=== PATIENT | male | born 1950 | race Caucasian/White ===

== ENCOUNTER 2024-08-23 02:28 | Inpatient (IN) | payer MEDICARE, OTHER, SELFPAY ==
[2024-08-22 22:53] VITALS: BMI 41.7
--- NOTE | 2024-08-22 22:55 | ED.GENMED ---
History of Present Illness
General
Chief Complaint: Change in Mental Status
Source: patient and ambulance crew
Exam Limitations: none
Time Seen by Provider: 08/22/24 22:54
History of Present Illness
History of Present Illness:
See MDM
Past History
Past History
ED Past Medical History: CAD, CHF, CVA, HTN, Hypercholesterolemia, NIDDM, Hypothyroidism and Other (BPH, urinary retention, gout, headaches, morbid obesity)
ED Past Surgical History: Cardiac (Coronary stents) and Other (Eye surgery)
Social History
Tobacco: Non-smoker
Alcohol: None
Drug: None
Personal: Other
Living: detention
Employment: Retired
Family History
Family History: Unable to obtain
Phy Exam
Physical Exam
Physical Exam:
See MDM
Course
Orders/Labs/Results
Orders:
Orders
08/22/24 22:51
Electrocardiogram (*1) Urgent
Reason for Study: Bradycardia / Tachycardia
Cardiac Monitoring- Treatment ONCE
08/22/24 22:52
EKG- Treatment ONCE
08/22/24 23:03
CMP [Comprehensive Metabolic Panel] Urgent
Complete Blood Count/With Diff Urgent
08/23/24 00:00
CT Head W/o Iv Contrast Urgent
Reason For Exam: change in mental status
08/23/24 00:25
Type+Screen Urgent
PT/INR [Prothrombin Time] Urgent
PTT Urgent
Pantoprazole 80 mg/100 ml Nss [Protonix] 80 mg in 100 ml IV NOW
Pantoprazole [Protonix IV] 80 mg IV NOW STA
08/23/24 00:26
IV Insert/Care/Rem.- Treatment PRN
08/23/24 00:31
0.9% Sodium Chloride 1000 ml [Nss] 1,000 ml IV BOLUS
Abnormal Lab Results
08/22/24
23:03
RBC 2.63 L 10^6/uL
(4.70-6.10)
Hgb 8.2 L g/dL
(13.0-18.0)
Hct 25.9 L %
(39.0-52.0)
MCV 98.5 H fL
(80.0-94.0)
MCH 31.2 H pg
(27.0-31.0)
MCHC 31.7 L g/dL
(33.0-37.0)
RDW 16.0 H %
(11.5-14.5)
Absolute Lymphs (auto) 1.1 L 10^3/uL
(1.2-3.4)
Immature Gran % 0.7 H %
(0-0.5)
Lymphocytes % 17.3 L %
(20.5-51.1)
Potassium 5.5 H mmol/L
(3.5-5.1)
Carbon Dioxide 18 L mmol/L
(22-30)
BUN 116 H* mg/dl
(9-20)
Creatinine 2.0 H mg/dL
(0.7-1.3)
AST 135 H U/L
(17-59)
ALT 186 H U/L
(0-50)
Alkaline Phosphatase 143 H U/L
(38-126)
Total Protein 5.5 L g/dl
(6.3-8.2)
Albumin 3.2 L g/dl
(3.5-5.0)
08/22/24 23:03
08/22/24 23:03
Vital Signs
Initial and Last Documented VS:
Initial Vital Signs
Pulse Resp Pulse Ox
60 15 97
08/22/24 22:53 08/22/24 22:53 08/22/24 22:53
Last Documented Vital Signs
Temp Pulse Resp BP Pulse Ox
92.0 F L 60 15 100/74 97
08/22/24 23:15 08/22/24 22:53 08/22/24 22:53 08/22/24 23:00 08/22/24 22:53
MDM/Problems Addressed
Differential Diagnosis Includes:
HPI and MDM Narrative:
73-year-old male presenting by EMS for evaluation of altered mental status. Per EMS, [facility] noted that he was confused around 2 PM. They eventually called 911. They had mentioned that the patient continues to repeat himself. On arrival,
patient answering all questions appropriately. He intermittently says random words and repeats himself. However, when asked a question, he is redirectable and stops repeating himself and answer the question appropriately. EMS stated that patient
was found to be bradycardic and they gave a dose of atropine. Patient denies palpitations, shortness of breath or chest pain. He denies headaches. Patient has an indwelling Villarreal
Physical exam
General: Sitting in bed comfortably
HEENT: protecting airway. Dry mucous membranes
Neck: supple
CV: No evidence of cyanosis. Bradycardic
Resp: No accessory muscle use
Abd: Non-distended
Extremities: No deformities
Neuro: alert. No focal deficits. Answering questions appropriately. Intermittently says random words and repeats himself
Psych: Normal affect
Skin: Intact
Problems Addressed including Acute and Chronic Conditions affecting care:
1. Altered mental status
Acuity: acute
Prognosis: stable
Details: Patient has a bizarre exam. He intermittently repeats himself but is directable and answers questions appropriately. There is no focal neurodeficits. Will obtain CT head and basic blood work and EKG
2. Upper GI bleed
Acuity: acute
Prognosis: unstable
Details: Patient started on PPI bolus and drip.
3. Hypothermia
Acuity: acute
Prognosis: unstable
Details: Patient placed on Bonita hugger
Updates
12:26 AM patient found to be hypothermic. Patient found to have black stool that is Hemoccult positive. He is anemic but not far from baseline. Patient started on PPI bolus and drip
Differential Diagnosis (but not limited to): CVA, hyponatremia, bradycardia
Testing considered: Urinalysis but patient has chronic indwelling Villarrael and is likely colonized
Drug therapy (if applicable): OTC meds, please see d/c instruction regarding Rx drugs
Amount and/or Complexity of Data Reviewed
Clinical info obtained from: Patient
External data reviewed: N/A
Labs I independently reviewed (but not limited to): Anemia, elevated BUN, elevated creatinine
Radiology: The CT scan was personally and independently reviewed. In addition, official CT report reviewed.
Pulse Ox: not hypoxic
EKG independently reviewed: Junctional rhythm, normal axis, no STEMI, low voltage
Bd Special Education Teacher: Bradycardic
Critical Care: The high probability of a clinically significant, sudden or life threatening deterioration of the gastrointestinal system(s) required my full and direct attention, intervention and personal management. The aggregate critical care time
was 35 minutes. This time is in addition to time spent performing reported procedures but includes the following:
[x] Data Review and interpretation
[x] Patient assessment and monitoring of vital signs
[x] Documentation
[x] Medication orders and management
Risk of Complication:
Social Determinants of health: Good social support
Discussed with other providers: Hospitalist
Escalation of Care includes Admit/Obs: Given the hypothermia with confusion and concern for upper GI bleeding, will admit
Occasional wrong word or 'sound a like' substitutions may have occurred due to the inherent limitations of voice recognition software. Read the chart carefully and recognize, using context, where substitutions have occurred.
*Critical Care Note
Total Time (30-74mins, 75-104mins- exclusive of procedures): 35 min
ED Attending Note
-
Portions of this chart may have been created with voice recognition software.� Occasional wrong word or��sound alike� substitutions may have occurred due to the inherent limitations of voice recognition software.
Discharge Plan
Departure
Patient Disposition: Admit
Date of Disposition: 08/23/24
Time of Disposition: 00:36
Admit to: IMU
Presentation/result/management discussed w/ accepting MD/DO: Hospitalist
Discharge Problem:
UGIB (upper gastrointestinal bleed), Hypothermia, Acute dehydration
Prescriptions:
No Action
atorvastatin 40 MG tablet
60 mg PO QPM
metformin 500 MG tablet
500 mg PO BID
levothyroxine 175 MCG tablet
175 mcg PO DAILY
acetaminophen 325 MG tablet
650 mg PO Q6HPRN PRN (Reason: fever)
sennosides-docusate sodium 1 TABLET tablet
1 tab PO Q12
dextrose [Glucose Gel] 15 GM gel
15 gm PO PRN PRN (Reason: hypoglycemia)
miconazole nitrate [Miconazorb AF] 1 APPLIC powder
1 applic topical BID
Patient Comments:
Apply to ABD, FOLDS/Groin
aspirin 81 MG tablet,delayed release (DR/EC)
81 mg PO DAILY
acetaminophen 650 MG tablet extended release
650 mg PO BID
Patient Comments:
Do not exceed 1300 mg in 24 hours
magnesium hydroxide [Milk of Magnesia] 400 MG/5 ML suspension
30 ml PO DAILY PRN (Reason: if no bm on 3rd day)
tamsulosin [Flomax] 0.4 MG capsule
0.4 mg PO QPM
amlodipine 10 MG tablet
5 mg PO DAILY
bisacodyl 10 MG suppository
10 mg IN DAILYPRN PRN (Reason: if no bm aftr mom)
Enema 135 ML enema
118 ml RC DAILYPRN PRN (Reason: if no bm aftr dulcolax)
bumetanide 1 MG tablet
1 mg PO BID
allopurinol 300 MG tablet
300 mg PO DAILY
lisinopril 2.5 MG tablet
2.5 mg PO DAILY
finasteride 5 MG tablet
5 mg PO DAILY
metoprolol tartrate 25 MG tablet
25 mg PO BID
Glucagon (HCl) Emergency Kit 1 MG recon soln
1 mg IJ PRN PRN (Reason: hypoglycemia)
levofloxacin 500 mg tablet
500 mg PO DAILY 7 Days Qty: 7 0RF
lidocaine HCl 2 % Jelly
1 applic TOPICAL MONTHLY PRN (Reason: 15ml urethral anesthesia)
ferrous sulfate 325 mg (65 mg iron) Tablet
325 mg PO DAILY
calcium carbonate [Tums] 200 mg calcium (500 mg) Tablet,Chewable
400 mg PO Q8HPRN PRN (Reason: gerd)
docusate sodium [Colace] 100 mg Capsule
100 mg PO BID
potassium chloride 20 mEq Tablet Extended Release
20 meq PO DAILY
magnesium oxide 400 mg magnesium Tablet
400 mg PO DAILY
cephalexin 500 mg capsule
500 mg PO BID 7 Days Qty: 14 0RF
mupirocin 2 % ointment
1 applic topical TID Qty: 15 2RF
Rx Instructions:
Retract skin around penis,cleanse with 1/2 strength peroxide and water 3 times daily. Dry well, apply mupirocin ointment.
Referrals:
Mathew Tejeda, DO [Family Provider] -
Interventions
Interventions:
*Risk Screen - Suicide Last Done: 08/22/24 22:53
*General Assessment Last Done: 08/22/24 22:53
*Neglect/Abuse Screening Last Done: 08/22/24 22:53
ED- Fall Risk Assessment Last Done: 08/22/24 23:40
*ED COVID-19 Vaccine History Last Done: 08/22/24 22:53
ED- Pulmonary Assessment Last Done: 08/22/24 23:40
ED- Neurological Assessment Last Done: 08/22/24 23:40
ED- Cardiac Assessment Last Done: 08/22/24 23:40
Discharge Date and Time
Print Language: [place]
[2024-08-22 23:00] VITALS: BP 100/74
[2024-08-22 23:13] LABS: % Basophils 0.5 % (0-2); % Eosinophils 2.3 % (0-6); % Immature Granulocytes 0.7 % (0-0.5); % Lymphocytes 17.3 % (20.5-51.1); % Monocytes 4.9 % (1.7-9.3); % Neutrophils 74.3 % (42.2-75.2); Absolute Eosinophils 0.1 10^3/uL (0-0.7); Absolute Lymphocytes 1.1 10^3/uL (1.2-3.4); Absolute Monocytes 0.3 10^3/uL (0.1-0.6); Absolute Neutrophils 4.5 10^3/uL (1.4-6.5); Hematocrit 25.9 % (39.0-52.0); Hemoglobin 8.2 g/dL (13.0-18.0); Mean Corp Hgb Conc. 31.7 g/dL (33.0-37.0); Mean Corpuscular Hgb 31.2 pg (27.0-31.0); Mean Corpuscular Volume 98.5 fL (80.0-94.0); Nucleated Red Blood Cells % 0 % (-); Red Blood Cell Count 2.63 10^6/uL (4.70-6.10); White Blood Cell Count 6.1 10^3/uL (4.8-10.8)
[2024-08-22 23:55] LABS: ALT (SGPT) 186 U/L (0-50); AST (SGOT) 135 U/L (17-59); Albumin 3.2 g/dl (3.5-5.0); Alkaline Phosphatase 143 U/L (38-126); Blood Urea Nitrogen 116 mg/dl (9-20); Calcium 8.7 mg/dl (8.4-10.2); Carbon Dioxide 18 mmol/L (22-30); Chloride 106 mmol/L (98-107); Estimated Creatinine Clearance 36 ml/min; Glucose 97 mg/dl (70-99); Potassium 5.5 mmol/L (3.5-5.1); Sodium 135 mmol/L (135-145); Total Bilirubin 0.2 mg/dl (0.2-1.3); Total Protein 5.5 g/dl (6.3-8.2); eGFR 34.38
[2024-08-23] VITALS (28 sets, daily range): BP systolic 90–148; BP diastolic 39–137; PULSE 2–66; BMI 40.3
--- NOTE | 2024-08-23 00:15 | EDRN ---
Rolled patient to get rectal temp was 92.0F and noticed dark stool, did do a Hemoccult and it was positive, informed Dr. travis of temp and stool findings, patient then transported to CT and back in room and placed on bear hugger.
[2024-08-23] MEDS: NSS 1000 IV (00:40)
[2024-08-23] MEDS: PROTONIX IV 80 MG IV (00:41)
[2024-08-23] MEDS: PROTONIX 100 IV ×3 (00:41→20:50)
[2024-08-23 00:43] LABS: Mean Platelet Volume 12.3 fL (7.4-10.4)
[2024-08-23 00:44] LABS: Anisocytosis 1+; Normal RBC Morphology No
[2024-08-23 00:47] LABS: Platelet Count 88 10^3/uL (130-400)
[2024-08-23 00:48] LABS: Burr Cells Occasional; Ovalocytes 1+; Target Cells 1+; Tear Drop Red Blood Cells Occasional
[2024-08-23 00:50] LABS: Acanthocytes 1+; Basophilic Stippling Occasional
[2024-08-23 00:55] LABS: INR 1.42; PT 17.6 Sec (11.4-14.6)
--- NOTE | 2024-08-23 01:27 | HPS.HSE ---
Family Physician
-
Family Physician: Mathew Tejeda, DO
Chief Complaint
-
Acute mental status change
History of Present Illness
This is a 73-year-old who has extensive past medical history including chronic urinary retention status post indwelling urinary catheter, hypothyroidism, sleep apnea, CAD, CVA, [id number] diabetes, unspecified heart failure and known
bradycardia who presents to the emergency department with episode of confusion.
According to the records the patient had urinary catheter exchange 3 days ago without any incident. He was otherwise in usual state of health up until today at around 2 PM when he started having a difference in behavior. He started saying random
words. He started saying he jumbled words. He did not have any dysarthria or aphasia however. He answers questions appropriately and follows appropriate commands. Then suddenly red and randomly sees this was. No other neurological deficits were
identified at the time. He was therefore sent to the emergency department for evaluation. According to the patient whose history is not very reliable he reports ongoing diarrhea, denied black stools, denied any nausea vomiting, denied fevers or
chills. He denies having any headache. He reports some neck pain but no neck stiffness. He has no known sick contacts. He endorsed chronic indwelling catheter which is consistent with history. He denies any cough, shortness of breath or dyspnea
on exertion. He does report a history of GI bleed in the remote past and is on omeprazole.
In the ED the patient was found to have melanotic stools. Rectal examination showed dark stools that was flagrantly heme positive
He had unstable vital signs in the ED, his temp was 92, blood pressure was 90/50 with a pulse of 50. Oxygen saturation was 100% on room air. ECG showed sinus bradycardia rate of 53 which is similar to prior. No ischemic changes. Hemoglobin was
8.2, platelet counts are down to 88. White count was normal at 6.1. His electrolytes BUN/creatinine is notable for a BUN of 116 and a creatinine of 2.0, baseline creatinine was 1.5 last year. Potassium was 5.5.
Head CT shows no acute changes.
Medical History
Past Medical History
Past Medical History: Reports CAD, CVA and NIDDM
Additional Past Medical History:
Urinary retention status post indwelling urinary catheter
CKD
Iron deficiency anemia
obstructive sleep apnea
Past Surgical History: Reports Other
Social History
Alcohol: None
Drug: None
Living: [facility]
Family History
Family History: Not pertinent
Allergies / Home Medications
Allergies reflects when Allergies were last updated in [employer].
Home Medications with original date entered in [employer]
Allergy/Medication List:
Allergies
Allergy/AdvReac Type Severity Reaction Status Date / Time
No Known Allergies Allergy Verified 08/22/24 23:00
Home Medications
acetaminophen 325 mg tablet 650 mg PO Q6HPRN PRN fever 08/23/20
acetaminophen 650 mg tablet,extended release 650 mg PO BID mild Pain 08/23/20
allopurinol 300 mg tablet 100 mg PO DAILY Gout 08/23/20
amlodipine 10 mg tablet 5 mg PO DAILY Blood pressure 08/23/20
aspirin 81 mg tablet,delayed release 81 mg PO DAILY Blood clot prevention/tx 08/23/20
atorvastatin 40 mg tablet 60 mg PO QPM High cholesterol 08/23/20
bisacodyl 10 mg rectal suppository 10 mg MN DAILYPRN PRN if no bm aftr mom 08/23/20
bumetanide 1 mg tablet 1 mg PO BID Fluid retention/Swelling 08/23/20
dextrose 40 % oral gel (Glucose Gel) 15 gm PO PRN PRN hypoglycemia 08/23/20
finasteride 5 mg tablet 5 mg PO DAILY Urinary issue 08/23/20
glucagon HCl 1 mg solution for injection (Glucagon (HCl) Emergency Kit) 1 mg IJ PRN PRN hypoglycemia 08/23/20
levothyroxine 175 mcg tablet 175 mcg PO DAILY Thyroid 08/23/20
lisinopril 2.5 mg tablet 2.5 mg PO DAILY Blood pressure 08/23/20
magnesium hydroxide 400 mg/5 mL oral suspension (Milk of Magnesia) 30 ml PO DAILY PRN if no bm on 3rd day 08/23/20
miconazole nitrate 2 % topical powder (Miconazorb AF) 1 applic topical BID folds/groin 08/23/20
sennosides 8.6 mg-docusate sodium 50 mg tablet 1 tab PO Q12 08/23/20
sodium phosphates 19 gram-7 gram/118 mL enema (Enema) 118 ml RC DAILYPRN PRN if no bm aftr dulcolax 08/23/20
tamsulosin 0.4 mg capsule (Flomax) 0.4 mg PO QPM Urinary issue 08/23/20
calcium carbonate (Tums) 400 mg PO Q8HPRN PRN gerd 07/04/22
docusate sodium 100 mg capsule (Colace) 100 mg PO BID 07/04/22
ferrous sulfate 325 mg (65 mg iron) tablet 325 mg PO DAILY 07/04/22
lidocaine HCl 2 % mucosal jelly 1 applic topical MONTHLY PRN 15ml urethral anesthesia 07/04/22
magnesium oxide 400 mg PO DAILY 07/04/22
potassium chloride 20 mEq tablet,extended release 20 meq PO DAILY 07/04/22
mupirocin 2 % topical ointment 1 applic topical TID #15 grams 06/15/23
apixaban 2.5 mg tablet (Eliquis) 2.5 mg PO BID 08/23/24
omeprazole 20 mg tablet,delayed release 20 mg PO DAILY 08/23/24
oxybutynin chloride 2.5 mg tablet 2.5 mg PO DAILY 08/23/24
Review of Systems
-
History Source: Patient and [facility]
Constitutional: Reports No Symptoms
EENT: Reports No Symptoms
Respiratory: Reports No Symptoms
Cardiac: Reports No Symptoms
Abdomen/GI: Reports Diarrhea
: Reports No Symptoms
Musculoskeletal: Reports No Symptoms
Skin: Reports No Symptoms
Neurological: Reports No Symptoms
Endocrine: Reports No Symptoms
Hematologic/Lymphatic: Reports No Symptoms
Psych: Reports No Symptoms
Physical Exam
Vital Signs
Vital Signs
Temp Pulse Resp BP Pulse Ox
92.0 F L 43 14 97/68 96
08/22/24 23:15 08/23/24 01:15 08/23/24 01:15 08/23/24 01:00 08/23/24 01:15
Physical Exam
General: No Apparent Distress and Morbidly Obese
HEENT: NormoCephalic, Anicteric, Moist mucous membranes, Atraumatic, PERRLA, No Ptosis and Neck Nontender
Respiratory: Clear
Cardiac: S1/S2, Bradycardia and Murmur
Breast: Deferred by me
GI: Soft, Non Tender, Non Distended and Normal Bowel Sounds
Rectal: Black and Hem Positive
Genito-urinary: Villarreal
Musculoskeletal: No Clubbing, No Cyanosis, Edema, Left Lower Extremity (trace ) and Edema, Right Lower Extremity (trace)
Skin: Dry
Neuro: AO x 3
Hematologic/Lymphatic: No Lymphadenopathy
Psych: Calm
Laboratory Results
-
08/22/24 23:03
08/22/24 23:03
Laboratory Results
PT 17.6 Sec (11.4-14.6) H 08/23/24 00:25
INR 1.42 08/23/24 00:25
APTT 48.0 Sec (23.4-35.0) H 08/23/24 00:25
Total Bilirubin 0.2 mg/dl (0.2-1.3) 08/22/24 23:03
AST 135 U/L (17-59) H 08/22/24 23:03
ALT 186 U/L (0-50) H 08/22/24 23:03
Alkaline Phosphatase 143 U/L (38-126) H 08/22/24 23:03
Data Reviewed
-
Medical Tests (Nuc Med, Echo, EKG etc): Image Personally Visualized and interpreted
Lab Data: Labs Reviewed by me
Old Records: Reviewed
Impression/Plan
-
IMPRESSION:
73-year-old male with past medical history of CAD, mbl-xushatu-eezzkdhsk diabetes, hypothyroidism, bradycardia, CKD and chronic urinary retention with indwelling Villarreal catheter presents to the emergency department with episode of mental status
change typified by normal alertness and orientation as well as answering questions appropriately but having intermittent episodes of speaking random was fluently, possible confabulation vs delusions. No known/prior episodes. Normal neurological
exam otherwise. Stable head CT. Refused chest xray. Was hypothermic to 92 and found to have melanotic stool in the ED. Hemoglobin is not far from baseline. However his BUN is markedly elevated at 116 with a creatinine of 2.0 with a baseline of
1.5. He has a low platelet count of 88 which is new compared to prior. White count is normal. Blood pressure is maintaining a MAP greater than 65 at this time.
PLAN:
1. GI bleed - Patient reports prior hx of GI bleed and on PPI. Melena, +heme and marked elevation of BUN to 116. On eliquis 2.5 bid for dvt ppx, has plt count of 88.
- admit to imu
- type and screen
- npo for now except sips and meds
- ppi iv bid
- h/h q 8
- transfuse for Hgb < 7
- holding asa, eliquis (on for dvt ppx)
- holding amlodipine and lisinopril
- GI consultated and notified
2. Hypothermia - Unexplained hypothermia, may be related to active hemorrhage versus secondary process. History of indwelling catheter with ESBL cultures in the past. Hypothyroidism
- blood cultures
- u/a pending, urine culture sent
- checking tsh and cortisol
- refused xray,
- check covid, procal in am
- give zosyn for now based on prior urine cultures and some transaminitis
- warming measures
- consider ID consult in am
3. Altered mental status - Oriented x 3, appropriate, no confusion. Intact neurological exam. Says random words, repititive and appears to have some delusions. No meningeal signs. Don't think encephalitis. Possible CVA,
- telemetry
- check ammonia level in addition to above
- no thinners due to concern for gi bleed
- keep MAP > 65
- neurology consultation
4. Transaminitis - normal bili, mild elevation in as/alt. Previously normal
- check ruq u/s
- trend lft for now
- zosyn as above
5. DM II
- not currently on treatment per records, accuchecks q6 for now
6. Bradycardia - appers to have sinus with 1s deg avb similar to a year ago.
- telemetry
- labs as above
- warming measures
- given duration unlikely due to new lyme infection
DVT PPX - SCD
Code Status - full
--- NOTE | 2024-08-23 01:45 | EDRN ---
Xray tried to do portable, patient refused this, admitting hospitalist aware, orders in for admission.
[2024-08-23 02:32] LABS: Urine Albumin Trace (Neg - Trace); Urine Bilirubin Negative (Negative); Urine Glucose Negative (Negative); Urine Ketone Negative (Negative); Urine Leukocyte 2+ (Negative); Urine Nitrite Negative (Negative); Urine Occult Blood 3+ (Negative); Urine Urobilinogen Negative (Neg - 1+)
[2024-08-23 02:34] LABS: Urine Character Cloudy (Clear); Urine Color Yellow
[2024-08-23 02:40] LABS: COVID-19 Antigen Negative (Negative)
[2024-08-23 03:08] LABS: Cortisol, Random 21.1 ug/dl; TSH Reflex To Free T4 6.51 uIU/ml (0.47-4.68)
[2024-08-23 03:09] LABS: Urine Mucus Many; Urine Squamous Cell >30 /LPF (Few)
[2024-08-23 03:10] LABS: Urine Bacteria Many (Negative); Urine White Cell >100 /HPF (0-5)
[2024-08-23 03:38] LABS: Free T4 1.68 ng/dl (0.78-2.19)
[2024-08-23] MEDS: ZOSYN 50 IV ×4 (04:31→23:15)
[2024-08-23] MEDS: SYNTHROID PO ×2 (04:32→06:03)
[2024-08-23] MEDS: LR 1000 IV ×2 (04:32→16:41)
[2024-08-23 04:52] LABS: Hematocrit 24.8 % (39.0-52.0); Hemoglobin 7.9 g/dL (13.0-18.0); Mean Corp Hgb Conc. 31.9 g/dL (33.0-37.0); Mean Corpuscular Hgb 30.5 pg (27.0-31.0); Mean Corpuscular Volume 95.8 fL (80.0-94.0); Mean Platelet Volume 12.6 fL (7.4-10.4); Platelet Count 101 10^3/uL (130-400); Red Blood Cell Count 2.59 10^6/uL (4.70-6.10); Red Cell Dist. Width 15.8 % (11.5-14.5); White Blood Cell Count 6.8 10^3/uL (4.8-10.8)
[2024-08-23 04:53] LABS: INR 1.38; PT 17.3 Sec (11.4-14.6)
--- NOTE | 2024-08-23 05:00 | PTCARENOTE ---
pt is aaox3, but forgetful and off. HR =40's. he has chronic Villarreal. cool weak pedal pulses. pt is from [facility] and is bedbound at baseline. pt temp=96.5. pt on warming blanket. pt refused portable cxr.
[2024-08-23 05:02] LABS: Lactic Acid 0.9 mmol/L (0.7-2.0)
[2024-08-23 05:02] LABS: Ammonia 11 umol/L (9-30)
[2024-08-23 05:06] LABS: Blood Urea Nitrogen 110 mg/dl (9-20); Calcium 8.6 mg/dl (8.4-10.2); Carbon Dioxide 19 mmol/L (22-30); Chloride 108 mmol/L (98-107); Estimated Creatinine Clearance 34 ml/min; Glucose 80 mg/dl (70-99); HDL Cholesterol 44 mg/dl; LDL Cholesterol, Calculated 37 mg/dl; Potassium 5.8 mmol/L (3.5-5.1); Sodium 140 mmol/L (135-145); Total Cholesterol 97 mg/dl (50-199); Triglyceride 83 mg/dl (10-149); Very Low Density Lipoprotein 16 mg/dl (0-30); eGFR 32.42
[2024-08-23 07:34] LABS: Glucose - Point of Care 76 mg/dl (70-99)
[2024-08-23] MEDS: PROSCAR 5 MG PO (08:36)
[2024-08-23] MEDS: DITROPAN 2.5 MG PO (08:37)
--- NOTE | 2024-08-23 09:28 | W.PN.HOSP.TC ---
Today's Communication/Plan
-
check ABG
trend LFts and H&H
cancel neuro consult
consider pulm or renal consult
Assessment / Plan
Assessment / Plan
pt is a 73 year old male
Altered mental status -Says random words, repetitive and appears to have some delusions. No meningeal signs. Don't think encephalitis--suspect due to infection, azotemia (elevated BUN)--ammonia WNL--head CT neg--hold on neuro consult for now, need
to correct all underlying metabolic abnormalities prior to consult neuro
anemia of chronic disease with possible acute blood loss anemia from GI bleeding - Patient reports prior hx of GI bleed and on PPI--was found to be heme positive in ED--nursing reports no bleeding here-- On eliquis 2.5 bid for dvt ppx--hold for
now--trend H&H, transfuse if HGB < 7--hold ASA with low platelet count--await GI input
Hypothermia with metabolic acidosis-- could be due to infection (has chronic craig)--cortisol checked and WNL, TSH mildly elevated at 6.5--await cultures--urine not clean catch with > 30 sq cells (although it is documented that craig changed 3 days
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
LEE/metabolic acidosis-- both BUN and creat increased, bicarb decreased--check ABG
Transaminitis - normal bili, mild elevation in as/alt. Previously normal--suspect due to infection--await abdominal US--trend--cont zosyn
type 2 DM--not currently on treatment per records, accuchecks q6 for now
Bradycardia - appers to have sinus with 1st deg AVB similar to a year ago--consider cards eval
DVT PPX - SCD
Code Status - full
Anticipated Discharge: > 48 hours
Subjective/Interval History
-
Date of Service: August 23, 2024
pt still confused--slow to respond, cannot carry conversation
Objective Data
-
Labs:
Laboratory Results
08/22/24 08/23/24 08/23/24
23:03 00:25 04:23
WBC 6.1 6.8
Hgb 8.2 L 7.9 L
Hct 25.9 L 24.8 L
Plt Count 88 L 101 L
PT 17.6 H 17.3 H
INR 1.42 1.38
APTT 48.0 H
Sodium 135 140
Potassium 5.5 H 5.8 H
Chloride 106 108 H
Carbon Dioxide 18 L 19 L
BUN 116 H* 110 H*
Creatinine 2.0 H 2.1 H
Glucose 97 80
Calcium 8.7 8.6
Total Bilirubin 0.2
AST 135 H
ALT 186 H
Alkaline Phosphatase 143 H
08/23/24
14:00
WBC
Hgb Pending
Hct Pending
Plt Count
PT
INR
APTT
Sodium
Potassium
Chloride
Carbon Dioxide
BUN
Creatinine
Glucose
Calcium
Total Bilirubin
AST
ALT
Alkaline Phosphatase
Vital Signs:
max temp for 24 hours
08/23/24
07:00
Temp 98.5 F
Vital Signs
Temp Pulse Resp BP Pulse Ox
98.5 F 45 18 103/55 97
08/23/24 08:39 08/23/24 08:30 08/23/24 08:30 08/23/24 08:00 08/23/24 08:30
I&O
08/22/24 08/23/24 08/24/24
06:59 06:59 06:59
Output Total 400 / 400
Balance -400 / -400
Review of Systems
-
Unable to obtain full review of systems at this time due to: Acuity (still confused)
Physical Exam
-
General: Well Developed, Well Nourished, No Apparent Distress and Morbidly Obese
HEENT: Normocephalic and Atraumatic; Negative Oxygen
Respiratory: Clear to Auscultation; Negative Wheezes or Rhonchi
Cardiac: Regular Rhythm, S1/S2 and Murmur
GI: Soft, Nontender, Nondistended and Normal Bowel Sounds
Musculoskeletal: No Clubbing, No Cyanosis and No Edema
Neuro: Awake and Other (confused)
Psych: Other (confused)
[2024-08-23 10:28] LABS: B.E. -5.5 mmol/L; O2 Saturation % 98.4 % (94-98); PCO2 38 mmHg (35-48); PO2 96 mmHg (83-108); pH 7.33 (7.35-7.45)
--- NOTE | 2024-08-23 10:36 | CON.GI ---
Consultation
-
Date/Time Consultation Requested: 08/23/2024 345
Date/Time Consultation Performed: 08/23/2024 930
Requesting Provider: Dr Fernandez
Performing Provider: Dr Joseph
Reason for Consultation: melena
Medical History
Chief Complaint / HPI
Chief Complaint: confusion
History of Present Illness:
Hermilo is a 73yo M rehab bedbound resident with h/o EMANUEL, CVA and DM who presents for confusion. GI consulted when he was found to have dark stools. He denies h/o GIB in past but per H&P there was a remote history. He denies nsaid use but is on
eliquis last dose 08/22 AM. He generally has some constipation and wears depends. He denies odynophagia, dysphagia, nausea/vomiting, abd pain. He does report poor appetite and 90lb wt loss in the past year. He does have chronic craig catheter.
Denies CP or SOB. He is not aware if he's ever had EGD/colon in the past
Past Medical History
Past Medical History: NIDDM and Other (CAD, CVA, CKD, ROLA, EMANUEL, urinary retention craig depending)
Past Surgical History: Other (L finger surgery)
Social History
Tobacco: Former Smoker
Alcohol: None
Drug: None
Living: Half-Way ([facility] for past 5yrs)
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
Family History
Family History: Other (Denies any GI cancer history)
Allergies / Home Medications
Allergy/AdvReac Type Severity Reaction Status Date / Time
No Known Allergies Allergy Verified 08/22/24 23:00
�Medication �Instructions �Recorded
acetaminophen 325 mg tablet 650 mg PO Q6HPRN PRN fever 08/23/20
acetaminophen 650 mg 650 mg PO BID mild Pain 08/23/20
tablet,extended release
allopurinol 300 mg tablet 100 mg PO DAILY Gout 08/23/20
amlodipine 10 mg tablet 5 mg PO DAILY Blood pressure 08/23/20
aspirin 81 mg tablet,delayed 81 mg PO DAILY Blood clot 08/23/20
release prevention/tx
atorvastatin 40 mg tablet 60 mg PO QPM High cholesterol 08/23/20
bisacodyl 10 mg rectal suppository 10 mg ID DAILYPRN PRN if no bm 08/23/20
aftr mom
bumetanide 1 mg tablet 1 mg PO BID Fluid 08/23/20
retention/Swelling
dextrose 40 % oral gel (Glucose 15 gm PO PRN PRN hypoglycemia 08/23/20
Gel)
finasteride 5 mg tablet 5 mg PO DAILY Urinary issue 08/23/20
glucagon HCl 1 mg solution for 1 mg IJ PRN PRN hypoglycemia 08/23/20
injection (Glucagon (HCl)
Emergency Kit)
levothyroxine 175 mcg tablet 175 mcg PO DAILY Thyroid 08/23/20
lisinopril 2.5 mg tablet 2.5 mg PO DAILY Blood pressure 08/23/20
magnesium hydroxide 400 mg/5 mL 30 ml PO DAILY PRN if no bm on 3rd 08/23/20
oral suspension (Milk of Magnesia) day
miconazole nitrate 2 % topical 1 applic topical BID folds/groin 08/23/20
powder (Miconazorb AF)
sennosides 8.6 mg-docusate sodium 1 tab PO Q12 08/23/20
50 mg tablet
sodium phosphates 19 gram-7 118 ml RC DAILYPRN PRN if no bm 08/23/20
gram/118 mL enema (Enema) aftr dulcolax
tamsulosin 0.4 mg capsule (Flomax) 0.4 mg PO QPM Urinary issue 08/23/20
calcium carbonate (Tums) 400 mg PO Q8HPRN PRN gerd 07/04/22
docusate sodium 100 mg capsule 100 mg PO BID 07/04/22
(Colace)
ferrous sulfate 325 mg (65 mg 325 mg PO DAILY 07/04/22
iron) tablet
lidocaine HCl 2 % mucosal jelly 1 applic topical MONTHLY PRN 15ml 07/04/22
urethral anesthesia
magnesium oxide 400 mg PO DAILY 07/04/22
potassium chloride 20 mEq 20 meq PO DAILY 07/04/22
tablet,extended release
mupirocin 2 % topical ointment 1 applic topical TID #15 grams 06/15/23
apixaban 2.5 mg tablet (Eliquis) 2.5 mg PO BID 08/23/24
omeprazole 20 mg tablet,delayed 20 mg PO DAILY 08/23/24
release
oxybutynin chloride 2.5 mg tablet 2.5 mg PO DAILY 08/23/24
Review of Systems
-
All other systems: A 12 pt ROS was Negative except as stated above in HPI
Vital Signs
Temp Pulse Resp BP Pulse Ox
98.5 F 46 11 112/47 97
08/23/24 08:39 08/23/24 09:41 08/23/24 09:41 08/23/24 09:41 08/23/24 09:41
Physical Exam
Exam
GEN: No acute distress, conversant, pleasant
HEENT: anicteric, extraocular movements intact, clear oropharynx without exudates
GI: soft, extremely obese and mildly-distended, not tender to palpation, normal active bowel sounds, no hepatosplenomegaly
EXT: warm, well perfused, 2+ edema bilaterally
NEURO: AAOx3, non-focal bedbound
Results
WBC 6.8 10^3/uL (4.8-10.8) 08/23/24 04:23
Hgb 7.9 g/dL (13.0-18.0) L 08/23/24 04:23
Hct 24.8 % (39.0-52.0) L 08/23/24 04:23
MCV 95.8 fL (80.0-94.0) H 08/23/24 04:23
Plt Count 101 10^3/uL (130-400) L 08/23/24 04:23
Absolute Neuts (auto) 4.5 10^3/uL (1.4-6.5) 08/22/24 23:03
PT 17.3 Sec (11.4-14.6) H 08/23/24 04:23
INR 1.38 08/23/24 04:23
APTT 48.0 Sec (23.4-35.0) H 08/23/24 00:25
Sodium 140 mmol/L (135-145) 08/23/24 04:23
Potassium 5.8 mmol/L (3.5-5.1) H 08/23/24 04:23
Chloride 108 mmol/L (98-107) H 08/23/24 04:23
Carbon Dioxide 19 mmol/L (22-30) L 08/23/24 04:23
BUN 110 mg/dl (9-20) H* 08/23/24 04:23
Creatinine 2.1 mg/dL (0.7-1.3) H 08/23/24 04:23
Calcium 8.6 mg/dl (8.4-10.2) 08/23/24 04:23
Total Bilirubin 0.2 mg/dl (0.2-1.3) 08/22/24 23:03
AST 135 U/L (17-59) H 08/22/24 23:03
ALT 186 U/L (0-50) H 08/22/24 23:03
Alkaline Phosphatase 143 U/L (38-126) H 08/22/24 23:03
Diagnostic Image Results:
Abd US: 1. Cholelithiasis without sonographic evidence for acute cholecystitis.
2. Small right pleural effusion.
Prior GI Procedures:
EGD/Colonoscopy: none prior to his knowledge
Assessment / Plan
-
Hermilo is a 73yo M bedbound at [facility] with h/o chronic craig, EMANUEL, CAD and CVA who presents for confusion. GI consulted for melena and h/o iron def anemia. He is on eliquis with last dose 08/22 AM
Impression
- Melena with iron def anemia
ddx includes PUD, ectasia, polyp/occult malignancy
- Confusion
- + UA
- Chronic craig with urinary retention
- CKD
- EMANUEL
- CAD
- CVA
Recommendations
- C/w protonix gtt
- Serial H/H
- Large bore IV
- C/w abx and await UC results
- Add on iron panel
- Anticipate EGD after eliquis washout anticipate Saturday 08/25 given CKD
- Will follow with you
Data Reviewed
-
Ultrasound: Report Reviewed by me
-
-
Thank you for consultation and allowing me to participate in the patient's care. Please call the styrene dehydration reactor operator GI physician during the after hours with any questions or concerns.
[2024-08-23 11:28] LABS: Hematocrit 23.7 % (39.0-52.0); Hemoglobin 7.7 g/dL (13.0-18.0)
[2024-08-23 11:55] LABS: Glucose - Point of Care 72 mg/dl (70-99)
--- NOTE | 2024-08-23 11:58 | PTOTSP ---
Speech therapy
Presentation: Patient is from [facility] so patient has a southern accent at baseline which makes it slightly difficult to differentiate a southern accent vs dyarthria. However, patient's speech appeared to be intelligible with intermittent
moments of difficulty, slow in formulation, intermittent perseverations, and word-finding (possible expressive aphasia) difficulty. Patient was able to hold a conversation but his speech impairments did appear to be difficult for patient to
communicate his thoughts freely during conversation. Patient was fully oriented but did appear to be confused.
TUBE SKIVER performed oral care on patient and he presented with a coating on his dentition prior to assessment. Patient appeared to tolerate oral care without suctioning and was able to hold, swish, and expell the thin liquid after oral care was completed.
Patient's dentition improved and was WNL.
Swallowing Function: Patient was observed with several small, single straw sips of thin liquids (clear) in which patient appeared to tolerated as he did not exhibit any overt clinical s/sx of aspiration or difficulty with manipulation. No additional
boluses were trialed due to patient's diet order and current GI workup. Patient denied any dysphagia complaints.
Per RN, patient tolerated medications whole with thin liquids.
Recommendations:
1) continuation of clear liquid diet (advance as tolerated per GI and clinical presentation)
2) aspiration precautions
3) medications as tolerated
4) consideration of further speech and language assessment
Plan: TUBE SKIVER will continue to follow; pending hospitalization.
[2024-08-23 12:19] LABS: Iron 89 ug/dl (49-181)
[2024-08-23 12:31] LABS: Folate 3.6 ng/ml (2.76-20); Vitamin B12 > 1000 pg/ml (239-931)
[2024-08-23 12:32] LABS: Percent Saturation 39 % (20-50); Total Iron Binding Capacity 226 ug/dl (261-462)
--- NOTE | 2024-08-23 12:53 | PTOTSP ---
Received order for PT and reviewed chart and old record. Pt is from [facility] wherer he has been nonambulatory for years. Pt has no acute PT needs/goals. Nursing staff could use Tiffany lift for safer transfers. PT will sign off.
--- NOTE | 2024-08-23 14:37 | PTCARENOTE ---
I spoke with patient's POALeón over the phone. León was updated per RN ability. León would like a daily update and wanted to be called. I advised the staff will do their best but he can also call us for an update and phone number was
given for nurses station. made aware.
--- NOTE | 2024-08-23 15:15 | CHAP ---
Mr. Mills was welcoming - he was confused, but has good will in his heart. 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 Dany HOLLOWAY, called during the visit and spoke with Hermilo's RN. Hermilo welcomed prayer. Emotional and spiritual support
provided, along with assurance of our on-going availability.
--- NOTE | 2024-08-23 15:16 | CM ---
Patient seen at bedside. Patient is LTC at [facility]. CM will call to leave message about prior level of functioning. CM will continue to follow for discharge planning needs.
Plan; return to [facility].
[2024-08-23] MEDS: FLOMAX 0.4 MG PO (16:42)
[2024-08-23 16:52] LABS: Glucose - Point of Care 113 mg/dl (70-99)
[2024-08-23 18:04] LABS: Hematocrit 24.2 % (39.0-52.0); Hemoglobin 7.8 g/dL (13.0-18.0)
[2024-08-23] MEDS: DESENEX/MITRAZOL/ZEASORB 1 APPLIC TOPICAL (23:14)
[2024-08-24] VITALS (12 sets, daily range): BP systolic 96–122; BP diastolic 39–71; PULSE 2–71; BMI 40.3
[2024-08-24 00:07] LABS: Glucose - Point of Care 80 mg/dl (70-99)
[2024-08-24 02:28] LABS: Hematocrit 25.4 % (39.0-52.0); Hemoglobin 8.1 g/dL (13.0-18.0)
--- NOTE | 2024-08-24 02:39 | PTCARENOTE ---
Addendum entered by Nedra Morrison RN 08/24/24 03:29:
Pt removed BiPAP. Currently 95% on room air.
Original Note:
Received report from mane ALVA. Pt AAOx3, confused at times. Pt appears anxious, explained everything I was doing to ease him. Pt NS with BBB first degree and prolonged QT on tele. Pt wearing BiPAP HS, and is tolerating. IV abx cont. IV protonix
gtt and IV fluids. Sacral foam changed and dressing is clean dry and intact. Partial cloth bath. Pt brushed teeth with assistance. MASD noted to left underarms, Desenex ordered and applied. Pt educated on how to use call evangelista and is receptive. Pt
appears to be resting comfortably in bed, and being turned and repositioned Q2 hours. Call evangelista is within reach.
[2024-08-24] MEDS: ZOSYN 50 IV ×4 (04:15→23:16)
[2024-08-24] MEDS: SYNTHROID 175 MCG PO (06:04)
[2024-08-24 06:49] LABS: Hematocrit 24.9 % (39.0-52.0); Hemoglobin 8.3 g/dL (13.0-18.0); Mean Corp Hgb Conc. 33.3 g/dL (33.0-37.0); Mean Corpuscular Hgb 31.6 pg (27.0-31.0); Mean Corpuscular Volume 94.7 fL (80.0-94.0); Mean Platelet Volume 12.9 fL (7.4-10.4); Platelet Count 112 10^3/uL (130-400); Red Blood Cell Count 2.63 10^6/uL (4.70-6.10); Red Cell Dist. Width 15.4 % (11.5-14.5); White Blood Cell Count 6.5 10^3/uL (4.8-10.8)
[2024-08-24] MEDS: LR 1000 IV ×2 (06:51→19:50)
[2024-08-24] MEDS: PROTONIX 100 IV ×2 (06:53→16:29)
[2024-08-24 07:14] LABS: ALT (SGPT) 129 U/L (0-50); AST (SGOT) 66 U/L (17-59); Alkaline Phosphatase 127 U/L (38-126); Blood Urea Nitrogen 98 mg/dl (9-20); Calcium 8.7 mg/dl (8.4-10.2); Carbon Dioxide 21 mmol/L (22-30); Chloride 110 mmol/L (98-107); Estimated Creatinine Clearance 34 ml/min; Glucose 73 mg/dl (70-99); Potassium 5.3 mmol/L (3.5-5.1); Sodium 142 mmol/L (135-145); Total Bilirubin 0.4 mg/dl (0.2-1.3); Total Protein 5.5 g/dl (6.3-8.2); eGFR 32.42
--- NOTE | 2024-08-24 09:26 | W.PN.HOSP.TC ---
Today's Communication/Plan
-
Continue current management
To consider nephro consult if labs do not improve
Assessment / Plan
Assessment / Plan
73-year-old who has extensive past medical history including chronic urinary retention status post indwelling urinary catheter, hypothyroidism, sleep apnea, CAD, CVA, [id number] diabetes, unspecified heart failure and known bradycardia
who presents to the emergency department with episode of confusion.
#Altered mental status -Says random words, repetitive and appears to have some delusions. No meningeal signs.
-Don't think encephalitis;suspect due to infection, azotemia (elevated BUN)
-ammonia WNL
-head CT neg
-hold on neuro consult for now, need to correct all underlying metabolic abnormalities prior to consult neuro
-continue current antibiotic; urine culture positive for Pseudomonas
#Anemia of chronic disease with possible acute blood loss anemia from GI bleeding
-Patient with prior hx of GI bleed and on PPI
-was found to be heme positive in ED
-nursing reports no bleeding here
-On eliquis 2.5 bid for dvt ppx--hold for now
-trend H&H, transfuse if HGB < 7
-hold ASA with low platelet count
-Appreciate GI input;Anticipate EGD after eliquis washout anticipate Saturday 08/25 given CKD
#Hypothermia with metabolic acidosis
-could be due to infection (has chronic craig)
-cortisol checked and WNL, TSH mildly elevated at 6.5
-BC: NGTD
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
-Urine culture positive for Pseudomonas aeruginosa-cont zosyn
-covid neg, did not check flu
-procalcitonin negative
#LEE/metabolic acidosis
-both BUN and creat increased, bicarb decreased
-Monitor for 24 hours; consider nephro consult
#Transaminitis
- normal bili, mild elevation in as/alt. : improved since 08/22
- US: Cholelithiasis without sonographic evidence for acute cholecystitis.
#Type 2 DM--not currently on treatment per records, accuchecks q6 for now
#Bradycardia
-appers to have sinus with 1st deg AVB similar to a year ago
-consider cards eval
# neck pain
- order prn tylenol
DVT PPX - SCD
Code Status - full
Anticipated Discharge: 24 - 48 hours
Subjective/Interval History
-
Date of Service: August 24, 2024
Interval events: No new complaints
Objective Data
-
Labs:
Laboratory Results
08/24/24 08/24/24
02:20 06:18
WBC 6.5
Hgb 8.1 L 8.3 L
Hct 25.4 L 24.9 L
Plt Count 112 L
Sodium 142
Potassium 5.3 H
Chloride 110 H
Carbon Dioxide 21 L
BUN 98 H
Creatinine 2.1 H
Glucose 73
Calcium 8.7
Total Bilirubin 0.4
AST 66 H
ALT 129 H
Alkaline Phosphatase 127 H
Vital Signs:
Vital Signs
Temp Pulse Resp BP Pulse Ox
96.3 F L 73 17 98/57 96
08/24/24 07:10 08/24/24 07:00 08/24/24 07:00 08/24/24 06:00 08/24/24 07:00
I&O
08/23/24 08/24/24 08/25/24
06:59 06:59 06:59
Intake Total 2285 / 2285
Output Total 400 / 400 2075 / 2075 200 / 200
Balance -400 / -400 210 / 210 -200 / -200
Review of Systems
-
Unable to obtain full review of systems at this time due to: Other (Altered mental status; denies any pain or discomfort)
Physical Exam
-
General: Well Developed, Well Nourished, No Apparent Distress and Morbidly Obese
HEENT: Normocephalic and Atraumatic; Negative Oxygen
Respiratory: Clear to Auscultation; Negative Wheezes or Rhonchi
Cardiac: Regular Rhythm and S1/S2
GI: Soft, Nontender, Nondistended and Normal Bowel Sounds
Musculoskeletal: No Clubbing, No Cyanosis and No Edema
Neuro: Awake and Other (confused)
Psych: Other (confused)
Data Reviewed
-
Labs: Labs Reviewed by me, Discussed with Physician and Discussed with Patient
[2024-08-24 09:30] LABS: Glucose - Point of Care 73 mg/dl (70-99)
[2024-08-24] MEDS: DITROPAN 2.5 MG PO (10:32)
[2024-08-24] MEDS: PROSCAR 5 MG PO (10:32)
[2024-08-24] MEDS: DESENEX/MITRAZOL/ZEASORB 1 APPLIC TOPICAL ×2 (10:33→21:30)
[2024-08-24 11:17] LABS: Glycohemoglobin (HgbA1c) 5.6 % (4.0-5.6)
[2024-08-24 13:42] LABS: Glucose - Point of Care 65 mg/dl (70-99)
[2024-08-24 15:03] LABS: Glucose - Point of Care 107 mg/dl (70-99)
--- NOTE | 2024-08-24 15:40 | PTCARENOTE ---
Pt hypoglycemic with result of 65 at 1325. Juice given per protocol. Sugar not rechecked until 1452 with result of 107.
--- NOTE | 2024-08-24 15:44 | PTCARENOTE ---
Pt presents as assessed. Aox3, yet confused. NSR on tele monitor. Satting mid to high 90's on RA. Villarreal draining yellow urine. IVF and Prontonix infusing as ordered. Bed alarm in place for safety. Able to make needs known, call evangelista within reach.
--- NOTE | 2024-08-24 15:56 | W.PN.GI.CBS2 ---
Today's Communication / Plan
-
NPO at [place] for EGD tomorrow
Protonix change to 40mg IV BID
Assessment / Plan
-
Hermilo is a 73yo M bedbound at [facility] with h/o chronic craig, EMANUEL, CAD and CVA who presents for confusion. GI consulted for melena and h/o iron def anemia. He is on eliquis with last dose 08/22 AM. No prior EGD/colon
Impression
- Melena with h/o iron def anemia
ddx includes PUD, ectasia, polyp/occult malignancy
- Confusion
- + UA
- Chronic craig with urinary retention
- CKD
- EMANUEL
- CAD
- CVA
Recommendations
- C/w protonix change to 40mg IV BID
- Serial H/H
- Large bore IV
- C/w abx and await UC results
- Anticipate EGD after eliquis washout anticipate Saturday 08/25 given CKD
- Will follow with you
Subjective
Subjective
Date of Service: August 24, 2024
No significant stool output today. Yesterday documented as brown green. Denies abd pain
Objective
Data Reviewed
Laboratory Data:
Laboratory Results
08/24/24 06:18
08/24/24 06:18
Laboratory Results
PT 17.3 Sec (11.4-14.6) H 08/23/24 04:23
INR 1.38 08/23/24 04:23
APTT 48.0 Sec (23.4-35.0) H 08/23/24 00:25
Magnesium 3.0 mg/dl (1.6-2.3) H 08/24/24 06:18
Total Bilirubin 0.4 mg/dl (0.2-1.3) 08/24/24 06:18
AST 66 U/L (17-59) H 08/24/24 06:18
ALT 129 U/L (0-50) H 08/24/24 06:18
Alkaline Phosphatase 127 U/L (38-126) H 08/24/24 06:18
Vital Signs and I&O:
Vital Signs
Temp Pulse Resp BP Pulse Ox
97.4 F 77 17 102/39 95
08/24/24 11:15 08/24/24 14:00 08/24/24 14:00 08/24/24 14:00 08/24/24 12:00
I&O
08/23/24 08/24/24 08/25/24
06:59 06:59 06:59
Intake Total 2285 / 2285
Output Total 400 / 400 2075 / 2075 200 / 200
Balance -400 / -400 210 / 210 -200 / -200
Physical Exam
Physical Exam
GEN: No acute distress, conversant but confused
HEENT: anicteric, extraocular movements intact, clear oropharynx without exudates
GI: soft, non-distended, not tender to palpation, normal active bowel sounds, no hepatosplenomegaly
EXT: warm, well perfused, 2+ edema bilaterally
NEURO: AAOx2, non-focal
[2024-08-24 16:43] LABS: Glucose - Point of Care 83 mg/dl (70-99)
--- NOTE | 2024-08-24 16:53 | CM ---
Patient from [facility]. Plan EGD tomorrow. Room air. Clear liquids/IVF. Receiving IV Abx. PT & OT notes; Therapy not warranted. ST for dysphagia therapy. Per nurse assessment; confused.
Spoke with Tara Adms [facility]; she confirms that the patient is bedbound at baseline using a pratibha lift for OOB. He can make his needs known. He was not receiving PT/OT. The for nurse report to the first floor [phone], fax
[phone].
Plan return to [facility] when medically ready.
[2024-08-24] MEDS: FLOMAX 0.4 MG PO (18:39)
[2024-08-24 22:03] LABS: Glucose - Point of Care 75 mg/dl (70-99)
[2024-08-25] VITALS (24 sets, daily range): BP systolic 78–147; BP diastolic 47–89; PULSE 2–71
--- NOTE | 2024-08-25 00:38 | PTCARENOTE ---
Patient AAOx3, confused at times, confused conversations. Pt NS with BBB first degree and prolonged QT on tele. Pt wearing BiPAP HS, and is tolerating currently. IV abx, and IV protonix cont. IV fluids running. Pt had a large BM. Full bed bath and
oral care. Skin assessed, left groin and left underarm has MASD, desenex applied. Tolerating QT hour turns. Pt is sleeping currently, call evangelista is within reach.
[2024-08-25] MEDS: PROTONIX 100 IV ×2 (03:32→13:12)
[2024-08-25] MEDS: ZOSYN 50 IV ×4 (03:32→21:10)
[2024-08-25] MEDS: SYNTHROID 175 MCG PO (05:40)
[2024-08-25 05:58] LABS: % Basophils 0.5 % (0-2); % Eosinophils 3.8 % (0-6); % Immature Granulocytes 0.5 % (0-0.5); % Lymphocytes 19.9 % (20.5-51.1); % Monocytes 7.7 % (1.7-9.3); % Neutrophils 67.6 % (42.2-75.2); Absolute Eosinophils 0.2 10^3/uL (0-0.7); Absolute Lymphocytes 1.2 10^3/uL (1.2-3.4); Absolute Monocytes 0.5 10^3/uL (0.1-0.6); Absolute Neutrophils 4.1 10^3/uL (1.4-6.5); Hematocrit 25.2 % (39.0-52.0); Hemoglobin 8.1 g/dL (13.0-18.0); Mean Corp Hgb Conc. 32.1 g/dL (33.0-37.0); Mean Corpuscular Hgb 30.8 pg (27.0-31.0); Mean Corpuscular Volume 95.8 fL (80.0-94.0); Mean Platelet Volume 12.2 fL (7.4-10.4); Nucleated Red Blood Cells % 0 % (-); Platelet Count 105 10^3/uL (130-400); Red Blood Cell Count 2.63 10^6/uL (4.70-6.10); Red Cell Dist. Width 15.9 % (11.5-14.5); White Blood Cell Count 6.1 10^3/uL (4.8-10.8)
[2024-08-25 06:19] LABS: ALT (SGPT) 100 U/L (0-50); AST (SGOT) 45 U/L (17-59); Albumin 2.9 g/dl (3.5-5.0); Alkaline Phosphatase 111 U/L (38-126); Blood Urea Nitrogen 87 mg/dl (9-20); Calcium 8.8 mg/dl (8.4-10.2); Carbon Dioxide 17 mmol/L (22-30); Chloride 112 mmol/L (98-107); Estimated Creatinine Clearance 40 ml/min; Glucose 72 mg/dl (70-99); Magnesium 2.9 mg/dl (1.6-2.3); Sodium 143 mmol/L (135-145); Total Bilirubin 0.4 mg/dl (0.2-1.3); Total Protein 5.5 g/dl (6.3-8.2); eGFR 39.01
[2024-08-25] MEDS: PROSCAR 5 MG PO (08:41)
[2024-08-25] MEDS: DITROPAN 2.5 MG PO (08:41)
[2024-08-25] MEDS: DESENEX/MITRAZOL/ZEASORB 1 APPLIC TOPICAL ×2 (08:43→19:38)
[2024-08-25] MEDS: LR 1000 IV (08:43)
[2024-08-25] MEDS: DEXTROSE 50% SYRINGE 12.5 GRAMS IV (08:55)
[2024-08-25 09:05] LABS: Glucose - Point of Care 40 mg/dl (70-99)
[2024-08-25 09:19] LABS: B.E. -9.5 mmol/L; O2 Saturation % 92.9 % (94-98); PCO2 46 mmHg (35-48); PO2 64 mmHg (83-108)
[2024-08-25] MEDS: D5/0.9% SODIUM CHLORIDE 1000 IV ×2 (09:28→13:12)
--- NOTE | 2024-08-25 09:29 | RR ---
A Rapid Response was called on this patient, please see Rapid Response form.
Pt Aox3, yet confused conversation. VSS. This RN left pt's room and shortly after was alerted to desat monitor alarm by another RN. Sat reading in the 50's. Entered pt room to find him limp with agonal breathing and jeter in color. RR called. Sat
reaching as low as 23% good pleth. Placed on NRB and then bagged, RT at bedside and placed on bipap. Accucheck obtained with result of 40-half amp D50 administered per protocol. Dr. Boston passing by and assisted RR team. Advised to recheck sugar
before 15 minute robert with result of 144. Dr. Son and Resident Physicians at bedside- orders placed by provider. Hypothermic on axillary temp, placed on portillo hugger. Labs sent, remains on bipap at this time. VSS.
[2024-08-25 09:41] LABS: PT 16.5 Sec (11.4-14.6)
[2024-08-25 09:42] LABS: APTT 37.3 Sec (23.4-35.0)
[2024-08-25] MEDS: SODIUM BICARBONATE 50 MEQ IV (09:43)
[2024-08-25 09:47] LABS: ALT (SGPT) 84 U/L (0-50); AST (SGOT) 40 U/L (17-59); Albumin 2.8 g/dl (3.5-5.0); Alkaline Phosphatase 108 U/L (38-126); Blood Urea Nitrogen 80 mg/dl (9-20); Calcium 8.4 mg/dl (8.4-10.2); Carbon Dioxide 17 mmol/L (22-30); Chloride 112 mmol/L (98-107); Estimated Creatinine Clearance 40 ml/min; Glucose 121 mg/dl (70-99); Potassium 4.7 mmol/L (3.5-5.1); Sodium 143 mmol/L (135-145); Total Bilirubin 0.3 mg/dl (0.2-1.3); Total Protein 5.2 g/dl (6.3-8.2); eGFR 39.01
[2024-08-25 09:49] LABS: Lactic Acid 4.4 mmol/L (0.7-2.0)
[2024-08-25 09:52] LABS: % Basophils 0.2 % (0-2); % Eosinophils 4.5 % (0-6); % Immature Granulocytes 1.1 % (0-0.5); % Lymphocytes 24.4 % (20.5-51.1); % Monocytes 6.6 % (1.7-9.3); % Neutrophils 63.2 % (42.2-75.2); Absolute Eosinophils 0.2 10^3/uL (0-0.7); Absolute Immature Granulocytes 0.1 10^3/uL (0-0.05); Absolute Lymphocytes 1.1 10^3/uL (1.2-3.4); Absolute Monocytes 0.3 10^3/uL (0.1-0.6); Hematocrit 21.2 % (39.0-52.0); Hemoglobin 6.6 g/dL (13.0-18.0); Mean Corp Hgb Conc. 31.1 g/dL (33.0-37.0); Mean Corpuscular Hgb 31.6 pg (27.0-31.0); Mean Corpuscular Volume 101.4 fL (80.0-94.0); Nucleated Red Blood Cells % 0 % (-); Red Blood Cell Count 2.09 10^6/uL (4.70-6.10); White Blood Cell Count 4.7 10^3/uL (4.8-10.8)
[2024-08-25 09:57] LABS: Troponin I 0.022 ng/ml
[2024-08-25 10:18] LABS: Mean Platelet Volume 11.5 fL (7.4-10.4); Platelet Count 77 10^3/uL (130-400)
--- NOTE | 2024-08-25 10:32 | W.PN.GI.CBS2 ---
Today's Communication / Plan
-
Hold on EGD today given rapid response
Transfuse PRBC
Cont protonix gtt
Cont abx
If stable tomorrow, can do EGD then
Assessment / Plan
-
Hermilo is a 73yo M bedbound at [facility] with h/o chronic craig, EMANUEL, CAD and CVA who presents for confusion. GI consulted for melena and h/o iron def anemia. He is on eliquis with last dose 08/22 AM. No prior EGD/colon
Impression
- Melena with h/o iron def anemia
ddx includes PUD, ectasia, polyp/occult malignancy
- Rapid response 08/25, desat, acidotic, lactic acidosis
- Confusion
- + UA
- Chronic craig with urinary retention
- CKD
- EMANUEL
- CAD
- CVA
Subjective
Subjective
Date of Service: August 25, 2024
Pt had rapid response this am with agonal breathing and desaturation. Placed on biPAP, labs show drop hgb 8.1 to 6.6, passed black stool overnight.
Objective
Data Reviewed
Laboratory Data:
Laboratory Results
08/25/24 09:20
08/25/24 09:20
Laboratory Results
PT 16.5 Sec (11.4-14.6) H 08/25/24 09:20
INR 1.30 08/25/24 09:20
APTT 37.3 Sec (23.4-35.0) H 08/25/24 09:20
Magnesium 2.9 mg/dl (1.6-2.3) H 08/25/24 05:41
Total Bilirubin 0.3 mg/dl (0.2-1.3) 08/25/24 09:20
AST 40 U/L (17-59) 08/25/24 09:20
ALT 84 U/L (0-50) H 08/25/24 09:20
Alkaline Phosphatase 108 U/L (38-126) 08/25/24 09:20
Vital Signs and I&O:
Vital Signs
Temp Pulse Resp BP Pulse Ox
96.1 F L 97 18 147/79 98
08/25/24 10:00 08/25/24 09:00 08/25/24 09:00 08/25/24 08:55 08/25/24 09:00
I&O
08/24/24 08/25/24 08/26/24
06:59 06:59 06:59
Intake Total 2285 / 2285 1025 / 1025
Output Total 2075 / 5 1425 / 1425
Balance 210 / 210 -400 / -400
Physical Exam
Physical Exam
GI: Soft, Non Distended and Non Tender
--- NOTE | 2024-08-25 10:53 | PTCARENOTE ---
VS remain stable. Request sent to lab for first unit PRBC. Pt awake and alert and attempting to talk over bipap. Updated on plan of care.
[2024-08-25 11:00] LABS: Glucose - Point of Care 104 mg/dl (70-99)
--- NOTE | 2024-08-25 11:29 | PTCARENOTE ---
Pt now hypotensive with SBP in the 80's. TT to Dr. Martinez and Dr. Son. Awaiting further orders.
[2024-08-25 11:46] LABS: B.E. -5.2 mmol/L; HCO3 19.9 mmol/L (21-28); O2 Saturation % 99.3 % (94-98); PCO2 36 mmHg (35-48); PO2 177 mmHg (83-108); pH 7.35 (7.35-7.45)
--- NOTE | 2024-08-25 12:05 | PTCARENOTE ---
Pt's BP stable at this time, MDs aware.
[2024-08-25 12:26] LABS: Glucose - Point of Care 91 mg/dl (70-99)
--- NOTE | 2024-08-25 13:20 | W.PN.HOSP.TC ---
Addendum entered and electronically signed by Kris Martinez MD, Resident 08/25/24 18:06:
Patient had the acute Hypoxic episode and a rapid response was called.
Addendum entered and electronically signed by Yenifer Son MD 08/25/24 14:15:
I saw and evaluated the patient independently. I reviewed the resident�s note and agree with findings and plan as documented by Dr. Martinez.
GENERAL: chronically ill appearing male in no apparent distress
HEENT: NC/AT on BiPAP
HEART: regular rate and rhythm, +S1, +S2
LUNGS : clear to auscultation bilaterally
ABDOM: soft, nontender, nondistended, + bowel sounds
EXT: no cyanosis, clubbing-- 2+ LE edema bilaterally
NEUROLOGIC: grunting
: craig cath (chronic)
Had rapid response today for hypoxemia and unresponsiveness--ABG, labs, EKG and blood sugar all taken--results show pt to be septic and acidotic (pH 7.20, pCO2 46, pO2 64) given 1 amp of bicarbonate, lactic acid 4.4 but appears NOT to be respiratory
in nature--cont BiPAP, repeat ABG with improvement--started D5 as blood sugar was 40 as well, hypothermic--pt is DNR/DNI and can stay in IMU--NSS bolus ordered and pressors ordered for drop in BP--Dr. Martinez spoke with pt POA and consented for blood
Altered mental status-- suspect TME from sepsis today 08/25/24--also some component of azotemia with elevated BUN was contributing over the weekend--urine culture positive for E. coli and pseudomonas aeruginosa--initial head CT neg--cont zosyn
Metabolic acidosis with lactic acidosis--found at rapid response--Received 50MEQ sodium bicarb--Trend lactic acid every 4h
Anemia of chronic disease with acute blood loss anemia from GI bleeding--nursing reports had tarry stool overnight--HGB 6.6 this AM--consented for blood as noted above--transfusing 2 units pRBCs--Eliquis still on hold--trend H&H, transfuse if HGB <
7--hold ASA with low platelet count--Appreciate GI input-- Anticipate EGD tomorrow if stable, canceled today due to rapid
Hypothermia with metabolic acidosis due to E. coli and pseudomonas aeruginosa sepsis from CAUTI---could be due to infection (has chronic craig)--cortisol checked and WNL, TSH mildly elevated at 6.5--urine not clean catch with > 30 sq cells (although
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
LEE/metabolic acidosis---both BUN and creat improved--Monitor for 24 hours; consider nephro consult
Transaminitis- normal bili, mild elevation in as/alt--improved since 08/22- US: Cholelithiasis without sonographic evidence for acute cholecystitis.
Type 2 DM--not currently on treatment per records, accuchecks q6 for now
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
neck pain- order prn tylenol
DVT PPX - SCD
Code Status - full
Total Critical Care Time 60 minutes. I was immediately available to the patient and staff. I personally examined, reviewed labs, diagnostic images/reports, interpretations, treatment plans, discussed patient care with other providers and family
or caregivers (if patient is unable to make decisions), entered orders as appropriate and documented the medical record.
Original Note:
Today's Communication/Plan
-
Continue current management, continue abx, pRBC 2 bag
egd tomorrow
Assessment / Plan
Assessment / Plan
73-year-old who has extensive past medical history including chronic urinary retention status post indwelling urinary catheter, hypothyroidism, sleep apnea, CAD, CVA, keg-ubfwhcu-kyvgmfqql diabetes, unspecified heart failure and known bradycardia
who presents to the emergency department with episode of confusion.
#Altered mental status -Says random words, repetitive and appears to have some delusions. No meningeal signs.
-Don't think encephalitis;suspect due to infection, azotemia (elevated BUN)
-ammonia WNL
-head CT neg
-hold on neuro consult for now, need to correct all underlying metabolic abnormalities prior to consult neuro
-continue current antibiotic IV Zosyn; urine culture positive for Pseudomonas
RAPIDDuring morning rounds today, rapid response was called on Mr. Mills as his oxygen saturation dropped to 50% and he was nonresponsive. He required BiPAP to maintain steady breathing. Stat EKG and ABG was drawn which showed pH of 7.2 and
HCO3 of 18, lactic acid was 4.4 his blood sugar was found to be 40, his hemoglobin was 6.6. Dextrose 12.5 g given. Sodium bicarb 50 mEq stat given. D5 with NS started. After few minutes patient was arousable. I called his POA León and
consented for blood transfusion. 2 bag of PRBC ordered. He was also found to be hypothermic: Warm blankets ordered. After an hour of rapid patient's nurse informed that his systolic blood pressure was in 80s. Given his sepsis scenario NSS bolus
and pressors ordered however before any intervention his blood pressure improved to 120/79. Order for NSS bolus canceled
# Metabolic acidosis with lactic acidosis
-Received 50MEQ sodium bicarb
-Trend lactic acid every 4h
#Anemia of chronic disease with possible acute blood loss anemia from GI bleeding
-Patient with prior hx of GI bleed and on PPI
-was found to be heme positive in ED
-nursing reports no bleeding here
-On eliquis 2.5 bid for dvt ppx--hold for now
-trend H&H, transfuse if HGB < 7
-hold ASA with low platelet count
-2 bag PRBCs today
-Appreciate GI input;Anticipate EGD tomorrow if stable
#Hypothermia with metabolic acidosis
-could be due to infection (has chronic craig)
-cortisol checked and WNL, TSH mildly elevated at 6.5
-BC: NGTD
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
-Urine culture positive for Pseudomonas aeruginosa-cont zosyn
-covid neg, did not check flu
-procalcitonin negative
-warm blankets with goal of 98 F
#LEE/metabolic acidosis
-both BUN and creat improved
-Monitor for 24 hours; consider nephro consult
#Transaminitis
- normal bili, mild elevation in as/alt. : improved since 08/22
- US: Cholelithiasis without sonographic evidence for acute cholecystitis.
#Type 2 DM--not currently on treatment per records, accuchecks q6 for now
#Bradycardia
-appers to have sinus with 1st deg AVB similar to a year ago
-consider cards eval
# neck pain
- order prn tylenol
DVT PPX - SCD
Code Status - full
Anticipated Discharge: > 48 hours
Subjective/Interval History
-
Date of Service: August 25, 2024
No new complaints in the morning
Objective Data
-
Labs:
Laboratory Results
08/25/24 08/25/24 08/25/24
05:41 09:12 09:20
WBC 6.1 4.7 L
Hgb 8.1 L 6.6 L*
Hct 25.2 L 21.2 L
Plt Count 105 L 77 L D
PT 16.5 H
INR 1.30
APTT 37.3 H
HCO3 18.0 L
Sodium 143 143
Potassium 5.0 4.7
Chloride 112 H 112 H
Carbon Dioxide 17 L 17 L
BUN 87 H 80 H
Creatinine 1.8 H 1.8 H
Glucose 72 121 H
Calcium 8.8 8.4
Total Bilirubin 0.4 0.3
AST 45 40
ALT 100 H 84 H
Alkaline Phosphatase 111 108
08/25/24
11:21
WBC
Hgb
Hct
Plt Count
PT
INR
APTT
HCO3 19.9 L
Sodium
Potassium
Chloride
Carbon Dioxide
BUN
Creatinine
Glucose
Calcium
Total Bilirubin
AST
ALT
Alkaline Phosphatase
Vital Signs:
Vital Signs
Temp Pulse Resp BP Pulse Ox
9.2 F L 64 12 89/59 98
08/25/24 13:00 08/25/24 11:19 08/25/24 11:19 08/25/24 11:19 08/25/24 09:00
I&O
08/24/24 08/25/24 08/26/24
06:59 06:59 06:59
Intake Total 2285 / 2285 1025 / 1025 0 / 0
Output Total 2075 / 2075 1425 / 1425
Balance 210 / 210 -400 / -400 0 / 0
Review of Systems
-
Unable to obtain full review of systems at this time due to: Other (Altered mental status; denies any pain or discomfort)
Physical Exam
-
General: Well Developed, Well Nourished, No Apparent Distress and Morbidly Obese
HEENT: Normocephalic and Atraumatic; Negative Oxygen
Respiratory: Clear to Auscultation; Negative Wheezes or Rhonchi
Cardiac: Regular Rhythm and S1/S2
GI: Soft, Nontender, Nondistended and Normal Bowel Sounds
Musculoskeletal: No Clubbing, No Cyanosis and No Edema
Neuro: Awake and Other (confused)
Psych: Other (confused)
Data Reviewed
-
Labs: Labs Reviewed by me, Discussed with Physician and Discussed with Patient
[2024-08-25 13:37] LABS: Lactic Acid 0.7 mmol/L (0.7-2.0)
--- NOTE | 2024-08-25 14:12 | VATNOTE ---
08/25 Provider ordered a PICC- however given patient has no medical need for one, a right 4fr sl midline was placed under sterile technique. TCL 16cm ECL0cm UAC 39cm, to be redressed tomorrow. primary RN stated site was bleeding- quick clot and
pressure dressing placed at 1310 today.
--- NOTE | 2024-08-25 14:57 | PN.CDI ---
CDI
- -
CDI:
Physician Documentation Request
Admit Date: 08/23/24 02:28
Dear Doctor Adelaida/Juan,
Please review the following and provide your response in the progress notes.
Clinical Indicators:
Pt admitted with GI bleed/ ABLA/ CAUTI
Documented per Rapid response note 08/25, ' ...desat monitor alarm by another RN. Sat reading in the 50's. Entered pt room to find him limp with agonal breathing and jeter in color. RR called. Sat reaching as low as 23% good pleth. Placed on NRB and
then bagged, RT at bedside and placed on bipap. .....'
Progress note 08/25, ' BiPAP...Had rapid response today for hypoxemia and unresponsiveness....(pH 7.20, pCO2 46, pO2 64)...cont BiPAP....'
Please clarify which of the following accurately represents the patient's respiratory status:
Acute Hypoxic Respiratory failure
Hypoxia- only
Other ( please specify)
Additional information for Respiratory Failure:
Recognized criteria for Respiratory Failure (Source: [employer] [facility] Jul 2013)
ABGs: (1 or more) Symptoms Please indicate type if known
1. p)2 <60 or RA SPO2 <91% on RA 1. Tachypnea, SOB, dyspnea Hypoxic
2. pCO2 50 and pH <7.35 2. Use of accessory muscles Hypercapnic
3. pO2 decrease of pCO2 increase by 3. Pallor or cyanosis Hypoxic and Hypercapnic
10 mmHg from baseline if known 4. Anxiety or restlessness Unable to determine
5. Unable to speak in full sentences
Supplemental O2 of > 40% (5LPM) Intubation is not required
Use of terms such as suspected, likely, concern for, or probable (associated with a specific diagnosis that is being evaluated, monitored, or treated as if it exists) are acceptable and can be coded in the inpatient setting, when documented at the
time of discharge.
Thank you,
Reta Reese RN
CDI Specialist
[place] [facility]
Please use your independent medical judgment in providing your response.
--- NOTE | 2024-08-25 17:14 | PTCARENOTE ---
Pt receiving 2nd unit of PRBCs. Remains on warming blanket at this time.
[2024-08-25 17:43] LABS: Glucose - Point of Care 75 mg/dl (70-99)
[2024-08-25] MEDS: FLOMAX PO (17:44)
[2024-08-25] MEDS: NSS (PRESERVATIVE FREE) 10 ML IV (20:49)
[2024-08-25] MEDS: PROTONIX IV 40 MG IV (20:49)
[2024-08-25 21:53] LABS: Glucose - Point of Care 85 mg/dl (70-99)
--- NOTE | 2024-08-25 22:00 | PTCARENOTE ---
Addendum entered by Sophia Diaz RN 08/25/24 22:32:
AMIE Traore updated.
Original Note:
Blood completed. No issues. Denies any pain. Placed on Bipap per RT. Blood sugar 85. SB/SR w/ PVCs on tele. Bonita johnson remains in place. BP 103/57 (73). IVF & IV Abx continue. Call evangelista within reach.
[2024-08-26] VITALS (13 sets, daily range): BP systolic 107–145; BP diastolic 59–103; PULSE 2–54; BMI 40.3
[2024-08-26] MEDS: ZOSYN 50 IV ×4 (04:32→21:39)
--- NOTE | 2024-08-26 04:51 | DOWNTIME ---
There was a [email or web address] Client Civil Rights Investigator Downtime on 08/26/2024 from 0100 to 08/26/2024 at 0350. Downtime documentation of patient's care, including medication administrations, has been reconciled in the electronic record per guidelines. Refer to the
patient's paper chart under the miscellaneous tab to see printed paper medication records and downtime forms.
--- NOTE | 2024-08-26 05:00 | PTCARENOTE ---
Bonita randgger able to be removed overnight; temp normalized. BG WNL; 0300 BG 82. Tele showing NSR. Tolerated Bipap, Sp02 WNL. placed on 2L this morning when awake. Repositioned throughout the night, heels floated. No BM. Villarreal draining clear yellow
urine. IVf continue. Call evangelista and tray table within reach.
[2024-08-26 05:41] LABS: Blood Urea Nitrogen 77 mg/dl (9-20); Calcium 8.8 mg/dl (8.4-10.2); Carbon Dioxide 19 mmol/L (22-30); Chloride 115 mmol/L (98-107); Estimated Creatinine Clearance 38 ml/min; Glucose 87 mg/dl (70-99); Potassium 4.7 mmol/L (3.5-5.1); Sodium 147 mmol/L (135-145); eGFR 36.56
[2024-08-26 05:44] LABS: Hematocrit 30.4 % (39.0-52.0); Hemoglobin 9.9 g/dL (13.0-18.0); Mean Corp Hgb Conc. 32.6 g/dL (33.0-37.0); Mean Corpuscular Hgb 30.5 pg (27.0-31.0); Mean Corpuscular Volume 93.5 fL (80.0-94.0); Mean Platelet Volume 11.3 fL (7.4-10.4); Platelet Count 118 10^3/uL (130-400); Red Blood Cell Count 3.25 10^6/uL (4.70-6.10); Red Cell Dist. Width 16.2 % (11.5-14.5); White Blood Cell Count 6.6 10^3/uL (4.8-10.8)
[2024-08-26] MEDS: SYNTHROID 175 MCG PO (06:04)
[2024-08-26 07:38] LABS: Glucose - Point of Care 82 mg/dl (70-99)
--- NOTE | 2024-08-26 07:38 | W.PN.HOSP.TC ---
Addendum entered and electronically signed by Kyle Cardoza DO 08/27/24 10:11:
CDI: Sepsis secondary to UTI with E. coli and Pseudomonas. Present on arrival. Now stable on antibiotics
Original Note:
Today's Communication/Plan
-
egd today
cont abx
Assessment / Plan
Assessment / Plan
73-year-old who has extensive past medical history including chronic urinary retention status post indwelling urinary catheter, hypothyroidism, sleep apnea, CAD, CVA, dap-ppbxkii-zemugarei diabetes, unspecified heart failure and known bradycardia
who presents to the emergency department with episode of confusion.
#Altered mental status -Says random words, repetitive and appears to have some delusions. No meningeal signs.
-Don't think encephalitis;suspect due to infection, azotemia (elevated BUN)
-ammonia WNL
-head CT neg
-hold on neuro consult for now, need to correct all underlying metabolic abnormalities prior to consult neuro
-continue current antibiotic IV Zosyn; urine culture positive for Pseudomonas & e.coli
-Patient had the acute Hypoxic episode and a rapid response was called on 08/25/24 0900
# Metabolic acidosis with lactic acidosis
-Received 50MEQ sodium bicarb
-resolved
#Anemia of chronic disease with possible acute blood loss anemia from GI bleeding
-Patient with prior hx of GI bleed and on PPI
-was found to be heme positive in ED
-nursing reports no bleeding here
-On eliquis 2.5 bid for dvt ppx--hold for now
-transfuse if HGB < 7
-hold ASA with low platelet count
-2 bag PRBCs 08/25/24 after rapid called in and hb was 6.6: current hb 9.9
-Appreciate GI input;Anticipate EGD today
#Hypothermia with metabolic acidosis
-could be due to infection (has chronic craig)
-cortisol checked and WNL, TSH mildly elevated at 6.5
-BC: NGTD
-urine not clean catch with > 30 sq cells (although it is documented that craig changed 3 days [employer])
-Urine culture positive for Pseudomonas aeruginosa-cont zosyn
-covid neg, did not check flu
-procalcitonin negative
-warm blankets with goal of 98 F
#LEE/metabolic acidosis
-both BUN and creat improved
-Monitor for 24 hours; consider nephro consult
#Transaminitis
- normal bili, mild elevation in as/alt. : improved since 08/22
- US: Cholelithiasis without sonographic evidence for acute cholecystitis.
#Type 2 DM--not currently on treatment per records, accuchecks q6 for now
#Bradycardia
-appers to have sinus with 1st deg AVB similar to a year ago
-consider cards eval
# neck pain
- resolved
DVT PPX - SCD
Code Status - full
Anticipated Discharge: > 48 hours
Subjective/Interval History
-
Date of Service: August 26, 2024
Interval events: No new complaints
Objective Data
-
Labs:
Laboratory Results
08/26/24
04:45
WBC 6.6
Hgb 9.9 L D
Hct 30.4 L
Plt Count 118 L D
Sodium 147 H
Potassium 4.7
Chloride 115 H
Carbon Dioxide 19 L
BUN 77 H
Creatinine 1.9 H
Glucose 87
Calcium 8.8
Vital Signs:
Vital Signs
Temp Pulse Resp BP Pulse Ox
98.6 F 59 10 138/65 96
08/26/24 07:35 08/26/24 06:00 08/26/24 06:00 08/26/24 06:00 08/26/24 06:06
I&O
1108/26/24 08/27/24
06:59 06:59 06:59
Intake Total 1025 / 1025 1200 / 1200
Output Total 1425 / 1425 1150 / 1150
Balance -400 / -400 50 / 50
Review of Systems
-
Unable to obtain full review of systems at this time due to: Other
History Source: Patient
All other systems: Reviewed and negative
Physical Exam
-
General: Well Developed, Well Nourished, No Apparent Distress and Morbidly Obese
HEENT: Normocephalic and Atraumatic; Negative Oxygen
Respiratory: Clear to Auscultation; Negative Wheezes or Rhonchi
Cardiac: Regular Rhythm and S1/S2
GI: Soft, Nontender, Nondistended and Normal Bowel Sounds
Musculoskeletal: No Clubbing, No Cyanosis and No Edema
Neuro: Awake and Alert
Psych: Calm
Data Reviewed
-
Labs: Labs Reviewed by me, Discussed with Physician and Discussed with Patient
[2024-08-26 08:02] LABS: Glucose - Point of Care 84 mg/dl (70-99)
[2024-08-26] MEDS: DESENEX/MITRAZOL/ZEASORB 1 APPLIC TOPICAL ×2 (09:24→20:09)
[2024-08-26] MEDS: DITROPAN 2.5 MG PO (09:25)
[2024-08-26] MEDS: PROSCAR 5 MG PO (09:26)
[2024-08-26] MEDS: NSS (PRESERVATIVE FREE) 10 ML IV ×2 (09:26→20:15)
[2024-08-26] MEDS: PROTONIX IV 40 MG IV ×2 (09:27→20:15)
--- NOTE | 2024-08-26 10:24 | W.PN.GI.CBS2 ---
Today's Communication / Plan
-
Rec'd 2 units PRBC and Hgb increased from 6.6 to 9.9. Perhaps 6.6 was spurious result
Cont rx for sepsis
Will plan EGD when medically stable for sedation, but GI bleed does not appear active at this time
Cont protonix, BID is ok.
Assessment / Plan
-
Hermilo is a 73yo M bedbound at [facility] with h/o chronic craig, EMANUEL, CAD and CVA who presents for confusion. GI consulted for melena and h/o iron def anemia. He is on eliquis with last dose 08/22 AM. No prior EGD/colon
Had rapid response 08/25.
Impression
- Melena with h/o iron def anemia
ddx includes PUD, ectasia, polyp/occult malignancy
- Rapid response 08/25, desat, acidotic, lactic acidosis
- Confusion
- + UA
- Chronic craig with urinary retention
- CKD
- EMANUEL
- CAD
- CVA
Subjective
Subjective
Date of Service: August 26, 2024
Looks better today, on O2 NC. Denies abd pain. Ate breakfast. Had black BM yesterday, none overnight
Objective
Data Reviewed
Laboratory Data:
Laboratory Results
08/26/24 04:45
08/26/24 04:45
Laboratory Results
PT 16.5 Sec (11.4-14.6) H 08/25/24 09:20
INR 1.30 08/25/24 09:20
APTT 37.3 Sec (23.4-35.0) H 08/25/24 09:20
Magnesium 2.9 mg/dl (1.6-2.3) H 08/25/24 05:41
Total Bilirubin 0.3 mg/dl (0.2-1.3) 08/25/24 09:20
AST 40 U/L (17-59) 08/25/24 09:20
ALT 84 U/L (0-50) H 08/25/24 09:20
Alkaline Phosphatase 108 U/L (38-126) 08/25/24 09:20
Vital Signs and I&O:
Vital Signs
Temp Pulse Resp BP Pulse Ox
98.6 F 59 10 138/65 96
08/26/24 07:35 08/26/24 06:00 08/26/24 06:00 08/26/24 06:00 08/26/24 06:06
I&O
08/25/24 08/26/24 08/27/24
06:59 06:59 06:59
Intake Total 1025 / 1025 1200 / 1200
Output Total 1425 / 1425 1150 / 1150
Balance -400 / -400 50 / 50
Physical Exam
Physical Exam
GI: Soft, Non Distended and Non Tender
--- NOTE | 2024-08-26 12:15 | CM ---
Addendum entered by Gely Bobo RN 08/26/24 12:33:
Message from Resident Kris Martinez; too soon to know if patient will need BiPAP at d/c.
Plan continue to follow respiratory needs for discharge- notify SNF if BiPAP will be needed.
Original Note:
Patient from [facility] who is s/p transfusions. O2 2L/BiPAP. Clear liquids. Receiving IV Zosyn. PT & OT notes; Therapy not warranted.
[facility]: The ph for nurse report to the first floor [phone], fax [phone].
CM needs to call [facility] prior to patient returning.
Plan return to [facility] when medically ready.
[2024-08-26 12:51] LABS: Glucose - Point of Care 98 mg/dl (70-99)
--- NOTE | 2024-08-26 13:11 | CON.ID ---
Consultation
-
Date/Time Consultation Requested: 08/26/24 12:51
Date/Time Consultation Performed: 08/26/24 13:12
Requesting Provider: Dr Martinez
Performing Provider: Dr Thmoas
Reason for Consultation: sepsis due to urinary tract infection, pseudomonas
Chief Complaint / Past History
Chief Complaint
AMS
History of Present Illness
Mr Mills is a 73 year old male with history of chronic urinary retention with chronic craig, CAD, CHF, DM2, class III obesity who presented here 08/23 for word finding difficulties several days after craig exchange; he was able to respond yes/no
appropriately and follow commands. He was referred to the ER. Denied: cough, shortness of breath, dyspnea, diarrhea, denied black stools, nausea, vomiting, fevers, chills, and headache. Reported some neck pain but no neck stiffness. He has no
known sick contacts
In the ER he was initially persistently hypothermic to 96, bp overall stable did not require pressors, wbc initially 6.1, hgb 8.2, plt 88no left shift, eos were present, cr 2.0 from baseline of 1.5 earlier this year, na 135, lactic acid peaked at
4.4 and now normalized, t bili 0.2, ast 135, alt 186, alk phos 143, ua <100 wbc/hpf and >30 squamous cells, covid ag neg, limited abd US for elevated LFTs; no acute cholecystitis, right kidney without hydronephrosis, no comment on left kidney, Ct
head w/o contrast: no acute abnormality, urine culture 100K Pseudomonas and 30K E coli, pseudomonas sensitive to zosyn, intermediate to cipro, patient currently on zosyn, qtc 450, found to have black stools and planned for EGD when stable, ID is
consulted for assistance with management.
Past History
Additional Past Medical History:
chronic urinary retention status post indwelling urinary catheter, hypothyroidism, sleep apnea, CAD, CVA, jca-sftquou-ohirgzdxr diabetes, unspecified heart failure and known bradycardia, CAD, CVA and NIDDM
Past Surgical History: Other
Allergy History:
No Known Allergies Allergy (Verified 08/22/24 23:00)
Medications Reviewed: Yes
Social History
Tobacco: Non-Smoker
Alcohol: None
Living: [facility]
Family History
Family History: Not Pertinent
Review of Systems
Review of Systems
unable to obtain - patient remains mildly confused
Vital Signs
Temp Pulse Resp BP Pulse Ox
98.0 F 59 10 138/65 96
08/26/24 11:22 08/26/24 06:00 08/26/24 06:00 08/26/24 06:00 08/26/24 06:06
Physical Exam
Physical Exam
Constitutional: No Acute Distress, Chronically Ill and Obese
Cardiovascular: Regular Rate and S1/S2; Negative Murmur or Rub
Pulmonary: Clear and Symmetric; Negative Wheezes, Rales or Rhonchi
Gastrointestinal: Soft, Non Tender, Non Distended and Normal Bowel Sounds
Skin: Warm and Dry; Negative Rash or Jaundice
Lab / Diagnostic Study Results
08/26/24 04:45
08/26/24 04:45
Abs Immat Gran (auto) 0.1 10^3/uL (0-0.05) H 08/25/24 09:20
Absolute Neuts (auto) 3.0 10^3/uL (1.4-6.5) 08/25/24 09:20
Absolute Lymphs (auto) 1.1 10^3/uL (1.2-3.4) L 08/25/24 09:20
Absolute Monos (auto) 0.3 10^3/uL (0.1-0.6) 08/25/24 09:20
Absolute Basos (auto) 0.0 10^3/uL (0-0.2) 08/25/24 09:20
Immature Gran % 1.1 % (0-0.5) H 08/25/24 09:20
Neutrophils % 63.2 % (42.2-75.2) 08/25/24 09:20
Lymphocytes % 24.4 % (20.5-51.1) 08/25/24 09:20
Monocytes % 6.6 % (1.7-9.3) 08/25/24 09:20
Eosinophils % 4.5 % (0-6) 08/25/24 09:20
Basophils % 0.2 % (0-2) 08/25/24 09:20
PT 16.5 Sec (11.4-14.6) H 08/25/24 09:20
INR 1.30 08/25/24 09:20
Lactic Acid Cancelled 08/25/24 21:15
Procalcitonin 0.10 ng/ml (0.0-0.25) 08/23/24 04:23
Ur Squamous Epith Cells >30 /LPF (Few) 08/23/24 02:01
Microbiology Results
Micro:
08/23/24 02:01 Urine Culture - Final
Urine Escherichia coli
Pseudomonas aeruginosa
08/23/24 02:01 Blood Culture - Preliminary
Blood/Venous No Growth in 72 hours- Final report to follow
08/23/24 04:23 MRSA Screen - Final
Nose No Methicillin Resistant Staphylococcus aureus isolated.
Urine Culture Final 08/26/24-08
CC: Greater than 100,000 CFU/ML Escherichia coli
CC: 30,000 CFU/ML Pseudomonas aeruginosa
Organism 1 Escherichia coli
Organism 2 Pseudomonas aeruginosa
E.COLI P.AERU
M.I.C. RX M.I.C. RX
--------- --- --------- ---
Amoxicillin/Potas. Clavulanate <=8/4 S
Ampicillin >16 R
Ampicillin/Sulbactam 16/8 I
Aztreonam <=4 S <=4 S
Cefazolin <=2 S
Cefepime <=2 S
Ceftazidime 4 S
Ertapenem <=0.5 S
Ciprofloxacin <=0.25 S 1 I
Gentamicin >8 R
Meropenem <=1 S <=1 S
Nitrofurantoin-Urine Only <=32 S
Piperacillin/Tazobactam <=8 S <=8 S
Tetracycline >8 R
Tobramycin 8 I <=2 S
Trimethoprim/Sulfamethoxazole > R
Assessment / Plan
Complicated UTI due to Pseudomonas
LEE on CKD
Class III obesity
- craig removed nad replaced 08/23 wtih 400 ccs initial output
- urine culture 100K Pseudomonas, also 30K E coli
- single blood culture was sent which is not sensitive enough to rule out bacteremia, however not a significant concern in most gram negative infections - no need to send further sets at this time
- limited abd US showed only the right kidney, given persistent LEE I have ordered second renal US to confirm no obstruction on the L side
- QTc acceptable
- lab will check pseudomonas sensitivities for levofloxacin, alternatively I can arrange for outpatient iV antibiotics if that is intermediate or resistant as well
- will follow
Care Review
Plan reviewed with: Physician (Dr Martinez- potential quinolone use)
--- NOTE | 2024-08-26 13:23 | PTOTSP ---
ST Follow-Up
Pt currently presents with fairly functional oral, pharyngeal, and esophageal parameters for continuation of clear liquid diet. Pt should continue with general aspiration and reflux precautions.
Recommendations:
- Continue with clear liquid diet, per GI.
- Aspiration and reflux precautions: Reposition pt and HOB fully upright during PO intake and for 60 minutes after PO intake; slow intake; small bites/sips.
- AUTOCAD DESIGNER to f/u re: diet tolerance, to assess pt's appropriateness for diet upgrades once cleared for diet advancement by GI, and to determine if pt would benefit from an instrumental swallow study.
[2024-08-26 16:18] LABS: Hemoglobin 9.5 g/dL (13.0-18.0)
--- NOTE | 2024-08-26 17:00 | PN.CDI ---
CDI
- -
CDI:
Physician Documentation Request
Admit Date: 08/23/24 02:28
Dear Doctor Sony/Resident,
Please review the following and provide your response in the progress notes.
Clinical Indicators:
Documentation in the record on __08/26____ includes the diagnosis of sepsis. The following clinical information was noted in the record
Progress note 08/26, ' Acute metabolic encephalopathy likely secondary to sepsis and possible component of azotemia. 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 Remains on IV Zosyn with urine culture showing E. coli and Pseudomonas. '
Hypothermia documented on admission. I do not see tachycardia/Elevated WBCs or Tachypnea documented
�Sepsis
-Systemic manifestations of infection, with 2 or more SIRS criteria which include:
-Fever > 100.4��F or hypothermia < 96.8��F
-Leukocytosis WBC > 12,000 or leukopenia, WBC < 4,000, or > 10% bands
-Tachycardia- > 90 beats/minute
-Tachypnea- RR > 20 breaths/minute or PaCO2 < 32mmHg
Source: Merck Manual 2013
Based on the above information and the recognized standard SIRS criteria, please clarify if sepsis is still an accurate diagnosis, and reflective of the patient�s condition, to ensure quality of the medical record.
Please clarify in the Progress Notes:
�Sepsis is/was present and is a clinical diagnosis based on (please include this additional support in the medical record)
�After study sepsis has been ruled out
�Other ( please specify)
Use of terms such as suspected, likely, concern for, or probable (associated with a specific diagnosis that is being evaluated, monitored, or treated as if it exists) are acceptable and can be coded in the inpatient setting, when documented at the
time of discharge.
Thank you,
Reta Reese RN
CDI Specialist
[place] [facility]
Please use your independent medical judgment in providing your response.
[2024-08-26] MEDS: FLOMAX 0.4 MG PO (17:15)
[2024-08-26 18:19] LABS: Glucose - Point of Care 101 mg/dl (70-99)
[2024-08-26] MEDS: D5/0.9% SODIUM CHLORIDE IV (20:08)
[2024-08-26] MEDS: D5/0.9% SODIUM CHLORIDE 1000 IV (20:08)
[2024-08-26 21:43] LABS: Glucose - Point of Care 171 mg/dl (70-99)
--- NOTE | 2024-08-26 23:00 | PTCARENOTE ---
Received pt from day shift. Pt aaox3, but forgetful at times. Pt sinus bassam on monitor. 98% on bipap. Pt on portillo hugger for goal temp of 98 F (see worklist). craig draining yellow urine. Hygiene completed. Pt resting in bed with call evangelista in reach.
[2024-08-27] VITALS (18 sets, daily range): BP systolic 84–141; BP diastolic 51–66; PULSE 2–56; BMI 42.4
[2024-08-27] MEDS: ZOSYN 50 IV ×4 (03:12→21:29)
[2024-08-27 03:31] LABS: % Basophils 0.8 % (0-2); % Eosinophils 5.6 % (0-6); % Immature Granulocytes 0.2 % (0-0.5); % Lymphocytes 21.3 % (20.5-51.1); % Monocytes 11.8 % (1.7-9.3); % Neutrophils 60.3 % (42.2-75.2); Absolute Basophils 0.1 10^3/uL (0-0.2); Absolute Eosinophils 0.3 10^3/uL (0-0.7); Absolute Lymphocytes 1.3 10^3/uL (1.2-3.4); Absolute Monocytes 0.7 10^3/uL (0.1-0.6); Absolute Neutrophils 3.7 10^3/uL (1.4-6.5); Hematocrit 29.2 % (39.0-52.0); Hemoglobin 9.3 g/dL (13.0-18.0); Mean Corp Hgb Conc. 31.8 g/dL (33.0-37.0); Mean Corpuscular Hgb 30.8 pg (27.0-31.0); Mean Corpuscular Volume 96.7 fL (80.0-94.0); Nucleated Red Blood Cells % 0 % (-); Platelet Count 108 10^3/uL (130-400); Red Blood Cell Count 3.02 10^6/uL (4.70-6.10); Red Cell Dist. Width 16.9 % (11.5-14.5); White Blood Cell Count 6.1 10^3/uL (4.8-10.8)
[2024-08-27 04:07] LABS: Blood Urea Nitrogen 68 mg/dl (9-20); Calcium 8.6 mg/dl (8.4-10.2); Carbon Dioxide 20 mmol/L (22-30); Chloride 114 mmol/L (98-107); Estimated Creatinine Clearance 38 ml/min; Glucose 101 mg/dl (70-99); Potassium 4.4 mmol/L (3.5-5.1); Sodium 144 mmol/L (135-145); eGFR 36.56
--- NOTE | 2024-08-27 07:24 | W.PN.HOSP.TC ---
Today's Communication/Plan
-
continue abx
egd today if stable
Assessment / Plan
Assessment / Plan
73-year-old who has extensive past medical history including chronic urinary retention status post indwelling urinary catheter, hypothyroidism, sleep apnea, CAD, CVA, wlk-oioukqs-tyjktiewg diabetes, unspecified heart failure and known bradycardia
who presents to the emergency department with episode of confusion.
#Altered mental status -Says random words, repetitive and appears to have some delusions. No meningeal signs.
-Don't think encephalitis;suspect due to infection, azotemia (elevated BUN); Patient did have hypothermia temp <96 and periodic increase in RR to 20 and sepsis on admission but resolved.
-ammonia WNL
-head CT neg
-hold on neuro consult for now, need to correct all underlying metabolic abnormalities prior to consult neuro
-continue current antibiotic IV Zosyn; urine culture positive for Pseudomonas & e.coli; ID on board; checking for pseudomonas sensitivities for levofloxacin
-Patient had the acute Hypoxic episode and a rapid response was called on 08/25/24 0900
# Metabolic acidosis with lactic acidosis
-Received 50MEQ sodium bicarb
-resolved
#Anemia of chronic disease with possible acute blood loss anemia from GI bleeding
-Patient with prior hx of GI bleed and on PPI
-was found to be heme positive in ED
-nursing reports no bleeding here
-On eliquis 2.5 bid for dvt ppx--hold for now
-transfuse if HGB < 7
-hold ASA with low platelet count
-2 bag PRBCs 08/25/24 after rapid called in and hb was 6.6: current hb 9.9
-Appreciate GI input;Anticipate EGD today
#Hypothermia with metabolic acidosis
-could be due to infection (has chronic craig)
-cortisol checked and WNL, TSH mildly elevated at 6.5
-BC: NGTD
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
-Urine culture positive for Pseudomonas aeruginosa-cont zosyn
-covid neg, did not check flu
-procalcitonin negative
-warm blankets with goal of 98 F
#LEE/metabolic acidosis
-both BUN and creat improved
-Monitor for 24 hours; consider nephro consult
US 08/26: Left kidney is not identified with certainty, with a large amount of bowel gas in the region. Bowel gas could obscure the left kidney, though given the prominent size of the right kidney, there may be congenital absence of the left kidney
with compensatory right renal enlargement. Right renal cortical atrophy and medical renal disease. No shadowing calculus or hydronephrosis.
- continue d5w for now
#Transaminitis
- normal bili, mild elevation in as/alt. : improved since 08/22
- US: Cholelithiasis without sonographic evidence for acute cholecystitis.
#Type 2 DM--not currently on treatment per records, accuchecks q6 for now
- cont d5w; will also help with hypernatremia
#Bradycardia
-appers to have sinus with 1st deg AVB similar to a year ago
-consider cards eval
# neck pain
- resolved
DVT PPX - SCD
Code Status - full
Anticipated Discharge: > 48 hours
Subjective/Interval History
-
Date of Service: August 27, 2024
interval events: no new complaints
Objective Data
-
Labs:
Laboratory Results
08/27/24
03:17
WBC 6.1
Hgb 9.3 L
Hct 29.2 L
Plt Count 108 L
Sodium 144
Potassium 4.4
Chloride 114 H
Carbon Dioxide 20 L
BUN 68 H
Creatinine 1.9 H
Glucose 101 H
Calcium 8.6
Vital Signs:
Vital Signs
Temp Pulse Resp BP Pulse Ox
98.2 F 47 13 109/52 95
08/27/24 04:46 08/27/24 06:00 08/27/24 06:00 08/27/24 06:00 08/27/24 06:01
I&O
08/26/24 08/27/24 08/28/24
06:59 06:59 06:59
Intake Total 1200 / 1200 1160 / 1160
Output Total 1150 / 1150 1250 / 1250
Balance 50 / 50 -90 / -90
Review of Systems
-
Unable to obtain full review of systems at this time due to: Other
History Source: Patient
All other systems: Reviewed and negative
Physical Exam
-
General: Well Developed, Well Nourished, No Apparent Distress and Morbidly Obese
HEENT: Normocephalic and Atraumatic; Negative Oxygen
Respiratory: Clear to Auscultation; Negative Wheezes or Rhonchi
Cardiac: Regular Rhythm and S1/S2
GI: Soft, Nontender, Nondistended and Normal Bowel Sounds
Musculoskeletal: No Clubbing, No Cyanosis and No Edema
Neuro: Awake and Alert
Psych: Calm
Data Reviewed
-
Labs: Labs Reviewed by me, Discussed with Physician and Discussed with Patient
[2024-08-27] MEDS: SYNTHROID 175 MCG PO (08:20)
[2024-08-27] MEDS: DESENEX/MITRAZOL/ZEASORB 1 APPLIC TOPICAL ×2 (08:21→21:29)
[2024-08-27] MEDS: DITROPAN 2.5 MG PO (08:22)
[2024-08-27] MEDS: PROSCAR 5 MG PO (08:22)
[2024-08-27 08:23] LABS: Glucose - Point of Care 96 mg/dl (70-99)
[2024-08-27] MEDS: PROTONIX IV 40 MG IV ×2 (08:24→21:29)
[2024-08-27] MEDS: NSS (PRESERVATIVE FREE) 10 ML IV ×2 (08:24→21:28)
--- NOTE | 2024-08-27 10:00 | PTCARENOTE ---
Assumed care of patient this morning. Patient pleasant, alert and oriented slightly forgetful. Tolerating clear liquid diet. Bear huggar placed on patient to keep rectal temperature 98.0. Patient temp was 97.6. SB on monitor with first degree AV
block, heart rates 40-60. Patient using call evagnelista appropriately.
[2024-08-27] MEDS: FLUSH (NSS) 1 FLUSH IV ×2 (10:14→15:55)
--- NOTE | 2024-08-27 11:19 | W.PN.ID1 ---
Date of Service
Date of Service: August 27, 2024
Today's Communication
- lab will check pseudomonas sensitivities for levofloxacin, alternatively I can arrange for outpatient iV antibiotics if that is intermediate or resistant as well
- c/w zosyn day 5 of effective rx
Assessment / Plan
Complicated UTI due to Pseudomonas
LEE on CKD
Class III obesity
- craig removed nad replaced 08/23 wtih 400 ccs initial output
- urine culture 100K Pseudomonas, also 30K E coli
- single blood culture was sent which is not sensitive enough to rule out bacteremia, however not a significant concern in most gram negative infections - no need to send further sets at this time
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
- QTc acceptable
- lab will check pseudomonas sensitivities for levofloxacin, alternatively I can arrange for outpatient iV antibiotics if that is intermediate or resistant as well
- c/w zosyn day 5 of effective rx
- will follow
Chief Complaint
-: UTI
Subjective / Review of Systems
afebrile
bp stable
in good spirits - has a hiral disposition and tells me a bit about growing up in [place]
'I feel like im 25% better'
Vital Signs / Physical Exam
Vital Signs
Vital Signs
Temp Pulse Resp BP Pulse Ox
97.8 F 47 13 109/52 95
08/27/24 07:49 08/27/24 06:00 08/27/24 06:00 08/27/24 06:00 08/27/24 06:01
Physical Exam
Constitutional: No Acute Distress
Cardiovascular: Regular Rate and S1/S2; Negative Murmur or Rub
Pulmonary: Clear and Symmetric; Negative Wheezes or Rales
Gastrointestinal: Soft, Non Tender, Non Distended and Normal Bowel Sounds
Genito-Urinary: Negative Suprapubic Tenderness
Skin: Warm and Dry; Negative Rash or Jaundice
Objective Data
Lab Data
Lab Results
08/27/24 03:17
08/27/24 03:17
PT 16.5 Sec (11.4-14.6) H 08/25/24 09:20
INR 1.30 08/25/24 09:20
APTT 37.3 Sec (23.4-35.0) H 08/25/24 09:20
Estimated Creat Clear 38 ml/min 08/27/24 03:17
Lactic Acid Cancelled 08/25/24 21:15
Total Bilirubin 0.3 mg/dl (0.2-1.3) 08/25/24 09:20
AST 40 U/L (17-59) 08/25/24 09:20
ALT 84 U/L (0-50) H 08/25/24 09:20
Alkaline Phosphatase 108 U/L (38-126) 08/25/24 09:20
Most recent labs reviewed.
Micro Results:
08/23/24 02:01 Urine Culture - Final
Urine Escherichia coli
Pseudomonas aeruginosa
08/23/24 02:01 Blood Culture - Preliminary
Blood/Venous No Growth in 4 days- Final report to follow
08/23/24 04:23 MRSA Screen - Final
Nose No Methicillin Resistant Staphylococcus aureus isolated.
[2024-08-27 12:39] LABS: Glucose - Point of Care 125 mg/dl (70-99)
--- NOTE | 2024-08-27 14:43 | W.PN.GI.CBS2 ---
Today's Communication / Plan
-
ok advance diet per gi pov, monitor hb, monitor for overt bleeding
Assessment / Plan
-
Mr. Mills is a 73yo M bedbound at [facility] with h/o chronic craig, EMANUEL, CAD and CVA who presents for confusion. GI consulted for melena and h/o iron def anemia. He is on eliquis with last dose 08/22 AM. No prior EGD/colon.
Had rapid response 08/25 due to hypoxemia and unresponsiveness thought due to sepsis 2/2 UTI.
Recommendations:
- No plan for EGD at this time with recent sepsis and no overt bleeding and stable Hb - OK GI POV to advance to low residue diet
- Recommend to continue ASA and hold Eliquis
- Will likely need eventual EGD prior to discharge since Hb 6.6 on 08/25 and given 2UPRBC not urgently at this time
- Continue protonix 40 BID
I sent msg to hospitalist and resident with my recommendations
Subjective
Subjective
Date of Service: August 27, 2024
No BM since 08/24 - last recorded as brown/black
Hypothermic getting warming blanket
Objective
Data Reviewed
Laboratory Data:
Laboratory Results
08/27/24 03:17
08/27/24 03:17
Laboratory Results
PT 16.5 Sec (11.4-14.6) H 08/25/24 09:20
INR 1.30 08/25/24 09:20
APTT 37.3 Sec (23.4-35.0) H 08/25/24 09:20
Magnesium 2.9 mg/dl (1.6-2.3) H 08/25/24 05:41
Total Bilirubin 0.3 mg/dl (0.2-1.3) 08/25/24 09:20
AST 40 U/L (17-59) 08/25/24 09:20
ALT 84 U/L (0-50) H 08/25/24 09:20
Alkaline Phosphatase 108 U/L (38-126) 08/25/24 09:20
Vital Signs and I&O:
Vital Signs
Temp Pulse Resp BP Pulse Ox
98.3 F 62 16 141/66 96
08/27/24 11:35 08/27/24 12:00 08/27/24 12:00 08/27/24 12:00 08/27/24 12:00
I&O
08/26/24 08/27/24 08/28/24
06:59 06:59 06:59
Intake Total 1200 / 1200 1160 / 1160 925 / 925
Output Total 1150 / 1150 1250 / 1250
Balance 50 / 50 -90 / -90 925 / 925
Physical Exam
Physical Exam
HEENT: Anicteric
Cardiology: Normal Sinus Rhythm
Pulmonary: Clear
GI: Non Distended and Non Tender
[2024-08-27] MEDS: ASPIR LOW (ENTERIC COATED) 81 MG PO (15:54)
[2024-08-27] MEDS: D5/0.9% SODIUM CHLORIDE 1000 IV (15:55)
[2024-08-27] MEDS: FLOMAX 0.4 MG PO (17:12)
[2024-08-27] MEDS: NOVOLOG FLEXPEN-LOW RESISTANCE SC (17:15)
[2024-08-27 17:17] LABS: Glucose - Point of Care 131 mg/dl (70-99)
--- NOTE | 2024-08-27 18:00 | PTCARENOTE ---
Patient INC of 3 large dark green/black liquid stools.
[2024-08-27 21:36] LABS: Glucose - Point of Care 97 mg/dl (70-99)
[2024-08-28] VITALS (13 sets, daily range): BP systolic 82–141; BP diastolic 50–95; PULSE 2; BMI 43.6
[2024-08-28] MEDS: D5/0.9% SODIUM CHLORIDE 1000 IV (03:24)
[2024-08-28] MEDS: ZOSYN 50 IV ×4 (04:00→21:21)
--- NOTE | 2024-08-28 04:10 | PTCARENOTE ---
Pt received from previous shift in bed. AAOx3, forgetful to detail, bizarre conversations at times. Telemetry = junctional. Full physical assessment documented (refer to MAR). Bilateral heel foams replaced. Sacral foam intact. R midline
w/D5NSS infusing w/o complication. Turned and positioned for comfort. Call evangelista w/in reach.
[2024-08-28] MEDS: SYNTHROID 175 MCG PO (06:08)
[2024-08-28 07:24] LABS: % Basophils 0.6 % (0-2); % Immature Granulocytes 0.4 % (0-0.5); % Lymphocytes 24.1 % (20.5-51.1); % Monocytes 10.1 % (1.7-9.3); % Neutrophils 58.8 % (42.2-75.2); Absolute Eosinophils 0.4 10^3/uL (0-0.7); Absolute Lymphocytes 1.7 10^3/uL (1.2-3.4); Absolute Monocytes 0.7 10^3/uL (0.1-0.6); Absolute Neutrophils 4.2 10^3/uL (1.4-6.5); Hematocrit 30.2 % (39.0-52.0); Hemoglobin 9.6 g/dL (13.0-18.0); Mean Corp Hgb Conc. 31.8 g/dL (33.0-37.0); Mean Corpuscular Hgb 31.1 pg (27.0-31.0); Mean Corpuscular Volume 97.7 fL (80.0-94.0); Mean Platelet Volume 10.6 fL (7.4-10.4); Nucleated Red Blood Cells % 0 % (-); Platelet Count 98 10^3/uL (130-400); Red Blood Cell Count 3.09 10^6/uL (4.70-6.10); Red Cell Dist. Width 16.5 % (11.5-14.5); White Blood Cell Count 7.2 10^3/uL (4.8-10.8)
[2024-08-28 07:27] LABS: ALT (SGPT) 64 U/L (0-50); AST (SGOT) 35 U/L (17-59); Albumin 2.7 g/dl (3.5-5.0); Alkaline Phosphatase 80 U/L (38-126); Blood Urea Nitrogen 60 mg/dl (9-20); Calcium 8.5 mg/dl (8.4-10.2); Carbon Dioxide 18 mmol/L (22-30); Chloride 115 mmol/L (98-107); Estimated Creatinine Clearance 39 ml/min; Glucose 96 mg/dl (70-99); Potassium 3.7 mmol/L (3.5-5.1); Sodium 143 mmol/L (135-145); Total Bilirubin 0.5 mg/dl (0.2-1.3); Total Protein 5.1 g/dl (6.3-8.2); eGFR 36.56
--- NOTE | 2024-08-28 07:41 | W.PN.HOSP.TC ---
Today's Communication/Plan
-
transfer to tele. continue current mgmt.
Assessment / Plan
Assessment / Plan
73-year-old who has extensive past medical history including chronic urinary retention status post indwelling urinary catheter, hypothyroidism, sleep apnea, CAD, CVA, hgh-eyiunce-nninvhfuo diabetes, unspecified heart failure and known bradycardia
who presents to the emergency department with episode of confusion.
#Altered mental status -Says random words, repetitive and appears to have some delusions. No meningeal signs.
-significant improvement AOx3
-Don't think encephalitis;suspect due to infection, azotemia (elevated BUN); Patient did have hypothermia temp <96 and periodic increase in RR to 20 and sepsis on admission but resolved.
-ammonia WNL
-head CT neg
-continue current antibiotic IV Zosyn day 6; urine culture positive for Pseudomonas & e.coli; ID on board; recs to continue IV while in house and stop on d/c
-Patient had the acute Hypoxic episode and a rapid response was called on 08/25/24 0900
- speech eval: diet increased to clear liquids today
# Metabolic acidosis with lactic acidosis
-Received 50MEQ sodium bicarb
-resolved
#Anemia of chronic disease with possible acute blood loss anemia from GI bleeding
-Patient with prior hx of GI bleed and on PPI
-was found to be heme positive in ED
-nursing reports no bleeding here
-On eliquis 2.5 bid for dvt ppx--hold for now
-transfuse if HGB < 7
-ASA resumed per GI recs
-2 bag PRBCs 08/25/24 after rapid called in and hb was 6.6: current hb 9.9
-Appreciate GI input;EGD before d/c probably saturday
#Hypothermia with metabolic acidosis
-could be due to infection (has chronic craig)
-cortisol checked and WNL, TSH mildly elevated at 6.5
-BC: NGTD
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
-Urine culture positive for Pseudomonas aeruginosa-cont zosyn
-covid neg, did not check flu
-procalcitonin negative
-warm blankets with goal of 97.5 F
#LEE/metabolic acidosis
-both BUN and creat improved
-Monitor for 24 hours; consider nephro consult
US 08/26: Left kidney is not identified with certainty, with a large amount of bowel gas in the region. Bowel gas could obscure the left kidney, though given the prominent size of the right kidney, there may be congenital absence of the left kidney
with compensatory right renal enlargement. Right renal cortical atrophy and medical renal disease. No shadowing calculus or hydronephrosis.
- continue d5w for now; clear liquids: advance diet as tolerated
#Transaminitis
- normal bili, mild elevation in as/alt. : improved since 08/22
- US: Cholelithiasis without sonographic evidence for acute cholecystitis.
#Type 2 DM--not currently on treatment per records, accuchecks q6 for now
- cont d5w; will also help with hypernatremia
#Bradycardia
-appers to have sinus with 1st deg AVB similar to a year ago
-consider cards eval
# neck pain
- resolved
DVT PPX - SCD
Code Status - full
Anticipated Discharge: > 48 hours
Subjective/Interval History
-
Date of Service: August 28, 2024
no new complaints
Objective Data
-
Labs:
Laboratory Results
08/28/24
06:06
WBC 7.2
Hgb 9.6 L
Hct 30.2 L
Plt Count 98 L
Sodium 143
Potassium 3.7
Chloride 115 H
Carbon Dioxide 18 L
BUN 60 H
Creatinine 1.9 H
Glucose 96
Calcium 8.5
Total Bilirubin 0.5
AST 35
ALT 64 H
Alkaline Phosphatase 80
Vital Signs:
Vital Signs
Temp Pulse Resp BP Pulse Ox
98.0 F 65 16 127/65 98
08/28/24 03:22 08/28/24 06:07 08/28/24 06:07 08/28/24 06:07 08/28/24 06:22
I&O
08/27/24 08/28/24 08/29/24
06:59 06:59 06:59
Intake Total 1160 / 1160 2955 / 2955
Output Total 1250 / 1250 800 / 800
Balance -90 / -90 2154 / 215
Review of Systems
-
Unable to obtain full review of systems at this time due to: Other
History Source: Patient
All other systems: Reviewed and negative
Physical Exam
-
General: Well Developed, Well Nourished, No Apparent Distress and Morbidly Obese
HEENT: Normocephalic and Atraumatic; Negative Oxygen
Respiratory: Clear to Auscultation; Negative Wheezes or Rhonchi
Cardiac: Regular Rhythm and S1/S2
GI: Soft, Nontender, Nondistended and Normal Bowel Sounds
Musculoskeletal: No Clubbing, No Cyanosis and No Edema
Neuro: Awake and Alert
Psych: Calm
Data Reviewed
-
Labs: Labs Reviewed by me, Discussed with Physician and Discussed with Patient
[2024-08-28 08:24] LABS: Glucose - Point of Care 98 mg/dl (70-99)
[2024-08-28] MEDS: NOVOLOG FLEXPEN-LOW RESISTANCE SC ×3 (08:27→17:06)
[2024-08-28] MEDS: PROTONIX IV 40 MG IV ×2 (08:28→20:14)
[2024-08-28] MEDS: ASPIR LOW (ENTERIC COATED) 81 MG PO (08:29)
[2024-08-28] MEDS: NSS (PRESERVATIVE FREE) 10 ML IV ×2 (08:29→20:14)
[2024-08-28] MEDS: PROSCAR 5 MG PO (08:29)
[2024-08-28] MEDS: DITROPAN 2.5 MG PO (08:29)
[2024-08-28] MEDS: DESENEX/MITRAZOL/ZEASORB 1 APPLIC TOPICAL ×2 (08:29→20:15)
--- NOTE | 2024-08-28 10:05 | PTOTSP ---
Speech Language Pathology
Pt seen for dysphagia tx. Currently on clear liquids, but ok to advance per discussion with GI. WBC 7.2. Tolerating clear liquids per RN. Seen with regular solids, thin liquids, and puree. Pt took very small bites, which he said is typical.
Adequate mastication, bolus formation, and A-P transit noted with no oral residue. No overt signs of aspiration.
Recommend:
(1) Upgrade to regular solids/thin liquids
(2) General aspiration precautions
(3) Meds as tolerated
(4) CORPORATE GENERAL MANAGER to continue to follow, likely briefly
--- NOTE | 2024-08-28 10:15 | W.PN.GI.CBS2 ---
Today's Communication / Plan
-
monitor hb, advance diet, egd likely saturday pending clinical status
Assessment / Plan
-
Mr. Mills is a 73yo M bedbound at [facility] with h/o chronic craig, EMANUEL, CAD and CVA who presents for confusion. GI consulted for melena and h/o iron def anemia. He is on eliquis with last dose 08/22 AM. No prior EGD/colon.
Had rapid response 08/25 due to hypoxemia and unresponsiveness thought due to sepsis 2/2 UTI.
Recommendations:
- No plan for EGD at this time with recent sepsis and no overt bleeding and stable Hb - OK GI POV to advance to low residue diet speech to evaluate him
- Recommend to continue ASA and hold Eliquis
- Will likely need eventual EGD prior to discharge since Hb 6.6 on 08/25 and given 2UPRBC not urgently at this time suspect Friday 08/31 pending clinical status d/w pt procedure he is agreeable
- Continue protonix 40 BID
Subjective
Subjective
Date of Service: August 28, 2024
Brown stool
Stable Hb
Objective
Data Reviewed
Laboratory Data:
Laboratory Results
08/28/24 06:06
08/28/24 06:06
Laboratory Results
PT 16.5 Sec (11.4-14.6) H 08/25/24 09:20
INR 1.30 08/25/24 09:20
APTT 37.3 Sec (23.4-35.0) H 08/25/24 09:20
Magnesium 2.9 mg/dl (1.6-2.3) H 08/25/24 05:41
Total Bilirubin 0.5 mg/dl (0.2-1.3) 08/28/24 06:06
AST 35 U/L (17-59) 08/28/24 06:06
ALT 64 U/L (0-50) H 08/28/24 06:06
Alkaline Phosphatase 80 U/L (38-126) 08/28/24 06:06
Vital Signs and I&O:
Vital Signs
Temp Pulse Resp BP Pulse Ox
97.5 F 65 16 127/65 98
08/28/24 07:44 08/28/24 06:07 08/28/24 06:07 08/28/24 06:07 08/28/24 06:22
I&O
08/27/24 08/28/24 08/29/24
06:59 06:59 06:59
Intake Total 1160 / 1160 2955 / 2955
Output Total 1250 / 1250 800 / 800
Balance -90 / -90 2155 / 2155
Physical Exam
Physical Exam
HEENT: Anicteric
Cardiology: Normal Sinus Rhythm
Pulmonary: Clear
GI: Non Distended and Non Tender
--- NOTE | 2024-08-28 10:40 | W.PN.ID1 ---
Date of Service
Date of Service: August 28, 2024
Today's Communication
- c/w zosyn day 6 - continue while in house (currently planned at least through saturday) can stop on discharge, will have completed an adequate course
Assessment / Plan
UTI due to Pseudomonas
LEE on CKD
Class III obesity
- craig removed nad replaced 08/23 wtih 400 ccs initial output
- urine culture 100K Pseudomonas, also 30K E coli
- single blood culture was sent which is not sensitive enough to rule out bacteremia, however not a significant concern in most gram negative infections - no need to send further sets at this time
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
- QTc acceptable
- c/w zosyn day 6 - continue while in house (currently planned at least through saturday) can stop on discharge, will have completed an adequate course
Chief Complaint
-: UTI
Subjective / Review of Systems
afebrile
bp stable
having liquid dark stool for egd saturday
Vital Signs / Physical Exam
Vital Signs
Vital Signs
Temp Pulse Resp BP Pulse Ox
97.5 F 65 16 127/65 98
08/28/24 07:44 08/28/24 06:07 08/28/24 06:07 08/28/24 06:07 08/28/24 06:22
Physical Exam
Constitutional: No Acute Distress and Chronically Ill
Cardiovascular: Regular Rate and S1/S2; Negative Murmur or Rub
Pulmonary: Clear and Symmetric; Negative Wheezes or Rales
Gastrointestinal: Soft, Non Tender, Non Distended and Normal Bowel Sounds
Genito-Urinary: Negative Suprapubic Tenderness
Skin: Warm and Dry; Negative Rash or Jaundice
Objective Data
Lab Data
Lab Results
08/28/24 06:06
08/28/24 06:06
PT 16.5 Sec (11.4-14.6) H 08/25/24 09:20
INR 1.30 08/25/24 09:20
APTT 37.3 Sec (23.4-35.0) H 08/25/24 09:20
Estimated Creat Clear 39 ml/min 08/28/24 06:06
Lactic Acid Cancelled 08/25/24 21:15
Total Bilirubin 0.5 mg/dl (0.2-1.3) 08/28/24 06:06
AST 35 U/L (17-59) 08/28/24 06:06
ALT 64 U/L (0-50) H 08/28/24 06:06
Alkaline Phosphatase 80 U/L (38-126) 08/28/24 06:06
Most recent labs reviewed.
Micro Results:
08/23/24 02:01 Blood Culture - Final
Blood/Venous No Growth - Final Report
08/23/24 02:01 Urine Culture - Final
Urine Escherichia coli
Pseudomonas aeruginosa
08/23/24 04:23 MRSA Screen - Final
Nose No Methicillin Resistant Staphylococcus aureus isolated.
[2024-08-28 12:53] LABS: Glucose - Point of Care 108 mg/dl (70-99)
--- NOTE | 2024-08-28 15:45 | PTCARENOTE ---
Patient transfer admitted in to room 430. AAOx3. Able to make needs know. Patient oriented to unit and call evangelista system. Patient reports he will ring for assistance.
--- NOTE | 2024-08-28 16:19 | PTCARENOTE ---
Assumed care of patient at beginning of this shift from previous RN. Patient Ox3 but forgetful. Per GI this morning, patient was able to increase to full liquid diet yesterday. This nurse reviewed with resident earlier today; diet changed to full
liquid. Speech therapist up to evaluate patient and stated she spoke with GI who ok'd patient to have solids; she stated to this nurse that patient did well with solids. She stated she sent tiger text to resident.
Patient downgraded to telemetry. Report given to Anisha and patient transferred to room 430 with belongings. RT took patient's bipap.
[2024-08-28 16:51] LABS: Glucose - Point of Care 125 mg/dl (70-99)
--- NOTE | 2024-08-28 17:03 | CM ---
Patient from [facility] with Hx CVA. Per nursing; A/O.
--- NOTE | 2024-08-28 17:06 | CM ---
Patient from [facility] with Hx CVA. BiPAP HS. Receiving IV Abx. Per nursing; forgetful. PT & OT notes; Therapy not warranted. Patient transferred from IMU to .
[facility]: The ph for nurse report to the first floor [phone], fax [phone].
CM needs to call Maira, [facility] prior to patient returning.
Plan continue to follow respiratory needs for discharge- notify SNF if BiPAP will be needed.
Plan return to [facility] when medically ready.
[2024-08-28] MEDS: FLOMAX 0.4 MG PO (17:28)
[2024-08-28 21:20] LABS: Glucose - Point of Care 136 mg/dl (70-99)
[2024-08-29] VITALS (8 sets, daily range): BP systolic 92–119; BP diastolic 52–67; PULSE 2; BMI 43.9
--- NOTE | 2024-08-29 00:04 | PTCARENOTE ---
Patient`s heart dropped to 33 while sleeping. Patient assessed and stated that he 'felt ok'. Vital signs obtained; blood pressure was 103/62, HR 43, temperature 97.4 degrees F, 97% oxygen. Heart rate in 40`s now. hospital cleaning specialist nurse practitioner made
aware. Patient on BiPap for sleep apnea. No new orders. Patient remains on telemetry.
--- NOTE | 2024-08-29 02:03 | PTCARENOTE ---
BiPap removed for remainder of night per patient request.
[2024-08-29] MEDS: ZOSYN 50 IV ×4 (03:32→21:16)
[2024-08-29] MEDS: SYNTHROID 175 MCG PO (05:56)
[2024-08-29 08:48] LABS: % Basophils 0.6 % (0-2); % Eosinophils 5.6 % (0-6); % Immature Granulocytes 0.5 % (0-0.5); % Lymphocytes 19.8 % (20.5-51.1); % Monocytes 7.9 % (1.7-9.3); % Neutrophils 65.6 % (42.2-75.2); Absolute Eosinophils 0.4 10^3/uL (0-0.7); Absolute Lymphocytes 1.3 10^3/uL (1.2-3.4); Absolute Monocytes 0.5 10^3/uL (0.1-0.6); Absolute Neutrophils 4.3 10^3/uL (1.4-6.5); Hematocrit 30.4 % (39.0-52.0); Hemoglobin 9.6 g/dL (13.0-18.0); Mean Corp Hgb Conc. 31.6 g/dL (33.0-37.0); Mean Corpuscular Hgb 30.3 pg (27.0-31.0); Mean Corpuscular Volume 95.9 fL (80.0-94.0); Mean Platelet Volume 11.8 fL (7.4-10.4); Nucleated Red Blood Cells % 0 % (-); Platelet Count 88 10^3/uL (130-400); Red Blood Cell Count 3.17 10^6/uL (4.70-6.10); Red Cell Dist. Width 16.1 % (11.5-14.5); White Blood Cell Count 6.6 10^3/uL (4.8-10.8)
--- NOTE | 2024-08-29 09:02 | W.PN.GI.CBS2 ---
Today's Communication / Plan
-
egd saturday, adv diet to regular, recommend dvt prophylaxis per primary team
Assessment / Plan
-
Mr. Mills is a 73yo M bedbound at [facility] with h/o chronic craig, EMANUEL, CAD, DM and CVA who presented with altered mental status. GI consulted for melena and h/o iron def anemia. He is on eliquis with last dose 08/22 AM (per H+P he is on for
DVT prophylaxis). No prior EGD/colon.
Had rapid response 08/25 due to hypoxemia and unresponsiveness thought due to sepsis /2 UTI and ongoing hypothermia 08/27.
Improving from sepsis standpoint.
Recommendations:
- No plan for EGD at this time with recent sepsis and no overt bleeding and stable Hb - OK GI POV to advance to regular diet which I advanced him today reviewed speech note he is cleared
- Recommend to continue ASA and hold Eliquis
- Will likely need eventual EGD prior to discharge since Hb 6.6 on 08/25 and given 2UPRBC and will need to resume Eliquis not urgently at this time suspect Friday 08/31 pending clinical status d/w pt procedure he is agreeable
- Continue protonix 40 IV BID
- OK for pt to be on DVT prophylaxis defer to primary team since no further bleeding
- mild ALT elevation, trending down
Subjective
Subjective
Date of Service: August 29, 2024
no black stool, hb stable, no fevers/.hypothermia
Objective
Data Reviewed
Laboratory Data:
Laboratory Results
08/29/24 08:25
Laboratory Results
PT 16.5 Sec (11.4-14.6) H 08/25/24 09:20
INR 1.30 08/25/24 09:20
APTT 37.3 Sec (23.4-35.0) H 08/25/24 09:20
Magnesium 2.9 mg/dl (1.6-2.3) H 08/25/24 05:41
Total Bilirubin 0.5 mg/dl (0.2-1.3) 08/28/24 06:06
AST 35 U/L (17-59) 08/28/24 06:06
ALT 64 U/L (0-50) H 08/28/24 06:06
Alkaline Phosphatase 80 U/L (38-126) 08/28/24 06:06
Vital Signs and I&O:
Vital Signs
Temp Pulse Resp BP Pulse Ox
97.7 F 51 18 109/67 98
08/29/24 07:00 08/29/24 07:00 08/29/24 07:00 08/29/24 07:00 08/29/24 07:00
I&O
08/28/24 08/29/24 08/30/24
06:59 06:59 06:59
Intake Total 2955 / 2955 50 / 50
Output Total 800 / 800 400 / 400
Balance 2155 / 2155 -350 / -350
Physical Exam
Physical Exam
HEENT: Anicteric
Cardiology: Normal Sinus Rhythm
Pulmonary: Clear
GI: Non Distended and Non Tender
[2024-08-29] MEDS: NOVOLOG FLEXPEN-LOW RESISTANCE SC ×3 (09:16→16:32)
[2024-08-29 09:17] LABS: Glucose - Point of Care 81 mg/dl (70-99)
[2024-08-29] MEDS: DITROPAN 2.5 MG PO (09:17)
[2024-08-29] MEDS: PROSCAR 5 MG PO (09:17)
[2024-08-29] MEDS: NSS (PRESERVATIVE FREE) 10 ML IV ×2 (09:18→21:15)
[2024-08-29] MEDS: ASPIR LOW (ENTERIC COATED) 81 MG PO (09:18)
[2024-08-29] MEDS: PROTONIX IV 40 MG IV ×2 (09:18→21:16)
[2024-08-29 09:19] LABS: ALT (SGPT) 66 U/L (0-50); AST (SGOT) 46 U/L (17-59); Albumin 2.5 g/dl (3.5-5.0); Alkaline Phosphatase 88 U/L (38-126); Blood Urea Nitrogen 51 mg/dl (9-20); Calcium 8.4 mg/dl (8.4-10.2); Carbon Dioxide 18 mmol/L (22-30); Chloride 113 mmol/L (98-107); Estimated Creatinine Clearance 40 ml/min; Glucose 74 mg/dl (70-99); Sodium 142 mmol/L (135-145); Total Bilirubin 0.4 mg/dl (0.2-1.3); Total Protein 4.9 g/dl (6.3-8.2); eGFR 36.56
--- NOTE | 2024-08-29 10:16 | W.PN.HOSP.TC ---
Addendum entered and electronically signed by Kyle Cardoza DO 08/29/24 17:48:
Thrombocytopenia: POA, stable but volatile in range of 75-125, likely reactive to probable GIB, trend CBC
Original Note:
Today's Communication/Plan
-
Trend CBC
Continue PPI
Continue with aspirin, hold Eliquis
Continue Zosyn
Assessment / Plan
Assessment / Plan
#Severe sepsis secondary to UTI
#CAUTI - POA
-Presented with positive SIRS criteria, encephalopathy, urinary source of infection
-Was started on IV Zosyn empirically at the time, urine culture positive for Pseudomonas and E. coli
-Discrepancies between the sensitivities for both bacteria present; both found to be resistant to levofloxacin as well
-Infectious disease was consulted, recommending to continue IV Zosyn through discharge, near 10 days of antibiotics
-No recent fevers, leukocytosis is resolved
-Continue IV Zosyn and trend CBC and Temp
-Holding Bumex and lisinopril, may not require this at DC
#Acute on Chronic Anemia
#Presumed UGIB
#Anemia of chronic disease
-On arrival had hemoglobin of 6.6, received 2 units of PRBC at the time; ASA and Eliquis held
-Hemoglobin responded appropriately and has since been stable in the range of 9�10
-GI following, planning for endoscopy on Friday 08/31; remains on CLD for now
-Currently on IV PPI twice daily; aspirin resumed; Eliquis still held
-Continue to trend CBC
-NPO Saturday night
#CKD stage III
-Concerns for initial LEE versus CKD, baseline creatinine was unclear
-Also had significantly elevated BUN which was presumed secondary to UGIB
-Creatinine has been stable near 1.9 which is most likely his baseline
-Likely associated with anemia; no acidemia or bone mineral disease noted
#Type 2 DM
-Per home medications, does not seem to be on antihyperglycemic regimen
-Did have some issues with hypoglycemia earlier while n.p.o. though has improved with diet
-Remains on ISS with Accu-Cheks, BG goal 100-200, avoid hypoglycemia
#Hypothyroidism
-Unclear etiology, appears stable on levothyroxine 175 mcg daily
#CAD s/p PCI
-Home medications include aspirin and high intensity statin; not on beta-sudha with history of bradycardia
-No signs or symptoms of ACS throughout this hospital stay
#Chronic Villarreal catheter
#H/O CVA
-Unclear etiology of stroke; no history of AF/AFL, possibly cerebrovascular
-Home medications include aspirin and statin; urinary regimen with oxybutynin and tamsulosin
#EMANUEL on CPAP
-Remains on nightly CPAP with previous settings
#Chronic anticoagulation
-Per his facility, he is on Eliquis 2.5 mg twice daily for DVT prophylaxis
-No known history of DVT/PE, AF/AFL
-Plan to resume Eliquis after endoscopy
-May need risk/benefits discussion on if Eliquis is needed
#Transaminitis
-Resolved
#Acute metabolic encephalopathy
-Secondary to above issues
-Resolved
#Metabolic acidosis with lactic acidosis
-resolved
#Hypothermia
-Likely in the context of sepsis, blood loss
-Resolved
DVT PPhx: SCD
Diet: CLD for now
Code Status: DNR
Anticipated Discharge: > 48 hours
Subjective/Interval History
-
Date of Service: August 29, 2024
Seen and examined at the bedside. No acute events reported overnight. AFVSS this morning.
Hemoglobin continues to be stable, Eliquis remains held. Spoke with facility yesterday. States the Eliquis is for DVT prophylaxis only
Denies any acute complaints today, states he feels generally well
Objective Data
-
Labs:
Laboratory Results
08/29/24
08:25
WBC 6.6
Hgb 9.6 L
Hct 30.4 L
Plt Count 88 L
Sodium 142
Potassium 4.0
Chloride 113 H
Carbon Dioxide 18 L
BUN 51 H
Creatinine 1.9 H
Glucose 74
Calcium 8.4
Total Bilirubin 0.4
AST 46
ALT 66 H
Alkaline Phosphatase 88
Vital Signs:
Vital Signs
Temp Pulse Resp BP Pulse Ox
97.7 F 51 18 109/67 98
08/29/24 07:00 08/29/24 07:00 08/29/24 07:00 08/29/24 07:00 08/29/24 07:00
I&O
08/28/24 08/29/24 08/30/24
06:59 06:59 06:59
Intake Total 2955 / 2955 50 / 50
Output Total 800 / 800 400 / 400
Balance 2155 / 2155 -350 / -350
Review of Systems
-
History Source: Patient
All other systems: Reviewed and negative
Physical Exam
-
General: No Apparent Distress, Comfortable and Morbidly Obese
HEENT: Normocephalic, Atraumatic and Moist Mucous Membranes; Negative Good Dentition
Respiratory: Clear to Auscultation and Non Labored Respirations
Cardiac: Regular Rhythm and S1/S2; Negative Murmur, Rub or Gallop
GI: Soft, Nontender, Nondistended and Normal Bowel Sounds
Musculoskeletal: No Clubbing, No Cyanosis and No Edema
Skin: Warm and Dry; Negative Rash
Neuro: AO x 3 and Nonfocal/Grossly Intact
Psych: Calm
Data Reviewed
-
Labs: Labs Reviewed by me and Discussed with Patient
[2024-08-29 12:31] LABS: Glucose - Point of Care 130 mg/dl (70-99)
[2024-08-29] MEDS: DESENEX/MITRAZOL/ZEASORB 1 APPLIC TOPICAL ×2 (13:45→21:18)
[2024-08-29 16:28] LABS: Glucose - Point of Care 149 mg/dl (70-99)
[2024-08-29] MEDS: FLOMAX 0.4 MG PO (17:02)
[2024-08-29 20:37] LABS: Glucose - Point of Care 177 mg/dl (70-99)
[2024-08-29] MEDS: HEPARIN 5000 UNITS SC (23:34)
[2024-08-30] VITALS (8 sets, daily range): BP systolic 102–133; BP diastolic 53–77; PULSE 2; BMI 45.4
[2024-08-30] MEDS: ZOSYN 50 IV ×4 (04:12→21:11)
[2024-08-30] MEDS: SYNTHROID 175 MCG PO (06:39)
[2024-08-30 07:43] LABS: Glucose - Point of Care 120 mg/dl (70-99)
[2024-08-30] MEDS: NOVOLOG FLEXPEN-LOW RESISTANCE SC ×2 (07:48→16:39)
[2024-08-30] MEDS: ASPIR LOW (ENTERIC COATED) 81 MG PO (08:29)
[2024-08-30] MEDS: DITROPAN 2.5 MG PO (08:29)
[2024-08-30] MEDS: PROSCAR 5 MG PO (08:30)
[2024-08-30] MEDS: HEPARIN 5000 UNITS SC ×2 (08:30→17:31)
[2024-08-30] MEDS: NSS (PRESERVATIVE FREE) 10 ML IV ×2 (08:31→21:09)
[2024-08-30] MEDS: PROTONIX IV 40 MG IV ×2 (08:31→21:09)
[2024-08-30 08:37] LABS: Blood Urea Nitrogen 48 mg/dl (9-20); Calcium 8.2 mg/dl (8.4-10.2); Carbon Dioxide 21 mmol/L (22-30); Chloride 113 mmol/L (98-107); Estimated Creatinine Clearance 40 ml/min; Glucose 102 mg/dl (70-99); Sodium 145 mmol/L (135-145); eGFR 36.56
[2024-08-30 09:20] LABS: TSH 0.98 uIU/ml (0.47-4.68)
[2024-08-30 09:22] LABS: % Basophils 0.6 % (0-2); % Eosinophils 5.5 % (0-6); % Immature Granulocytes 0.4 % (0-0.5); % Lymphocytes 16.4 % (20.5-51.1); % Monocytes 6.7 % (1.7-9.3); % Neutrophils 70.4 % (42.2-75.2); Absolute Basophils 0.1 10^3/uL (0-0.2); Absolute Eosinophils 0.4 10^3/uL (0-0.7); Absolute Lymphocytes 1.3 10^3/uL (1.2-3.4); Absolute Monocytes 0.5 10^3/uL (0.1-0.6); Absolute Neutrophils 5.7 10^3/uL (1.4-6.5); Hematocrit 30.7 % (39.0-52.0); Mean Corp Hgb Conc. 32.6 g/dL (33.0-37.0); Mean Corpuscular Hgb 30.8 pg (27.0-31.0); Mean Corpuscular Volume 94.5 fL (80.0-94.0); Mean Platelet Volume 11.8 fL (7.4-10.4); Nucleated Red Blood Cells % 0 % (-); Platelet Count 99 10^3/uL (130-400); Red Blood Cell Count 3.25 10^6/uL (4.70-6.10); Red Cell Dist. Width 15.9 % (11.5-14.5)
[2024-08-30 11:34] LABS: Glucose - Point of Care 330 mg/dl (70-99)
[2024-08-30] MEDS: DESENEX/MITRAZOL/ZEASORB 1 APPLIC TOPICAL ×2 (11:43→21:19)
--- NOTE | 2024-08-30 11:48 | W.PN.HOSP.TC ---
Addendum entered and electronically signed by Kyle Cardoza DO 08/30/24 17:46:
Correction to below. Patient does not have QTc prolongation. Information for another patient was texted to me under this patient's name. Will hold off on cardiology consult for now. Continue to monitor on telemetry, could consider having
cardiology assessment prior to discharge (likely Saturday).
Addendum entered and electronically signed by Kyle Cardoza DO 08/30/24 17:30:
#Bradycardia
-Intermittently bradycardic throughout hospital stay, as low as 40/min though usually high 40s-50s when present
-Has not had any symptoms here, has remained hemodynamically stable as well
-EKG has showed first-degree AVB at times, no signs of dropped beats
-Will ask cardiology to evaluate prior to discharge
#QTc prolongation
-Notified by nursing that telemetry mentioned prolonged appearing QTc
-EKG showing sinus rhythm with QTc 532 ms
-Not on QTc prolonging agents, Zofran was ordered but does not seem he received any per MAR
-Cardiology consult as above
Original Note:
Today's Communication/Plan
-
N.p.o. after midnight for endoscopy tomorrow
Hold Eliquis, continue with aspirin
Continue IV Zosyn through 08/31
Assessment / Plan
Assessment / Plan
#Severe sepsis secondary to UTI
#CAUTI - POA
-Presented with positive SIRS criteria, encephalopathy, urinary source of infection
-Was started on IV Zosyn empirically at the time, urine culture positive for Pseudomonas and E. coli
-Discrepancies between the sensitivities for both bacteria present; both found to be resistant to levofloxacin as well
-Infectious disease was consulted, recommending to continue IV Zosyn through discharge, to complete 7 days
-Continue IV Zosyn through 08/31 and trend CBC and Temp
-Holding Bumex and lisinopril, may not require this at DC
#Acute on Chronic Anemia
#Presumed UGIB
#Anemia of chronic disease
-On arrival had hemoglobin of 6.6, received 2 units of PRBC at the time; ASA and Eliquis held
-Hemoglobin responded appropriately and has since been stable in the range of 9�10
-GI following, planning for endoscopy on Friday 08/31; remains on CLD for now
-Currently on IV PPI twice daily; aspirin resumed; Eliquis still held
-Continue to trend CBC
-NPO tonight for endoscopy
#CKD stage III
-Concerns for initial LEE versus CKD, baseline creatinine was unclear
-Also had significantly elevated BUN which was presumed secondary to UGIB
-Creatinine has been stable near 1.9 which is most likely his baseline
-Likely associated with anemia; no acidemia or bone mineral disease noted
#Type 2 DM
-Per home medications, does not seem to be on antihyperglycemic regimen
-Did have some issues with hypoglycemia earlier while n.p.o. though has improved with diet
-Remains on ISS with Accu-Cheks, BG goal 100-200, avoid hypoglycemia
#Hypothyroidism
-Unclear etiology, appears stable on levothyroxine 175 mcg daily
#CAD s/p PCI
-Home medications include aspirin and high intensity statin; not on beta-sudha with history of bradycardia
-No signs or symptoms of ACS throughout this hospital stay
#Chronic Villarreal catheter
#H/O CVA
-Unclear etiology of stroke; no history of AF/AFL, possibly cerebrovascular
-Home medications include aspirin and statin; urinary regimen with oxybutynin and tamsulosin
#EMANUEL on CPAP
-Remains on nightly CPAP with previous settings
#Chronic anticoagulation
-Per his facility, he is on Eliquis 2.5 mg twice daily for DVT prophylaxis
-No known history of DVT/PE, AF/AFL
-Plan to resume Eliquis after endoscopy
-May need risk/benefits discussion on if Eliquis is needed
#Moderate aortic stenosis
-Consistent murmur on exam, last echo in 2022
-Should have TTE with cardiology for follow-up after discharge
#Transaminitis
-Resolved
#Acute metabolic encephalopathy
-Secondary to above issues
-Resolved
#Metabolic acidosis with lactic acidosis
-resolved
#Hypothermia
-Likely in the context of sepsis, blood loss
-Resolved
DVT PPhx: SCD
Diet: CLD for now
Code Status: DNR
Anticipated Discharge: 24 - 48 hours
Subjective/Interval History
-
Date of Service: August 30, 2024
Seen and examined at the bedside. No acute events reported overnight. AFVSS this morning.
Hemoglobin up to 10.0. Says he had a good night sleep and feels well today.
Denies any acute complaints including chest pain, dyspnea, fevers or chills, bleeding or bruising, paresthesias or weakness, GI or urinary
Objective Data
-
Labs:
Laboratory Results
08/30/24 08/30/24
08:05 08:57
WBC 8.0
Hgb 10.0 L
Hct 30.7 L
Plt Count 99 L
Sodium 145
Potassium 4.0
Chloride 113 H
Carbon Dioxide 21 L
BUN 48 H
Creatinine 1.9 H
Glucose 102 H
Calcium 8.2 L
Vital Signs:
Vital Signs
Temp Pulse Resp BP Pulse Ox
98.2 F 68 18 115/61 98
08/30/24 03:30 08/30/24 03:30 08/30/24 03:30 08/30/24 03:30 08/30/24 03:30
I&O
08/29/24 08/30/24 08/31/24
06:59 06:59 06:59
Intake Total 50 / 50 200 / 200
Output Total 400 / 400 1200 / 1200
Balance -350 / -350 -1000 / -1000
Review of Systems
-
History Source: Patient
All other systems: Reviewed and negative
Physical Exam
-
General: Well Developed, No Apparent Distress, Comfortable and Morbidly Obese
HEENT: Normocephalic, Atraumatic, Moist Mucous Membranes and Anicteric; Negative Good Dentition
Respiratory: Clear to Auscultation and Non Labored Respirations; Negative Accessory Resp Muscle Use
Cardiac: Regular Rhythm, S1/S2 and Murmur (Crescendo decrescendo, TERELL); Negative Rub or Gallop
GI: Soft, Nontender, Nondistended and Normal Bowel Sounds
Musculoskeletal: No Clubbing, No Cyanosis and No Edema
Skin: Warm, Dry and Normal Turgor; Negative Rash
Neuro: AO x 3 and Nonfocal/Grossly Intact
Psych: Calm
Data Reviewed
-
Labs: Labs Reviewed by me, Discussed with Nurse and Discussed with Patient
[2024-08-30 11:55] LABS: Glucose - Point of Care 151 mg/dl (70-99)
[2024-08-30] MEDS: NOVOLOG FLEXPEN-LOW RESISTANCE 1 UNITS SC (13:31)
[2024-08-30 16:08] LABS: Glucose - Point of Care 96 mg/dl (70-99)
--- NOTE | 2024-08-30 17:08 | W.PN.GI.CBS2 ---
Today's Communication / Plan
-
EGD tmwr
Assessment / Plan
-
Mr. Mills is a 73yo M bedbound at [facility] with h/o chronic craig, EMANUEL, CAD, DM and CVA who presented with altered mental status. GI consulted for melena and h/o iron def anemia. He is on eliquis with last dose 08/22 AM (per H+P he is on for
DVT prophylaxis). No prior EGD/colon.
Had rapid response 08/25 due to hypoxemia and unresponsiveness thought due to sepsis 2/2 UTI and ongoing hypothermia 08/27.
Improving from sepsis standpoint.
Recommendations:
- Plan EGD tmwr r/a/b reviewed with pt (risks inc not limited to bleeding, infection, perforation)
- Recommend to continue ASA and hold Eliquis
- Will likely need eventual EGD prior to discharge since Hb 6.6 on 08/25 and given 2UPRBC and will need to resume Eliquis not urgently at this time suspect Friday 08/31 pending clinical status d/w pt procedure he is agreeable
- Continue protonix 40 IV BID
- OK for pt to be on DVT prophylaxis defer to primary team since no further bleeding
- mild ALT elevation, trending down
Of note, last cscope many years ago (not in [place]) pt does not recall if EGD neg pt states would want cscope may be difficult to prep with mobility issues
Subjective
Subjective
Date of Service: August 30, 2024
No events
Objective
Data Reviewed
Laboratory Data:
Laboratory Results
08/30/24 08:57
08/30/24 08:05
Laboratory Results
PT 16.5 Sec (11.4-14.6) H 08/25/24 09:20
INR 1.30 08/25/24 09:20
APTT 37.3 Sec (23.4-35.0) H 08/25/24 09:20
Magnesium 2.9 mg/dl (1.6-2.3) H 08/25/24 05:41
Total Bilirubin 0.4 mg/dl (0.2-1.3) 08/29/24 08:25
AST 46 U/L (17-59) 08/29/24 08:25
ALT 66 U/L (0-50) H 08/29/24 08:25
Alkaline Phosphatase 88 U/L (38-126) 08/29/24 08:25
Vital Signs and I&O:
Vital Signs
Temp Pulse Resp BP Pulse Ox
98.2 F 84 18 133/77 94
08/30/24 15:54 08/30/24 15:54 08/30/24 15:54 08/30/24 15:54 08/30/24 15:54
I&O
08/29/24 08/30/24 08/31/24
06:59 06:59 06:59
Intake Total 50 / 50 200 / 200
Output Total 400 / 400 1200 / 1200
Balance -350 / -350 -1000 / -1000
Physical Exam
Physical Exam
HEENT: Anicteric
Cardiology: Normal Sinus Rhythm
Pulmonary: Clear
GI: Non Distended and Non Tender
[2024-08-30] MEDS: FLOMAX 0.4 MG PO (17:31)
[2024-08-30 18:03] LABS: Magnesium 2.3 mg/dl (1.6-2.3)
[2024-08-30 21:47] LABS: Glucose - Point of Care 184 mg/dl (70-99)
[2024-08-31] VITALS (11 sets, daily range): BP systolic 17–148; BP diastolic 48–76; PULSE 2; BMI 45.1
[2024-08-31] MEDS: HEPARIN 5000 UNITS SC ×3 (00:08→15:48)
[2024-08-31] MEDS: ZOSYN 50 IV ×4 (03:33→22:29)
[2024-08-31] MEDS: SYNTHROID 175 MCG PO (05:30)
[2024-08-31 05:53] LABS: Glucose - Point of Care 120 mg/dl (70-99)
[2024-08-31] MEDS: NOVOLOG FLEXPEN-LOW RESISTANCE SC ×3 (08:48→17:41)
[2024-08-31 08:57] LABS: Glucose - Point of Care 144 mg/dl (70-99)
[2024-08-31] MEDS: DESENEX/MITRAZOL/ZEASORB 1 APPLIC TOPICAL ×2 (08:58→20:50)
[2024-08-31] MEDS: NSS (PRESERVATIVE FREE) 10 ML IV ×2 (08:59→20:49)
[2024-08-31] MEDS: PROTONIX IV 40 MG IV ×2 (09:00→20:49)
[2024-08-31] MEDS: ASPIR LOW (ENTERIC COATED) 81 MG PO (09:00)
[2024-08-31] MEDS: PROSCAR 5 MG PO (09:01)
[2024-08-31] MEDS: DITROPAN 2.5 MG PO (09:01)
--- NOTE | 2024-08-31 10:27 | CM ---
infection control manager reviewed patient's chart and patient was admitted from [facility] [place], outpatient case manager spoke with Tara in admissions at [facility] and confirmed that patient has a Bipap at skilled nursing. Plan is for patient to return to
[facility] when stable.
[facility]
Report [phone]
.
[2024-08-31 10:29] LABS: Glucose - Point of Care 112 mg/dl (70-99)
--- NOTE | 2024-08-31 10:30 | W.PN.ID1 ---
Date of Service
Date of Service: August 31, 2024
Today's Communication
continue zosyn while inpatient
Assessment / Plan
UTI due to Pseudomonas
LEE on CKD
Class III obesity
- urine culture 100K Pseudomonas, also 30K E coli
- QTc acceptable
- c/w zosyn day 9 - continue while in house for a maximum of 14 days, can stop on discharge, will have completed an adequate course
Chief Complaint
-: UTI
Subjective / Review of Systems
afebrile
bp stable
for egd today
Vital Signs / Physical Exam
Vital Signs
Vital Signs
Temp Pulse Resp BP Pulse Ox
99.2 F 64 21 130/62 98
08/31/24 07:00 08/31/24 07:00 08/31/24 07:00 08/31/24 07:00 08/31/24 07:00
Physical Exam
Constitutional: No Acute Distress and Comfortable
Cardiovascular: Regular Rate
Gastrointestinal: Non Distended
Neurological: Awake
Psychological: Calm
Objective Data
Lab Data
Lab Results
08/30/24 08:57
08/30/24 08:05
PT 16.5 Sec (11.4-14.6) H 08/25/24 09:20
INR 1.30 08/25/24 09:20
APTT 37.3 Sec (23.4-35.0) H 08/25/24 09:20
Estimated Creat Clear 40 ml/min 08/30/24 08:05
Lactic Acid Cancelled 08/25/24 21:15
Total Bilirubin 0.4 mg/dl (0.2-1.3) 08/29/24 08:25
AST 46 U/L (17-59) 08/29/24 08:25
ALT 66 U/L (0-50) H 08/29/24 08:25
Alkaline Phosphatase 88 U/L (38-126) 08/29/24 08:25
Most recent labs reviewed.
Micro Results:
08/23/24 02:01 Blood Culture - Final
Blood/Venous No Growth - Final Report
08/23/24 02:01 Urine Culture - Final
Urine Escherichia coli
Pseudomonas aeruginosa
08/23/24 04:23 MRSA Screen - Final
Nose No Methicillin Resistant Staphylococcus aureus isolated.
--- NOTE | 2024-08-31 15:32 | W.PN.HOSP.TC ---
Addendum entered and electronically signed by Stacy Arvizu MD 08/31/24 17:24:
I saw and evaluated the patient. I reviewed the resident�s note and agree with findings and plan as documented in the resident�s note except for changes in my documentation
73-year-old with mental status change and hypothermia. He was found to have melanotic stools in the ED
Echo 01/10/2023-normal LV thickness. Normal LV size. EF 55%. Moderate hypokinesis of distal inferior, distal anteroseptal and apical wall. Normal RV size and function. Moderate .
Awake alert
Cardiovascular system S1-S2 appreciated
Chest decreased breath sounds at bases
Abdomen soft and nontender
Bilateral pedal edema
# TME/mental status change-resolved. Head CT without any acute changes
# Hypothermia-secondary to sepsis
# Sepsis secondary to UTI
CAUTI POA
Had rapid response 08/25 due to hypoxemia and unresponsiveness thought due to sepsis 2/2 UTI and ongoing hypothermia 08/27.
Continue IV Zosyn
Renal ultrasound-left kidney not identified. Bowels gas obscuring it or congenital absence of left kidney with compensatory right renal and enlargement right renal cortical atrophy with medical renal disease
# Melena with GI bleed prior history of GI bleed on PPI
Hold Eliquis
Continue PPI IV twice daily
GI consulted
EGD attempted 08-31-24-food in the stomach therefore reattempt 09/01/2024
# Acute blood loss anemia-status post 2 units of PRBCs
Hemoglobin 6.6 on admission
History of chronic anemia
# Transaminitis-trending down
# Thrombocytopenia-likely secondary to infection
# Metabolic acidosis/lactic acidosis-resolved
# Diabetes-not on medicines as outpatient. Accu-Cheks and sliding scale coverage
# Bradycardia
# CKD stage III
# History of coronary artery disease
# Hyperlipidemia-was on atorvastatin 60 mg as outpatient. Continue
# Hypothyroidism-continue Synthroid 175 mcg daily
# Prostate disease-continue finasteride, Flomax. Also has a chronic Villarreal catheter. Outpatient urology evaluation
# Gout-continue allopurinol
# Hypertension-was on amlodipine as outpatient. Hold lisinopril
# History of CVA-on aspirin and statin
# Moderate aortic stenosis
# Cholelithiasis
# Sleep apnea on CPAP
# Morbid obesity with a BMI of 45
#Chronic anticoagulation
Per his facility, he is on Eliquis 2.5 mg twice daily for DVT prophylaxis
No known history of DVT/PE, AF/AFL
Plan to resume Eliquis after endoscopy
# Hypoalbuminemia
# DVT prophylaxis-subcutaneous heparin
# DNR
Discussed with nursing at bedside
Part of this note was created using voice recognition system. Occasional wrong word or��sound alike� substitutions may have inadvertently occurred due to the inherent limitations of voice recognition software. If noted kindly bring it to my
attention for correction.
Original Note:
Today's Communication/Plan
-
Clear liquid diet today
N.p.o. after midnight
Repeat EGD tomorrow
Continue IV Zosyn
Assessment / Plan
Assessment / Plan
73-year-old who has extensive past medical history including chronic urinary retention status post indwelling urinary catheter, hypothyroidism, sleep apnea, CAD, CVA, ziw-rfpzbld-vbgeojexq diabetes, unspecified heart failure and known bradycardia
who presents to the emergency department with episode of confusion
#Severe sepsis secondary to UTI
#CAUTI - POA
-Presented with positive SIRS criteria, encephalopathy, urinary source of infection
-Was started on IV Zosyn empirically at the time, urine culture positive for Pseudomonas and E. coli
-Discrepancies between the sensitivities for both bacteria present; both found to be resistant to levofloxacin as well
-Infectious disease was consulted, recommending to continue IV Zosyn through discharge, max of 14 days
-Continue IV Zosyn through 08/31 and trend CBC and Temp
-Holding Bumex and lisinopril, may not require this at DC
#Acute on Chronic Anemia
#Presumed UGIB
#Anemia of chronic disease
-on 08/25 hemoglobin of 6.6, received 2 units of PRBC at the time; ASA and Eliquis held
-Hemoglobin responded appropriately and has since been stable in the range of 9�10
-Currently on IV PPI twice daily; aspirin resumed; Eliquis still held
-Continue to trend CBC
-EGD: Impression: - LA Grade C esophagitis with no bleeding.
- A large amount of food (residue) in the stomach.
- No specimens collected.
Recommendation:Will plan clear liquid diet today, repeat EGD
tomorrow
#CKD stage III
-Concerns for initial LEE versus CKD, baseline creatinine was unclear
-Also had significantly elevated BUN which was presumed secondary to UGIB
-Creatinine has been stable near 1.9 which is most likely his baseline
-Likely associated with anemia; no acidemia or bone mineral disease noted
#Type 2 DM
-Per home medications, does not seem to be on antihyperglycemic regimen
-Did have some issues with hypoglycemia earlier while n.p.o. though has improved with diet
-Remains on ISS with Accu-Cheks, BG goal 100-200, avoid hypoglycemia
#Hypothyroidism
-Unclear etiology, appears stable on levothyroxine 175 mcg daily
#CAD s/p PCI
-Home medications include aspirin and high intensity statin; not on beta-sudha with history of bradycardia
-No signs or symptoms of ACS throughout this hospital stay
#Chronic Villarreal catheter
#H/O CVA
-Unclear etiology of stroke; no history of AF/AFL, possibly cerebrovascular
-Home medications include aspirin and statin; urinary regimen with oxybutynin and tamsulosin
#EMANUEL on CPAP
-Remains on nightly CPAP with previous settings
#Chronic anticoagulation
-Per his facility, he is on Eliquis 2.5 mg twice daily for DVT prophylaxis
-No known history of DVT/PE, AF/AFL
-Plan to resume Eliquis after endoscopy
-May need risk/benefits discussion on if Eliquis is needed
#Moderate aortic stenosis
-Consistent murmur on exam, last echo in 2022
-Should have TTE with cardiology for follow-up after discharge
#Transaminitis
-Resolved
#Acute metabolic encephalopathy
-Secondary to above issues
-Resolved
#Metabolic acidosis with lactic acidosis
-resolved
#Hypothermia
-Likely in the context of sepsis, blood loss
-Resolved
DVT PPhx: SCD
Diet: CLD for now
Code Status: DNR
Anticipated Discharge: 24 - 48 hours
Subjective/Interval History
-
Date of Service: August 31, 2024
Seen and examined at the bedside. No acute events reported overnight. AFVSS this morning
Objective Data
-
Vital Signs:
Vital Signs
Temp Pulse Resp BP Pulse Ox
99.2 F 69 17 127/65 95
08/31/24 12:17 08/31/24 12:32 08/31/24 12:32 08/31/24 12:32 08/31/24 12:32
I&O
08/30/24 08/31/24 09/01/24
06:59 06:59 06:59
Intake Total 200 / 200 1920 / 1920
Output Total 1200 / 1200 900 / 900
Balance -1000 / -1000 1020 / 1020
Review of Systems
-
History Source: Patient
All other systems: Reviewed and negative
Physical Exam
-
General: Well Developed, No Apparent Distress, Comfortable and Morbidly Obese
HEENT: Normocephalic, Atraumatic, Moist Mucous Membranes and Anicteric; Negative Good Dentition
Respiratory: Clear to Auscultation and Non Labored Respirations; Negative Accessory Resp Muscle Use
Cardiac: Regular Rhythm, S1/S2 and Murmur (Crescendo decrescendo, TERELL); Negative Rub or Gallop
GI: Soft, Nontender, Nondistended and Normal Bowel Sounds
Musculoskeletal: No Clubbing, No Cyanosis and No Edema
Skin: Warm, Dry and Normal Turgor; Negative Rash
Neuro: AO x 3 and Nonfocal/Grossly Intact
Psych: Calm
Data Reviewed
-
Labs: Labs Reviewed by me
[2024-08-31] MEDS: FLOMAX 0.4 MG PO (16:20)
[2024-08-31] MEDS: LIPITOR 60 MG PO (16:20)
[2024-08-31 17:39] LABS: Glucose - Point of Care 97 mg/dl (70-99)
[2024-08-31] MEDS: LASIX 40 MG IV (17:40)
[2024-08-31 21:33] LABS: Glucose - Point of Care 119 mg/dl (70-99)
[2024-09-01] VITALS (12 sets, daily range): BP systolic 14–139; BP diastolic 49–97; PULSE 2; BMI 44.3
[2024-09-01] MEDS: HEPARIN 5000 UNITS SC ×3 (00:40→15:32)
[2024-09-01] MEDS: ZOSYN 50 IV ×4 (04:24→22:00)
[2024-09-01 05:18] LABS: Hematocrit 28.4 % (39.0-52.0); Hemoglobin 8.8 g/dL (13.0-18.0); Mean Corpuscular Hgb 30.7 pg (27.0-31.0); Mean Platelet Volume 11.7 fL (7.4-10.4); Platelet Count 107 10^3/uL (130-400); Red Blood Cell Count 2.87 10^6/uL (4.70-6.10); Red Cell Dist. Width 16.1 % (11.5-14.5)
[2024-09-01 05:41] LABS: Blood Urea Nitrogen 45 mg/dl (9-20); Calcium 7.9 mg/dl (8.4-10.2); Carbon Dioxide 19 mmol/L (22-30); Chloride 115 mmol/L (98-107); Estimated Creatinine Clearance 38 ml/min; Glucose 83 mg/dl (70-99); Magnesium 2.3 mg/dl (1.6-2.3); Potassium 3.9 mmol/L (3.5-5.1); Sodium 145 mmol/L (135-145); eGFR 34.38
[2024-09-01] MEDS: SYNTHROID 175 MCG PO (06:07)
[2024-09-01 06:13] LABS: Glucose - Point of Care 100 mg/dl (70-99)
--- NOTE | 2024-09-01 09:02 | PN.CDI ---
CDI
- -
CDI:
Physician Documentation Request
Admit Date: 08/23/24 02:28
Dear Doctor Luh/Resident,
Please review the following and provide your response in the progress notes.
Clinical Indicators:
Pt admitted with GI bleed/ ABLA/ CAUTI
Progress note 08/27, ' Suspected UGIB s/p 2 units PRBC....Remains on IV PPI twice daily, Eliquis on hold. ....On eliquis 2.5 bid for dvt ppx--hold for nowtransfuse if HGB < 7hold ASA with low platelet count2 bag PRBCs 08/25/24 after rapid called
in and hb was 6.6: current hb 9.9Appreciate GI input;Anticipate EGD today....'
Progress note 08/31, ' Chronic anticoagulationPer his facility, he is on Eliquis 2.5 mg twice daily for DVT prophylaxisNo known history of DVT/PE, AF/AFLPlan to resume Eliquis after endoscopyMay need risk/benefits discussion on if Eliquis is
needed...'
Please clarify the relationship between these conditions:
Yes, ABLA/GI Bleed ___ is related to/associated with/exacerbated by Eliquis use ___.
No, _ABLA/GI bleed __ is not related to/associated with/exacerbated by Eliquis use ___ but it is due to ___. (Please specify)
Other
Use of terms such as suspected, likely, concern for, or probable (associated with a specific diagnosis that is being evaluated, monitored, or treated as if it exists) are acceptable and can be coded in the inpatient setting, when documented at the
time of discharge.
Thank you,
Reta Reese RN
CDI Specialist
[facility]
Please use your independent medical judgment in providing your response.
--- NOTE | 2024-09-01 09:16 | PN.CDI ---
Addendum entered and electronically signed by Stacy Arvizu MD 09/02/24 08:18:
Documentation is complete at this time.
Original Note:
CDI
- -
CDI:
Physician Documentation Request
Admit Date: 08/23/24 02:28
Dear Doctor Luh/Resident,
Please review the following and provide your response in the progress notes.
Clinical Indicators:
Pt admitted with GI bleed/ ABLA/ CAUTI/Sepsis
Documented per ED, ' CHF...'
Documented per H&P, ' ....unspecified heart failure ....' /Home meds- bumetanide 1 mg tablet 1 mg PO BID Fluid retention/Swelling
ECHO from 01/10/23, ' Left ventricular ejection fraction is 55%...'
Please provide further specificity regarding the most likely type of CHF :
Chronic Diastolic CHF
Chronic Systolic CHF
Other ( please specify)
Use of terms such as suspected, likely, concern for, or probable (associated with a specific diagnosis that is being evaluated, monitored, or treated as if it exists) are acceptable and can be coded in the inpatient setting, when documented at the
time of discharge.
Thank you,
Reta Reese RN
CDI Specialist
[place] [facility]
Please use your independent medical judgment in providing your response.
[2024-09-01] MEDS: DITROPAN 2.5 MG PO (09:25)
[2024-09-01] MEDS: ASPIR LOW (ENTERIC COATED) 81 MG PO (09:25)
[2024-09-01] MEDS: DESENEX/MITRAZOL/ZEASORB 1 APPLIC TOPICAL ×2 (09:26→22:01)
[2024-09-01] MEDS: PROSCAR 5 MG PO (09:27)
[2024-09-01] MEDS: NSS (PRESERVATIVE FREE) 10 ML IV ×2 (09:27→22:00)
[2024-09-01] MEDS: PROTONIX IV 40 MG IV ×2 (09:27→22:00)
[2024-09-01] MEDS: ZYLOPRIM 100 MG PO (09:28)
--- NOTE | 2024-09-01 10:10 | CM ---
Chart reviewed and foster care case manager met with patient this am, plan is for patient to return to [facility] when stable.
[facility]
Report [phone]
.
Plan; Patient to return to [facility] when stable.
[2024-09-01 11:49] LABS: Glucose - Point of Care 78 mg/dl (70-99)
--- NOTE | 2024-09-01 13:58 | W.PN.HOSP.TC ---
Addendum entered and electronically signed by Stacy Arvizu MD 09/02/24 08:19:
Acute blood loss anemia exacerbated by ELiquis
Addendum entered and electronically signed by Stacy Arvizu MD 09/01/24 14:39:
I saw and evaluated the patient. I reviewed the resident�s note and agree with findings and plan as documented in the resident�s note except for changes in my documentation
73-year-old with mental status change and hypothermia. He was found to have melanotic stools in the ED
Echo 01/10/2023-normal LV thickness. Normal LV size. EF 55%. Moderate hypokinesis of distal inferior, distal anteroseptal and apical wall. Normal RV size and function. Moderate .
Awake alert
Cardiovascular system S1-S2 appreciated
Chest decreased breath sounds at bases
Abdomen soft and nontender
Bilateral pedal edema
# TME/mental status change-resolved. Head CT without any acute changes
# Hypothermia-secondary to sepsis
# Sepsis secondary to pseudomonas UTI
CAUTI POA
Had rapid response 08/25 due to hypoxemia and unresponsiveness thought due to sepsis 2/2 UTI and ongoing hypothermia 08/27.
Continue IV Zosyn
Renal ultrasound-left kidney not identified. Bowels gas obscuring it or congenital absence of left kidney with compensatory right renal and enlargement right renal cortical atrophy with medical renal disease
# Melena with GI bleed prior history of GI bleed on PPI
Hold Eliquis till tomorrow
Continue PPI IV twice daily
EGD attempted 08-31-24-food in the stomach
EGD 09/01/2024 with ulcer in stomach
# Acute blood loss anemia-status post 2 units of PRBCs
Hemoglobin 6.6 on admission
History of chronic anemia
# Chronic LE edema - Restart Bumex.
# Transaminitis-trending down
# Thrombocytopenia-likely secondary to infection
# Metabolic acidosis/lactic acidosis-resolved
# Diabetes-not on medicines as outpatient. Accu-Cheks and sliding scale coverage
# Bradycardia
# CKD stage III
# History of coronary artery disease
# Hyperlipidemia-was on atorvastatin 60 mg as outpatient. Continue
# Hypothyroidism-continue Synthroid 175 mcg daily
# Prostate disease-continue finasteride, Flomax. Also has a chronic Ivllarreal catheter. Outpatient urology evaluation
# Gout-continue allopurinol
# Hypertension-was on amlodipine and lisinopril. Hold Both.
# History of CVA-on aspirin and statin
# Moderate aortic stenosis
# Cholelithiasis
# Sleep apnea on BIPAP
# Morbid obesity with a BMI of 45
#Chronic anticoagulation
Per his facility, he is on Eliquis 2.5 mg twice daily for DVT prophylaxis
No known history of DVT/PE, AF/AFL
Plan to resume Eliquis tomorrow per GI
# Hypoalbuminemia
# DVT prophylaxis-subcutaneous heparin
# DNR
Discussed with nursing at bedside
D/W POA León Donis and updated.
Part of this note was created using voice recognition system. Occasional wrong word or��sound alike� substitutions may have inadvertently occurred due to the inherent limitations of voice recognition software. If noted kindly bring it to my
attention for correction.
Original Note:
Today's Communication/Plan
-
repeat EGD today
cont abx
Assessment / Plan
Assessment / Plan
73-year-old who has extensive past medical history including chronic urinary retention status post indwelling urinary catheter, hypothyroidism, sleep apnea, CAD, CVA, [id number]-nxifohril diabetes, unspecified heart failure and known bradycardia
who presents to the emergency department with episode of confusion
#Severe sepsis secondary to UTI
#CAUTI - POA
-Presented with positive SIRS criteria, encephalopathy, urinary source of infection
-Was started on IV Zosyn empirically at the time, urine culture positive for Pseudomonas and E. coli
-Discrepancies between the sensitivities for both bacteria present; both found to be resistant to levofloxacin as well
-Infectious disease was consulted, recommending to continue IV Zosyn through discharge, max of 14 days
-Continue IV Zosyn through 08/31 and trend CBC and Temp
-Holding Bumex and lisinopril, may not require this at DC
#Acute on Chronic Anemia
#Presumed UGIB-likely exacerbated by eliquis
#Anemia of chronic disease
-on 08/25 hemoglobin of 6.6, received 2 units of PRBC at the time; ASA and Eliquis held
-Hemoglobin responded appropriately and has since been stable in the range of 9�10
-Currently on IV PPI twice daily; aspirin resumed; Eliquis still held
-Continue to trend CBC
-EGD: Impression: - LA Grade C esophagitis with no bleeding.
- A large amount of food (residue) in the stomach.
- No specimens collected.
repeat EGD today
#CKD stage III
-Concerns for initial LEE versus CKD, baseline creatinine was unclear
-Also had significantly elevated BUN which was presumed secondary to UGIB
-Creatinine has been stable near 1.9 which is most likely his baseline
-Likely associated with anemia; no acidemia or bone mineral disease noted
#Type 2 DM
-Per home medications, does not seem to be on antihyperglycemic regimen
-Did have some issues with hypoglycemia earlier while n.p.o. though has improved with diet
-Remains on ISS with Accu-Cheks, BG goal 100-200, avoid hypoglycemia
#Hypothyroidism
-Unclear etiology, appears stable on levothyroxine 175 mcg daily
#CAD s/p PCI
-Home medications include aspirin and high intensity statin; not on beta-sudha with history of bradycardia
-No signs or symptoms of ACS throughout this hospital stay
#Chronic Villarreal catheter
#H/O CVA
-Unclear etiology of stroke; no history of AF/AFL, possibly cerebrovascular
-Home medications include aspirin and statin; urinary regimen with oxybutynin and tamsulosin
#EMANUEL on CPAP
-Remains on nightly CPAP with previous settings
#Chronic anticoagulation
-Per his facility, he is on Eliquis 2.5 mg twice daily for DVT prophylaxis
-No known history of DVT/PE, AF/AFL
-Plan to resume Eliquis after endoscopy
-May need risk/benefits discussion on if Eliquis is needed
#Moderate aortic stenosis
-Consistent murmur on exam, last echo in 2022
-Should have TTE with cardiology for follow-up after discharge
#Transaminitis
-Resolved
#Acute metabolic encephalopathy
-Secondary to above issues
-Resolved
#Metabolic acidosis with lactic acidosis
-resolved
#Hypothermia
-Likely in the context of sepsis, blood loss
-Resolved
DVT PPhx: SCD
Diet: CLD for now
Code Status: DNR
Anticipated Discharge: Within 24 hours
Subjective/Interval History
-
Date of Service: September 01, 2024
no new complaints
Objective Data
-
Labs:
Laboratory Results
09/01/24
04:57
WBC 8.0
Hgb 8.8 L
Hct 28.4 L
Plt Count 107 L
Sodium 145
Potassium 3.9
Chloride 115 H
Carbon Dioxide 19 L
BUN 45 H
Creatinine 2.0 H
Glucose 83
Calcium 7.9 L
Vital Signs:
Vital Signs
Temp Pulse Resp BP Pulse Ox
97.0 F 48 20 125/55 99
09/01/24 12:00 09/01/24 12:00 09/01/24 12:00 09/01/24 12:00 09/01/24 12:00
I&O
08/31/24 09/01/24 09/02/24
06:59 06:59 06:59
Intake Total 1920 / 1920 580 / 580
Output Total 900 / 900 1100 / 1100 575 / 575
Balance 1020 / 1020 -1100 / -1100
Review of Systems
-
History Source: Patient
All other systems: Reviewed and negative
Physical Exam
-
General: Well Developed, No Apparent Distress, Comfortable and Morbidly Obese
HEENT: Normocephalic, Atraumatic, Moist Mucous Membranes and Anicteric; Negative Good Dentition
Respiratory: Clear to Auscultation and Non Labored Respirations; Negative Accessory Resp Muscle Use
Cardiac: Regular Rhythm, S1/S2 and Murmur (Crescendo decrescendo, TERELL); Negative Rub or Gallop
GI: Soft, Nontender, Nondistended and Normal Bowel Sounds
Musculoskeletal: No Clubbing, No Cyanosis and No Edema
Skin: Warm, Dry and Normal Turgor; Negative Rash
Neuro: AO x 3 and Nonfocal/Grossly Intact
Psych: Calm
Data Reviewed
-
Labs: Labs Reviewed by me
[2024-09-01 16:33] LABS: Glucose - Point of Care 238 mg/dl (70-99)
--- NOTE | 2024-09-01 17:05 | PTOTSP ---
ST Follow-Up
Pt presents with oral, pharyngeal, and esophageal swallowing parameters that are WFL. No skilled dysphagia services indicated at this time.
Recommendations:
- Continue with regular solids, thin liquids, meds as tolerated.
- Continue with general aspiration and reflux precautions.
- [employer] to sign off. Please reconsult if needed. Thank you.
[2024-09-01] MEDS: NOVOLOG FLEXPEN-LOW RESISTANCE 2 UNITS SC (17:07)
[2024-09-01] MEDS: FLOMAX 0.4 MG PO (17:07)
[2024-09-01] MEDS: LIPITOR 60 MG PO (17:08)
[2024-09-01] MEDS: BUMEX 1 MG PO (22:01)
[2024-09-01] MEDS: COLACE 100 MG PO (22:01)
[2024-09-01 22:51] LABS: Glucose - Point of Care 133 mg/dl (70-99)
[2024-09-02] MEDS: HEPARIN 5000 UNITS SC ×2 (00:30→09:30)
[2024-09-02 02:55] VITALS: BP 126/60
[2024-09-02 03:21] VITALS: PULSE 2
[2024-09-02] MEDS: ZOSYN 50 IV ×2 (04:23→09:20)
[2024-09-02 06:00] VITALS: BMI 44.9
[2024-09-02] MEDS: SYNTHROID 175 MCG PO (06:28)
--- NOTE | 2024-09-02 07:33 | W.PN.HOSP.TC ---
Addendum entered and electronically signed by Stacy Arvizu MD 09/02/24 13:23:
I saw and evaluated the patient. I reviewed the resident�s note and agree with findings and plan as documented in the resident�s note except for changes in my documentation
73-year-old with mental status change and hypothermia. He was found to have melanotic stools in the ED
Echo 01/10/2023-normal LV thickness. Normal LV size. EF 55%. Moderate hypokinesis of distal inferior, distal anteroseptal and apical wall. Normal RV size and function. Moderate .
Awake alert
Cardiovascular system S1-S2 appreciated
Chest decreased breath sounds at bases
Abdomen soft and nontender
Bilateral pedal edema
Chronic foot drop bilateral lower extremity
# TME/mental status change-resolved. Head CT without any acute changes. Patient back to baseline
# Hypothermia-secondary to sepsis
# Sepsis secondary to pseudomonas UTI
CAUTI POA
Had rapid response 08/25 due to hypoxemia and unresponsiveness thought due to sepsis 2/2 UTI and ongoing hypothermia 08/27.
Completed IV Zosyn
Renal ultrasound-left kidney not identified. Bowels gas obscuring it or congenital absence of left kidney with compensatory right renal and enlargement right renal cortical atrophy with medical renal disease
# Melena with GI bleed prior history of GI bleed on PPI
Hold Eliquis till tomorrow
Continue PPI IV twice daily
EGD attempted 08-31-24-food in the stomach
EGD 09/01/2024 with ulcer in esophagus
# Acute blood loss anemia-status post 2 units of PRBCs
Hemoglobin 6.6 on admission
History of chronic anemia
Repeat CBC as outpatient
# Chronic LE edema - Restarted Bumex. Patient states that he has had years of chronic lower extremity edema. We started him on Suleman bandages. senior care can decide if they want to increase the dose of Bumex.
# Transaminitis-trending down
# Thrombocytopenia-likely secondary to infection
# Metabolic acidosis/lactic acidosis-resolved
# Diabetes-not on medicines as outpatient. Accu-Cheks and sliding scale coverage
# Bradycardia
# CKD stage III
# History of coronary artery disease
# Hyperlipidemia-was on atorvastatin 60 mg as outpatient. Continue
# Hypothyroidism-continue Synthroid 175 mcg daily
# Prostate disease-continue finasteride, Flomax. Also has a chronic Villarreal catheter. Outpatient urology evaluation
# Gout-continue allopurinol
# Hypertension-was on amlodipine and lisinopril. Hold Both. Can be restarted if needed as outpatient
# History of CVA-on aspirin and statin
# Moderate aortic stenosis
# Cholelithiasis
# Sleep apnea on BIPAP
# Morbid obesity with a BMI of 45
#Chronic anticoagulation
Per his facility, he is on Eliquis 2.5 mg twice daily for DVT prophylaxis
No known history of DVT/PE, AF/AFL
Plan to resume Eliquis today per GI
# Hypoalbuminemia
# DVT prophylaxis-eliquis
# DNR
Discussed with nursing at bedside
D/W AMIE Donis and updated yesterday, discharge plan discussed as well
Part of this note was created using voice recognition system. Occasional wrong word or��sound alike� substitutions may have inadvertently occurred due to the inherent limitations of voice recognition software. If noted kindly bring it to my
attention for correction.
More than 30 minutes spent in discharge including
Final examination of the patient
Summarizing hospital stay
Instructions for continuing care to all relevant caregivers
Preparation of discharge records, prescriptions, and referral forms
Total time spent (in minutes): 40 minutes
Original Note:
Today's Communication/Plan
-
resume eliquis
d/c back to snf
Assessment / Plan
Assessment / Plan
73-year-old who has extensive past medical history including chronic urinary retention status post indwelling urinary catheter, hypothyroidism, sleep apnea, CAD, CVA, npv-ijywixm-ennbdqjwp diabetes, unspecified heart failure and known bradycardia
who presents to the emergency department with episode of confusion
#Severe sepsis secondary to UTI
#CAUTI - POA
-Presented with positive SIRS criteria, encephalopathy, urinary source of infection
-Was started on IV Zosyn empirically at the time, urine culture positive for Pseudomonas and E. coli
-Discrepancies between the sensitivities for both bacteria present; both found to be resistant to levofloxacin as well
-Infectious disease was consulted, recommending to continue IV Zosyn through discharge, day 11 today
-resume lisionpril at d/c
#Acute on Chronic Anemia
#Presumed UGIB-likely exacerbated by eliquis
#Anemia of chronic disease
-on 08/25 hemoglobin of 6.6, received 2 units of PRBC at the time
-Hemoglobin responded appropriately and has since been stable in the range of 9�10
-Currently on IV PPI twice daily; aspirin resumed
-Continue to trend CBC
-EGD#1: Impression: - LA Grade C esophagitis with no bleeding.
- A large amount of food (residue) in the stomach.
- No specimens collected.
repeat EGD 09/01/24: Eliquis restarted
Impression: - [place]-colored mucosa suspicious for short-segment
Law's esophagus. Biopsied.
- Esophageal ulcer with stigmata of recent bleeding.
Biopsied.
- Normal stomach.
- Normal examined duodenum.
Recommendation: - GE junction ulcer likely source of prior melena,
clean-based now. Continue PPI BID indefinitely given
probable Law's esophagus. Await path results. Will
restart diet. If positive for Law's esophagus
without dysplasia may consider repeat EGD in 2 months
to assess healing. Given clean-based ulcer OK to
restart Eliquis if indicated in tomorrow with close
monitoring
#CKD stage III
-Concerns for initial LEE versus CKD, baseline creatinine was unclear
-Also had significantly elevated BUN which was presumed secondary to UGIB
-Creatinine has been stable near 2.0 which is most likely his new baseline
-Likely associated with anemia; no acidemia or bone mineral disease noted
#Type 2 DM
-Per home medications, does not seem to be on antihyperglycemic regimen
-Did have some issues with hypoglycemia earlier while n.p.o. though has improved with diet
-Remains on ISS with Accu-Cheks, BG goal 100-200, avoid hypoglycemia
#Hypothyroidism
-Unclear etiology, appears stable on levothyroxine 175 mcg daily
#CAD s/p PCI
-Home medications include aspirin and high intensity statin; not on beta-sudha with history of bradycardia
-No signs or symptoms of ACS throughout this hospital stay
#Chronic Villarreal catheter
#H/O CVA
-Unclear etiology of stroke; no history of AF/AFL, possibly cerebrovascular
-Home medications include aspirin and statin; urinary regimen with oxybutynin and tamsulosin
#EMANUEL on CPAP
-Remains on nightly CPAP with previous settings
#Chronic anticoagulation
-Per his facility, he is on Eliquis 2.5 mg twice daily for DVT prophylaxis
-No known history of DVT/PE, AF/AFL
-Plan to resume Eliquis after endoscopy
-May need risk/benefits discussion on if Eliquis is needed
#Moderate aortic stenosis
-Consistent murmur on exam, last echo in 2022
-Should have TTE with cardiology for follow-up after discharge
#Transaminitis
-Resolved
#Acute metabolic encephalopathy
-Secondary to above issues
-Resolved
#Metabolic acidosis with lactic acidosis
-resolved
#Hypothermia
-Likely in the context of sepsis, blood loss
-Resolved
DVT PPhx: SCD
Code Status: DNR
Anticipated Discharge: Within 24 hours
Subjective/Interval History
-
Date of Service: September 02, 2024
no new complains
Objective Data
-
Labs:
Laboratory Results
09/02/24
07:17
WBC Pending
Hgb Pending
Hct Pending
Plt Count Pending
Sodium Pending
Potassium Pending
Chloride Pending
Carbon Dioxide Pending
BUN Pending
Creatinine Pending
Glucose Pending
Calcium Pending
Vital Signs:
Vital Signs
Temp Pulse Resp BP Pulse Ox
98.1 F 64 16 126/60 98
09/02/24 02:55 09/02/24 02:55 09/02/24 02:55 09/02/24 02:55 09/02/24 02:55
I&O
09/01/24 09/02/24 09/03/24
06:59 06:59 06:59
Intake Total 1060 / 1060 340 / 340
Output Total 1100 / 1100 750 / 750 500 / 500
Balance -1100 / -1100 310 / 310 -160 / -160
Review of Systems
-
History Source: Patient
All other systems: Reviewed and negative
Physical Exam
-
General: Well Developed, No Apparent Distress, Comfortable and Morbidly Obese
HEENT: Normocephalic, Atraumatic, Moist Mucous Membranes and Anicteric; Negative Good Dentition
Respiratory: Clear to Auscultation and Non Labored Respirations; Negative Accessory Resp Muscle Use
Cardiac: Regular Rhythm, S1/S2 and Murmur (Crescendo decrescendo, TERELL); Negative Rub or Gallop
GI: Soft, Nontender, Nondistended and Normal Bowel Sounds
Musculoskeletal: No Clubbing, No Cyanosis and No Edema
Skin: Warm, Dry and Normal Turgor; Negative Rash
Neuro: AO x 3 and Nonfocal/Grossly Intact
Psych: Calm
Data Reviewed
-
Labs: Labs Reviewed by me and Discussed with Physician
[2024-09-02 07:38] LABS: Glucose - Point of Care 129 mg/dl (70-99)
[2024-09-02 07:50] LABS: Hematocrit 27.7 % (39.0-52.0); Hemoglobin 8.9 g/dL (13.0-18.0); Mean Corp Hgb Conc. 32.1 g/dL (33.0-37.0); Mean Corpuscular Hgb 30.7 pg (27.0-31.0); Mean Corpuscular Volume 95.5 fL (80.0-94.0); Mean Platelet Volume 11.7 fL (7.4-10.4); Platelet Count 100 10^3/uL (130-400); Red Cell Dist. Width 16.1 % (11.5-14.5); White Blood Cell Count 9.2 10^3/uL (4.8-10.8)
[2024-09-02 08:00] LABS: Blood Urea Nitrogen 44 mg/dl (9-20); Carbon Dioxide 19 mmol/L (22-30); Chloride 114 mmol/L (98-107); Estimated Creatinine Clearance 36 ml/min; Glucose 123 mg/dl (70-99); Potassium 4.1 mmol/L (3.5-5.1); Sodium 143 mmol/L (135-145); eGFR 32.42
[2024-09-02 08:20] VITALS: BP 127/55
--- NOTE | 2024-09-02 08:50 | W.PN.GI.CBS2 ---
Today's Communication / Plan
-
Please see assessment and plan for details.
Assessment / Plan
-
1. Melena: With small clean-based GE junction ulcer, status post biopsy, also with changes suggestive of Law's esophagus, overall doing well, no signs of bleeding, hemoglobin remained stable. Given clean-based ulcer is okay to restart
anticoagulation if indicated with close monitoring. Will continue PPI twice daily. Will plan follow-up in office in 1 month, likely repeat EGD in 2 months to assess healing, and we will follow-up on pathology results.
Will sign off for now, please call back with any further questions.
Subjective
Subjective
Date of Service: September 02, 2024
Patient doing okay, tolerating diet without difficulty, no signs of bleeding.
Objective
Data Reviewed
Laboratory Data:
Laboratory Results
09/02/24 07:17
09/02/24 07:17
Laboratory Results
PT 16.5 Sec (11.4-14.6) H 08/25/24 09:20
INR 1.30 08/25/24 09:20
APTT 37.3 Sec (23.4-35.0) H 08/25/24 09:20
Magnesium 2.3 mg/dl (1.6-2.3) 09/01/24 04:57
Total Bilirubin 0.4 mg/dl (0.2-1.3) 08/29/24 08:25
AST 46 U/L (17-59) 08/29/24 08:25
ALT 66 U/L (0-50) H 08/29/24 08:25
Alkaline Phosphatase 88 U/L (38-126) 08/29/24 08:25
Vital Signs and I&O:
Vital Signs
Temp Pulse Resp BP Pulse Ox
98.1 F 64 16 126/60 98
09/02/24 02:55 09/02/24 02:55 09/02/24 02:55 09/02/24 02:55 09/02/24 02:55
I&O
09/01/24 09/02/24 09/03/24
06:59 06:59 06:59
Intake Total 1060 / 1060 340 / 340
Output Total 1100 / 1100 750 / 750 500 / 500
Balance -1100 / -1100 310 / 310 -160 / -160
Physical Exam
Physical Exam
General: NAD
Abdomen: normal bowel sounds, soft, no tenderness, no masses or bruits, no ascites
[2024-09-02] MEDS: NOVOLOG FLEXPEN-LOW RESISTANCE SC ×2 (09:18→12:20)
[2024-09-02] MEDS: COLACE PO (09:19)
[2024-09-02] MEDS: KCL 20 MEQ PO (09:21)
[2024-09-02] MEDS: ASPIR LOW (ENTERIC COATED) 81 MG PO (09:21)
[2024-09-02] MEDS: BUMEX 1 MG PO (09:21)
[2024-09-02] MEDS: DITROPAN 2.5 MG PO (09:22)
[2024-09-02] MEDS: DESENEX/MITRAZOL/ZEASORB 1 APPLIC TOPICAL (09:23)
[2024-09-02] MEDS: ZYLOPRIM 100 MG PO (09:23)
[2024-09-02] MEDS: PROSCAR 5 MG PO (09:24)
[2024-09-02] MEDS: NSS (PRESERVATIVE FREE) 10 ML IV (09:31)
[2024-09-02] MEDS: PROTONIX IV 40 MG IV (09:31)
[2024-09-02 11:10] VITALS: BP 130/60
[2024-09-02 11:16] LABS: Glucose - Point of Care 131 mg/dl (70-99)
--- NOTE | 2024-09-02 12:08 | W.PN.ID1 ---
Date of Service
Date of Service: September 02, 2024
Today's Communication
- stopped zosyn has completed an adequate course 11 days
stable for dc from ID perspective
Assessment / Plan
UTI due to Pseudomonas
LEE on CKD
Class III obesity
- stopped zosyn has completed an adequate course 11 days
stable for dc from ID perspective
Chief Complaint
-: UTI
Subjective / Review of Systems
afebrile
bp stable
had EGD with ulcer with clean base
Vital Signs / Physical Exam
Vital Signs
Vital Signs
Temp Pulse Resp BP Pulse Ox
98.2 F 60 18 130/60 98
09/02/24 11:10 09/02/24 11:10 09/02/24 11:10 09/02/24 11:10 09/02/24 11:10
Physical Exam
Constitutional: No Acute Distress
Cardiovascular: Regular Rate
Pulmonary: Symmetric and Non Labored
Gastrointestinal: Distended
Neurological: Awake
Objective Data
Lab Data
Lab Results
09/02/24 07:17
09/02/24 07:17
PT 16.5 Sec (11.4-14.6) H 08/25/24 09:20
INR 1.30 08/25/24 09:20
APTT 37.3 Sec (23.4-35.0) H 08/25/24 09:20
Estimated Creat Clear 36 ml/min 09/02/24 07:17
Lactic Acid Cancelled 08/25/24 21:15
Total Bilirubin 0.4 mg/dl (0.2-1.3) 08/29/24 08:25
AST 46 U/L (17-59) 08/29/24 08:25
ALT 66 U/L (0-50) H 08/29/24 08:25
Alkaline Phosphatase 88 U/L (38-126) 08/29/24 08:25
Most recent labs reviewed.
Micro Results:
08/23/24 02:01 Blood Culture - Final
Blood/Venous No Growth - Final Report
08/23/24 02:01 Urine Culture - Final
Urine Escherichia coli
Pseudomonas aeruginosa
08/23/24 04:23 MRSA Screen - Final
Nose No Methicillin Resistant Staphylococcus aureus isolated.
[2024-09-02] MEDS: ELIQUIS 2.5 MG PO (12:20)
--- NOTE | 2024-09-02 12:44 | CM ---
Addendum entered by Jaimie Merritt 09/02/24 13:56:
Call placed to [place] [phone], and admissions at [facility] in [place] and she is aware that patient will return today.
Original Note:
Chart reviewed and physician is stating that patient is cleared for discharge today, plan is for patient to return to [facility].
[facility]
Report [phone]
.
Plan; Patient to return to [facility] today.
--- NOTE | 2024-09-02 13:47 | W.DCSUMMARY ---
Discharge Summary
Discharge Data
Date of Admission: 08/23/24
Date of Discharge: 09/02/24
-
Pending Results: No
Hospital Course
Discharging Physician : Kris Martinez MD ; Stacy Arvizu MD
Disposition : [facility]
Primary care physician : Mathew Tejeda
Principal Discharge diagnosis :
TME/mental status change
Hypothermia-secondary to sepsis
Sepsis secondary to Pseudomonas UTI,
Upper GIB - Esophageal ulcer
Acute blood loss anemia
Chronic Discharge diagnosis :
Chronic LE edema,
Transaminitis
Thrombocytopenia-likely secondary to infection
Lactic acidosis,
Diabetes mellitus
Bradycardia
CKD stage III
Coronary artery disease
Hyperlipidemia
Hypothyroidism
Prostate disease
Gout
Hypertension
History of CVA
Moderate aortic stenosis
Cholelithiasis
Sleep apnea on BiPAP
Morbid obesity
Chronic anticoagulation
Hospital Course : 73-year-old who has extensive past medical history including chronic urinary retention status post indwelling urinary catheter, hypothyroidism, sleep apnea, CAD, CVA, ger-zjeqcry-xhesyatvf diabetes, unspecified heart failure and
known bradycardia who presented to the emergency department with episode of confusion. In the ED the patient was found to have melanotic stools. Rectal examination showed dark stools that was flagrantly heme positive
He had unstable vital signs in the ED, his temp was 92, blood pressure was 90/50 with a pulse of 50. Oxygen saturation was 100% on room air. ECG showed sinus bradycardia rate of 53 which is similar to prior. No ischemic changes. Hemoglobin was
8.2, platelet counts are down to 88. White count was normal at 6.1. His electrolytes BUN/creatinine is notable for a BUN of 116 and a creatinine of 2.0, baseline creatinine was 1.5 last year. Potassium was 5.5. Patient had hypothermia with
metabolic acidosis likely due to the infection (chronic Villarreal). He was started on IV fluids and IV antibiotics. Urine culture later showed Pseudomonas. Initially his Eliquis was held to give 72-hour washout. Follow Eliquis before EGD. GI was on
board during his hospital stay. Original EGD was planned for 08/25 however Mr. Mills had a rapid response in the a.m. for hypoxemia and arrest unresponsiveness, ABG, labs, EKG and blood sugar all taken. Results showed patient to be septic and
acidotic with pH of 7.2, gave 1 amp of bicarb since his lactic acid was 4.4. Started D5 as blood sugar was also low 40s, and hypothermic. Pressors were also ordered and blood consent was obtained after talking to POA since hemoglobin was 6.6. He
was given 2 units PRBCs and anticoagulants were held due to suspicion of GI bleed. IV Zosyn continued during his hospital stay for 11 days per recommendations from infectious disease. With all supportive measures he did recover from septic shock
and eventually had EGD on 08/31 however due to food content in the stomach repeat EGD was performed on 09/01 and per recommendation from the gastroenterology team he was restarted on Eliquis after the procedure and recommended repeat EGD in 2 point
for further evaluation. Given chronic lower extremity edema Suleman wrap recommended and patient verified understanding. Upon discharge restart lisinopril if blood pressure is over 140 mm systolic or more. Norvasc discontinued. Reassess with BMP in
1 week to see if Bumex needs to be increased. Prilosec is BID now
Patient was stable for discharge today, supervisor case loading helped coordinating transport back to [facility].
Important imaging findings : CT Head W/o Iv Contrast:IMPRESSION:
No acute intracranial abnormality noted.
US Abdomen Limited:
Impression:
1. Cholelithiasis without sonographic evidence for acute cholecystitis.
2. Small right pleural effusion.
CR Chest Portable - IMPRESSION:
Limited study with low lung volumes. There are some patchy/ill-defined opacities at the right lung base which were present on the prior study from 2019 and therefore may represent scarring or chronic consolidation.
US Renal Only W/O Bladder:
IMPRESSION:
Left kidney is not identified with certainty, with a large amount of bowel gas in the region. Bowel gas could obscure the left kidney, though given the prominent size of the right kidney, there may be congenital absence of the left kidney with
compensatory right renal enlargement. Right renal cortical atrophy and medical renal disease. No shadowing calculus or hydronephrosis.
Procedure findings : EGD #1
- LA Grade C esophagitis with no bleeding - A large amount of food (residue) in the stomach.
EGD #2; 09/01/24
Impression: - [place]-colored mucosa suspicious for short-segment
Law's esophagus. Biopsied.
- Esophageal ulcer with stigmata of recent bleeding.
Biopsied.
- Normal stomach.
- Normal examined duodenum.
Recommendation: - GE junction ulcer likely source of prior melena,
clean-based now. Continue PPI BID indefinitely given
probable Law's esophagus. Await path results. Will
restart diet. If positive for Law's esophagus
without dysplasia may consider repeat EGD in 2 months
to assess healing. Given clean-based ulcer OK to
restart Eliquis if indicated in tomorrow with close
monitoring.
Discharge Plan
-
Patient Disposition: Halfway/SNF
Discharge Diagnosis/Procedures: TME/mental status change
Hypothermia-secondary to sepsis
Sepsis secondary to Pseudomonas UTI,
Upper GIB - Esophageal ulcer
Acute blood loss anemia
Chronic LE edema,
Transaminitis
Thrombocytopenia-likely secondary to infection
Lactic acidosis,
Diabetes mellitus
Bradycardia
CKD stage III
Coronary artery disease
Hyperlipidemia
Hypothyroidism
Prostate disease
Gout
Hypertension
History of CVA
Moderate aortic stenosis
Cholelithiasis
Sleep apnea on BiPAP
Morbid obesity
Chronic anticoagulation
Condition: Good
Diet: 2 Gram Sodium, Diabetic, Carb Controlled and Restrict fluids to 64 oz
Activity: With assistance and As tolerated
Driving Restrictions: No driving
Bathing Restrictions: None
Blood Work: CBC 4-5 days, CMP 1 week
Other Services: PT and OT
Wound Care: Bilateral lower extremity knee-high Suleman wraps
Specialty Instructions: Weigh Daily- Call MD for wt gain/loss 3 lbs overnight/5 lbs in 1 week
Activity Restrictions/Additional Instructions:
Gastroenterology: Follow-up in office in 1 month, likely repeat EGD in 2 months to assess healing. PAP machine to be continued at night.
Referrals:
Kyle Patel MD [Active] - in three to four weeks
Mathew Tejeda DO [Family Provider] - in less than 1 week
Additional Discharge Medication Instructions: Restart lisinopril if blood pressure is over 140 mm systolic or more. Norvasc discontinued. Reassess with BMP in 1 week to see if Bumex needs to be increased. Prilosec is BID now
Prescriptions:
Continued
atorvastatin 40 MG tablet
60 mg PO QPM
levothyroxine 175 MCG tablet
175 mcg PO DAILY
acetaminophen 325 MG tablet
650 mg PO Q6HPRN PRN (Reason: fever)
sennosides-docusate sodium 1 TABLET tablet
1 tab PO Q12
dextrose [Glucose Gel] 15 GM gel
15 gm PO PRN PRN (Reason: hypoglycemia)
miconazole nitrate [Miconazorb AF] 1 APPLIC powder
1 applic topical BID
Patient Comments:
Apply to ABD, FOLDS/Groin
aspirin 81 MG tablet,delayed release (DR/EC)
81 mg PO DAILY
acetaminophen 650 MG tablet extended release
650 mg PO BID
Patient Comments:
Do not exceed 1300 mg in 24 hours
magnesium hydroxide [Milk of Magnesia] 400 MG/5 ML suspension
30 ml PO DAILY PRN (Reason: if no bm on 3rd day)
tamsulosin [Flomax] 0.4 MG capsule
0.4 mg PO QPM
bisacodyl 10 MG suppository
10 mg NM DAILYPRN PRN (Reason: if no bm aftr mom)
Enema 135 ML enema
118 ml RC DAILYPRN PRN (Reason: if no bm aftr dulcolax)
bumetanide 1 MG tablet
1 mg PO BID
allopurinol 300 MG tablet
100 mg PO DAILY
finasteride 5 MG tablet
5 mg PO DAILY
glucagon HCl [Glucagon (HCl) Emergency Kit] 1 MG recon soln
1 mg IJ PRN PRN (Reason: hypoglycemia)
lidocaine HCl 2 % Jelly
1 applic TOPICAL MONTHLY PRN (Reason: 15ml urethral anesthesia)
ferrous sulfate 325 mg (65 mg iron) Tablet
325 mg PO DAILY
calcium carbonate [Tums] 200 mg calcium (500 mg) Tablet,Chewable
400 mg PO Q8HPRN PRN (Reason: gerd)
docusate sodium [Colace] 100 mg Capsule
100 mg PO BID
potassium chloride 20 mEq Tablet Extended Release
20 meq PO DAILY
mupirocin 2 % ointment
1 applic topical TID Qty: 15 2RF
Rx Instructions:
Retract skin around penis,cleanse with 1/2 strength peroxide and water 3 times daily. Dry well, apply mupirocin ointment.
Eliquis 2.5 mg Tablet
2.5 mg PO BID
oxybutynin chloride 2.5 mg Tablet
2.5 mg PO DAILY
Changed
omeprazole 20 mg Tablet,Delayed Release (Dr/Ec)
20 mg PO BID Qty: 60 0RF
Discontinued
amlodipine 10 MG tablet
5 mg PO DAILY
lisinopril 2.5 MG tablet
2.5 mg PO DAILY
magnesium oxide 400 mg magnesium Tablet
400 mg PO DAILY
Discharge Orders:
Discharge Patient (As Directed); Ordered 09/02/24
Ordered By: Kris Juan
Discharge Date and Time
Print Language: [place] CITIZEN
[2024-09-02 15:00] VITALS: BP 124/60
[2024-09-02 16:08] LABS: Glucose - Point of Care 187 mg/dl (70-99)
[2024-09-02] MEDS: NOVOLOG FLEXPEN-LOW RESISTANCE 1 UNITS SC (17:45)
[2024-09-02] MEDS: FLOMAX 0.4 MG PO (17:46)
[2024-09-02] MEDS: LIPITOR 60 MG PO (17:46)
== END 2024-09-02 19:22 | DRG 380 ==
LOC: 4 WEST ACU 02:28
PROVIDERS: Internal Medicine; Internal Medicine Gastroenterology; Nurse Practitioner Gerontology; Registered Nurse; Specialist; ADMITTING PHYSICIAN Internal Medicine; ATTENDING PHYSICIAN Hospitalist; CONSULT PHYSICIAN Internal Medicine Gastroenterology; EMERGENCY PHYSICIAN Student in an Organized Health Care Education/Training Program; FAMILY PHYSICIAN Internal Medicine; OTHER PHYSICIAN Student in an Organized Health Care Education/Training Program
PROC: 30233N1 Transfusion of Nonautologous Red Blood Cells into Peripheral Vein, Percutaneous Approach (ICD-10-PCS; 2024-08-25)
PROC: 5A09357 Assistance with Respiratory Ventilation, Less than 24 Consecutive Hours, Continuous Positive Airway Pressure (ICD-10-PCS; 2024-08-25)
PROC: 0DJ08ZZ Inspection of Upper Intestinal Tract, Via Natural or Artificial Opening Endoscopic (ICD-10-PCS; 2024-08-31)
PROC: 0DB48ZX Excision of Esophagogastric Junction, Via Natural or Artificial Opening Endoscopic, Diagnostic (ICD-10-PCS; 2024-09-01)
DX: K22.11 Ulcer of esophagus with bleeding (principal); A41.52 Sepsis due to Pseudomonas; R65.20 Severe sepsis without septic shock; G93.41 Metabolic encephalopathy; R09.2 Respiratory arrest; T83.511A Infection and inflammatory reaction due to indwelling urethral catheter, initial encounter; I13.0 Hypertensive heart and chronic kidney disease with heart failure and stage 1 through stage 4 chronic kidney disease, or unspecified chronic kidney disease; N17.9 Acute kidney failure, unspecified; E87.20 Acidosis, unspecified; D62 Acute posthemorrhagic anemia; F05 Delirium due to known physiological condition; Z68.42 Body mass index [BMI] 45.0-49.9, adult; D68.32 Hemorrhagic disorder due to extrinsic circulating anticoagulants; Q60.0 Renal agenesis, unilateral; N39.0 Urinary tract infection, site not specified; E03.9 Hypothyroidism, unspecified; N18.30 Chronic kidney disease, stage 3 unspecified; E11.22 Type 2 diabetes mellitus with diabetic chronic kidney disease; E66.01 Morbid (severe) obesity due to excess calories; E78.00 Pure hypercholesterolemia, unspecified; I50.9 Heart failure, unspecified; I25.10 Atherosclerotic heart disease of native coronary artery without angina pectoris; M10.9 Gout, unspecified; N40.1 Benign prostatic hyperplasia with lower urinary tract symptoms; R33.8 Other retention of urine; D50.9 Iron deficiency anemia, unspecified; E66.813 Obesity, class 3; M54.2 Cervicalgia; G47.33 Obstructive sleep apnea (adult) (pediatric); D69.6 Thrombocytopenia, unspecified; N26.1 Atrophy of kidney (terminal); E86.0 Dehydration; K22.89 Other specified disease of esophagus; R74.01 Elevation of levels of liver transaminase levels; I35.0 Nonrheumatic aortic (valve) stenosis; R68.0 Hypothermia, not associated with low environmental temperature; D63.8 Anemia in other chronic diseases classified elsewhere; K80.20 Calculus of gallbladder without cholecystitis without obstruction; R09.02 Hypoxemia; B96.20 Unspecified Escherichia coli [E. coli] as the cause of diseases classified elsewhere; E11.649 Type 2 diabetes mellitus with hypoglycemia without coma; Y84.6 Urinary catheterization as the cause of abnormal reaction of the patient, or of later complication, without mention of misadventure at the time of the procedure; Y92.9 Unspecified place or not applicable; Y73.2 Prosthetic and other implants, materials and accessory gastroenterology and urology devices associated with adverse incidents; Z66 Do not resuscitate; Z86.73 Personal history of transient ischemic attack (TIA), and cerebral infarction without residual deficits; Z11.52 Encounter for screening for COVID-19; Z95.5 Presence of coronary angioplasty implant and graft; Z79.84 Long term (current) use of oral hypoglycemic drugs; Z79.890 Hormone replacement therapy; Z79.82 Long term (current) use of aspirin; Z74.01 Bed confinement status; Z79.01 Long term (current) use of anticoagulants; Z87.891 Personal history of nicotine dependence
CPT/HCPCS: 88305; 88312; 36600; 70450; 71045; 76705; 76775; 80048; 80053; 80061; 81003; 81015; 82140; 82533; 82607; 82728; 82746; 82805; 82962; 83036; 83540; 83550; 83605; 83735; 84145; 84439; 84443; 84484; 85014; 85018; 85025; 85027; 85610; 85730; 86850; 86900; 86901; 86920; 87040; 87070; 87077; 87086; 87184; 87186; 87811; 92526; 92610; 93005; 94660; 96365; 96366; 99291; P9016

== ENCOUNTER 2025-01-06 03:26 | Inpatient (IN) | payer MEDICARE, SELFPAY ==
[2025-01-05 22:49] VITALS: BP 180/79; BMI 41.3
[2025-01-05 23:00] VITALS: BP 177/69
--- NOTE | 2025-01-05 23:21 | ED.GENMED ---
History of Present Illness
General
Chief Complaint: Heart Rate Problem
Source: patient
Exam Limitations: none
Time Seen by Provider: 01/05/25 23:20
Nursing documentation reviewed up to this point in time: agreed with
History of Present Illness
History of Present Illness:
Spoke with surgery 74-year-old male presents emergency department due to low heart rate. He awoke, had vitals checked and they noted his heart rate was in the mid 30s. He denies any complaints at this time.
Past History
Past History
ED Past Medical History: CAD, CHF, CVA, HTN, Hypercholesterolemia, NIDDM, Hypothyroidism and Other (BPH, urinary retention, gout, headaches, morbid obesity)
ED Past Surgical History: Cardiac (Coronary stents) and Other (Eye surgery)
Social History
Tobacco: Non-smoker
Alcohol: None
Drug: None
Personal: Other
Living: alf
Employment: Retired
Family History
Family History: Unable to obtain
Review of Systems
Review of Systems
Allergies reviewed?: Yes
All Other Systems: Not applicable
Constitutional: Reports no symptoms
EENT: Reports no symptoms
Respiratory: Reports no symptoms
Cardiac: Reports no symptoms
ABD/GI: Reports no symptoms
: Reports no symptoms
Musculoskeletal: Reports no symptoms
Skin: Reports no symptoms
Neurological: Reports no symptoms
Endocrine: Reports no symptoms
Hematologic/Lymphatic: Reports no symptoms
Psychiatric: Reports no symptoms
Phy Exam
Physical Exam
Physical Exam:
Physical Exam
General: no apparent distress, afebrile
Neck: supple. no meningeal signs. normal posterior pharynx
Heart: s1/s2 bradycardia, no murmur. equal radial
pulses.
HEENT: Pupils equal round reactive to light, EOMI
Lungs: no acute respiratory distress. clear bilaterally
Abdomen: normal bowel sounds. not tender. no CVAT
: Villarreal catheter
Neuro: alert and oriented. no focal neurological deficits cranial nerves II through XII intact
Skin: no rash
Psychiatric: well kept. interactive and cooperative
Extremities: no edema. no calf tenderness. negative homans. good distal pulses
Course
Orders/Labs/Results
Orders:
Orders
01/05/25 22:51
EKG [Electrocardiogram (*1)] Urgent
Reason for Study: Bradycardia / Tachycardia
EKG- Treatment ONCE
01/05/25 23:08
Electrocardiogram (*1) Urgent
Reason for Study: Chest Pain
Cardiac Monitoring- Treatment ONCE
EKG- Treatment ONCE
IV Insert/Care/Rem.- Treatment PRN
O2 Therapy [RESP] Urgent
Titrate/Wean O2 to maintain O2 sat greater than (%): 90
Special Instructions: Maintain sats >/=90%
Pulse Ox/spot Check [RESP] Urgent
Quantity: 1
Special Instructions: ON ROOM AIR
01/05/25 23:12
Complete Blood Count/With Diff Urgent
Comprehensive Metabolic Panel Urgent
Troponin I Urgent
Abnormal Lab Results
01/05/25
23:12
RBC 3.26 L 10^6/uL
(4.70-6.10)
Hgb 9.9 L g/dL
(13.0-18.0)
Hct 31.0 L %
(39.0-52.0)
MCV 95.1 H fL
(80.0-94.0)
MCHC 31.9 L g/dL
(33.0-37.0)
RDW 16.1 H %
(11.5-14.5)
MPV 11.7 H fL
(7.4-10.4)
BUN 101 H* mg/dl
(9-20)
Creatinine 1.7 H mg/dL
(0.7-1.3)
Glucose 108 H mg/dl
(70-99)
Albumin 3.4 L g/dl
(3.5-5.0)
01/05/25 23:12
01/05/25 23:12
Vital Signs
Initial and Last Documented VS:
Initial Vital Signs
Temp Pulse Resp BP Pulse Ox
97.4 F 45 18 180/79 99
01/05/25 22:49 01/05/25 22:49 01/05/25 22:49 01/05/25 22:49 01/05/25 22:49
Last Documented Vital Signs
Temp Pulse Resp BP Pulse Ox
97.4 F 42 13 163/75 94
01/05/25 22:49 01/06/25 00:15 01/06/25 00:15 01/06/25 00:00 01/06/25 00:15
MDM/Problems Addressed
Differential Diagnosis Includes:
Junctional rhythm, bradycardia
MDM/Problems Addressed:
74-year-old male with sinus bradycardia. Heart rate in the 30s and 40s. Will admit for further evaluation.
Chronic conditions affecting care: Cardiomyopathy and Kidney disease
Acute Exacerbation and/or Progression of Chronic Illness: Cardiomyopathy
*Pulse Oximetry
Patient hypoxic: no
*EKG
Interpreted by ED Provider?: Yes
EKG Intrepretation Date: 01/05/25
EKG Intrepretation Time: 22:55
Interpretation: abnormal
Comparison EKG: changes noted
Heart Rate: 45
Rate: bradycardiac
Rhythm: sinus
[place]: normal axis
Interval: normal interval
QRS Pattern: normal QRS
Ischemia: no ischemia
*Instructional Design Manager Interpretation
Rate: bradycardiac
Interpretation: abnormal
Heart Rate: 39
Rhythm: sinus
*Critical Care Note
Total Time (30-74mins, 75-104mins- exclusive of procedures): Not Applicable
Patient Management
Social determinants of health affecting care: Living situation and Strong social support
Discussion with other providers: Hospitalist
Escalation/DeEscalation of care consider admission/obs:
Admit indicated
ED Attending Note
-
Portions of this chart may have been created with voice recognition software.� Occasional wrong word or��sound alike� substitutions may have occurred due to the inherent limitations of voice recognition software.
Discharge Plan
Departure
Patient Disposition: Admit
Date of Disposition: 01/06/25
Time of Disposition: 00:42
Admit to: IMU
Presentation/result/management discussed w/ accepting MD/DO: Hospitalist
Patient with high blood pressure during this ER visit?: Yes
Condition: Good
Discharge Problem:
Bradycardia, Chronic kidney disease
Prescriptions:
No Action
atorvastatin 40 MG tablet
60 mg PO QPM
levothyroxine 175 MCG tablet
175 mcg PO DAILY
acetaminophen 325 MG tablet
650 mg PO Q6HPRN MDD 3000mg PRN (Reason: mild pain/temp>100.4)
aspirin 81 MG tablet,delayed release (DR/EC)
81 mg PO DAILY
acetaminophen 650 MG tablet extended release
650 mg PO BID MDD 3000mg
Patient Comments:
Do not exceed 1300 mg in 24 hours
magnesium hydroxide [Milk of Magnesia] 400 MG/5 ML suspension
30 ml PO DAILY PRN (Reason: if no bm in 3 days)
tamsulosin [Flomax] 0.4 MG capsule
0.4 mg PO QPM
bisacodyl 10 MG suppository
10 mg [place] DAILYPRN PRN (Reason: if no bm after mom)
bumetanide 1 MG tablet
1 mg PO BID
finasteride 5 MG tablet
5 mg PO DAILY
lidocaine HCl 2 % Jelly
15 ml intra-urethral MONTHLY PRN (Reason: 15ml urethral anesthesia)
ferrous sulfate 325 mg (65 mg iron) Tablet
325 mg PO DAILY
calcium carbonate [Tums] 200 mg calcium (500 mg) Tablet,Chewable
200 mg PO Q8HPRN PRN (Reason: INDIGESTION)
docusate sodium [Colace] 100 mg Capsule
100 mg PO BID
mupirocin 2 % ointment
1 applic topical TID Qty: 15 2RF
Rx Instructions:
Retract skin around penis,cleanse with 1/2 strength peroxide and water, pat dry
miconazole nitrate 2 % Powder
1 applic TOPICAL BID
Patient Comments:
FOLDS/GROIN
melatonin 3 mg Tablet
3 mg PO HS
allopurinol 100 mg Tablet
100 mg PO DAILY
lisinopril 10 mg Tablet
15 mg PO DAILY
omeprazole 20 mg Capsule,Delayed Release(Dr/Ec)
20 mg PO BID
sennosides-docusate sodium [Senna-S] 8.6-50 mg Tablet
1 tab-cap PO BID
potassium chloride [Klor-Con M20] 20 mEq Tablet,Er Particles/Crystals
20 meq PO DAILY
mupirocin 2 % Ointment
1 applic TOPICAL DAILYPRN PRN (Reason: penis hygiene)
Rx Instructions:
Retract skin around penis,cleanse with 1/2 strength peroxide and water, pat dry
oxybutynin chloride 5 mg Tablet
2.5 mg PO DAILY
magnesium oxide 400 mg magnesium Tablet
400 mg PO BID
sennosides-docusate sodium [Senna-S] 8.6-50 mg Tablet
1 tab-cap PO [id number] PRN (Reason: constipation)
Referrals:
Mathew Tejeda, [Family Provider] -
Interventions
Interventions:
*Risk Screen - Suicide Last Done: 01/05/25 22:49
*General Assessment Last Done: 01/05/25 22:49
*Neglect/Abuse Screening Last Done: 01/05/25 22:49
*ED- Fall Risk Assessment Last Done: 01/05/25 22:49
*ED COVID-19 Vaccine History Last Done: 01/05/25 22:49
ED- Cardiac Assessment Last Done: 01/05/25 22:59
ED- Pulmonary Assessment Last Done: 01/05/25 22:59
Discharge Date and Time
Print Language: TAJIK
[2025-01-05 23:29] LABS: % Basophils 0.6 % (0-2); % Eosinophils 5.2 % (0-6); % Immature Granulocytes 0.3 % (0-0.5); % Lymphocytes 35.5 % (20.5-51.1); % Monocytes 8.5 % (1.7-9.3); % Neutrophils 49.9 % (42.2-75.2); Absolute Eosinophils 0.3 10^3/uL (0-0.7); Absolute Lymphocytes 2.3 10^3/uL (1.2-3.4); Absolute Monocytes 0.6 10^3/uL (0.1-0.6); Absolute Neutrophils 3.2 10^3/uL (1.4-6.5); Hemoglobin 9.9 g/dL (13.0-18.0); Mean Corp Hgb Conc. 31.9 g/dL (33.0-37.0); Mean Corpuscular Hgb 30.4 pg (27.0-31.0); Mean Corpuscular Volume 95.1 fL (80.0-94.0); Mean Platelet Volume 11.7 fL (7.4-10.4); Nucleated Red Blood Cells % 0 % (-); Platelet Count 176 10^3/uL (130-400); Red Blood Cell Count 3.26 10^6/uL (4.70-6.10); Red Cell Dist. Width 16.1 % (11.5-14.5); White Blood Cell Count 6.5 10^3/uL (4.8-10.8)
[2025-01-05 23:47] LABS: Troponin I 0.023 ng/ml
[2025-01-05 23:54] LABS: ALT (SGPT) 26 U/L (0-50); AST (SGOT) 23 U/L (17-59); Albumin 3.4 g/dl (3.5-5.0); Alkaline Phosphatase 85 U/L (38-126); Blood Urea Nitrogen 101 mg/dl (9-20); Calcium 9.2 mg/dl (8.4-10.2); Carbon Dioxide 27 mmol/L (22-30); Chloride 106 mmol/L (98-107); Estimated Creatinine Clearance 41 ml/min; Glucose 108 mg/dl (70-99); Potassium 4.6 mmol/L (3.5-5.1); Sodium 141 mmol/L (135-145); Total Bilirubin 0.4 mg/dl (0.2-1.3); Total Protein 6.4 g/dl (6.3-8.2); eGFR 41.52
[2025-01-06] VITALS (20 sets, daily range): BP systolic 114–176; BP diastolic 59–86; PULSE 2–58; BMI 41.0; BMI 41.3
--- NOTE | 2025-01-06 03:16 | HPS.HSE ---
Family Physician
-
Family Physician: Mathew Tejeda, DO
Chief Complaint
-
Bradycardia
History of Present Illness
Patient is a 74y M with PMH significant for chronic bedbound status, neurogenic bladder, CKD and EMANUEL who presents to ED from local [place] for evaluation of bradycardia. Patient reportedly woke from sleep this evening for routine vitals check. He
was noted to be bradycardic in the 40s and was sent to the ED for evaluation. Patient reports some mild shortness of breath - but otherwise has no complaints. He denies chest pain, palpitations, fevers / chills, cough, GI symptoms, etc.
Medical History
Past Medical History
Past Medical History: Reports Other
Additional Past Medical History:
Urinary retention status post indwelling urinary catheter
CKD III
Iron deficiency anemia
Obstructive sleep apnea
Bradycardia NOS
Hypothyroidism
Hypertension
DM-II
Morbid Obesity
Past Surgical History: Reports Other
Additional Past Surgical History:
Unknown
Social History
Alcohol: None
Drug: None
Living: [facility]
Family History
Family History: Not pertinent
Allergies / Home Medications
Allergies reflects when Allergies were last updated in [facility].
Home Medications with original date entered in [facility]
Allergy/Medication List:
Allergies
Allergy/AdvReac Type Severity Reaction Status Date / Time
No Known Allergies Allergy Verified 08/22/24 23:00
Home Medications
acetaminophen 325 mg tablet 650 mg PO Q6HPRN PRN mild pain/temp>100.4 08/23/20
acetaminophen 650 mg tablet,extended release 650 mg PO BID mild Pain 08/23/20
aspirin 81 mg tablet,delayed release 81 mg PO DAILY Blood clot prevention/tx 08/23/20
atorvastatin 40 mg tablet 60 mg PO QPM High cholesterol 08/23/20
bisacodyl 10 mg rectal suppository 10 mg HI DAILYPRN PRN if no bm after mom 08/23/20
bumetanide 1 mg tablet 1 mg PO BID Fluid retention/Swelling 08/23/20
finasteride 5 mg tablet 5 mg PO DAILY Urinary issue 08/23/20
levothyroxine 175 mcg tablet 175 mcg PO DAILY Thyroid 08/23/20
magnesium hydroxide 400 mg/5 mL oral suspension (Milk of Magnesia) 30 ml PO DAILY PRN if no bm in 3 days 08/23/20
tamsulosin 0.4 mg capsule (Flomax) 0.4 mg PO QPM bph 08/23/20
calcium carbonate (Tums) 200 mg PO Q8HPRN PRN INDIGESTION 07/04/22
docusate sodium 100 mg capsule (Colace) 100 mg PO BID Constipation 07/04/22
ferrous sulfate 325 mg (65 mg iron) tablet 325 mg PO DAILY Supplement 07/04/22
lidocaine HCl 2 % mucosal jelly 15 ml intra-urethral MONTHLY PRN 15ml urethral anesthesia 07/04/22
mupirocin 2 % topical ointment 1 applic topical TID #15 grams 06/15/23
allopurinol 100 mg tablet 100 mg PO DAILY 01/05/25
lisinopril 10 mg tablet 15 mg PO DAILY 01/05/25
magnesium oxide 400 mg PO BID 01/05/25
melatonin 3 mg tablet 3 mg PO HS 01/05/25
miconazole nitrate 2 % topical powder 1 applic topical BID 01/05/25
mupirocin 2 % topical ointment 1 applic topical DAILYPRN PRN penis hygiene 01/05/25
omeprazole 20 mg capsule,delayed release 20 mg PO BID 01/05/25
oxybutynin chloride 5 mg tablet 2.5 mg PO DAILY 01/05/25
potassium chloride 20 mEq tablet,extended release(part/cryst) (Klor-Con M) 20 meq PO DAILY 01/05/25
sennosides 8.6 mg-docusate sodium 50 mg tablet (Senna-S) 1 tab-cap PO BID 01/05/25
sennosides 8.6 mg-docusate sodium 50 mg tablet (Senna-S) 1 tab-cap PO [id number] PRN constipation 01/05/25
Review of Systems
-
History Source: Patient
A 12 point ROS was completed and negative except as noted: Yes
Constitutional: Denies Fever or Chills
Respiratory: Reports Trouble Breathing; Denies Cough
Cardiac: Denies Chest Pain or Palpitations
Abdomen/GI: Denies Abdominal Pain, Nausea, Vomiting or Diarrhea
Musculoskeletal: Reports Edema; Denies Joint Pain
Neurological: Reports Weakness
Psych: Denies Depression or Anxiety
Physical Exam
Vital Signs
Vital Signs
Temp Pulse Resp BP Pulse Ox
97.4 F 42 12 139/59 96
01/05/25 22:49 01/06/25 01:45 01/06/25 01:45 01/06/25 01:00 01/06/25 01:30
Physical Exam
General: Other (74y M in no acute distress. Mild pallor.)
HEENT: Moist mucous membranes and Other (Poor dentition. Thick neck.)
Respiratory: Clear; No Wheezes, Rales or Rhonchi
Cardiac: S1/S2 and Bradycardia; No Murmur
GI: Non Tender, Non Distended, Normal Bowel Sounds and Other (Obese)
Genito-urinary: Other (Chronic Villarreal in place draining yellow urine.)
Musculoskeletal: Other (Weakness b/l LEs. 1-2+ pitting edema.)
Neuro: AO x 3
Laboratory Results
-
01/05/25 23:12
01/05/25 23:12
Laboratory Results
Total Bilirubin 0.4 mg/dl (0.2-1.3) 01/05/25 23:12
AST 23 U/L (17-59) 01/05/25 23:12
ALT 26 U/L (0-50) 04/08/25 23:12
Alkaline Phosphatase 85 U/L (38-126) 01/05/25 23:12
Troponin I 0.023 ng/ml 01/05/25 23:12
Impression/Plan
-
A/P: Patient is a 74y M with PMH significant for neurogenic bladder, morbid obesity, chronic bed-bound status and iron deficiency anemia who presents to ED from [place] for evaluation of bradycardia.
Junctional Bradycardia
- Admit for further evaluation and treatment.
- Not currently on any chronotropic medications.
- Check TFTs.
- Monitor on tele overnight.
- Cardiology evaluation for additional recommendations.
CKD III
Azotemia
Chronic HFpEF
- Renal function appears to be stable - but with increased BUN.
- Heme test stools - though no reported black / bloody stools of late.
- Continue current meds / diuretic regimen for now. Follow labs for changes.
ASCVD
- Stable. No chest pain.
- Continue current CV med regimen includng ASA, statin, etc.
Hypothyroidism
- Continue T4 replacement. Check TFTs.
Morbid Obesity due to excess calories
EMANUEL on BiPAP
- Affects all aspects of care.
- Continue usual HS BiPAP.
Neurogenic Bladder
- Maintain chronic Villarreal.
- Continue antispasmodic regimen.
DM-II
- By history. Not currently on any DM medications.
- Follow glucose - update A1C.
Chronic iron Deficiency Anemia
- Stable. Continue iron supplementation.
- Follow H&H for changes.
DVT Prophylaxis: Lovenox
Code Status: DNR
[2025-01-06 04:30] LABS: TSH Reflex To Free T4 0.77 uIU/ml (0.47-4.68)
[2025-01-06 06:11] LABS: Hematocrit 28.1 % (39.0-52.0); Hemoglobin 9.2 g/dL (13.0-18.0); Mean Corp Hgb Conc. 32.7 g/dL (33.0-37.0); Mean Corpuscular Volume 94.6 fL (80.0-94.0); Mean Platelet Volume 11.8 fL (7.4-10.4); Platelet Count 160 10^3/uL (130-400); Red Blood Cell Count 2.97 10^6/uL (4.70-6.10); Red Cell Dist. Width 16.1 % (11.5-14.5); White Blood Cell Count 6.4 10^3/uL (4.8-10.8)
[2025-01-06 06:30] LABS: Blood Urea Nitrogen 100 mg/dl (9-20); Calcium 8.9 mg/dl (8.4-10.2); Carbon Dioxide 24 mmol/L (22-30); Chloride 109 mmol/L (98-107); Estimated Creatinine Clearance 41 ml/min; Glucose 102 mg/dl (70-99); Magnesium 2.3 mg/dl (1.6-2.3); Potassium 4.5 mmol/L (3.5-5.1); Sodium 143 mmol/L (135-145); eGFR 41.52
[2025-01-06] MEDS: ZYLOPRIM 100 MG PO (08:02)
[2025-01-06] MEDS: SENOKOT-S 1 TABLET PO ×2 (08:02→20:10)
[2025-01-06] MEDS: FEOSOL 325 MG PO (08:02)
[2025-01-06] MEDS: ASPIR LOW (ENTERIC COATED) 81 MG PO (08:02)
[2025-01-06] MEDS: PROSCAR 5 MG PO (08:02)
[2025-01-06] MEDS: BUMEX 1 MG PO ×2 (08:02→20:11)
[2025-01-06] MEDS: COLACE 100 MG PO ×2 (08:03→20:12)
[2025-01-06 08:48] LABS: Glucose - Point of Care 108 mg/dl (70-99)
[2025-01-06] MEDS: NOVOLOG FLEXPEN-LOW RESISTANCE SC ×2 (08:48→17:57)
[2025-01-06] MEDS: PROTONIX 40 MG PO ×2 (08:59→20:10)
[2025-01-06] MEDS: MAG-TAB SR 84 MG PO ×2 (09:00→20:12)
[2025-01-06] MEDS: DITROPAN 2.5 MG PO (09:00)
[2025-01-06] MEDS: SYNTHROID 175 MCG PO (09:00)
[2025-01-06] MEDS: KCL 20 MEQ PO (09:00)
[2025-01-06] MEDS: ZESTRIL 15 MG PO (09:00)
[2025-01-06 09:19] LABS: Glycohemoglobin (HgbA1c) 5.5 % (4.0-5.6)
--- NOTE | 2025-01-06 09:20 | CON.CAR ---
Addendum entered and electronically signed by Ho Tillman MD 01/06/25 11:21:
I saw and examined the patient.
The SQUAD LEADER's note was reviewed and I agree with the note.
Comment: 74 y/o male (cardiology- Dr. Stern) who is a bed bound senior living resident with aortic stenosis, HFpEF, CAD with hx stenting, dyslipidemia, DM, anemia, hypothyroidism, morbid obesity, CKD, chronic Villarreal, COPD, gout, BPH, 1st degree AVB
sent in for asymptomatic bradycardia. He is currently pleasant in bed without complaint He has a rrr normal s1/s2 2/6 crescendo-decrescendo murmur in the rusb, lungs cta, obese abdomen, nonpitting b.l lower extremity edema, telel with narrow
comples, sinus rhythm and bassam with primary av conduction delay. Currently no indication for pacemaker. Given bedbound, emanuel not surprised he had sinus bradycardia with rest and sleep. Would need to prove there would be symptomatic benefit of
pacemaker which there is none. continue to avoid av susie blocking agents. Would treat EMANUEL with CPAP and weigth loss. WIll update his echo given his moderate . Chronic conditions to be continued to be treated with chronic medications.
Original Note:
Consultation
Consultation Request
Date/Time Consultation Requested: 01/06/259
Date/Time Consultation Performed: 01/06/25 0920
Requesting Provider: Dr. Batres
Performing Provider: Maria Teresa COPPOLA for Dr. Tillman
Reason for Consultation: junctional bradycardia
Medical History
-
Chief Complaint: bradycardia
History of Present Illness:
74 y/o male (cardiology- Dr. Stern) who is a senior living resident with aortic stenosis, HFpEF, CAD with hx stenting- details unknown, hypertension, dyslipidemia, DM, anemia, hypothyroidism, obesity, bedbound status, CKD, chronic Villarreal, COPD, gout,
BPH, 1st degree AVB who is here because senior living staff noted his HR was low - he was not having any symptoms. He is admitted for further evaluation. EKG read by computer as junctional, however, to my review this is SB at 45 BPM with
significantly prolonged PETE (440 ms), which is consistent with telemetry. He is currently in 50's-60's while awake. He denies any CP, SOB, dizziness, syncope. Last admit in the fall, there were EKG's with junctional rhythm.
Past Medical History
Past Medical History: CAD, CHF, COPD, HTN, Hypercholesterolemia, Hypothyroidism, Valvular Disease and Other (as above)
Social History
Living: [facility]
Family History
Family History: Reviewed & Not Pertinent
Allergies / Home Medications
Allergy/AdvReac Type Severity Reaction Status Date / Time
No Known Allergies Allergy Verified 08/22/24 23:00
�Medication �Instructions �Recorded �Confirmed �Type
acetaminophen 325 mg tablet 650 mg PO Q6HPRN PRN mild 08/23/20 01/05/25 History
pain/temp>100.4
acetaminophen 650 mg 650 mg PO BID mild Pain 08/23/20 01/05/25 History
tablet,extended release
aspirin 81 mg tablet,delayed 81 mg PO DAILY Blood clot 08/23/20 01/05/25 History
release prevention/tx
atorvastatin 40 mg tablet 60 mg PO QPM High cholesterol 08/23/20 01/05/25 History
bisacodyl 10 mg rectal suppository 10 mg OK DAILYPRN PRN if no bm 08/23/20 01/05/25 History
after mom
bumetanide 1 mg tablet 1 mg PO BID Fluid 08/23/20 01/05/25 History
retention/Swelling
finasteride 5 mg tablet 5 mg PO DAILY Urinary issue 08/23/20 01/05/25 History
levothyroxine 175 mcg tablet 175 mcg PO DAILY Thyroid 08/23/20 01/05/25 History
magnesium hydroxide 400 mg/5 mL 30 ml PO DAILY PRN if no bm in 3 08/23/20 01/05/25 History
oral suspension (Milk of Magnesia) days
tamsulosin 0.4 mg capsule (Flomax) 0.4 mg PO QPM bph 08/23/20 01/05/25 History
calcium carbonate (Tums) 200 mg PO Q8HPRN PRN INDIGESTION 07/04/22 01/05/25 History
docusate sodium 100 mg capsule 100 mg PO BID Constipation 07/04/22 01/05/25 History
(Colace)
ferrous sulfate 325 mg (65 mg 325 mg PO DAILY Supplement 07/04/22 01/05/25 History
iron) tablet
lidocaine HCl 2 % mucosal jelly 15 ml intra-urethral MONTHLY PRN 07/04/22 01/05/25 History
15ml urethral anesthesia
mupirocin 2 % topical ointment 1 applic topical TID #15 grams 06/15/23 01/05/25 Rx
allopurinol 100 mg tablet 100 mg PO DAILY 01/05/25 01/05/25 History
lisinopril 10 mg tablet 15 mg PO DAILY 01/05/25 01/05/25 History
magnesium oxide 400 mg PO BID 01/05/25 01/05/25 History
melatonin 3 mg tablet 3 mg PO HS 01/05/25 01/05/25 History
miconazole nitrate 2 % topical 1 applic topical BID 01/05/25 01/05/25 History
powder
mupirocin 2 % topical ointment 1 applic topical DAILYPRN PRN 01/05/25 01/05/25 History
penis hygiene
omeprazole 20 mg capsule,delayed 20 mg PO BID 01/05/25 01/05/25 History
release
oxybutynin chloride 5 mg tablet 2.5 mg PO DAILY 01/05/25 01/05/25 History
potassium chloride 20 mEq 20 meq PO DAILY 01/05/25 01/05/25 History
tablet,extended
release(part/cryst) (Klor-Con M)
sennosides 8.6 mg-docusate sodium 1 tab-cap PO BID 01/05/25 01/05/25 History
50 mg tablet (Senna-S)
sennosides 8.6 mg-docusate sodium 1 tab-cap PO [id number] PRN 01/05/25 01/05/25 History
50 mg tablet (Senna-S) constipation
Review of Systems
-
History Source: Patient and Other (and chart)
All other systems: Negative unless noted (no symptoms)
Physical Exam
Vital Signs
Temp Pulse Resp BP Pulse Ox
97.6 F 44 15 172/69 100
01/06/25 08:00 01/06/25 08:00 01/06/25 08:00 01/06/25 08:00 01/06/25 08:00
Lab Results
01/06/25 05:54
01/06/25 05:54
Troponin I 0.023 ng/ml 01/05/25 23:12
Physical Exam
General: Well Developed and No Apparent Distress
HEENT: Normocephalic
Respiratory: Clear
Cardiac: Regular Rhythm (bradycardia) and Murmur (II/ systolic)
Musculoskeletal: Edema (+1-2 BLE edema, chronic)
Skin: Warm and Dry
Neuro: Awake, Alert and Oriented
Psych: Calm
Impression / Plan
-
Bradycardia:
-patient with hx first degree AVB, bradycardia, junctional rhythm (EKG's from fall). However, he has no dizziness or syncope or SOB. On telemetry, there is SB-SR with 1st degree AVB. I don't see junctional rhythm here. I don't see advanced heart
block. Follow telemetry and avoid AV susie affecting agents. No indication for pacemaker at this time, to my review.
-TSH WNL
HFpEF, chronic:
-stable, does not appear volume overloaded
-on Bumex
CAD:
-stable without CP
-continue ASA, statin
Moderate :
-monitor over time with echo- update one today
CKD:
-follow labs, per primary
Data Reviewed
-
EKG: Tracing Personally Visualized and interpreted (SB at 45 BPM with significant 1st degree AVB to my review (440 ms) )
Medical Tests (Nuc Med, Echo etc): Report Reviewed by me (Echo 01/10/25: EF is 55%. There is moderate hypokinesis of the distal inferior, distal anteroseptal and apical wall. Moderate aortic stenosis. Peak/mean gradients across the aortic valve are
40/22 mmHg. Using an LVOT diameter of 2.3 cm, the JOAQUIN = 1.09 cm. )
Labs: Labs Reviewed by me
--- NOTE | 2025-01-06 10:34 | PTCARENOTE ---
Pt bradycardic in 40s while sleeping this morning. At this time pt is fully awake and heart rate in 60s. Pt has no complaints.
--- NOTE | 2025-01-06 11:44 | W.PN.UPDATE ---
Update Note
Progress Note Update
Seen and examined independent of pulmonary physician
Currently resting in bed comfortable. Heart rate in mid 60s
Denies chest pain shortness of breath. Denies lightheaded dizziness or palpitations
General: Other (74y M in no acute distress. Mild pallor
HEENT: Moist mucous membranes and Other (Poor dentition. Thick neck.)
Respiratory: Clear; No Wheezes, Rales or Rhonchi
Cardiac: S1/S2 and Bradycardia; + Murmur
GI: Non Tender, Non Distended, Normal Bowel Sounds and Other (Obese)
Genito-urinary: Other (Chronic Villarreal in place draining yellow urine.)
Musculoskeletal: Other (Weakness b/l LEs. 1-2+ pitting edema.)
Neuro: AO x 3
A/P: Patient is a 74y M with PMH significant for neurogenic bladder, morbid obesity, chronic bed-bound status and iron deficiency anemia who presents to ED from [place] for evaluation of bradycardia.
Junctional Bradycardia
Chronic bradycardia l
- Not currently on any chronotropic medications.
- TSH wnl.
- Monitor on tele.
- Cardiology evaluation for additional recommendations-no plan for PPM.
CKD III
Azotemia
Chronic HFpEF
- Renal function appears to be stable - but with increased BUN.
- Heme test stools - though no reported black / bloody stools of late. Hgb higher compared to 09/22
- Continue current meds / diuretic regimen for now. Follow labs for changes.
ASCVD
- Stable. No chest pain.
- Continue current CV med regimen including ASA, statin, etc.
Hypothyroidism
- Continue T4 replacement. TSH wnl
Morbid Obesity due to excess calories
EMANUEL on BiPAP
- Affects all aspects of care.
- Continue usual HS BiPAP.
Neurogenic Bladder
- Maintain chronic Villarreal.
- Continue antispasmodic regimen.
DM-II
- By history. Not currently on any DM medications.
- Follow glucose - update A1C.
Chronic iron Deficiency Anemia
- Stable. Continue iron supplementation.
- Follow H&H for changes.
DVT Prophylaxis: Lovenox
Code Status: DNR
d/w wtih cards
tx to tele
--- NOTE | 2025-01-06 11:59 | CARDSERVLU ---
Echocardiogram with [facility] completed after protocol screening completed. Allergies verified.
Patent IV site: Left arm 20 G PC (in patient) site clear
IV site flushed with 0.9% NaCl pre and post administration.
Diluted bolus method utilized to enhance visualization of ventricular reddy.
Total volume given: _4___ mL
Patient tolerated all procedures well without complications.
[2025-01-06 12:20] LABS: Glucose - Point of Care 180 mg/dl (70-99)
[2025-01-06] MEDS: NOVOLOG FLEXPEN-LOW RESISTANCE 1 UNITS SC (13:08)
--- NOTE | 2025-01-06 16:52 | TRANSFER ---
Pt transferred from ED to 333 on bed. Pt is bedbound at baseline. oriented x3, on room air. No pain. Placed on tele monitor HR in 60's. Pt oriented to room, assessment complete by this RN.
[2025-01-06] MEDS: LIPITOR 20 MG PO (17:24)
[2025-01-06] MEDS: LIPITOR 40 MG PO (17:25)
[2025-01-06] MEDS: FLOMAX 0.4 MG PO (17:25)
[2025-01-06] MEDS: LOVENOX 40 MG SC (17:25)
[2025-01-06 17:51] LABS: Glucose - Point of Care 146 mg/dl (70-99)
[2025-01-06 21:08] LABS: Glucose - Point of Care 191 mg/dl (70-99)
[2025-01-07 03:32] VITALS: BP 113/59
[2025-01-07 03:40] VITALS: PULSE 2
[2025-01-07 06:00] VITALS: BMI 40.3
[2025-01-07] MEDS: SYNTHROID 175 MCG PO (06:00)
[2025-01-07 06:33] LABS: % Basophils 0.9 % (0-2); % Eosinophils 3.8 % (0-6); % Immature Granulocytes 0.3 % (0-0.5); % Lymphocytes 31.1 % (20.5-51.1); % Monocytes 9.6 % (1.7-9.3); % Neutrophils 54.3 % (42.2-75.2); Absolute Basophils 0.1 10^3/uL (0-0.2); Absolute Eosinophils 0.3 10^3/uL (0-0.7); Absolute Lymphocytes 2.1 10^3/uL (1.2-3.4); Absolute Monocytes 0.7 10^3/uL (0.1-0.6); Absolute Neutrophils 3.7 10^3/uL (1.4-6.5); Hematocrit 25.9 % (39.0-52.0); Hemoglobin 8.5 g/dL (13.0-18.0); Mean Corp Hgb Conc. 32.8 g/dL (33.0-37.0); Mean Corpuscular Hgb 30.6 pg (27.0-31.0); Mean Corpuscular Volume 93.2 fL (80.0-94.0); Nucleated Red Blood Cells % 0 % (-); Platelet Count 162 10^3/uL (130-400); Red Blood Cell Count 2.78 10^6/uL (4.70-6.10); Red Cell Dist. Width 15.9 % (11.5-14.5); White Blood Cell Count 6.8 10^3/uL (4.8-10.8)
[2025-01-07 06:44] LABS: Blood Urea Nitrogen 97 mg/dl (9-20); Calcium 8.8 mg/dl (8.4-10.2); Carbon Dioxide 24 mmol/L (22-30); Chloride 109 mmol/L (98-107); Estimated Creatinine Clearance 40 ml/min; Glucose 99 mg/dl (70-99); Potassium 4.3 mmol/L (3.5-5.1); Sodium 142 mmol/L (135-145); eGFR 41.52
[2025-01-07 07:29] LABS: Glucose - Point of Care 162 mg/dl (70-99)
[2025-01-07 07:30] VITALS: BP 102/68
[2025-01-07] MEDS: BUMEX 1 MG PO (08:24)
[2025-01-07] MEDS: PROTONIX 40 MG PO (08:24)
[2025-01-07] MEDS: ASPIR LOW (ENTERIC COATED) 81 MG PO (08:24)
[2025-01-07] MEDS: NOVOLOG FLEXPEN-LOW RESISTANCE 1 UNITS SC ×2 (08:24→11:59)
[2025-01-07] MEDS: PROSCAR 5 MG PO (08:25)
[2025-01-07] MEDS: KCL 20 MEQ PO (08:25)
[2025-01-07] MEDS: DITROPAN 2.5 MG PO (08:25)
[2025-01-07] MEDS: SENOKOT-S 1 TABLET PO (08:25)
[2025-01-07] MEDS: FEOSOL 325 MG PO (08:25)
[2025-01-07] MEDS: MAG-TAB SR 84 MG PO (08:25)
[2025-01-07] MEDS: COLACE 100 MG PO (08:26)
[2025-01-07] MEDS: ZESTRIL 15 MG PO (08:26)
[2025-01-07] MEDS: ZYLOPRIM 100 MG PO (08:27)
[2025-01-07 09:00] LABS: Iron 53 ug/dl (49-181); Magnesium 2.2 mg/dl (1.6-2.3); Phosphorus 3.6 mg/dl (2.5-4.5)
[2025-01-07 09:09] LABS: Percent Saturation 28 % (20-50); Total Iron Binding Capacity 189 ug/dl (261-462)
--- NOTE | 2025-01-07 09:44 | W.PN.CD ---
Today's Communication / Plan
-
No need for PPM
We will sign off please call with questions/concerns.
Impression / Plan
-
Bradycardia:
-patient with hx first degree AVB, bradycardia, junctional rhythm (EKG's from fall). However, he has no dizziness or syncope or SOB. On telemetry, there is SB-SR with 1st degree AVB. I don't see junctional rhythm here. I don't see advanced heart
block. Follow telemetry and avoid AV susie affecting agents. No indication for pacemaker at this time, to my review.
-TSH WNL
HFpEF, chronic:
-stable, does not appear volume overloaded
-on Bumex
CAD:
-stable without CP
-continue ASA, statin
Moderate :
-monitor over time with echo- update one today
CKD:
-follow labs, per primary
Subjective: Feels well no new complaints
Physical Exam
Vital Signs/Labs
Vital Signs
Temp Pulse Resp BP Pulse Ox
97.7 F 60 18 102/68 99
01/07/25 07:30 01/07/25 08:24 01/07/25 07:30 01/07/25 08:26 01/07/25 07:30
01/06/25 01/07/25 01/08/25
06:59 06:59 06:59
Actual Weight 233 lb 3.985 oz 227 lb 11.2 oz
01/07/25 05:29
01/07/25 05:29
Magnesium 2.2 mg/dl (1.6-2.3) 01/07/25 05:29
LAB Results
01/05/25
23:12
Troponin I 0.023
Physical Exam
Constitutional: No acute distress and Comfortable
EENT: Anicteric
Cardiovascular: Rhythm & rate is regular
Respiratory: Respiratory effort normal
GI: Soft
Neuro/Psych: AO x 3
Data Reviewed
-
Date of Service: January 07, 2025
Medical Decision Making: Reviewed Test Results
EKG: Tracing Personally Visualized and interpreted (sr)
Echo: Report Reviewed by me
Labs: Labs Reviewed by me
--- NOTE | 2025-01-07 10:57 | W.PN.HOSP.TC ---
Today's Communication/Plan
-
repeat H/H to assess the trend
if stable plan for dc otherwise monitor Hgb and further workup
anemia panel pending .
Assessment / Plan
Assessment / Plan
General: Other (74y M in no acute distress. Mild pallor
HEENT: Moist mucous membranes and Other (Poor dentition. Thick neck.)
Respiratory: Clear; No Wheezes, Rales or Rhonchi
Cardiac: S1/S2 and Bradycardia; + Murmur
GI: Non Tender, Non Distended, Normal Bowel Sounds and Other (Obese)
Genito-urinary: Other (Chronic Villarreal in place draining yellow urine.)
Musculoskeletal: Other (Weakness b/l LEs. 1-2+ pitting edema.)
Neuro: AO x 3
A/P: Patient is a 74y M with PMH significant for neurogenic bladder, morbid obesity, chronic bed-bound status and iron deficiency anemia who presents to ED from [place] for evaluation of bradycardia.
Chronic bradycardia/1st degree AVB
- Not currently on any chronotropic medications.
- TSH wnl.
- Monitor on tele.
- Cardiology evaluation for additional recommendations-no plan for PPM.
CKD III
Azotemia
Chronic HFpEF
- Renal function appears to be stable - but with increased BUN.
- Continue current meds / diuretic regimen for now. Follow labs for changes.
Chronic anemia
- Hgb at 9.9 to 9.5 to 8.5. Will repeat to monitor the trend
-Heme test stools - though no reported black / bloody stools of late.
-No santiago luminal bleeding noted
- BUN downtrending.
ASCVD
- Stable. No chest pain.
- Continue current CV med regimen including ASA, statin, etc.
Hypothyroidism
- Continue T4 replacement. TSH wnl
Morbid Obesity due to excess calories
EMANUEL on BiPAP
- Affects all aspects of care.
- Continue usual HS BiPAP.
Neurogenic Bladder
- Maintain chronic Villarreal.
- Continue antispasmodic regimen.
DM-II
- By history. Not currently on any DM medications.
- Follow glucose - update A1C.
Chronic iron Deficiency Anemia
- Stable. Continue iron supplementation.
- Follow H&H for changes.
DVT Prophylaxis: Lovenox
Code Status: DNR
Anticipated Discharge: Today
Subjective/Interval History
-
Date of Service: January 07, 2025
tolerating diet
HR stable in 60s
had bm yesterday -no blood noted per pt
Objective Data
-
Labs:
Laboratory Results
01/07/25
05:29
WBC 6.8
Hgb 8.5 L
Hct 25.9 L
Plt Count 162
Sodium 142
Potassium 4.3
Chloride 109 H
Carbon Dioxide 24
BUN 97 H
Creatinine 1.7 H
Glucose 99
Calcium 8.8
Vital Signs:
Vital Signs
Temp Pulse Resp BP Pulse Ox
97.7 F 60 18 102/68 99
01/07/25 07:30 01/07/25 08:24 01/07/25 07:30 01/07/25 08:26 01/07/25 07:30
I&O
01/06/25 01/07/25 01/08/25
06:59 06:59 06:59
Intake Total 530 / 530
Output Total 3075 / 3075
Balance -2545 / -5355
[2025-01-07 11:21] LABS: Hematocrit 27.2 % (39.0-52.0); Hemoglobin 8.8 g/dL (13.0-18.0)
--- NOTE | 2025-01-07 11:26 | W.DCSUMMARY ---
Discharge Summary
Discharge Data
Date of Admission: 01/06/25
Date of Discharge: 01/07/25
-
Pending Results: No
Hospital Course
Patient is a 74y M with PMH significant for neurogenic bladder with chronic Villarreal, morbid obesity, hypothyroidism, chronic iron deficiency anemia, diabetes mellitus chronic bed-bound status and iron deficiency anemia who presents to ED from [place]
for evaluation of bradycardia. Patient with history of chronic bradycardia which is known. Patient was eval by cardiology. Patient heart rate was found to be in 60s. Per cardiology patient is not first-degree AV block. Patient was completely
asymptomatic throughout hospitalization. Per cardiology no plan for pacemaker implantation. Patient hemoglobin was trended and was at baseline. Patient was tolerating diet without any difficulty. Heart rate in 60s and patient without any
lightheaded and dizziness. Patient be discharged back to long-term.
Discharge Plan
-
Patient Disposition: Skilled Nursing/SNF
Discharge Diagnosis/Procedures: Chronic bradycardia
Azotemia
Condition: Fair
Diet: Low Cholesterol
Activity: With assistance and As tolerated
Driving Restrictions: No driving
Blood Work: CBC and bmp in 1 week via primary doctor.
Referrals:
Mathew Tejeda, DO [Family Provider] -
Prescriptions:
Continued
atorvastatin 40 MG tablet
60 mg PO QPM
levothyroxine 175 MCG tablet
175 mcg PO DAILY
acetaminophen 325 MG tablet
650 mg PO Q6HPRN MDD 3000mg PRN (Reason: mild pain/temp>100.4)
aspirin 81 MG tablet,delayed release (DR/EC)
81 mg PO DAILY
acetaminophen 650 MG tablet extended release
650 mg PO BID
Patient Comments:
Do not exceed 1300 mg in 24 hours
magnesium hydroxide [Milk of Magnesia] 400 MG/5 ML suspension
30 ml PO DAILY PRN (Reason: if no bm in 3 days)
tamsulosin [Flomax] 0.4 MG capsule
0.4 mg PO QPM
bisacodyl 10 MG suppository
10 mg [place] DAILYPRN PRN (Reason: if no bm after mom)
bumetanide 1 MG tablet
1 mg PO BID
finasteride 5 MG tablet
5 mg PO DAILY
lidocaine HCl 2 % Jelly
15 ml intra-urethral MONTHLY PRN (Reason: 15ml urethral anesthesia)
ferrous sulfate 325 mg (65 mg iron) Tablet
325 mg PO DAILY
calcium carbonate [Tums] 200 mg calcium (500 mg) Tablet,Chewable
200 mg PO Q8HPRN PRN (Reason: INDIGESTION)
docusate sodium [Colace] 100 mg Capsule
100 mg PO BID
mupirocin 2 % ointment
1 applic topical TID Qty: 15 2RF
Rx Instructions:
Retract skin around penis,cleanse with 1/2 strength peroxide and water, pat dry
miconazole nitrate 2 % Powder
1 applic TOPICAL BID
Patient Comments:
FOLDS/GROIN
melatonin 3 mg Tablet
3 mg PO HS
allopurinol 100 mg Tablet
100 mg PO DAILY
lisinopril 10 mg Tablet
15 mg PO DAILY
omeprazole 20 mg Capsule,Delayed Release(Dr/Ec)
20 mg PO BID
sennosides-docusate sodium [Senna-S] 8.6-50 mg Tablet
1 tab-cap PO BID
potassium chloride [Klor-Con M20] 20 mEq Tablet,Er Particles/Crystals
20 meq PO DAILY
mupirocin 2 % Ointment
1 applic TOPICAL DAILYPRN PRN (Reason: penis hygiene)
Rx Instructions:
Retract skin around penis,cleanse with 1/2 strength peroxide and water, pat dry
oxybutynin chloride 5 mg Tablet
2.5 mg PO DAILY
magnesium oxide 400 mg magnesium Tablet
400 mg PO BID
Discontinued
sennosides-docusate sodium [Senna-S] 8.6-50 mg Tablet
1 tab-cap PO [id number] PRN (Reason: constipation)
Discharge Orders:
Discharge Patient (As Directed); Ordered 01/07/25
Ordered By: Gonzalez Stewart
Discharge Date and Time
Print Language: BELARUSIAN
[2025-01-07 11:29] LABS: Glucose - Point of Care 170 mg/dl (70-99)
--- NOTE | 2025-01-07 11:57 | CM ---
Patient seen bedside.
Patient able to answer questions.
patient LTC at [facility].
Patient is non ambulatory and bedbound, Tiffany lift.
Patient is for d/c today. Maira from [facility] updated.
Ambulance transport forms completed.
Plan: [facility] today 1pm via ambulance transport.
[facility]
Report# [phone] 1st floor
[2025-01-07 12:00] VITALS: BP 121/64
[2025-01-07] MEDS: TYLENOL 650 MG PO (12:38)
[2025-01-07 14:04] LABS: Vitamin B12 462 pg/ml (239-931)
== END 2025-01-07 13:51 | DRG 309 ==
LOC: 3 WEST ACU 03:26
PROVIDERS: ADMITTING PHYSICIAN Hospitalist; ATTENDING PHYSICIAN Hospitalist; CONSULT PHYSICIAN Internal Medicine Cardiovascular Disease; EMERGENCY PHYSICIAN Emergency Medicine; FAMILY PHYSICIAN Internal Medicine
PROC: 5A09357 Assistance with Respiratory Ventilation, Less than 24 Consecutive Hours, Continuous Positive Airway Pressure (ICD-10-PCS; 2025-01-06)
DX: R00.1 Bradycardia, unspecified (principal); I13.0 Hypertensive heart and chronic kidney disease with heart failure and stage 1 through stage 4 chronic kidney disease, or unspecified chronic kidney disease; I50.32 Chronic diastolic (congestive) heart failure; E03.9 Hypothyroidism, unspecified; N18.30 Chronic kidney disease, stage 3 unspecified; E11.22 Type 2 diabetes mellitus with diabetic chronic kidney disease; E66.01 Morbid (severe) obesity due to excess calories; E78.00 Pure hypercholesterolemia, unspecified; I25.10 Atherosclerotic heart disease of native coronary artery without angina pectoris; M10.9 Gout, unspecified; N31.9 Neuromuscular dysfunction of bladder, unspecified; G47.33 Obstructive sleep apnea (adult) (pediatric); D50.9 Iron deficiency anemia, unspecified; J44.9 Chronic obstructive pulmonary disease, unspecified; I35.0 Nonrheumatic aortic (valve) stenosis; N40.1 Benign prostatic hyperplasia with lower urinary tract symptoms; R33.8 Other retention of urine; Z66 Do not resuscitate; Z86.73 Personal history of transient ischemic attack (TIA), and cerebral infarction without residual deficits; Z79.82 Long term (current) use of aspirin; Z79.890 Hormone replacement therapy; Z95.5 Presence of coronary angioplasty implant and graft; Z74.01 Bed confinement status
CPT/HCPCS: 80048; 80053; 82607; 82728; 82746; 82962; 83036; 83540; 83550; 83735; 84100; 84443; 84484; 85014; 85018; 85025; 85027; 87070; 93005; 93306; 94660; Q9950

== ENCOUNTER 2025-01-18 22:13 | Inpatient (IN) | payer MEDICARE, SELFPAY ==
[2025-01-18 17:50] VITALS: BP 138/59
[2025-01-18 18:00] VITALS: BP 145/51
[2025-01-18 18:22] VITALS: BP 145/51
--- NOTE | 2025-01-18 18:29 | ED.GENMED ---
History of Present Illness
General
Chief Complaint: Heart Rate Problem
Source: patient, records, [facility] and previous hospital records
Exam Limitations: none
Time Seen by Provider: 01/18/25 17:45
Nursing documentation reviewed up to this point in time: agreed with
History of Present Illness
History of Present Illness:
74-year-old male from a local care facility presents for an irregular heart rate, elevated BUN, recently admitted with syncope, bradycardia, worked up by hospitalist and cardiology not thought to be candidate for permanent pacemaker is a chronic
Villarreal catheter, chronically on diuretics, my evaluation he appears chronically ill nontoxic not hypoxic not tachypneic cooperative
Past History
Past History
ED Past Medical History: CAD, CHF, CVA, HTN, Hypercholesterolemia, NIDDM, Hypothyroidism and Other (BPH, urinary retention, gout, headaches, morbid obesity)
ED Past Surgical History: Cardiac (Coronary stents) and Other (Eye surgery)
Social History
Tobacco: Non-smoker
Alcohol: None
Drug: None
Personal: Other
Living: [facility]
Employment: Retired
Family History
Family History: Unable to obtain
Phy Exam
Physical Exam
Physical Exam:
Physical Exam
General: Chronically ill male
Neck: Lips are slightly
Heart: Bradycardia
Lungs: no acute respiratory distress. clear bilaterally
Abdomen: Nontender Villarreal draining yellow urine
Neuro: alert and oriented. no focal neurological deficits
Skin: no rash
Psychiatric: well kept. interactive and cooperative
Extremities: no edema
Course
Orders/Labs/Results
Orders:
Orders
01/18/25 17:52
Electrocardiogram (*1) Stat
Reason for Study: Other
Other Reason for Exam: chest pain
Cardiac Monitoring- Treatment ONCE
EKG- Treatment ONCE
CR Chest - 2 Views Urgent
Comment:
Reason For Exam: chf
01/18/25 18:30
Complete Blood Count/With Diff Urgent
Comprehensive Metabolic Panel Urgent
Magnesium Urgent
NT-proBNP Urgent
01/18/25 19:55
0.9% Sodium Chloride 500 ml [Nss] 500 ml IV BOLUS
Abnormal Lab Results
01/18/25
18:30
RBC 3.07 L 10^6/uL
(4.70-6.10)
Hgb 9.2 L g/dL
(13.0-18.0)
Hct 29.4 L %
(39.0-52.0)
MCV 95.8 H fL
(80.0-94.0)
MCHC 31.3 L g/dL
(33.0-37.0)
RDW 16.8 H %
(11.5-14.5)
Plt Count 126 L 10^3/uL
(130-400)
MPV 11.0 H fL
(7.4-10.4)
Chloride 110 H mmol/L
(98-107)
BUN 124 H* mg/dl
(9-20)
Creatinine 2.2 H mg/dL
(0.7-1.3)
Magnesium 2.6 H mg/dl
(1.6-2.3)
Total Protein 5.7 L g/dl
(6.3-8.2)
Albumin 3.1 L g/dl
(3.5-5.0)
01/18/25 18:30
01/18/25 18:30
Vital Signs
Initial and Last Documented VS:
Initial Vital Signs
Temp Pulse Resp BP Pulse Ox
98.5 F 40 16 145/51 100
01/18/25 18:22 01/18/25 18:22 01/18/25 18:22 01/18/25 18:22 04/21/25 18:22
Last Documented Vital Signs
Temp Pulse Resp BP Pulse Ox
98.5 F 40 16 145/51 100
01/18/25 18:22 01/18/25 18:22 01/18/25 18:22 01/18/25 18:22 01/18/25 18:22
MDM/Problems Addressed
Differential Diagnosis Includes:
Overdiuresis arrhythmia bradycardia arrhythmia
MDM/Problems Addressed:
Slow heart rate elevated BUN
Chronic conditions affecting care: HTN and Kidney disease
Acute Exacerbation and/or Progression of Chronic Illness: HTN and Kidney disease
*Radiology
Radiology exam reviewed: preliminary read by ED provider
*Pulse Oximetry
Patient hypoxic: no
*EKG
Interpreted by ED Provider?: Yes
Interpretation: abnormal
Comparison EKG: no changes
Heart Rate: 46
Rate: bradycardiac
Rhythm: sinus
Ischemia: non-specific ST changes
*Print Support Specialist Interpretation
Rate: bradycardiac
Interpretation: abnormal
Heart Rate: 48
Rhythm: sinus
*Critical Care Note
Total Time (30-74mins, 75-104mins- exclusive of procedures): Not Applicable
Data Reviewed
Review of Other/Old Records Reveals: Labs, Progress Notes and Discharge Summary
Source: patient and records
Update Note
Update Note:
Update patient mentating well, is bradycardic prior admission was for similar issues, outpatient labs look like his BUN/creatinine may be up will repeat here, ?overdiuresed will review cardiology notes closer look at his old and current EKGs
Prior labs noted, prior EKGs noted will give some saline hydration, will try to figure out his outpatient diuretic dosing pull back on a little bit,
842 heart rate down into the 30s this point I suspect is prudent to keep him in the hospital
ED Attending Note
-
Portions of this chart may have been created with voice recognition software.� Occasional wrong word or��sound alike� substitutions may have occurred due to the inherent limitations of voice recognition software.
Discharge Plan
Departure
Patient Disposition: Admit
Date of Disposition: 01/18/25
Time of Disposition: 20:44
Admit to: Telemetry
Presentation/result/management discussed w/ accepting MD/DO: Hospitalist
Patient with high blood pressure during this ER visit?: No
Condition: Fair
Discharge Problem:
Bradycardia, LEE (acute kidney injury)
Prescriptions:
No Action
atorvastatin 40 MG tablet
60 mg PO QPM
levothyroxine 175 MCG tablet
175 mcg PO DAILY
acetaminophen 325 MG tablet
650 mg PO Q6HPRN MDD 3000mg PRN (Reason: mild pain/temp>100.4)
aspirin 81 MG tablet,delayed release (DR/EC)
81 mg PO DAILY
acetaminophen 650 MG tablet extended release
650 mg PO BID
magnesium hydroxide [Milk of Magnesia] 400 MG/5 ML suspension
30 ml PO DAILYPRN PRN (Reason: if no bm in 3 days)
tamsulosin [Flomax] 0.4 MG capsule
0.4 mg PO QPM
bisacodyl 10 MG suppository
10 mg [place] DAILYPRN PRN (Reason: if no bm after mom)
bumetanide 1 MG tablet
1 mg PO BID
finasteride 5 MG tablet
5 mg PO DAILY
lidocaine HCl 2 % Jelly
15 ml intra-urethral MONTHLY PRN (Reason: 15ml urethral anesthesia)
ferrous sulfate 325 mg (65 mg iron) Tablet
325 mg PO DAILY
calcium carbonate [Tums] 200 mg calcium (500 mg) Tablet,Chewable
200 mg PO Q8HPRN PRN (Reason: indigestion )
docusate sodium [Colace] 100 mg Capsule
100 mg PO BID
miconazole nitrate 2 % Powder
1 applic TOPICAL BID
melatonin 3 mg Tablet
3 mg PO HS
allopurinol 100 mg Tablet
100 mg PO DAILY
lisinopril 10 mg Tablet
15 mg PO DAILY
omeprazole 20 mg Capsule,Delayed Release(Dr/Ec)
20 mg PO BID
sennosides-docusate sodium [Senna-S] 8.6-50 mg Tablet
1 tab-cap PO BID
potassium chloride [Klor-Con M20] 20 mEq Tablet,Er Particles/Crystals
20 meq PO DAILY
mupirocin 2 % Ointment
1 applic TOPICAL DAILYPRN PRN (Reason: penis hygiene)
Rx Instructions:
Retract skin around penis,cleanse with 1/2 strength peroxide and water, pat dry
oxybutynin chloride 5 mg Tablet
2.5 mg PO DAILY
magnesium oxide 400 mg magnesium Tablet
400 mg PO BID
mupirocin 2 % ointment
1 applic topical TID
Rx Instructions:
Retract skin around penis,cleanse with 1/2 strength peroxide and water, pat dry
Referrals:
Mathew Tejeda, DO [Family Provider] -
Interventions
Interventions:
*Risk Screen - Suicide Last Done: 01/18/25 18:22
*General Assessment Last Done: 01/18/25 18:22
*Neglect/Abuse Screening Last Done: 01/18/25 18:22
*ED- Fall Risk Assessment Last Done: 01/18/25 18:22
ED- Cardiac Assessment Last Done: 01/18/25 18:46
ED- Pulmonary Assessment Last Done: 01/18/25 18:46
Discharge Date and Time
Print Language: EAST TIMOR[place]
[2025-01-18 18:38] LABS: % Basophils 0.8 % (0-2); % Eosinophils 4.9 % (0-6); % Immature Granulocytes 0.3 % (0-0.5); % Lymphocytes 31.5 % (20.5-51.1); % Monocytes 9.1 % (1.7-9.3); % Neutrophils 53.4 % (42.2-75.2); Absolute Basophils 0.1 10^3/uL (0-0.2); Absolute Eosinophils 0.3 10^3/uL (0-0.7); Absolute Monocytes 0.6 10^3/uL (0.1-0.6); Absolute Neutrophils 3.5 10^3/uL (1.4-6.5); Hematocrit 29.4 % (39.0-52.0); Hemoglobin 9.2 g/dL (13.0-18.0); Mean Corp Hgb Conc. 31.3 g/dL (33.0-37.0); Mean Corpuscular Volume 95.8 fL (80.0-94.0); Nucleated Red Blood Cells % 0 % (-); Platelet Count 126 10^3/uL (130-400); Red Blood Cell Count 3.07 10^6/uL (4.70-6.10); Red Cell Dist. Width 16.8 % (11.5-14.5); White Blood Cell Count 6.5 10^3/uL (4.8-10.8)
[2025-01-18 18:57] LABS: ALT (SGPT) 48 U/L (0-50); AST (SGOT) 29 U/L (17-59); Albumin 3.1 g/dl (3.5-5.0); Alkaline Phosphatase 79 U/L (38-126); Calcium 8.9 mg/dl (8.4-10.2); Carbon Dioxide 23 mmol/L (22-30); Chloride 110 mmol/L (98-107); Glucose 92 mg/dl (70-99); Magnesium 2.6 mg/dl (1.6-2.3); Potassium 5.1 mmol/L (3.5-5.1); Sodium 141 mmol/L (135-145); Total Bilirubin 0.4 mg/dl (0.2-1.3); Total Protein 5.7 g/dl (6.3-8.2); eGFR 30.47
[2025-01-18 19:00] LABS: NT-proBNP 3620 pg/ml
[2025-01-18 19:08] LABS: Blood Urea Nitrogen 124 mg/dl (9-20)
[2025-01-18] MEDS: NSS 500 IV (20:12)
--- NOTE | 2025-01-18 20:54 | HPS.HSE ---
Family Physician
-
Family Physician: Mathew Tejeda, DO
Chief Complaint
-
Bradycardia, lightheadedness dizziness, elevated creat
History of Present Illness
74-year-old male recent admission on 01/06/2025- 01/07/2025 secondary to reported bradycardia with lightheadedness and dizziness. The patient was evaluated at that time by cardiology found to have heart rate in the 60s not first-degree AV block during
patient's hospitalization he was asymptomatic with no lightheadedness or dizziness there was no plan for pacemaker implantation per cardiology. Patient states today he had dizziness and lightheadedness with persistent bradycardia heart rate 40-42
bpm. He had outpatient lab work showing an LEE. He was sent over from [facility] where he lives and is bedbound. The patient has past medical history of heart failure preserved EF, CAD, moderate , CKD III, urinary retention status
post indwelling urinary catheter, iron deficiency anemia, obstructive sleep apnea, hypothyroidism, HTN, DM 2�prior, morbid obesity, GERD, hypomagnesemia, insomnia, chronic bedbound status
Medical History
Past Medical History
Past Medical History: Reports Other
Additional Past Medical History:
Urinary retention status post indwelling urinary catheter
CKD III
Iron deficiency anemia
Obstructive sleep apnea
Bradycardia NOS
Hypothyroidism
Hypertension
Moderate�severe aortic stenosis-peak mean gradients 43/27 mmHg
DM-II
Morbid Obesity
GERD
Hypomagnesemia
Insomnia
Past Surgical History: Reports Other
Additional Past Surgical History:
Unknown
Social History
Alcohol: None
Drug: None
Living: Halfway
Family History
Family History: Not pertinent
Allergies / Home Medications
Allergies reflects when Allergies were last updated in [facility].
Home Medications with original date entered in [facility]
Allergy/Medication List:
Allergies
Allergy/AdvReac Type Severity Reaction Status Date / Time
No Known Allergies Allergy Verified 08/22/24 23:00
Home Medications
acetaminophen 325 mg tablet 650 mg PO Q6HPRN PRN mild pain/temp>100.4 08/23/20
acetaminophen 650 mg tablet,extended release 650 mg PO BID mild Pain 08/23/20
aspirin 81 mg tablet,delayed release 81 mg PO DAILY Blood clot prevention/tx 08/23/20
atorvastatin 40 mg tablet 60 mg PO QPM High cholesterol 08/23/20
bisacodyl 10 mg rectal suppository 10 mg KS DAILYPRN PRN if no bm after mom 08/23/20
bumetanide 1 mg tablet 1 mg PO BID Fluid retention/Swelling 08/23/20
finasteride 5 mg tablet 5 mg PO DAILY Urinary issue 08/23/20
levothyroxine 175 mcg tablet 175 mcg PO DAILY Thyroid 08/23/20
magnesium hydroxide 400 mg/5 mL oral suspension (Milk of Magnesia) 30 ml PO DAILYPRN PRN if no bm in 3 days 08/23/20
tamsulosin 0.4 mg capsule (Flomax) 0.4 mg PO QPM BPH 08/23/20
calcium carbonate (Tums) 200 mg PO Q8HPRN PRN indigestion 07/04/22
docusate sodium 100 mg capsule (Colace) 100 mg PO BID Constipation 07/04/22
ferrous sulfate 325 mg (65 mg iron) tablet 325 mg PO DAILY Supplement 07/04/22
lidocaine HCl 2 % mucosal jelly 15 ml intra-urethral MONTHLY PRN 15ml urethral anesthesia 07/04/22
allopurinol 100 mg tablet 100 mg PO DAILY Gout 01/05/25
lisinopril 10 mg tablet 15 mg PO DAILY Blood Pressure 01/05/25
magnesium oxide 400 mg PO BID Supplement 01/05/25
melatonin 3 mg tablet 3 mg PO HS Sleep 01/05/25
miconazole nitrate 2 % topical powder 1 applic topical BID FOLDS/GROIN 01/05/25
mupirocin 2 % topical ointment 1 applic topical DAILYPRN PRN penis hygiene 01/05/25
omeprazole 20 mg capsule,delayed release 20 mg PO BID Gastrointestinal Issue 01/05/25
oxybutynin chloride 5 mg tablet 2.5 mg PO DAILY Urinary Issue 01/05/25
potassium chloride 20 mEq tablet,extended release(part/cryst) (Klor-Con M) 20 meq PO DAILY Electrolyte Repletion 01/05/25
sennosides 8.6 mg-docusate sodium 50 mg tablet (Senna-S) 1 tab-cap PO BID Constipation 01/05/25
mupirocin 2 % topical ointment 1 applic topical TID PENIS 01/18/25
Review of Systems
-
History Source: Patient
A 12 point ROS was completed and negative except as noted: Yes
Constitutional: Denies Fever, Fatigue or Chills
EENT: Reports Other (Dry oral mucosa); Denies Sore Throat or Runny Nose
Respiratory: Denies Cough or Trouble Breathing
Cardiac: Denies Chest Pain, Diaphoresis, Palpitations or Syncope
Abdomen/GI: Denies Abdominal Pain, Nausea, Vomiting, Diarrhea, Constipated, Bloody Stools or Black Stools
: Reports Villarreal (Chronic Villarreal catheter present on admission light yellow in color)
Musculoskeletal: Denies Joint Pain or Edema
Skin: Denies Itching or Rash
Neurological: Reports Dizzy; Denies Headache or Weakness
Endocrine: Reports No Symptoms
Hematologic/Lymphatic: Reports No Symptoms
Psych: Reports Calm
Physical Exam
Vital Signs
Vital Signs
Temp Pulse Resp BP Pulse Ox
98.5 F 41 11 145/51 100
01/18/25 18:22 01/18/25 20:00 01/18/25 20:00 01/18/25 18:22 01/18/25 18:22
Physical Exam
General: Comfortable, Conversant and Obese; No Fever or Chills
HEENT: NormoCephalic, Anicteric, PERRLA, [place] Conjunctivae and No Ptosis
Respiratory: Clear; No Wheezes, Rales or Rhonchi
Cardiac: S1/S2 and Bradycardia (HR 40-42 bpm); No Murmur, Rub, Gallop or Peripheral Edema
Breast: Deferred by me
GI: Soft, Non Tender, Non Distended, Normal Bowel Sounds and No Hepatosplenomegaly
Rectal: Deferred by Provider
Genito-urinary: Deferred by me
Musculoskeletal: No Clubbing, No Cyanosis, No Edema and Other (Patient bedbound)
Skin: Warm and Dry; No Rash or Jaundice
Neuro: AO x 3, Nonfocal/grossly intact, Cranial Nerves Intact, No Sensory Deficits and Other (Patient bedbound); No Slurred Speech, Facial Droop, Tremors or Sedated
Psych: Calm
Laboratory Results
-
01/18/25 18:30
01/18/25 18:30
Laboratory Results
Total Bilirubin 0.4 mg/dl (0.2-1.3) 01/18/25 18:30
AST 29 U/L (17-59) 01/18/25 18:30
ALT 48 U/L (0-50) 01/18/25 18:30
Alkaline Phosphatase 79 U/L (38-126) 01/18/25 18:30
Data Reviewed
-
Lab Data: Labs Reviewed by me
Impression/Plan
-
Impression/plan:
Observation telemetry
#LEE 2/2 hypovolemia on CKD 3B
Creat 2.2 > 1.7 on 01/07/2025
-Hold Bumex 1 mg twice daily, lisinopril 15 mg daily
-Patient given 1 L IV NSS in ER will hold further IV fluids due to history of heart failure
- Follow BMP
# Symptomatic junctional Bradycardia
Current heart rate maintained 40-42 bpm
-History last admission heart rate as low as 40s then stable in 60s
Patient was evaluated by cardiology found stable asymptomatic no plan for pacemaker as heart rate was stable in the 60s
-Consult CBC cardiology
EKG: Junctional bradycardia
2D echo 01/06/2025: EF 55-60%. Apical, apical septal, apical inferior, apical anterior akinesis/dyskinesis. Moderate to severe aortic stenosis peak mean gradients 43/27 mmHg, mild aortic regurg
#Moderate�severe aortic stenosis-peak mean gradients 43/27 mmHg
#Acute on chronic thrombocytopenia unclear etiology-patient reports has had for a long time unsure reason
Plt 126
- Follow CBC
#Chronic HFpEF
I/O, daily weights
-Hold Bumex 1 mg p.o. twice daily due to LEE
#ASCVD
#Hx cardiac stents
- Stable. No chest pain.
- Continue ASA, statin
#Hypothyroidism
- Continue T4 replacement levothyroxine 175 mcg p.o. daily recent TSH normal
#History of iron deficiency anemia
Hgb 9.2, MCV 95.8
#Morbid Obesity due to excess calories
#EMANUEL on BiPAP
- Affects all aspects of care.
- Continue usual HS BiPAP
#Neurogenic Bladder
- Maintain chronic Villarreal.
- Continue oxybutynin 2.5 mg daily, Flomax 0.4 mg every afternoon, finasteride 5 mg daily
#GERD
Continue Tums as needed, omeprazole 20 mg p.o. twice daily
#DM-II
- By history. Not currently on any DM medications.
-A1c 5.5 on 01/06/2025
#Hypomagnesemia
Continue Mag-Ox 400 mg p.o. twice daily
#Insomnia
-Continue melatonin 3 mg at bedtime
DVT Prophylaxis: sq heparin
Code Status: DNR
--- NOTE | 2025-01-18 21:24 | W.PN.UPDATE ---
Update Note
Progress Note Update
This is an addendum to the H&P written by Chelsey Mcconnell on 01/18/2025.� Patient seen and examined independently with PHYSICAL EDUCATION AIDE.
74-year-old male past medical history of bradycardia, first-degree AV block, duration of bradycardia, HFpEF, CAD, moderate aortic stenosis, neurogenic bladder with chronic Villarreal catheter, obesity, obstructive sleep apnea on BIPAP at
night,�hypothyroidism, chronic iron deficiency anemia, type 2 diabetes, chronic bedbound status, CKD3 presenting from facility with low heart rate with dizziness, elevated BUN.
Patient was recently admitted on 01/06 for bradycardia.� He was seen by cardiology and pacemaker was not recommended.
Vital signs showed bradycardia with heart rate 40s.� EKG shows junctional bradycardia,
Labs show creatinine of 2.2 from 1.7 previously cardiac BNP of 3600.� Chest x-ray shows mild CHF.� Anemia stable at 9.2.� Platelets slightly low at 126.
Patient with hypovolemia, mild LEE.� IV fluids given.� Hold further fluids.�Hold lisinopril.� Hold Bumex.� Cardiology recommended against pacemaker last admission but patient with symptomatic bradycardia so consult again.�
[2025-01-18 22:23] VITALS: BP 130/49
[2025-01-18 22:32] VITALS: BMI 40.0
[2025-01-18 23:00] VITALS: BP 141/61
[2025-01-18] MEDS: TYLENOL 650 MG PO (23:11)
[2025-01-18] MEDS: MELATONIN 3 MG PO (23:11)
[2025-01-18] MEDS: BACTROBAN 2% OINTMENT 1 APPLIC TOPICAL (23:17)
[2025-01-19] VITALS (24 sets, daily range): BP systolic 102–143; BP diastolic 40–79; BMI 40.0
[2025-01-19 05:23] LABS: % Basophils 1.1 % (0-2); % Eosinophils 4.8 % (0-6); % Immature Granulocytes 0.5 % (0-0.5); % Lymphocytes 27.4 % (20.5-51.1); % Monocytes 6.7 % (1.7-9.3); % Neutrophils 59.5 % (42.2-75.2); Absolute Basophils 0.1 10^3/uL (0-0.2); Absolute Eosinophils 0.3 10^3/uL (0-0.7); Absolute Lymphocytes 1.6 10^3/uL (1.2-3.4); Absolute Monocytes 0.4 10^3/uL (0.1-0.6); Absolute Neutrophils 3.4 10^3/uL (1.4-6.5); Hemoglobin 8.7 g/dL (13.0-18.0); Mean Corp Hgb Conc. 32.2 g/dL (33.0-37.0); Mean Corpuscular Volume 96.1 fL (80.0-94.0); Nucleated Red Blood Cells % 0 % (-); Platelet Count 121 10^3/uL (130-400); Red Blood Cell Count 2.81 10^6/uL (4.70-6.10); Red Cell Dist. Width 15.9 % (11.5-14.5); White Blood Cell Count 5.7 10^3/uL (4.8-10.8)
[2025-01-19 05:57] LABS: ALT (SGPT) 43 U/L (0-50); AST (SGOT) 25 U/L (17-59); Albumin 2.7 g/dl (3.5-5.0); Alkaline Phosphatase 75 U/L (38-126); Blood Urea Nitrogen 122 mg/dl (9-20); Carbon Dioxide 25 mmol/L (22-30); Chloride 111 mmol/L (98-107); Estimated Creatinine Clearance 32 ml/min; Glucose 84 mg/dl (70-99); Sodium 142 mmol/L (135-145); Total Bilirubin 0.3 mg/dl (0.2-1.3); Total Protein 5.2 g/dl (6.3-8.2); eGFR 32.22
[2025-01-19] MEDS: TYLENOL 650 MG PO ×3 (06:11→23:33)
[2025-01-19] MEDS: SYNTHROID 175 MCG PO (06:11)
--- NOTE | 2025-01-19 07:57 | CON.CAR ---
Addendum entered and electronically signed by Sukhwinder Em MD 01/20/25 07:54:
Patient was seen and evaluated personally. I agree with the note, plan of care and findings as discussed and documented below.
74 years old man with severe bradycardia, conduction disease, long AV block, with presyncope related to his bradycardia is in need for a pacemaker. He has no active infection but is bed bound. The risk of infection is elevated.
We discussed leadless pacemaker vs traditional. he has narrow QRS and would like to promote the intrinsic conduction. Will proceed with traditioanl pacemaker with conduction system pacing.
Original Note:
Consultation
Consultation Request
Date/Time Consultation Requested: 01/18/2025 22:00
Date/Time Consultation Performed: 01/19/2025 07:50
Requesting Provider: ABDON Zhang
Performing Provider: ABDON Presley for Dr. Em
Reason for Consultation: Symptomatic bradycardia
Medical History
-
Chief Complaint: Abnormal outpatient labs
History of Present Illness:
Hermilo Mills is a 74-year-old male (known to Dr. Stern, his primary asp net c developer), who presents from [facility] with aortic stenosis, HFpEF, CAD (prior stenting) hypertension, dyslipidemia, type 2 diabetes mellitus, anemia of chronic disease,
hypothyroidism, obesity, chronic kidney disease, chronic Villarreal, COPD and bradycardia with first-degree AV block who presented with abnormal outpatient labs. Outpatient blood work showed an LEE. He presented with persistent bradycardia with heart
rate in the 40s. He endorses dizziness and lightheadedness. No chest pain.
Past Medical History
Past Medical History: CAD, CHF (HFpEF), HTN, Hypercholesterolemia, Hypothyroidism, NIDDM, Renal Failure (CKD) and Other (Gout, chronic Villarreal)
Social History
Alcohol: None
Drug: None
Personal:
Living: Group Home ([facility])
Employment: Retired ([employer])
Family History
Family History: Reviewed & Not Pertinent
Allergies / Home Medications
Allergy/AdvReac Type Severity Reaction Status Date / Time
No Known Allergies Allergy Verified 08/22/24 23:00
�Medication �Instructions �Recorded �Confirmed �Type
acetaminophen 325 mg tablet 650 mg PO Q6HPRN PRN mild 08/23/20 01/18/25 History
pain/temp>100.4
acetaminophen 650 mg 650 mg PO BID mild Pain 08/23/20 01/18/25 History
tablet,extended release
aspirin 81 mg tablet,delayed 81 mg PO DAILY Blood clot 08/23/20 01/18/25 History
release prevention/tx
atorvastatin 40 mg tablet 60 mg PO QPM High cholesterol 08/23/20 01/18/25 History
bisacodyl 10 mg rectal suppository 10 mg VA DAILYPRN PRN if no bm 08/23/20 01/18/25 History
after mom
bumetanide 1 mg tablet 1 mg PO BID Fluid 08/23/20 01/18/25 History
retention/Swelling
finasteride 5 mg tablet 5 mg PO DAILY Urinary issue 08/23/20 01/18/25 History
levothyroxine 175 mcg tablet 175 mcg PO DAILY Thyroid 08/23/20 01/18/25 History
magnesium hydroxide 400 mg/5 mL 30 ml PO DAILYPRN PRN if no bm in 08/23/20 01/18/25 History
oral suspension (Milk of Magnesia) 3 days
tamsulosin 0.4 mg capsule (Flomax) 0.4 mg PO QPM BPH 08/23/20 01/18/25 History
calcium carbonate (Tums) 200 mg PO Q8HPRN PRN indigestion 07/04/22 01/18/25 History
docusate sodium 100 mg capsule 100 mg PO BID Constipation 07/04/22 01/18/25 History
(Colace)
ferrous sulfate 325 mg (65 mg 325 mg PO DAILY Supplement 07/04/22 01/18/25 History
iron) tablet
lidocaine HCl 2 % mucosal jelly 15 ml intra-urethral MONTHLY PRN 07/04/22 01/18/25 History
15ml urethral anesthesia
allopurinol 100 mg tablet 100 mg PO DAILY Gout 01/05/25 01/18/25 History
lisinopril 10 mg tablet 15 mg PO DAILY Blood Pressure 01/05/25 01/18/25 History
magnesium oxide 400 mg PO BID Supplement 01/05/25 01/18/25 History
melatonin 3 mg tablet 3 mg PO HS Sleep 01/05/25 01/18/25 History
miconazole nitrate 2 % topical 1 applic topical BID FOLDS/GROIN 01/05/25 01/18/25 History
powder
mupirocin 2 % topical ointment 1 applic topical DAILYPRN PRN 01/05/25 01/18/25 History
penis hygiene
omeprazole 20 mg capsule,delayed 20 mg PO BID Gastrointestinal Issue 01/05/25 01/18/25 History
release
oxybutynin chloride 5 mg tablet 2.5 mg PO DAILY Urinary Issue 01/05/25 01/18/25 History
potassium chloride 20 mEq 20 meq PO DAILY Electrolyte 01/05/25 01/18/25 History
tablet,extended Repletion
release(part/cryst) (Klor-Con M)
sennosides 8.6 mg-docusate sodium 1 tab-cap PO BID Constipation 01/05/25 01/18/25 History
50 mg tablet (Senna-S)
mupirocin 2 % topical ointment 1 applic topical TID PENIS 01/18/25 01/18/25 History
Review of Systems
-
History Source: Patient
All other systems: Negative unless noted
Constitutional: Fatigue
EENT: No Symptoms
Cardiac: No Symptoms
Abdomen/GI: No Symptoms
: No Symptoms
Musculoskeletal: No Symptoms
Skin: No Symptoms
Neurological: Dizzy and Weakness
Endocrine: No Symptoms
Hematologic/Lymphatic: No Symptoms
Physical Exam
Vital Signs
Temp Pulse Resp BP Pulse Ox
98.1 F 51 12 129/53 98
01/19/25 00:00 01/19/25 04:00 01/19/25 04:00 01/19/25 04:00 01/19/25 04:00
Lab Results
01/19/25 04:56
01/19/25 04:56
Ocd-T-Wbsedjiksyt Pept 3620 pg/ml 01/18/25 18:30
Physical Exam
General: Well Developed, Well Nourished, No Apparent Distress and Comfortable
HEENT: Normocephalic, Anicteric and Moist Mucous Membranes
Respiratory: Clear and Non Labored Respirations
Cardiac: S1/S2 and Regular Rhythm (bradycardia)
Breast: Deferred by me
GI: Soft, Non Tender, Non Distended and Normal Bowel Sounds
Rectal: Deferred by Provider
Genito-urinary: No Costovertebral Tender
Musculoskeletal: No Clubbing, No Cyanosis and Edema (LE [chronic])
Skin: Warm and Dry
Neuro: Awake and Alert
Hematologic/Lymphatic: No Lymphadenopathy
Psych: Calm
Impression / Plan
-
I/P: 74M with aortic stenosis, HFpEF, CAD (prior stenting) hypertension, dyslipidemia, type 2 diabetes mellitus, anemia of chronic disease, hypothyroidism, obesity, chronic kidney disease, chronic Villarreal, COPD and bradycardia with first-degree AV
block who presented with abnormal outpatient labs.
Outpatient asp net c developer: Dr. Stern
Bradycardia, symptomatic
Junctional bradycardia
Sinus node dysfunction
First degree AV block
- With dizziness and lightheadedness
- Agreeable for PPM
LEE on CKD
- In the setting of dehydration
- Bumex on hold, given 1 L IV fluid in the ER
HFpEF, chronic
- Bumex on hold for hypovolemia
- He reports his lower extremity edema is chronic, weight down from prior hospitalization
CAD, chronic and stable without chest pain, continue aspirin
Aortic stenosis, moderate-severe, this will be monitored over time
Hypertension, stable, lisinopril on hold with LEE
Thrombocytopenia, appears chronic
Anemia, likely of chronic disease, denies abnormal bleeding
Neurogenic bladder with chronic indwelling Villarreal catheter
Bedbound
Obesity, BMI 40, he would benefit from weight loss
SUBJECTIVE:
As above.
DATA:
Transthoracic echocardiogram, 01/06/2025:
CONCLUSIONS
-Left ventricular ejection fraction is 55-60%. Apical, apical septal, apical
inferior, apical anterior akinesis/dyskinesis.
-Normal right ventricular size and function.
-Moderate to severe aortic stenosis; peak/mean gradients 43/27 mmHg, calculated
JOAQUIN 0.8 cm2. Mild aortic regurgitation.
Compared to previous echo on 01/10/2023, slightly progressive aortic stenosis is
noted (previous peak/mean gradients were 40/22 mmHg, calculated JOAQIUN 1.09 cm2).
Data Reviewed
-
EKG: Report Reviewed by me (Sinus bradycardia with prolonged VA interval, rate 42)
Radiology: Report Reviewed by me (CXR: Mild central pulmonary vascular congestion)
Medical Tests (Nuc Med, Echo etc): Report Reviewed by me (Echocardiogram as above)
Labs: Labs Reviewed by me
Old Records: Reviewed
[2025-01-19] MEDS: PROSCAR 5 MG PO (08:14)
[2025-01-19] MEDS: COLACE 100 MG PO ×2 (08:14→21:01)
[2025-01-19] MEDS: HEPARIN 5000 UNITS SC ×2 (08:14→21:01)
[2025-01-19] MEDS: PROTONIX 40 MG PO ×2 (08:14→21:01)
[2025-01-19] MEDS: ZYLOPRIM 100 MG PO (08:14)
[2025-01-19] MEDS: SENOKOT-S 1 TABLET PO ×2 (08:14→21:01)
[2025-01-19] MEDS: FEOSOL 325 MG PO (08:14)
[2025-01-19] MEDS: ASPIR LOW (ENTERIC COATED) 81 MG PO (08:14)
[2025-01-19] MEDS: MAG-TAB SR 84 MG PO ×2 (08:14→21:01)
[2025-01-19] MEDS: DITROPAN 2.5 MG PO (08:14)
[2025-01-19] MEDS: BACTROBAN 2% OINTMENT 1 APPLIC TOPICAL ×2 (08:15→23:32)
[2025-01-19] MEDS: DESENEX/MITRAZOL/ZEASORB 1 APPLIC TOPICAL (08:15)
--- NOTE | 2025-01-19 08:47 | PTOTSP ---
Received order for PT from the ED and reviewed chart including prior record. Pt is LTC resident at [facility] where he is bedbound and staff uses [facility] for transfers. Pt has no rehab needs/goals. Will sign off.
--- NOTE | 2025-01-19 08:47 | PTCARENOTE ---
pt aaox3. states generalized pain. no pain med wanted at this time. craig care done.
[2025-01-19 09:36] LABS: Iron 85 ug/dl (49-181)
[2025-01-19 09:53] LABS: Percent Saturation 44 % (20-50); Total Iron Binding Capacity 193 ug/dl (261-462)
[2025-01-19 10:11] LABS: TSH 1.09 uIU/ml (0.47-4.68)
--- NOTE | 2025-01-19 12:00 | PTCARENOTE ---
pt craig exchanged for new 20fr.
--- NOTE | 2025-01-19 12:59 | W.CON.NEPH ---
Consultation
-
Date/Time Consultation Requested: 01/19/2025 10:00 AM
Date/Time Consultation Performed: 01/20/2020 12:40 PM
Requesting Provider: Dr. Benson
Performing Provider: Dr. Merritt
Reason for Consultation: CKD stage 3b/azotemia
Medical History
-
Chief Complaint: CKD stage IIIb/azotemia
History of Present Illness:
Hermilo Mills is a 74-year-old male (known to Dr. Stern, his primary enamel buffer), who presents from [facility] with aortic stenosis, HFpEF(1 mg bumex BID), CAD (prior stenting) hypertension( on lisinopril), dyslipidemia, type 2 diabetes
mellitus, anemia of chronic disease, hypothyroidism, obesity, chronic kidney disease (with baseline 1.9), chronic Craig, COPD and bradycardia with first-degree AV block who presented with abnormal outpatient labs.. He presented with persistent
bradycardia with heart rate in the 40s. He endorses dizziness and lightheadedness. The patient's creatinine was 2.2 on admission with a BUN of 122 and nephrology was asked to see the patient..
Past Medical History
CAD, CHF (HFpEF), HTN, Hypercholesterolemia, Hypothyroidism, NIDDM, Renal Failure (CKD) (1.9) and Other (Gout, chronic Craig)
Social History
Tobacco: Non-Smoker
Alcohol: None
Personal:
Living: [facility] ([facility])
Family History
No CKD
Family History: Not Pertinent
Allergies / Home Medications
Allergy/AdvReac Type Severity Reaction Status Date / Time
No Known Allergies Allergy Verified 08/22/24 23:00
�Medication �Instructions �Recorded �Confirmed �Type
acetaminophen 325 mg tablet 650 mg PO Q6HPRN PRN mild 08/23/20 01/18/25 History
pain/temp>100.4
acetaminophen 650 mg 650 mg PO BID mild Pain 08/23/20 01/18/25 History
tablet,extended release
aspirin 81 mg tablet,delayed 81 mg PO DAILY Blood clot 08/23/20 01/18/25 History
release prevention/tx
atorvastatin 40 mg tablet 60 mg PO QPM High cholesterol 08/23/20 01/18/25 History
bisacodyl 10 mg rectal suppository 10 mg PA DAILYPRN PRN if no bm 08/23/20 01/18/25 History
after mom
bumetanide 1 mg tablet 1 mg PO BID Fluid 08/23/20 01/18/25 History
retention/Swelling
finasteride 5 mg tablet 5 mg PO DAILY Urinary issue 08/23/20 01/18/25 History
levothyroxine 175 mcg tablet 175 mcg PO DAILY Thyroid 08/23/20 01/18/25 History
magnesium hydroxide 400 mg/5 mL 30 ml PO DAILYPRN PRN if no bm in 08/23/20 01/18/25 History
oral suspension (Milk of Magnesia) 3 days
tamsulosin 0.4 mg capsule (Flomax) 0.4 mg PO QPM BPH 08/23/20 01/18/25 History
calcium carbonate (Tums) 200 mg PO Q8HPRN PRN indigestion 07/04/22 01/18/25 History
docusate sodium 100 mg capsule 100 mg PO BID Constipation 07/04/22 01/18/25 History
(Colace)
ferrous sulfate 325 mg (65 mg 325 mg PO DAILY Supplement 07/04/22 01/18/25 History
iron) tablet
lidocaine HCl 2 % mucosal jelly 15 ml intra-urethral MONTHLY PRN 07/04/22 01/18/25 History
15ml urethral anesthesia
allopurinol 100 mg tablet 100 mg PO DAILY Gout 01/05/25 01/18/25 History
lisinopril 10 mg tablet 15 mg PO DAILY Blood Pressure 01/05/25 01/18/25 History
magnesium oxide 400 mg PO BID Supplement 01/05/25 01/18/25 History
melatonin 3 mg tablet 3 mg PO HS Sleep 01/05/25 01/18/25 History
miconazole nitrate 2 % topical 1 applic topical BID FOLDS/GROIN 01/05/25 01/18/25 History
powder
mupirocin 2 % topical ointment 1 applic topical DAILYPRN PRN 01/05/25 01/18/25 History
penis hygiene
omeprazole 20 mg capsule,delayed 20 mg PO BID Gastrointestinal Issue 01/05/25 01/18/25 History
release
oxybutynin chloride 5 mg tablet 2.5 mg PO DAILY Urinary Issue 01/05/25 01/18/25 History
potassium chloride 20 mEq 20 meq PO DAILY Electrolyte 01/05/25 01/18/25 History
tablet,extended Repletion
release(part/cryst) (Klor-Con M)
sennosides 8.6 mg-docusate sodium 1 tab-cap PO BID Constipation 01/05/25 01/18/25 History
50 mg tablet (Senna-S)
mupirocin 2 % topical ointment 1 applic topical TID penis rash 01/18/25 01/18/25 History
Review of Systems
-
History Source: Patient
All other systems: Negative unless noted
Constitutional: No Symptoms
EENT: No Symptoms
Respiratory: No Symptoms
Cardiac: No Symptoms
Abdomen/GI: No Symptoms
: Other (Chronic Craig with BPH)
Musculoskeletal: Edema and Other (Chronic nonambulatory status)
Neurological: Other (Neuropathy and neurogenic bladder)
Physical Exam
Vital Signs
Vital Signs
Temp Pulse Resp BP Pulse Ox
97.1 F 45 8 139/51 99
01/19/25 08:32 01/19/25 08:00 01/19/25 08:00 01/19/25 08:00 01/19/25 08:00
Lab Results
01/19/25 04:56
01/19/25 04:56
WBC 5.7 10^3/uL (4.8-10.8) 01/19/25 04:56
RBC 2.81 10^6/uL (4.70-6.10) L 01/19/25 04:56
Hgb 8.7 g/dL (13.0-18.0) L 01/19/25 04:56
Hct 27.0 % (39.0-52.0) L 01/19/25 04:56
Plt Count 121 10^3/uL (130-400) L 01/19/25 04:56
Sodium 142 mmol/L (135-145) 04 04:56
Potassium 5.0 mmol/L (3.5-5.1) 04 04:56
Chloride 111 mmol/L (98-107) H 01/19/25 04:56
Carbon Dioxide 25 mmol/L (22-30) 01/19/25 04:56
BUN 122 mg/dl (9-20) H* 01/19/25 04:56
Creatinine 2.1 mg/dL (0.7-1.3) H 01/19/25 04:56
eGFR 32.22 01/19/25 04:56
Glucose 84 mg/dl (70-99) 01/19/25 04:56
Calcium 9.0 mg/dl (8.4-10.2) 01/19/25 04:56
Hkh-J-Wavumhdsdhu Pept 3620 pg/ml 01/18/25 18:30
Albumin 2.7 g/dl (3.5-5.0) L 01/19/25 04:56
Physical Exam
General: AOx3, Nontoxic , NAD, chronically ill-appearing
HEENT: PERRL, EOMI, Anicteric, Conjunctivae Clear, Ear/Nose Intact, Hearing Normal, Oropharynx Clear/Moist, Dentition Intact, Facial Symmetry, Neck Supple, Neck: Trachea Midline, No JVD and No Thyromegaly, no Bruits
Respiratory: Clear to auscultation with decreased breath sounds to bases bilaterally with normal lung exersion
Cardiac: S1/S2 and Regular Rate/Rhythm bassam
Breast: Deferred by me
Abdomen: Soft, Nontender, Nondistended, Normal Bowel Sounds and No Hepatosplenomegaly, obese
Rectal: Deferred by Provider
Genito-urinary: No Costovertebral Tenderness, craig catheter
Extremities: No Clubbing, No Cyanosis and but pre tibial edema
Skin: Chronic venous stasis changes along lower extremity sions
Neuro: Nonfocal/Grossly Intact, CN II-XII (Intact) and Strength (Musculoskeletal exam 5 out of 5 in upper extremities, but 3/5 lower
Hematologic/Lymphatic: No Cervical Lymphadenopathy, No Submandibular Lymphadenopathy and No Supraclavicular Lymphadenopathy
Psych: Mood/afflect pleasant, Insight/judgement good and Appropriate
Vascular: plus 1 pedal and radial pulses
Data Reviewed
-
Radiology: Image Personally Visualized and interpreted (Chest x-ray personally reviewed notable for cardiomegaly and mild interstitial edema)
Ultrasound: Other (Renal ultrasound to be obtained and reviewed)
Labs: Labs Reviewed by me (BMP CBC)
Old Records: Reviewed (Reviewed previous lab work from date 01/07/2025 BUN 97 creatinine 1.7)
Assessment/Plan
-
Impression:
CKD 3b (2.1)
Azotemia BUN 122
Anemia
Bradycardia, symptomatic/Junctional bradycardia (40s)
HFpEF, chronic
CAD
Aortic stenosis, moderate-severe
Hypertension
Thrombocytopenia
Neurogenic bladder with chronic indwelling Craig catheter
Bedbound
Hypothyroidism
Obesity, BMI 40, he would benefit from weight loss
Hypoalbuminemia
Plan:
CKD 3b/ Azotemia:
- Creatinine is not far from baseline which is usually around 1.9
- Patient has been more azotemic since last admission likely due to to the addition of diuretics and/or congestive heart failure
- Wide disparity between creatinine and BUN likely indicate underlying cardiorenal syndrome and or possibly even GI bleed, as well as compromised ECV due to underlying hypoalbuminemia
- Would Hemoccult stool
-Renal ultrasound obtained and to be reviewed
- Patient to go to [facility] for pacemaker placement in setting of symptomatic bradycardia
- Diuretics and AVNI inhibitor currently on hold
- Fractional excretion of sodium has been ordered but will also check urine protein to creatinine ratio (given hypoalbuminemia)
[2025-01-19 13:21] LABS: Urine Albumin 2+ (Neg - Trace); Urine Bilirubin Negative (Negative); Urine Character Slightly Cloudy (Clear); Urine Color Yellow; Urine Glucose Negative (Negative); Urine Ketone Negative (Negative); Urine Leukocyte 3+ (Negative); Urine Nitrite Negative (Negative); Urine Occult Blood 4+ (Negative); Urine Urobilinogen Negative (Neg - 1+)
[2025-01-19 13:27] LABS: Urine Red Blood Cell 40-50 /HPF (0-2); Urine Urothelial Cell 0-2 /LPF (FEW); Urine White Cell 50-60 /HPF (0-5)
[2025-01-19 13:28] LABS: Urine Bacteria Many (Negative)
[2025-01-19 13:49] LABS: Urine Sodium 76 mmol/L (30-90)
[2025-01-19] MEDS: VANCOCIN 530 MG IV (14:23)
--- NOTE | 2025-01-19 14:30 | W.PN.HOSP.TC ---
Today's Communication/Plan
-
Pacer placement.
Workup for LEE and proteinuria
Hold AVNI and Bumex reassessing volume status and hemodynamics.
Update iron stores.
Exchange Villarreal catheter
Assessment / Plan
Assessment / Plan
Impression:
Symptomatic bradycardia
First-degree AV block.
Junctional bradycardia.
Heart failure preserved EF
Moderate to severe aortic stenosis
Acute kidney injury with worsening of azotemia.
CKD stage III.
Other conditions:
Essential hypertension
CAD
Neurogenic bladder with indwelling Villarreal catheter.
Chronic thrombocytopenia
Anemia of chronic disease.
skilled nursing resident with bedbound status
Obesity with BMI of 40
Plan:
Symptomatic bradycardia.
Presents with dizziness and lightheadedness
Heart rate in 40s baseline
ECG junctional bradycardia�first-degree AV block.
TSH within normal limits
Plan is for pacemaker by cardiology
Chronic heart failure preserved EF
Moderate to severe aortic stenosis.
Echocardiogram 01/22 with LVEF 55-60%. Apical, septal, inferior, anterior akinesis/dyskinesis. Moderate to severe aortic stenosis with JOAQUIN 0.8 cm�
No evidence for volume overload or decompensated CHF upon presentation.
Has been on Bumex prior to admission.
Noted with LEE and worsening of azotemia.
Preadmission regimen including bumetanide and lisinopril
CAD
chest pain-free with no evidence of ischemia on ECG.
Continue aspirin and statin.
LEE
CKD stage IIIb with baseline creatinine 1.9
Noted with worsening of azotemia, suspect secondary to diuretics likely contamination with chronic anemia
Renal sonogram with no evidence of obstructive etiology. Consistent with medical renal disease.
Nephrology input appreciated
Noted with hypoalbuminemia. Additional workup for proteinuria with UPCR pending
Urine sodium 76 likely skewed by loop diuretics.
Hold AVNI inhibitor and Bumex.
Follow BMP
Neurogenic bladder with chronic urinary retention
Villarreal catheter remains in place
Exchange Villarreal ordered
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
Anemia of chronic disease.
Hemoglobin 8.7�9.2 close to baseline.
Given significant elevated BUN heme check stools to rule out occult GI bleed.
Update iron stores
Hypothyroidism on replacement with adequate TFT
Anticipated Discharge: 24 - 48 hours
Subjective/Interval History
-
Date of Service: January 19, 2025
Objective Data
-
Labs:
Laboratory Results
01/19/25
04:56
WBC 5.7
Hgb 8.7 L
Hct 27.0 L
Plt Count 121 L
Sodium 142
Potassium 5.0
Chloride 111 H
Carbon Dioxide 25
BUN 122 H*
Creatinine 2.1 H
Glucose 84
Calcium 9.0
Total Bilirubin 0.3
AST 25
ALT 43
Alkaline Phosphatase 75
Vital Signs:
Vital Signs
Temp Pulse Resp BP Pulse Ox
97.1 F 52 15 128/79 98
01/19/25 08:32 01/19/25 13:00 01/19/25 13:00 01/19/25 13:00 01/19/25 10:00
I&O
01/18/25 01/19/25 01/20/25
06:59 06:59 06:59
Intake Total 240 / 240
Output Total 1300 / 1300
Balance -1060 / -1060
Physical Exam
-
General: Well Developed, No Apparent Distress, Comfortable and Morbidly Obese
HEENT: Normocephalic, Atraumatic, Moist Mucous Membranes and Anicteric; Negative Good Dentition
Respiratory: Clear to Auscultation and Non Labored Respirations; Negative Accessory Resp Muscle Use
Cardiac: Regular Rhythm, S1/S2 and Murmur (Crescendo decrescendo, TERELL); Negative Rub or Gallop
GI: Soft, Nontender, Nondistended and Normal Bowel Sounds
Genito-urinary: Villarreal
Musculoskeletal: No Clubbing, No Cyanosis and No Edema
Skin: Warm, Dry and Normal Turgor; Negative Rash
Neuro: AO x 3 and Nonfocal/Grossly Intact
Psych: Calm
--- NOTE | 2025-01-19 15:36 | ITS.CL.PACE ---
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
Pacemaker Implant
Procedure Report:
Conduction system pacing Permanent Pacemaker Placement:
74 yrs old man with severe bradycardia and conduction disease and presyncope with slow heart rate is recommended a dual chamber PPM.
Indications:
Severe bradycardia with sick sinus syndrome and conduction disease and presyncope
Date of the Procedure:
01/19/25
Pre-Operative Diagnosis: sick sinus syndrome
Post-Operative Diagnosis: sick sinus syndrome
Procedure Performed: Conduction system pacing permanent pacemaker
Performing Physician:
Sukhwinder Em MD
Anesthesia:
See anesthesia report.
Detailed Description of the Procedure:
The patient was identified using hospital identification and informed consent obtained for the procedure. The risks were explained to the patient and the family including, but not limited to: Bleeding, infection, arrhythmia, stroke,
vascular/cardiac/lung puncture, surgery, pacemaker dependency/device malfunction. All questions were answered.
A surgical pause was performed in accordance with hospital regulations. Anesthesia service provided sedation as reported separately. Antibiotics administered IV for risk of bacterial colonization. After obtaining informed and written consent, the
patient was brought to the electrophysiology laboratory.
The initial rhythm was sinus bradycardia.
The procedure site was meticulously prepared with surgical scrub and allowed to dry with no pooling. Sterile draping was applied to cover the procedure site. The image intensifier was draped with sterile bag and positioned over the patient.
A surgical pause and time out was performed immediately prior to the procedure with review of her medical history, recent labs, allergies and medications with site of procedure identified and consent noted in the chart. Antibiotics pre operatively
given. All team members concurred.
The left infraclavicular region was prepped and draped in the usual sterile fashion. Local anesthesia was administered subcutaneously using 1% lidocaine / Bupivacaine. The left cephalic vein cutdown was performed but no significant cephalic noted
and axillary vein was accessed using micropuncture apparatus. The vascular sheath was introduced for lead access.
A subcutaneous pocket was created with blunt dissection and use of electrocautery. Hemostasis was excellent.
The guide wire was advanced to the RA and was advanced to the RV. The preformed curved long hemostatic peel away HIS sheath was advanced into the RV cavity. A left bundle pacing wire was advanced into the sheath to the tip with ventricular signals
noted with unipolar manner.
The HIS location was identified under guidance of the fluoroscopy and the pacing wire signals. The sheath with the pacing lead was moved deeper into the RV cavity on the septum at a more inferior and distal to the HIS signals.
Once adequate signals were noted on the electrograms of the pacing lead in the sheath with W pattern signals on the RV septum, the lead was advanced and clockwise turns were done under fluoroscopic guidance.
The distal coil locking system was engaged at the St Nile pacing lead. The septum was engaged and the lead was paced intermittently after every 2-3 turns. The Impedance of the lead was measured that remained stable around 900 Ohm and the lead was
not able to advance into the septum. The pacing signals from the lead showed only RV septal pacing, though narrow but not left bundle pacing. Also the sensing was low amplitude. This was thought to be due to the entanglement effect of the lead to
the septal endocardium. The decision was made to remove the lead and relocate to another locations.
A total of 3 different locations were tested for LBB pacing with either high threshold or poor pacing morphology with failure to advance the pacing lead deep into the septum.
Finally another septal location was identified with adequate signals noted on the pacing leads and good flouroscopic location. There was sheath approximation conformed on AHMET view and the pacing lead was advanced with clockwise turns into the septal
location. The septum was successfully engaged. The lead was paced and septal pacing was noted. The sheath was placed again to the septum and the lead was advanced 2-3 turns with pacing with each advancement. The ventricular capture was monitored
throughout and the captures gradually changed from RV pacing to non-selective pacing to LBB pacing with R wave on V1 morphology. �
The long guiding sheath was cut and removed from the RV without change in lead position, impedance, sensing, or capture. The lead was sutured to the underlying pectoralis fascia with 2-0 Ethibond stitches.
Then the attention was given to atrial lead. Atrial active lead was placed in the RA and into the RAA. There were excellent impedance and thresholds.
The leads were attached to the pulse generator in standard configuration with acceptable sensing and threshold parameters. The pocket was irrigated with antibiotic solution; the pocket was inspected with no active bleeding noted. The device and the
leads were placed in the pocket.
Deep subcutaneous tissues were closed with three layers of 2-0 V loc sutures; and the dermis was reopposed using a running 4-0 VLOC subcuticular suture.
A pressure dressing was applied. Sponge counts / sharp counts were appropriate.
Procedure End:
The procedure was tolerated well. Aquacel bandaged was applied.
Estimated Blood loss:
5 cc
Specimens Removed:
No cultures and no specimens were obtained. No intraoperative pathology was identified.
Urine output:
None
Packs / Drains/ Tubes:
None
Instrument / Sponge Count Correct:
Yes
Complications of the Procedure:
None
Condition of Patient at Time of Transfer:
Hemodynamically stable with no neurological or vascular compromise.
Device information:�
Generator: Francisco/St Nile; Model: [id number]; Serial #[id number]
����������� RA pacing lead: Francisco/St Nile; Model: [id number]; Serial #[id number]
����������� Measured data on the RV lead was sensing of 2.3 mV, impedance of 410 ohms and threshold of <2.0 V at 0.4ms. �
����������� RV LBB pacing lead: Francisco/St Nile; Model: [id number]; Serial #[id number]
����������� Measured data on the RV lead was sensing of 6mV, impedance of 690 ohms and threshold of 1.25 V at 0.4ms�
PROGRAMMING PARAMETERS:�
Leonidas parameter settings were DDDR 60-130 �
����������� Paced AV interval: 400ms
����������� Sensed AV interval: 350 ms.
����������� Rate Adaptive A-V Interval: off
Summary:
Successful implantation of Francisco/St Nile MRI compatible dual chamber conduction system pacing permanent pacemaker.
Results/Recommendations:
-Please follow up CXR�
1. Please provide patient with adequate pain control�
Instructions to be given to patient:�
- Please follow up with [facility] at [address] [place] [address] ([phone]) to get your wound checked in 2 weeks of your discharge. Then follow with
- Do not wet incision site until after it is evaluated at cardiology clinic. No baths or showers until then. Sponge baths / showers are OK but dab dry the dressing after it is wet.�
- Allow 'steri strips' to fall off on their own�
- Do not lift left elbow above shoulder, particularly with sudden jerking movements, for 1 month�
- Do not lift anything weighing more than 5 pounds with the left arm for 1 month�
- If you notice any fevers, shortness of breath, lightheadedness, chest pain, or worsening swelling in the wound site, please contact the arrhythmia clinic, contact your welcome center attendant, or present to the hospital for evaluation.�
Sukhwinder Em MD
Electrophysiology
[2025-01-19] MEDS: BACTROBAN 2% OINTMENT TOPICAL (16:00)
--- NOTE | 2025-01-19 16:16 | PTCARENOTE ---
Rec'd Pt from EP lab, S/P PPM, A,A+Ox3, denies pain. L chest wall pressure dsg D+I. VSS. Pt is AV paced on monitor.
[2025-01-19] MEDS: TYLENOL PO (16:35)
--- NOTE | 2025-01-19 17:19 | PTCARENOTE ---
Pt sent for CXR via stretcher.
[2025-01-19] MEDS: LIPITOR 60 MG PO (18:10)
[2025-01-19] MEDS: FLOMAX 0.4 MG PO (18:10)
--- NOTE | 2025-01-19 18:12 | PTCARENOTE ---
Pt has slightly reddened sacrum, blanchable. Skin prep and Silicone boarder foam dsg placed on sacrum. Bilat heels, skin intact, pink, blanchable, skin prep and heel foams placed on bilat heels.
[2025-01-19 18:23] LABS: Protein/creatinine Ratio 1.1; Urine Protein 27 mg/dl
[2025-01-19] MEDS: ANCEF 5 IV (21:02)
[2025-01-19] MEDS: FLUSH (NSS) 1 FLUSH IV (21:03)
[2025-01-19 23:15] LABS: Hematocrit 28.2 % (39.0-52.0); Mean Corp Hgb Conc. 31.9 g/dL (33.0-37.0); Mean Corpuscular Hgb 30.5 pg (27.0-31.0); Mean Corpuscular Volume 95.6 fL (80.0-94.0); Mean Platelet Volume 11.1 fL (7.4-10.4); Platelet Count 129 10^3/uL (130-400); Red Blood Cell Count 2.95 10^6/uL (4.70-6.10); Red Cell Dist. Width 16.4 % (11.5-14.5); White Blood Cell Count 7.7 10^3/uL (4.8-10.8)
--- NOTE | 2025-01-19 23:17 | W.PN.UPDATE ---
Update Note
Progress Note Update
RN reports temp of 93.1 rectally. Patient reports feeling cold, but no chills or rigors, warm to touch at pacemaker site, otherwise cold in other parts of body, no hematoma, no swelling noted. After warm blankets temp remains 92.9, BP 130/62 HR 60
RR 18 spO2 99%, AV paced on the monitor, EKG, labs, Bonita johnson ordered. EKG results noted, Dr. Ratliff made aware of the situation, Advised labs with blood culture for now, Broad spectrum antibiotics if elevation in WBC. Patient is on antibiotic
currently.
[2025-01-19] MEDS: DESENEX/MITRAZOL/ZEASORB TOPICAL (23:32)
[2025-01-19] MEDS: MELATONIN 3 MG PO (23:33)
[2025-01-20 00:09] LABS: Blood Urea Nitrogen 114 mg/dl (9-20); Calcium 8.9 mg/dl (8.4-10.2); Carbon Dioxide 24 mmol/L (22-30); Chloride 107 mmol/L (98-107); Estimated Creatinine Clearance 34 ml/min; Glucose 185 mg/dl (70-99); Magnesium 2.5 mg/dl (1.6-2.3); Potassium 5.7 mmol/L (3.5-5.1); Sodium 141 mmol/L (135-145); eGFR 34.16
--- NOTE | 2025-01-20 00:48 | PTCARENOTE ---
Assumed care of pt at change of shift. A-V paced on the monitor. HR in the 60s. Left anterior chest pressure dressing intact, left arm remains in sling. Patient educated on activity restrictions. Denies any pain or SOB. Unable to obtain temp orally.
Rectal temp obtained 93.1. Jero Mason BILINGUAL MANAGER made aware.CORSET MAKER instructed RN to apply warm blankets. Rechecked rectal temp w/ a result of 92.9. Paulo BILINGUAL MANAGER made aware and at bedside. Orders obtained for blood work and to apply portillo hugger to patient w/
a goal temp of 97. See worklist for further information. Patient reports 'I usually have a low temperature'. Skin cool to touch and pale. Labs collected. Villarreal maintained. POC ongoing. Call evangelista within reach.
[2025-01-20] MEDS: LOKELMA 5 GRAM PO (01:37)
[2025-01-20] MEDS: ANCEF 5 IV (04:32)
--- NOTE | 2025-01-20 04:45 | PTCARENOTE ---
Goal temperature reached, rectal temp was 97.6. Bonita johnson removed.
[2025-01-20 04:47] LABS: % Basophils 0.1 % (0-2); % Eosinophils 0.1 % (0-6); % Immature Granulocytes 0.5 % (0-0.5); % Lymphocytes 7.3 % (20.5-51.1); % Monocytes 0.7 % (1.7-9.3); % Neutrophils 91.3 % (42.2-75.2); Absolute Lymphocytes 0.5 10^3/uL (1.2-3.4); Absolute Monocytes 0.1 10^3/uL (0.1-0.6); Absolute Neutrophils 6.7 10^3/uL (1.4-6.5); Hematocrit 25.2 % (39.0-52.0); Hemoglobin 8.1 g/dL (13.0-18.0); Mean Corp Hgb Conc. 32.1 g/dL (33.0-37.0); Mean Corpuscular Hgb 30.7 pg (27.0-31.0); Mean Corpuscular Volume 95.5 fL (80.0-94.0); Mean Platelet Volume 11.8 fL (7.4-10.4); Nucleated Red Blood Cells % 0 % (-); Platelet Count 136 10^3/uL (130-400); Red Blood Cell Count 2.64 10^6/uL (4.70-6.10); White Blood Cell Count 7.3 10^3/uL (4.8-10.8)
[2025-01-20 04:48] VITALS: BMI 42.4
[2025-01-20 05:06] VITALS: BP 118/62
[2025-01-20] MEDS: SYNTHROID 175 MCG PO (05:08)
[2025-01-20] MEDS: TYLENOL 650 MG PO ×5 (05:08→23:18)
[2025-01-20 05:19] LABS: ALT (SGPT) 30 U/L (0-50); AST (SGOT) 23 U/L (17-59); Albumin 2.9 g/dl (3.5-5.0); Alkaline Phosphatase 69 U/L (38-126); Blood Urea Nitrogen 118 mg/dl (9-20); Calcium 8.9 mg/dl (8.4-10.2); Carbon Dioxide 24 mmol/L (22-30); Chloride 109 mmol/L (98-107); Estimated Creatinine Clearance 37 ml/min; Glucose 142 mg/dl (70-99); Magnesium 2.6 mg/dl (1.6-2.3); Potassium 5.8 mmol/L (3.5-5.1); Sodium 141 mmol/L (135-145); Total Bilirubin 0.3 mg/dl (0.2-1.3); Total Protein 5.3 g/dl (6.3-8.2); eGFR 36.33
[2025-01-20 06:53] VITALS: BP 112/52
--- NOTE | 2025-01-20 07:54 | W.PN.CD ---
Today's Communication / Plan
-
- infection work up
- PPM interrogation today - VIP mode - normal to have long IL interval to promote intrinsic conduction.
Impression / Plan
-
I/P: 74M with aortic stenosis, HFpEF, CAD (prior stenting) hypertension, dyslipidemia, type 2 diabetes mellitus, anemia of chronic disease, hypothyroidism, obesity, chronic kidney disease, chronic Villarreal, COPD and bradycardia with first-degree AV
block who presented with abnormal outpatient labs.
Outpatient plant maintenance mechanic: Dr. Stern
Bradycardia, symptomatic
-Junctional bradycardia /Sinus node dysfunction /First degree AV block
- With dizziness and lightheadedness
- s/p dual chamber PPM - st Nile. 01/19
LEE on CKD
- In the setting of dehydration and bradycardia
- Bumex on hold, given 1 L IV fluid in the ER
- Recheck Cr with improved heart rate and fluids
- Cr at baseline is 1.7-1.9. Presented at 2.2. today is 1.9
HFpEF, chronic
- Bumex on hold for hypovolemia
- He reports his lower extremity edema is chronic, weight down from prior hospitalization
CAD, chronic and stable without chest pain, continue aspirin
Aortic stenosis, moderate-severe, this will be monitored over time
- ECHO 01/06/25 - LVEF 55% severe aortic stenosis; mean gradients 43/27 mmHg, calculated JOAQUIN 0.8 cm2
Hypertension, stable, lisinopril on hold with LEE
Thrombocytopenia, appears chronic
Anemia, likely of chronic disease, denies abnormal bleeding
Neurogenic bladder with chronic indwelling Villareral catheter
Bedbound
Obesity, BMI 40, he would benefit from weight loss
SUBJECTIVE:
Hypothermic overnight. High risk of infection. Temp is better this AM. Pressure dressing removed. no bleeding and no hematoma at pacemaker site.
DATA:
Transthoracic echocardiogram, 01/06/2025:
CONCLUSIONS
-Left ventricular ejection fraction is 55-60%. Apical, apical septal, apical
inferior, apical anterior akinesis/dyskinesis.
-Normal right ventricular size and function.
-Moderate to severe aortic stenosis; peak/mean gradients 43/27 mmHg, calculated
JOAQUIN 0.8 cm2. Mild aortic regurgitation.
Compared to previous echo on 01/10/2023, slightly progressive aortic stenosis is
noted (previous peak/mean gradients were 40/22 mmHg, calculated JOAQUIN 1.09 cm2).
Physical Exam
Vital Signs/Labs
Vital Signs
Temp Pulse Resp BP Pulse Ox
97.9 F 60 16 112/52 97
01/20/25 06:53 01/20/25 07:00 01/20/25 06:53 01/20/25 06:53 01/20/25 06:53
01/19/25 01/20/25 01/21/25
06:59 06:59 06:59
Actual Weight 102.4 kg 108.5 kg
01/20/25 04:36
01/20/25 04:36
Magnesium 2.6 mg/dl (1.6-2.3) H 01/20/25 04:36
TSH 1.09 uIU/ml (0.47-4.68) 01/19/25 04:56
01/18/25
18:30
Jat-O-Mcdqwwoypid Pept 3620
Physical Exam
Constitutional: No acute distress and Comfortable
EENT: Anicteric and Moist mucous membranes
Cardiovascular: Rhythm & rate is regular, Pedal edema is absent, JVD pressure is normal and Systolic murmur present
Respiratory: Respiratory effort normal and Lungs clear to auscul.
GI: Soft, Distention absent and Normal bowel sounds
Neuro/Psych: Alert, Oriented and AO x 3
Other: Cardiac Device Site
Data Reviewed
-
Date of Service: January 20, 2025
Medical Decision Making: Reviewed Test Results, Test Interpretation and Review of Case with other Provider
EKG: Tracing Personally Visualized and interpreted
Echo: Report Reviewed by me
X-Ray/CT/US/MRI/NUC/PET: Image Personally Visualized and interpreted
Labs: Labs Reviewed by me
Old Records: Reviewed
[2025-01-20] MEDS: ASPIR LOW (ENTERIC COATED) 81 MG PO (08:44)
[2025-01-20] MEDS: DITROPAN 2.5 MG PO (08:44)
[2025-01-20] MEDS: COLACE 100 MG PO ×2 (08:44→20:05)
[2025-01-20] MEDS: PROTONIX 40 MG PO ×2 (08:44→20:05)
[2025-01-20] MEDS: SENOKOT-S 1 TABLET PO ×2 (08:44→20:05)
[2025-01-20] MEDS: MAG-TAB SR 84 MG PO ×2 (08:44→20:05)
[2025-01-20] MEDS: FEOSOL 325 MG PO (08:44)
[2025-01-20] MEDS: HEPARIN 5000 UNITS SC ×2 (08:45→20:05)
[2025-01-20] MEDS: FLUSH (NSS) 2 FLUSH IV ×2 (08:45→14:08)
[2025-01-20] MEDS: PROSCAR 5 MG PO (08:45)
[2025-01-20] MEDS: ZYLOPRIM 100 MG PO (08:45)
[2025-01-20] MEDS: BACTROBAN 2% OINTMENT 1 APPLIC TOPICAL ×3 (08:47→21:58)
[2025-01-20] MEDS: DESENEX/MITRAZOL/ZEASORB 1 APPLIC TOPICAL ×2 (08:49→20:05)
--- NOTE | 2025-01-20 11:15 | PTCARENOTE ---
I called [facility] to see if the patient has received the pneumococcal conjugate vaccine. The nursing supervisor grading stated that his last one was in 2020 and it was the Pneumovax 23. I asked the patient if he was interested in getting the
newer vaccine and he was agreeable to receiving it.
[2025-01-20 11:20] VITALS: BP 110/50
--- NOTE | 2025-01-20 11:43 | CM ---
Reviewed chart. Met with Mr. Mills to review discharge plans. He states prior to admission he resides in [facility]. He states he been there for over five years. He states he is essentially bedbound and they use a pratibha lift for
getting him out of bed. He states he has assistance with ADLs. He states his plan is to return to [facility]. Telephone call to [facility] to confirm bed hokd and ability to accept back when medically stable. Left message.
Sent referral to [facility]. Medical work-up in progress. The discharge plan is to return [facility] when medically stable.
--- NOTE | 2025-01-20 11:45 | PTCARENOTE ---
The patient is aaox3, vital signs are stable. AV/V pacing is noted on the monitor. His left upper chest antibacterial dressing has old scant drainage noted. His chronic Villarreal is draining clear yellow urine with some sediment noted. Villarreal care
provided. He has no complaints.
--- NOTE | 2025-01-20 11:47 | W.PN.NEPH.PH ---
Today's Communication / Plan
-
Lokelma
Assessment/Plan
-
Impression:
CKD 3b (2.1)
Azotemia BUN 122
Anemia
Bradycardia, symptomatic/Junctional bradycardia (40s)
HFpEF, chronic
CAD
Aortic stenosis, moderate-severe
Hypertension
Thrombocytopenia
Neurogenic bladder with chronic indwelling Villarreal catheter
Bedbound
Hypothyroidism
Obesity, BMI 40, he would benefit from weight loss
Hypoalbuminemia
Plan:
CKD 3b/ Azotemia:
- Creatinine is not far from baseline which is usually around 1.9
- Patient has been more azotemic since last admission likely due to to the addition of diuretics and/or congestive heart failure
- Wide disparity between creatinine and BUN likely indicate underlying cardiorenal syndrome and or possibly even GI bleed, as well as compromised ECV due to underlying hypoalbuminemia
-Renal ultrasound obtained and to be reviewed
- Status post pacemaker placement in setting of symptomatic bradycardia
- Diuretics and AVNI inhibitor currently on hold
Potassium remains elevated at 5.8
Low potassium diet
Will give Annkelma
-
-
Date of Service: January 20, 2025
CC / HPI / ROS
-
Chief Complaint:
Bradycardia
History of Present Illness:
Bradycardia presenting with azotemia status post pacemaker
Review of Systems:.
No chest pain or shortness of breath
Labs
-
Labs:
WBC 7.3 10^3/uL (4.8-10.8) 01/20/25 04:36
RBC 2.64 10^6/uL (4.70-6.10) L 01/20/25 04:36
Hgb 8.1 g/dL (13.0-18.0) L 01/20/25 04:36
Hct 25.2 % (39.0-52.0) L 01/20/25 04:36
Plt Count 136 10^3/uL (130-400) 01/20/25 04:36
Sodium 141 mmol/L (135-145) 01/20/25 04:36
Potassium 5.8 mmol/L (3.5-5.1) H 01/20/25 04:36
Chloride 109 mmol/L (98-107) H 01/20/25 04:36
Carbon Dioxide 24 mmol/L (22-30) 01/20/25 04:36
BUN 118 mg/dl (9-20) H* 01/20/25 04:36
Creatinine 1.9 mg/dL (0.7-1.3) H 01/20/25 04:36
eGFR 36.33 01/20/25 04:36
Glucose 142 mg/dl (70-99) H 01/20/25 04:36
Calcium 8.9 mg/dl (8.4-10.2) 01/20/25 04:36
Vrx-E-Lappimyeeqh Pept 3620 pg/ml 01/18/25 18:30
Albumin 2.9 g/dl (3.5-5.0) L 01/20/25 04:36
Physical Exam
-
Vital Signs:
Vital Signs
Temp Pulse Resp BP Pulse Ox
97.5 F 60 16 112/52 97
01/20/25 11:18 01/20/25 07:00 01/20/25 11:18 01/20/25 06:53 01/20/25 11:18
Respiratory:: Bilateral: Coarse
Lung Excursion:: Normal
Abdomen:: Soft
Bowel Sounds:: Normal
Extremity Edema:: +2: Bilateral:
Villarreal Catheter: Yes
--- NOTE | 2025-01-20 13:54 | W.PN.HOSP.TC ---
Today's Communication/Plan
-
Cefepime.
Follow-up blood culture
Monitor for recurrent hypothermia.
Lokelma.
Continue to hold diuretics and AVNI inhibitor.
Follow renal function
Assessment / Plan
Assessment / Plan
Impression:
Symptomatic bradycardia
First-degree AV block.
Junctional bradycardia.
Heart failure preserved EF
Moderate to severe aortic stenosis
Acute kidney injury with worsening of azotemia.
CKD stage III.
Hypothermia on 01/19 - 01/20 with concern for infection
Other conditions:
Essential hypertension
CAD
Neurogenic bladder with indwelling Villarreal catheter.
Chronic thrombocytopenia
Anemia of chronic disease.
shelter resident with bedbound status
Obesity with BMI of 40
Plan:
Symptomatic bradycardia.
Presents with dizziness and lightheadedness
Heart rate in 40s baseline
ECG junctional bradycardia�first-degree AV block.
TSH within normal limits
Status post pacemaker placement on 01/19.
Chronic heart failure preserved EF
Moderate to severe aortic stenosis.
Echocardiogram 01/22 with LVEF 55-60%. Apical, septal, inferior, anterior akinesis/dyskinesis. Moderate to severe aortic stenosis with JOAQUIN 0.8 cm�
No evidence for volume overload or decompensated CHF upon presentation.
Has been on Bumex prior to admission.
Noted with LEE and worsening of azotemia.
Preadmission regimen including bumetanide and lisinopril
CAD
chest pain-free with no evidence of ischemia on ECG.
Continue aspirin and statin.
LEE
CKD stage IIIb with baseline creatinine 1.9
Noted with worsening of azotemia, suspect secondary to diuretics likely contamination with chronic anemia
Renal sonogram with no evidence of obstructive etiology. Consistent with medical renal disease.
Nephrology input appreciated
Noted with hypoalbuminemia. Additional workup for proteinuria with UPCR 1.1
Urine sodium 76 likely skewed by loop diuretics.
Hold AVNI inhibitor and Bumex.
Follow BMP
Neurogenic bladder with chronic urinary retention
Villarreal catheter remains in place
Exchange Villarreal ordered
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
Episode of hypothermia.
Hemodynamically stable.
Nontoxic-appearing.
ID workup with reasonable concern for CAUTI
Villarreal catheter exchange in 01/19 with urine culture from new Villarreal positive for E. coli and Pseudomonas
Initiate cefepime on 01/17
Follow-up blood cultures
Anemia of chronic disease.
Hemoglobin 8.7�9.2 close to baseline.
Given significant elevated BUN heme check stools to rule out occult GI bleed.
Update iron stores
Hypothyroidism on replacement with adequate TFT
Anticipated Discharge: 24 - 48 hours
Subjective/Interval History
-
Date of Service: January 20, 2025
Objective Data
-
Labs:
Laboratory Results
01/20/25
04:36
WBC 7.3
Hgb 8.1 L
Hct 25.2 L
Plt Count 136
Sodium 141
Potassium 5.8 H
Chloride 109 H
Carbon Dioxide 24
BUN 118 H*
Creatinine 1.9 H
Glucose 142 H
Calcium 8.9
Total Bilirubin 0.3
AST 23
ALT 30
Alkaline Phosphatase 69
Vital Signs:
Vital Signs
Temp Pulse Resp BP Pulse Ox
97.5 F 60 16 110/50 97
01/20/25 11:18 01/20/25 11:20 01/20/25 11:18 01/20/25 11:20 01/20/25 11:18
I&O
01/19/25 01/20/25 01/21/25
06:59 06:59 06:59
Intake Total 240 / 240 240 / 240 600 / 600
Output Total 1300 / 1300 950 / 950
Balance -1060 / -1060 -710 / -710 600 / 600
Physical Exam
-
General: Well Developed, No Apparent Distress, Comfortable and Morbidly Obese
HEENT: Normocephalic, Atraumatic, Moist Mucous Membranes and Anicteric; Negative Good Dentition
Respiratory: Clear to Auscultation and Non Labored Respirations; Negative Accessory Resp Muscle Use
Cardiac: Regular Rhythm, S1/S2 and Murmur (Crescendo decrescendo, TERELL); Negative Rub or Gallop
GI: Soft, Nontender, Nondistended and Normal Bowel Sounds
Genito-urinary: Villarreal
Musculoskeletal: No Clubbing, No Cyanosis and No Edema
Skin: Warm, Dry and Normal Turgor; Negative Rash
Neuro: AO x 3 and Nonfocal/Grossly Intact
Psych: Calm
[2025-01-20] MEDS: MAXIPIME 1000 MG IV (14:08)
[2025-01-20] MEDS: STERILE WATER FOR INJECTION 10 ML IV (14:08)
[2025-01-20 15:29] VITALS: BP 120/66
[2025-01-20] MEDS: LIPITOR 60 MG PO (17:00)
[2025-01-20] MEDS: FLOMAX 0.4 MG PO (17:00)
[2025-01-20 20:03] VITALS: BP 107/60
--- NOTE | 2025-01-20 23:11 | PTCARENOTE ---
Pt rec'd at change of shift awake,alert watching TV. No complaints. Left ant chest pacer site with Myrna drsg intact. Limb restrictions post pacer reviewed with pt. 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 call evangelista within reach
[2025-01-20] MEDS: MELATONIN 3 MG PO (23:18)
[2025-01-20 23:19] VITALS: BP 96/59
--- NOTE | 2025-01-21 03:23 | DOWNTIME ---
There was a [employer] Client Feltmaker And Weigher Downtime on 01/21/2025 from 0200 to 01/22/2024 at 0318 . Downtime documentation of patient's care, including medication administrations, has been reconciled in the electronic record per guidelines. Refer to the
patient's paper chart under the miscellaneous tab to see printed paper medication records and downtime forms.
[2025-01-21] MEDS: MAXIPIME 1000 MG IV ×2 (03:45→14:03)
[2025-01-21] MEDS: STERILE WATER FOR INJECTION 10 ML IV ×2 (03:46→14:03)
[2025-01-21 04:06] VITALS: BMI 43.2
[2025-01-21 04:41] LABS: % Basophils 0.3 % (0-2); % Eosinophils 2.9 % (0-6); % Immature Granulocytes 0.3 % (0-0.5); % Lymphocytes 26.9 % (20.5-51.1); % Monocytes 7.8 % (1.7-9.3); % Neutrophils 61.8 % (42.2-75.2); Absolute Eosinophils 0.2 10^3/uL (0-0.7); Absolute Monocytes 0.6 10^3/uL (0.1-0.6); Absolute Neutrophils 4.6 10^3/uL (1.4-6.5); Hematocrit 23.4 % (39.0-52.0); Hemoglobin 7.7 g/dL (13.0-18.0); Mean Corp Hgb Conc. 32.9 g/dL (33.0-37.0); Mean Corpuscular Hgb 30.7 pg (27.0-31.0); Mean Corpuscular Volume 93.2 fL (80.0-94.0); Mean Platelet Volume 12.2 fL (7.4-10.4); Nucleated Red Blood Cells % 0 % (-); Platelet Count 126 10^3/uL (130-400); Red Blood Cell Count 2.51 10^6/uL (4.70-6.10); Red Cell Dist. Width 15.9 % (11.5-14.5); White Blood Cell Count 7.5 10^3/uL (4.8-10.8)
[2025-01-21 05:18] LABS: ALT (SGPT) 13 U/L (0-50); AST (SGOT) 20 U/L (17-59); Albumin 2.8 g/dl (3.5-5.0); Alkaline Phosphatase 71 U/L (38-126); Blood Urea Nitrogen 111 mg/dl (9-20); Calcium 8.6 mg/dl (8.4-10.2); Carbon Dioxide 25 mmol/L (22-30); Chloride 107 mmol/L (98-107); Estimated Creatinine Clearance 35 ml/min; Glucose 108 mg/dl (70-99); Potassium 5.2 mmol/L (3.5-5.1); Sodium 139 mmol/L (135-145); Total Bilirubin 0.4 mg/dl (0.2-1.3); Total Protein 5.2 g/dl (6.3-8.2); eGFR 34.16
[2025-01-21 07:27] VITALS: BP 135/56
[2025-01-21] MEDS: HEPARIN 5000 UNITS SC ×2 (08:28→19:18)
[2025-01-21] MEDS: DITROPAN 2.5 MG PO (08:28)
[2025-01-21] MEDS: COLACE 100 MG PO ×2 (08:29→19:18)
[2025-01-21] MEDS: PROSCAR 5 MG PO (08:29)
[2025-01-21] MEDS: SENOKOT-S 1 TABLET PO ×2 (08:29→19:18)
[2025-01-21] MEDS: FEOSOL 325 MG PO (08:29)
[2025-01-21] MEDS: ZYLOPRIM 100 MG PO (08:29)
[2025-01-21] MEDS: MAG-TAB SR 84 MG PO ×2 (08:29→19:18)
[2025-01-21] MEDS: PROTONIX 40 MG PO ×2 (08:30→19:18)
[2025-01-21] MEDS: ASPIR LOW (ENTERIC COATED) 81 MG PO (08:30)
[2025-01-21] MEDS: DESENEX/MITRAZOL/ZEASORB 1 APPLIC TOPICAL ×2 (08:31→19:44)
[2025-01-21] MEDS: BACTROBAN 2% OINTMENT 1 APPLIC TOPICAL ×3 (08:31→21:22)
[2025-01-21] MEDS: TYLENOL PO ×2 (08:47→13:03)
[2025-01-21] MEDS: TYLENOL 650 MG PO ×2 (09:11→17:55)
[2025-01-21] MEDS: SYNTHROID 175 MCG PO (09:12)
--- NOTE | 2025-01-21 10:16 | W.PN.CD ---
Today's Communication / Plan
-
S/p PPM
Continue to hold Bumex and lisinopril. Nephrology following for LEE/CKD.
Cardiology will sign off at this time. Incision/device check on 01/28 @ 2pm.
Impression / Plan
-
I/P: 74M with aortic stenosis, HFpEF, CAD (prior stenting) hypertension, dyslipidemia, type 2 diabetes mellitus, anemia of chronic disease, hypothyroidism, obesity, chronic kidney disease, chronic Villarreal, COPD and bradycardia with first-degree AV
block who presented with abnormal outpatient labs.
Outpatient media center specialist: Dr. Stern
Symptomatic bradycardia s/p PPM
- Junctional bradycardia /Sinus node dysfunction /First degree AV block with dizziness and lightheadedness
- s/p dual chamber PPM - [facility]. 01/19
- PPM site looks good. He will follow in our device clinic.
LEE on CKD
- In the setting of dehydration and bradycardia
- Lisinopril and Bumex on hold, given 1 L IV fluid in the ER
- Trend creatinine. BUN and creatinine are very discordant.
- Nephrology following
Hypothermia
- Continue antibiotics and infectious workup per primary team
HFpEF, chronic
- Bumex on hold for hypovolemia
- He reports his lower extremity edema is chronic, weight down from prior hospitalization
CAD, chronic and stable without chest pain, continue aspirin
Aortic stenosis, moderate-severe, this will be monitored over time
- ECHO 01/06/25 - LVEF 55% severe aortic stenosis; mean gradients 43/27 mmHg, calculated JOAQUIN 0.8 cm2
Hypertension, stable, lisinopril on hold with LEE
Thrombocytopenia, appears chronic
Anemia, likely of chronic disease, denies abnormal bleeding
Neurogenic bladder with chronic indwelling Villarreal catheter
Bedbound
Obesity, BMI 40, he would benefit from weight loss
SUBJECTIVE:
Feels ok. Some pain at PPM site.
DATA:
Transthoracic echocardiogram, 01/06/2025:
CONCLUSIONS
-Left ventricular ejection fraction is 55-60%. Apical, apical septal, apical
inferior, apical anterior akinesis/dyskinesis.
-Normal right ventricular size and function.
-Moderate to severe aortic stenosis; peak/mean gradients 43/27 mmHg, calculated
JOAQUIN 0.8 cm2. Mild aortic regurgitation.
Compared to previous echo on 01/10/2023, slightly progressive aortic stenosis is
noted (previous peak/mean gradients were 40/22 mmHg, calculated JOAQUIN 1.09 cm2).
Physical Exam
Vital Signs/Labs
Vital Signs
Temp Pulse Resp BP Pulse Ox
97.4 F 68 14 135/56 97
01/21/25 07:28 01/21/25 09:00 01/21/25 07:28 01/21/25 07:27 01/21/25 07:28
01/20/25 01/21/25 01/22/25
06:59 06:59 06:59
Actual Weight 239 lb 3.225 oz 243 lb 13.3 oz
01/21/25 04:07
01/21/25 04:07
Magnesium 2.6 mg/dl (1.6-2.3) H 01/20/25 04:36
TSH 1.09 uIU/ml (0.47-4.68) 01/19/25 04:56
01/18/25
18:30
Lei-V-Nsjltxcnruf Pept 3620
Physical Exam
Constitutional: No acute distress and Comfortable
Cardiovascular: Rhythm & rate is regular, Pedal edema present, S1S2 is normal and Murmur/rub/gallop absent
Respiratory: Respiratory effort normal and Lungs clear to auscul.
Neuro/Psych: AO x 3
Data Reviewed
-
Date of Service: January 21, 2025
Medical Decision Making: Reviewed Test Results, Independent Historian Assessment, Test Interpretation and Review of Case with other Provider
EKG: Tracing Personally Visualized and interpreted
Echo: Report Reviewed by me
X-Ray/CT/US/MRI/NUC/PET: Report Reviewed by me
Labs: Labs Reviewed by me
[2025-01-21 11:27] VITALS: BP 115/52
--- NOTE | 2025-01-21 11:55 | CM ---
Reviewed chart. Met with Mr. Mills to review discharge plans. He states he is feeling a little bit better. His plan is to return to [facility]. Telephone call to [facility] to confirm ability to accept back . [facility] will
accept him back when he is ready. Medical work-up in progress. The discharge plan is to return to [facility] when medically stable.
--- NOTE | 2025-01-21 11:58 | W.PN.NEPH.PH ---
Today's Communication / Plan
-
Lasix 40 mg IV x 1 with increasing weight
Assessment/Plan
-
Impression:
CKD 3b (2.1)
Azotemia BUN 122
Anemia
Bradycardia, symptomatic/Junctional bradycardia (40s)
HFpEF, chronic
CAD
Aortic stenosis, moderate-severe
Hypertension
Thrombocytopenia
Neurogenic bladder with chronic indwelling Villarreal catheter
Bedbound
Hypothyroidism
Obesity, BMI 40, he would benefit from weight loss
Hypoalbuminemia
Plan:
CKD 3b/ Azotemia:
- Creatinine at baseline which is usually around 1.9
- Azotemia improving/ likely due to to the addition of diuretics and/or congestive heart failure
-Renal ultrasound no obstructive pathology personally reviewed
- Status post pacemaker placement in setting of symptomatic bradycardia
- Diuretics and AVNI inhibitor currently on hold
Potassium remains elevated at 5.8>5.2
Low potassium diet
Status post Lokelma
His weights have increased 5 kg since admission
I will give one-time dose of Lasix today
-
-
Date of Service: January 21, 2025
CC / HPI / ROS
-
Chief Complaint:
Bradycardia
History of Present Illness:
Bradycardia presenting with azotemia status post pacemaker
Review of Systems:.
No chest pain or shortness of breath
Weights increasing
Labs
-
Labs:
WBC 7.5 10^3/uL (4.8-10.8) 01/21/25 04:07
RBC 2.51 10^6/uL (4.70-6.10) L 01/21/25 04:07
Hgb 7.7 g/dL (13.0-18.0) L 01/21/25 04:07
Hct 23.4 % (39.0-52.0) L 01/21/25 04:07
Plt Count 126 10^3/uL (130-400) L 01/21/25 04:07
Sodium 139 mmol/L (135-145) 01/21/25 04:07
Potassium 5.2 mmol/L (3.5-5.1) H 01/21/25 04:07
Chloride 107 mmol/L (98-107) 01/21/25 04:07
Carbon Dioxide 25 mmol/L (22-30) 01/21/25 04:07
BUN 111 mg/dl (9-20) H* 01/21/25 04:07
Creatinine 2.0 mg/dL (0.7-1.3) H 01/21/25 04:07
eGFR 34.16 01/21/25 04:07
Glucose 108 mg/dl (70-99) H 01/21/25 04:07
Calcium 8.6 mg/dl (8.4-10.2) 01/21/25 04:07
Kgb-Z-Fprrhjnqpfq Pept 3620 pg/ml 01/18/25 18:30
Albumin 2.8 g/dl (3.5-5.0) L 01/21/25 04:07
Physical Exam
-
Vital Signs:
Vital Signs
Temp Pulse Resp BP Pulse Ox
97.4 F 68 20 135/56 97
01/21/25 11:28 01/21/25 09:00 01/21/25 11:28 01/21/25 07:27 01/21/25 11:28
Respiratory:: Bilateral: Coarse
Lung Excursion:: Normal
Abdomen:: Soft
Bowel Sounds:: Normal
Extremity Edema:: +2: Bilateral:
Villarreal Catheter: Yes
[2025-01-21 13:00] VITALS: BP 128/66
[2025-01-21] MEDS: LASIX 40 MG IV (13:02)
[2025-01-21 15:24] VITALS: BP 129/50
--- NOTE | 2025-01-21 15:41 | W.PN.HOSP.TC ---
Today's Communication/Plan
-
Lasix
Monitor renal function
Continue antibiotics/cefepime covering catheter associated urinary tract infection
Assessment / Plan
Assessment / Plan
Impression:
Symptomatic bradycardia
First-degree AV block.
Junctional bradycardia.
Heart failure preserved EF
Moderate to severe aortic stenosis
Acute kidney injury with worsening of azotemia.
CKD stage III.
Complicated UTI secondary to indwelling Villarreal catheter
Other conditions:
Essential hypertension
CAD
Neurogenic bladder with indwelling Villarreal catheter.
Chronic thrombocytopenia
Anemia of chronic disease.
half-way resident with bedbound status
Obesity with BMI of 40
Plan:
Symptomatic bradycardia.
Presents with dizziness and lightheadedness
Heart rate in 40s baseline
ECG junctional bradycardia�first-degree AV block.
TSH within normal limits
Status post pacemaker placement on 01/19.
Chronic heart failure preserved EF
Moderate to severe aortic stenosis.
Echocardiogram 01/22 with LVEF 55-60%. Apical, septal, inferior, anterior akinesis/dyskinesis. Moderate to severe aortic stenosis with JOAQUIN 0.8 cm�
No evidence for volume overload or decompensated CHF upon presentation.
Has been on Bumex prior to admission.
Noted with LEE and worsening of azotemia.
Preadmission regimen including bumetanide and lisinopril
CAD
chest pain-free with no evidence of ischemia on ECG.
Continue aspirin and statin.
LEE
Hyperkalemia
CKD stage IIIb with baseline creatinine 1.9
Noted with worsening of azotemia, suspect secondary to diuretics likely contamination with chronic anemia
Renal sonogram with no evidence of obstructive etiology. Consistent with medical renal disease.
Nephrology input appreciated
Noted with hypoalbuminemia. Additional workup for proteinuria with UPCR 1.1
Urine sodium 76 likely skewed by loop diuretics.
Hold AVNI inhibitor and Bumex.
Noted with increased weight.
Lasix on 01/21
Follow BMP
Neurogenic bladder with chronic urinary retention
Villarreal catheter remains in place
Exchange Villarreal ordered
On Proscar and Flomax MANAGER STYLE
Complicated UTI secondary to indwelling Villarreal catheter
Episode of hypothermia .
Hemodynamically stable.
Nontoxic-appearing.
ID workup with reasonable concern for CAUTI
Villarreal catheter exchange in 01/19 with urine culture from new Villarreal positive for E. coli and Pseudomonas
Initiate cefepime on 01/17
Blood cultures negative to date
Urine culture with sensitive E. coli and Pseudomonas
Anemia of chronic disease.
Hemoglobin 8.7�9.2 close to baseline.
Given significant elevated BUN heme check stools to rule out occult GI bleed.
Update iron stores
Hypothyroidism on replacement with adequate TFT
Anticipated Discharge: 24 - 48 hours
Subjective/Interval History
-
Date of Service: January 21, 2025
Objective Data
-
Labs:
Laboratory Results
01/21/25
04:07
WBC 7.5
Hgb 7.7 L
Hct 23.4 L
Plt Count 126 L
Sodium 139
Potassium 5.2 H
Chloride 107
Carbon Dioxide 25
BUN 111 H*
Creatinine 2.0 H
Glucose 108 H
Calcium 8.6
Total Bilirubin 0.4
AST 20
ALT 13
Alkaline Phosphatase 71
Vital Signs:
Vital Signs
Temp Pulse Resp BP Pulse Ox
96.3 F L 60 20 128/66 96
01/21/25 15:28 01/21/25 13:02 01/21/25 15:28 01/21/25 13:02 01/21/25 15:28
I&O
04/23/25 04/24/25 04/25/25
06:59 06:59 06:59
Intake Total 240 / 240 1350 / 1350 240 / 240
Output Total 950 / 950 1150 / 1150 500 / 500
Balance -710 / -710 200 / 200 -260 / -260
Physical Exam
-
General: Well Developed, No Apparent Distress, Comfortable and Morbidly Obese
HEENT: Normocephalic, Atraumatic, Moist Mucous Membranes and Anicteric; Negative Good Dentition
Respiratory: Clear to Auscultation and Non Labored Respirations; Negative Accessory Resp Muscle Use
Cardiac: Regular Rhythm, S1/S2 and Murmur (Crescendo decrescendo, TERELL); Negative Rub or Gallop
GI: Soft, Nontender, Nondistended and Normal Bowel Sounds
Genito-urinary: Villarreal
Musculoskeletal: No Clubbing, No Cyanosis and No Edema
Skin: Warm, Dry and Normal Turgor; Negative Rash
Neuro: AO x 3 and Nonfocal/Grossly Intact
Psych: Calm
--- NOTE | 2025-01-21 17:41 | PTCARENOTE ---
Discussed the importance of good hygiene. Villarreal catheter care and antibiotic on penis completed per MD order. Pt uncomfortable during cleansing. Pt verbalized understanding and thankful for the care. Will monitor.
[2025-01-21] MEDS: FLOMAX 0.4 MG PO (17:54)
[2025-01-21] MEDS: LIPITOR 60 MG PO (17:54)
--- NOTE | 2025-01-21 18:14 | TRANSFER ---
Report given to Odilia on 3 W. Pt transferred to 3 W, in bed, off monitor, by graphic coordinator.
[2025-01-21 18:33] VITALS: BP 135/62
--- NOTE | 2025-01-21 18:37 | TRANSFER ---
Pt transferred from IVU to 334. Transferred on bed. Med/surg. VSS, oriented to room. Pt has no complaints, call evangelista within reach.
[2025-01-21] MEDS: MELATONIN 3 MG PO (21:22)
[2025-01-21 23:44] VITALS: BP 119/57
[2025-01-22] MEDS: STERILE WATER FOR INJECTION 10 ML IV (01:00)
[2025-01-22] MEDS: MAXIPIME 1000 MG IV (01:00)
[2025-01-22] MEDS: TYLENOL 650 MG PO ×4 (01:00→17:30)
[2025-01-22 01:21] VITALS: PULSE 2; PULSE 61
[2025-01-22 05:00] VITALS: PULSE 2
[2025-01-22] MEDS: SYNTHROID 175 MCG PO (05:15)
[2025-01-22 07:00] LABS: % Basophils 0.5 % (0-2); % Eosinophils 4.6 % (0-6); % Immature Granulocytes 0.3 % (0-0.5); % Lymphocytes 31.7 % (20.5-51.1); % Monocytes 7.8 % (1.7-9.3); % Neutrophils 55.1 % (42.2-75.2); Absolute Eosinophils 0.3 10^3/uL (0-0.7); Absolute Lymphocytes 1.9 10^3/uL (1.2-3.4); Absolute Monocytes 0.5 10^3/uL (0.1-0.6); Absolute Neutrophils 3.4 10^3/uL (1.4-6.5); Hematocrit 24.1 % (39.0-52.0); Hemoglobin 7.8 g/dL (13.0-18.0); Mean Corp Hgb Conc. 32.4 g/dL (33.0-37.0); Mean Corpuscular Hgb 30.8 pg (27.0-31.0); Mean Corpuscular Volume 95.3 fL (80.0-94.0); Mean Platelet Volume 12.1 fL (7.4-10.4); Nucleated Red Blood Cells % 0 % (-); Platelet Count 107 10^3/uL (130-400); Red Blood Cell Count 2.53 10^6/uL (4.70-6.10); Red Cell Dist. Width 15.9 % (11.5-14.5); White Blood Cell Count 6.1 10^3/uL (4.8-10.8)
[2025-01-22 07:21] LABS: Blood Urea Nitrogen 112 mg/dl (9-20); Calcium 8.9 mg/dl (8.4-10.2); Carbon Dioxide 26 mmol/L (22-30); Chloride 107 mmol/L (98-107); Estimated Creatinine Clearance 37 ml/min; Glucose 88 mg/dl (70-99); Potassium 4.7 mmol/L (3.5-5.1); Sodium 141 mmol/L (135-145); eGFR 36.33
[2025-01-22 07:49] VITALS: BP 117/68
[2025-01-22] MEDS: BACTROBAN 2% OINTMENT 1 APPLIC TOPICAL ×2 (08:00→16:27)
[2025-01-22] MEDS: PROTONIX 40 MG PO (09:49)
[2025-01-22] MEDS: ASPIR LOW (ENTERIC COATED) 81 MG PO (09:49)
[2025-01-22] MEDS: FEOSOL 325 MG PO (09:49)
[2025-01-22] MEDS: DITROPAN 2.5 MG PO (09:49)
[2025-01-22] MEDS: SENOKOT-S 1 TABLET PO (09:50)
[2025-01-22] MEDS: PROSCAR 5 MG PO (09:50)
[2025-01-22] MEDS: ZYLOPRIM 100 MG PO (09:50)
[2025-01-22] MEDS: MAG-TAB SR 84 MG PO (09:50)
[2025-01-22] MEDS: HEPARIN 5000 UNITS SC (09:51)
[2025-01-22] MEDS: COLACE 100 MG PO (09:53)
[2025-01-22] MEDS: DESENEX/MITRAZOL/ZEASORB 1 APPLIC TOPICAL (09:56)
[2025-01-22 11:00] VITALS: BP 130/60; BMI 43.2
[2025-01-22] MEDS: MAXIPIME IV (14:40)
[2025-01-22] MEDS: STERILE WATER FOR INJECTION IV (14:40)
--- NOTE | 2025-01-22 15:01 | W.DS.TRANS ---
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
-
Discharge Instructions:
Discharge Diagnosis/Procedures Pacemaker implant
Symptomatic bradycardia
First-degree AV block.
Junctional bradycardia.
Heart failure preserved EF
Moderate to severe aortic stenosis
Acute kidney injury with worsening of azotemia.
CKD stage III.
Diet Low Cholesterol
Driving Restrictions No driving for 1 week
Bathing Restrictions OK to Shower
Instructions:
Stand-Alone Forms: DC Inst - Implanted Device
Changes to Home Medications: No
Discharge Medications:
DC Medications w/original date entered in [employer]
acetaminophen 325 mg tablet 650 mg PO Q6HPRN PRN mild pain/temp>100.4 08/23/20
acetaminophen 650 mg tablet,extended release 650 mg PO BID mild Pain 08/23/20
aspirin 81 mg tablet,delayed release 81 mg PO DAILY Blood clot prevention/tx 08/23/20
atorvastatin 40 mg tablet 60 mg PO QPM High cholesterol 08/23/20
bisacodyl 10 mg rectal suppository 10 mg MI DAILYPRN PRN if no bm after mom 08/23/20
bumetanide 1 mg tablet 1 mg PO BID Fluid retention/Swelling 08/23/20
finasteride 5 mg tablet 5 mg PO DAILY Urinary issue 08/23/20
levothyroxine 175 mcg tablet 175 mcg PO DAILY Thyroid 08/23/20
magnesium hydroxide 400 mg/5 mL oral suspension (Milk of Magnesia) 30 ml PO DAILYPRN PRN if no bm in 3 days 08/23/20
tamsulosin 0.4 mg capsule (Flomax) 0.4 mg PO QPM BPH 08/23/20
calcium carbonate (Tums) 200 mg PO Q8HPRN PRN indigestion 07/04/22
docusate sodium 100 mg capsule (Colace) 100 mg PO BID Constipation 07/04/22
ferrous sulfate 325 mg (65 mg iron) tablet 325 mg PO DAILY Supplement 07/04/22
lidocaine HCl 2 % mucosal jelly 15 ml intra-urethral MONTHLY PRN 15ml urethral anesthesia 07/04/22
allopurinol 100 mg tablet 100 mg PO DAILY Gout 01/05/25
magnesium oxide 400 mg PO BID Supplement 01/05/25
melatonin 3 mg tablet 3 mg PO HS Sleep 01/05/25
miconazole nitrate 2 % topical powder 1 applic topical BID FOLDS/GROIN 01/05/25
mupirocin 2 % topical ointment 1 applic topical DAILYPRN PRN penis hygiene 01/05/25
omeprazole 20 mg capsule,delayed release 20 mg PO BID Gastrointestinal Issue 01/05/25
oxybutynin chloride 5 mg tablet 2.5 mg PO DAILY Urinary Issue 01/05/25
potassium chloride 20 mEq tablet,extended release(part/cryst) (Klor-Con M) 20 meq PO DAILY Electrolyte Repletion 01/05/25
sennosides 8.6 mg-docusate sodium 50 mg tablet (Senna-S) 1 tab-cap PO BID Constipation 01/05/25
mupirocin 2 % topical ointment 1 applic topical TID penis rash 01/18/25
Home Medication Changes
Lisinopril discontinued
Pending Results: No
--- NOTE | 2025-01-22 15:19 | W.PN.NEPH.PH ---
Today's Communication / Plan
-
Add back diuretics
Assessment/Plan
-
Impression:
CKD 3b (2.1)
Azotemia BUN 122
Anemia
Bradycardia, symptomatic/Junctional bradycardia (40s)
HFpEF, chronic
CAD
Aortic stenosis, moderate-severe
Hypertension
Thrombocytopenia
Neurogenic bladder with chronic indwelling Villarreal catheter
Bedbound
Hypothyroidism
Obesity, BMI 40, he would benefit from weight loss
Hypoalbuminemia
Plan:
CKD 3b/ Azotemia:
- Creatinine at baseline which is usually around 1.9
- Azotemia improving/ likely due to to the addition of diuretics and/or congestive heart failure
- Restart Bumex but will withholld AVNI inhibitor due to profound azotemia and hyperkalemia
-Renal ultrasound no obstructive pathology personally reviewed
- Status post pacemaker placement in setting of symptomatic bradycardia
- Diuretics and AVNI inhibitor currently on hold
Potassium remains elevated at 5.8>5.2>4.7
Low potassium diet
Status post Lokelma
His weights have increased 5 kg since admission
-
-
Date of Service: January 22, 2025
CC / HPI / ROS
-
Chief Complaint:
Bradycardia
History of Present Illness:
Bradycardia presenting with azotemia status post pacemaker
Creatinine at 1.9 BUN 112
Hemodynamically stable
Review of Systems:.
No chest pain or shortness of breath
Weights increasing
Labs
-
Labs:
WBC 6.1 10^3/uL (4.8-10.8) 01/22/25 05:59
RBC 2.53 10^6/uL (4.70-6.10) L 01/22/25 05:59
Hgb 7.8 g/dL (13.0-18.0) L 01/22/25 05:59
Hct 24.1 % (39.0-52.0) L 01/22/25 05:59
Plt Count 107 10^3/uL (130-400) L 01/22/25 05:59
Sodium 141 mmol/L (135-145) 01/22/25 05:59
Potassium 4.7 mmol/L (3.5-5.1) 01/22/25 05:59
Chloride 107 mmol/L (98-107) 01/22/25 05:59
Carbon Dioxide 26 mmol/L (22-30) 01/22/25 05:59
BUN 112 mg/dl (9-20) H* 01/22/25 05:59
Creatinine 1.9 mg/dL (0.7-1.3) H 01/22/25 05:59
eGFR 36.33 01/22/25 05:59
Glucose 88 mg/dl (70-99) 01/22/25 05:59
Calcium 8.9 mg/dl (8.4-10.2) 01/22/25 05:59
Eik-P-Deuenbsgzcu Pept 3620 pg/ml 01/18/25 18:30
Albumin 2.8 g/dl (3.5-5.0) L 01/21/25 04:07
Physical Exam
-
Vital Signs:
Vital Signs
Temp Pulse Resp BP Pulse Ox
97.2 F 62 14 130/60 99
01/22/25 10:32 01/22/25 11:00 01/22/25 11:00 01/22/25 11:00 01/22/25 11:00
Respiratory:: Bilateral: Coarse
Lung Excursion:: Normal
Abdomen:: Soft
Bowel Sounds:: Normal
Extremity Edema:: +2: Bilateral:
Villarreal Catheter: Yes
[2025-01-22 15:36] VITALS: BP 135/70
[2025-01-22] MEDS: BUMEX 1 MG PO (16:25)
[2025-01-22] MEDS: PREVNAR 20 0.5 ML IM (16:25)
--- NOTE | 2025-01-22 16:45 | PTCARENOTE ---
patient denies complaints, tolerating diet, turns with max assist x2, vss, for discharge back to [facility] today, will continue to monitor.
[2025-01-22] MEDS: FLOMAX 0.4 MG PO (17:30)
[2025-01-22] MEDS: LIPITOR 60 MG PO (17:30)
--- NOTE | 2025-01-22 18:19 | PTCARENOTE ---
b/l protective heel foams in place
--- NOTE | 2025-01-22 19:27 | PTCARENOTE ---
Cathy nurse at [facility] given telephone report. next shift RN Carolina made aware to d/c patient's IV and pack up belongings for transfer back to facility
[2025-01-22 20:14] VITALS: BP 129/61
--- NOTE | 2025-01-22 21:19 | PTCARENOTE ---
Report given to [facility] Staff by mane ALVA. VSS at time of discharge. PIV removed. Belongings sent with patient.
[2025-01-23 13:49] LABS: Erythropoietin (EPO) 7 mU/mL (4-27)
== END 2025-01-22 21:24 | DRG 243 ==
LOC: 3 WEST ACU 22:13
PROVIDERS: Clinical Nurse Specialist Family Health; Nurse Practitioner Gerontology; ADMITTING PHYSICIAN Hospitalist; ATTENDING PHYSICIAN Internal Medicine; CONSULT PHYSICIAN Specialist; EMERGENCY PHYSICIAN Emergency Medicine; FAMILY PHYSICIAN Internal Medicine; OTHER PHYSICIAN Internal Medicine Cardiovascular Disease
PROC: 02HK3JZ Insertion of Pacemaker Lead into Right Ventricle, Percutaneous Approach (ICD-10-PCS; 2025-01-19)
PROC: 0JH606Z Insertion of Pacemaker, Dual Chamber into Chest Subcutaneous Tissue and Fascia, Open Approach (ICD-10-PCS; 2025-01-19)
PROC: 02H63JZ Insertion of Pacemaker Lead into Right Atrium, Percutaneous Approach (ICD-10-PCS; 2025-01-19)
PROC: 3E0234Z Introduction of Serum, Toxoid and Vaccine into Muscle, Percutaneous Approach (ICD-10-PCS; 2025-01-22)
PROC: 5A09357 Assistance with Respiratory Ventilation, Less than 24 Consecutive Hours, Continuous Positive Airway Pressure (ICD-10-PCS; 2025-01-22)
DX: I49.5 Sick sinus syndrome (principal); I13.0 Hypertensive heart and chronic kidney disease with heart failure and stage 1 through stage 4 chronic kidney disease, or unspecified chronic kidney disease; I50.32 Chronic diastolic (congestive) heart failure; Z68.41 Body mass index [BMI] 40.0-44.9, adult; N17.9 Acute kidney failure, unspecified; E03.9 Hypothyroidism, unspecified; E11.22 Type 2 diabetes mellitus with diabetic chronic kidney disease; E66.01 Morbid (severe) obesity due to excess calories; E78.00 Pure hypercholesterolemia, unspecified; N18.32 Chronic kidney disease, stage 3b; I25.10 Atherosclerotic heart disease of native coronary artery without angina pectoris; N40.1 Benign prostatic hyperplasia with lower urinary tract symptoms; R33.8 Other retention of urine; D50.9 Iron deficiency anemia, unspecified; G47.33 Obstructive sleep apnea (adult) (pediatric); K21.9 Gastro-esophageal reflux disease without esophagitis; E83.42 Hypomagnesemia; G47.00 Insomnia, unspecified; I35.0 Nonrheumatic aortic (valve) stenosis; D69.6 Thrombocytopenia, unspecified; N31.9 Neuromuscular dysfunction of bladder, unspecified; E88.09 Other disorders of plasma-protein metabolism, not elsewhere classified; J44.9 Chronic obstructive pulmonary disease, unspecified; E86.1 Hypovolemia; D63.1 Anemia in chronic kidney disease; I44.0 Atrioventricular block, first degree; E87.5 Hyperkalemia; R68.0 Hypothermia, not associated with low environmental temperature; Z66 Do not resuscitate; Z95.5 Presence of coronary angioplasty implant and graft; Z86.73 Personal history of transient ischemic attack (TIA), and cerebral infarction without residual deficits; Z23 Encounter for immunization; Z79.890 Hormone replacement therapy; Z79.82 Long term (current) use of aspirin; Z74.01 Bed confinement status
CPT/HCPCS: 33208; 71045; 71046; 76770; 80048; 80053; 81003; 81015; 82570; 82668; 82728; 83540; 83550; 83735; 83880; 84156; 84300; 84443; 85025; 85027; 87040; 87070; 90677; 93005; 94660; 99285; C1769; C1785; C1887; C1892; C1898; G0009

== ENCOUNTER 2025-02-17 00:21 | Inpatient (IN) | payer MEDICARE, SELFPAY ==
[2025-02-16] VITALS (13 sets, daily range): BP systolic 104–141; BP diastolic 55–94; BMI 40.9
--- NOTE | 2025-02-16 21:08 | ED.GENMED ---
History of Present Illness
General
Chief Complaint: Change in Mental Status
Source: correction
Exam Limitations: clinical condition
Time Seen by Provider: 02/16/25 20:51
History of Present Illness
History of Present Illness:
74-year-old male apparently had a change in mental status at the facility. We are contacting them for further information. He states he feels slightly confused the last few days. Other than that has no acute complaints. Had back pain earlier but
not now.
Past History
Past History
ED Past Medical History: CAD, CHF, CVA, HTN, Hypercholesterolemia, NIDDM, Hypothyroidism and Other (BPH, urinary retention, gout, headaches, morbid obesity)
ED Past Surgical History: Cardiac (Coronary stents) and Other (Eye surgery)
Social History
Tobacco: Non-smoker
Alcohol: None
Drug: None
Personal: Other
Living: correction
Employment: Retired
Family History
Family History: Unable to obtain
Review of Systems
Review of Systems
All Other Systems: Not applicable
Constitutional: Denies fever
Respiratory: Reports no symptoms
Cardiac: Reports no symptoms
ABD/GI: Reports no symptoms
Phy Exam
Physical Exam
Physical Exam:
GENERAL: Alert and oriented in no apparent distress. Chronically ill-appearing. No signs of head trauma
EYE: Orbits normal.
NECK: Supple, no significant adenopathy.
ENT: Pharynx without erythema. Small abrasion to the right lower lip. Tongue normal
CARDIAC: Regular rate and rhythm with moderate midsystolic murmur. Steri-Strips over healing pacemaker site left upper chest wall appear well
LUNGS: Clear breath sounds,normal
ABDOMEN: Soft, without focal tenderness or distention. Elevated BMI
NEUROLOGICAL: Alert and oriented , grossly non-focal. Generally weak bilateral lower extremities this is old. Upper extremities normal.
SKIN: Warm and dry, small areas of ecchymosis to the lower abdominal wall and arms
MUSCULOSKELETAL: No edema,no deformity.Good color
PSYCH: Normal and appropriate interaction.
Course
Orders/Labs/Results
Orders:
Orders
02/16/25 21:06
Electrocardiogram (*1) Stat
Reason for Study: Other
Other Reason for Exam: neuro symptoms
CT Head W/o Iv Contrast Urgent
Comment:
Reason For Exam: Change in mental status
Cardiac Monitoring- Treatment ONCE
EKG- Treatment ONCE
IV Insert/Care/Rem.- Treatment PRN
Pulse Ox/cont/shift [RESP] Stat
Quantity: 1
02/16/25 21:10
Basic Metabolic Panel Urgent
Complete Blood Count/With Diff Urgent
02/16/25 23:00
Flush (0.9% Sodium Chloride) [Flush (Nss)] See Dose Instructions IV PER PROTOCOL
02/16/25 23:35
Acetaminophen [Tylenol] 650 mg PO Q6HPRN PRN
Bisacodyl [Dulcolax] 10 mg RECTAL DAILYPRN PRN
Calcium 200mg(Ca. Carb. 500mg) [Tums Chewable Tablet] 200 mg PO Q8HPRN PRN
Magnesium Hydroxide [Milk of Magnesia] 30 ml PO DAILYPRN PRN
Mupirocin [Bactroban 2% Ointment] 1 applic TOPICAL DAILYPRN PRN
lidocaine HCl 15 ml INTRA-URETHRAL MONTHLY PRN
CR Chest Portable - 1 View Stat
Comment:
Reason For Exam: dyspnea
Reason Study Needs to be Portable: Patient Unstable
02/16/25 23:39
Levetiracetam Injectable [Keppra] 2,000 mg IV NOW STA
02/16/25 23:40
Admit/Transfer Patient As Directed
Co-Sign Provider:
Level of Care: Inpatient admission
Assign to:: Telemetry
Physician / Group: Jeannine
Transfer to: Telemetry
Diagnosis: Unresponsive Episode
Reason for Telemetry: Syncope
Date to Stop Telemetry: 02/18/25
Time to Stop Telemetry: 11:00
Reason for Hospitalization: Unresponsive Episode - r/o seizure vs arrhythmia
Expected length of stay greater than two midnights?: Yes
ELOS- Estimated Length of Stay in days: 2
I certify the patient meets the requirements for IP care: Yes
PRN Pain Medication Management As Directed
May give lesser potent ordered pain med per pt: Yes
preference::
Protocol:: Medication orders for pain may be administered in a
manner that supports deferring to patient preference
when the pt is:
- Requesting an ordered lesser potent pain medication.
Least to most potent pain medications are defined
as: acetaminophen < NSAID < tramadol < opioids
(morphine, oxycodone, hydromorphone).
- Requesting a lesser dose of the same medication IF
ORDERED.
- Requesting a less intrusive route of administration
if both routes are prescribed by the provider (PO <
IV).
02/16/25 23:42
Code Status As Directed
Resuscitation Status: Do not resuscitate
Reached after discussion with pt or family/Healthcare POA: Yes
DNR Bracelet Application ONCE
02/16/25 23:48
Nutrition IP Consult [DIETARY IP CONSULT] Routine
Reason for Consult: malnutrition.
02/16/25 23:50
Bipap [RESP] Routine
Patient to use own unit?: No
Inspiratory Pressure (cm H2O): 20
Expiratory Pressure (cm H2O): 12
Instructions: qHS
02/16/25 23:59
Urinalysis Reflex To Culture Stat
Date Specimen was Collected: 02/16/25
Time Specimen was Collected: 23:57
02/17/25 06:00
Levothyroxine [Synthroid] 175 mcg PO DAILY @ 0600
02/17/25 08:00
Allopurinol [Zyloprim] 100 mg PO DAILY
Aspirin Low Dose EC [Aspir Low (Enteric Coated)] 81 mg PO DAILY
Clonidine [Catapres] 0.1 mg PO BID
Docusate Sodium [Colace] 100 mg PO BID
Docusate W/Senna [Senokot-S] 1 tablet PO BID
Ferrous Sulfate [Feosol] 325 mg PO DAILY
Finasteride [Proscar] 5 mg PO DAILY
Magnesium Oxide 500 mg PO BID
Miconazole Nitrate [Desenex/Mitrazol/Zeasorb] See Dose Instructions TOPICAL BID
Oxybutynin Chloride [Ditropan] 2.5 mg PO DAILY
Pantoprazole [Protonix] 40 mg PO BID AT 0800,1700
acetaminophen 650 mg PO BID
02/17/25 18:00
Atorvastatin [Lipitor] 60 mg PO QPM
Tamsulosin [Flomax] 0.4 mg PO QPM
02/17/25 22:00
Melatonin 3 mg PO HS
02/18/25 11:00
DC Protocol for Telemetry ONCE
Abnormal Lab Results
02/16/25 02/16/25
21:10 22:03
RBC 2.87 L 10^6/uL
(4.70-6.10)
Hgb 8.6 L g/dL
(13.0-18.0)
Hct 26.6 L %
(39.0-52.0)
MCHC 32.3 L g/dL
(33.0-37.0)
RDW 16.3 H %
(11.5-14.5)
MPV 11.2 H fL
(7.4-10.4)
Abs Immat Gran (auto) 0.1 H 10^3/uL
(0-0.05)
Immature Gran % 1.2 H %
(0-0.5)
Lymphocytes % 14.4 L %
(20.5-51.1)
Potassium 5.2 H mmol/L
(3.5-5.1)
BUN 105 H* mg/dl
(9-20)
Creatinine 1.7 H mg/dL
(0.7-1.3)
Glucose 136 H mg/dl
(70-99)
POC Glucose 142 H mg/dl
(70-99)
02/16/25 21:10
02/16/25 21:10
Vital Signs
Initial and Last Documented VS:
Initial Vital Signs
Pulse Resp BP Pulse Ox
71 18 131/62 94
02/16/25 20:35 02/16/25 20:35 02/16/25 20:35 02/16/25 20:35
Last Documented Vital Signs
Pulse Resp BP Pulse Ox
70 14 138/76 98
02/16/25 23:30 02/16/25 23:30 02/16/25 23:30 02/16/25 23:30
*Radiology
Radiology exam reviewed: radiology read reviewed (No acute findings on CT)
*Pulse Oximetry
Patient hypoxic: no
*EKG
Interpreted by ED Provider?: Yes
Interpretation: abnormal
Comparison EKG: changes noted
Heart Rate: 60
Rate: normal
[place]: left axis deviation
Interval: normal interval
QRS Pattern: wide non-specific
Ischemia: non-specific ST changes
*Bar Welder Interpretation
Rate: normal
Interpretation: normal
Heart Rate: 62
Rhythm: other (Atrial paced)
*Critical Care Note
Total Time (30-74mins, 75-104mins- exclusive of procedures): 45
Update Note
Update Note:
Patient was noted to be hypoxic and unresponsive on the monitor. No witnessed seizure although no sonorous respirations as if he is postictal. Clearly warrants admission. Awaiting to see if he wakes up from this episode
ED Attending Note
-
Portions of this chart may have been created with voice recognition software.� Occasional wrong word or��sound alike� substitutions may have occurred due to the inherent limitations of voice recognition software.
Discharge Plan
Departure
Patient Disposition: Admit
Date of Disposition: 02/16/25
Time of Disposition: 22:23
Presentation/result/management discussed w/ accepting MD/DO: Hospitalist
Discharge Problem:
Recurrent unresponsive episodes
Prescriptions:
No Action
atorvastatin 40 MG tablet
60 mg PO QPM
levothyroxine 175 MCG tablet
175 mcg PO DAILY
acetaminophen 325 MG tablet
650 mg PO Q6HPRN MDD 3000mg PRN (Reason: mild pain/temp>100.4)
aspirin 81 MG tablet,delayed release (DR/EC)
81 mg PO DAILY
acetaminophen 650 MG tablet extended release
650 mg PO BID
magnesium hydroxide [Milk of Magnesia] 400 MG/5 ML suspension
30 ml PO DAILYPRN PRN (Reason: if no bm in 3 days)
tamsulosin [Flomax] 0.4 MG capsule
0.4 mg PO QPM
bisacodyl 10 MG suppository
10 mg [place] DAILYPRN PRN (Reason: if no bm after mom)
bumetanide 1 MG tablet
1 mg PO BID
finasteride 5 MG tablet
5 mg PO DAILY
lidocaine HCl 2 % Jelly
15 ml intra-urethral MONTHLY PRN (Reason: 15ml urethral anesthesia)
ferrous sulfate 325 mg (65 mg iron) Tablet
325 mg PO DAILY
calcium carbonate [Tums] 200 mg calcium (500 mg) Tablet,Chewable
200 mg PO Q8HPRN PRN (Reason: indigestion )
docusate sodium [Colace] 100 mg Capsule
100 mg PO BID
miconazole nitrate 2 % Powder
1 applic TOPICAL BID
melatonin 3 mg Tablet
3 mg PO HS
allopurinol 100 mg Tablet
100 mg PO DAILY
omeprazole 20 mg Capsule,Delayed Release(Dr/Ec)
20 mg PO BID
sennosides-docusate sodium [Senna-S] 8.6-50 mg Tablet
1 tab-cap PO BID
potassium chloride [Klor-Con M20] 20 mEq Tablet,Er Particles/Crystals
20 meq PO DAILY
mupirocin 2 % Ointment
1 applic TOPICAL DAILYPRN PRN (Reason: penis hygiene)
Rx Instructions:
Retract skin around penis,cleanse with 1/2 strength peroxide and water, pat dry
oxybutynin chloride 5 mg Tablet
2.5 mg PO DAILY
magnesium oxide 400 mg magnesium Tablet
400 mg PO BID
mupirocin 2 % ointment
1 applic topical TID
Rx Instructions:
Retract skin around penis,cleanse with 1/2 strength peroxide and water, pat dry
clonidine HCl 0.1 mg Tablet
0.1 mg PO BID
Rx Instructions:
Hold for SBP<100 or HR<60
Referrals:
Mathew Tejeda, [Family Provider] -
Interventions
Interventions:
*Risk Screen - Suicide Last Done: 02/16/25 20:35
*General Assessment Last Done: 02/16/25 20:35
*Neglect/Abuse Screening Last Done: 02/16/25 20:35
*ED- Fall Risk Assessment Last Done: 02/16/25 20:35
ED- Neurological Assessment Last Done: 02/16/25 21:32
Discharge Date and Time
Print Language: SPANISH
[2025-02-16 21:24] LABS: % Basophils 0.7 % (0-2); % Eosinophils 3.4 % (0-6); % Immature Granulocytes 1.2 % (0-0.5); % Lymphocytes 14.4 % (20.5-51.1); % Monocytes 6.3 % (1.7-9.3); Absolute Basophils 0.1 10^3/uL (0-0.2); Absolute Eosinophils 0.3 10^3/uL (0-0.7); Absolute Immature Granulocytes 0.1 10^3/uL (0-0.05); Absolute Lymphocytes 1.2 10^3/uL (1.2-3.4); Absolute Monocytes 0.5 10^3/uL (0.1-0.6); Absolute Neutrophils 6.2 10^3/uL (1.4-6.5); Hematocrit 26.6 % (39.0-52.0); Hemoglobin 8.6 g/dL (13.0-18.0); Mean Corp Hgb Conc. 32.3 g/dL (33.0-37.0); Mean Corpuscular Volume 92.7 fL (80.0-94.0); Mean Platelet Volume 11.2 fL (7.4-10.4); Nucleated Red Blood Cells % 0 % (-); Platelet Count 206 10^3/uL (130-400); Red Blood Cell Count 2.87 10^6/uL (4.70-6.10); Red Cell Dist. Width 16.3 % (11.5-14.5); White Blood Cell Count 8.4 10^3/uL (4.8-10.8)
[2025-02-16 21:38] LABS: Blood Urea Nitrogen 105 mg/dl (9-20); Carbon Dioxide 26 mmol/L (22-30); Chloride 106 mmol/L (98-107); Estimated Creatinine Clearance 45 ml/min; Glucose 136 mg/dl (70-99); Potassium 5.2 mmol/L (3.5-5.1); Sodium 138 mmol/L (135-145); eGFR 41.52
[2025-02-16 22:04] LABS: Glucose - Point of Care 142 mg/dl (70-99)
--- NOTE | 2025-02-16 22:05 | EDRN ---
pts pulse ox alarm ringing showing spo2 to be in 60s with a good pleth. pt found unresponsive and drooling. doctor and assisting staff immediately to bedside. pt suctioned, placed on O2, and blood sugar obtained. vitals currently stable, pt spo2
100% on 2L nasal cannula, maintaining airway.
--- NOTE | 2025-02-16 23:29 | HPS.HSE ---
Family Physician
-
Family Physician: Mathew Tejeda, DO
Chief Complaint
-
Confusion followed by unresponsive episode at [facility]
History of Present Illness
74yo M with PMH CAD, HTN/HLD, SSS s/p Recent PPM, HFpEF (TTE 01/06/25 wtih EF 55-60%, inferior, apical anterior akinesis/dyskinesis), Obesity Hypoventilation/EMANUEL on Bipap, Hypothyroidism, CKD IIIb, Hx CVA, BPH, urinary Retention, Gout, Morbid Obesity
who presents from [facility] for Confusion followed by unresponsive episode at [facility]. Pt is a limited historian. Pt reportedly confused for the past few days. He is AAOx2 (does not know year). Endorses headache. Otherwise history
limited. Denies F/C, CP, Palps, SOB, Cough, abd pain, n/v/d/c, dysuria, calf or leg pain.
ER course: Pt presents wtih V.S.S. Hgb 8.6 g/dL, WBC 8.4K, PLT 206K. K 5.2. BUN/Cr 105/1.67. CT brain (-). While in ER pt became hypoxic and had 2nd unresponsive episode. Sonorous respirations noted. Episode was self limiting. PPM interrogation
pending.
Medical History
Past Medical History
Past Medical History: Reports Other (CAD, HTN/HLD, SSS s/p Recent PPM, HFpEF (TTE 01/06/25 wtih EF 55-60%, inferior, apical anterior akinesis/dyskinesis), Obesity Hypoventilation/EMANUEL on Bipap, DM2, hypothyroidism, CKD IIIb, Hx CVA, BPH, urinary
Retention, Gout, Morbid Obesity )
Past Surgical History: Reports Other (Cardiac (Coronary stents) and Other (Eye surgery) and PPM)
Social History
Tobacco: Former Smoker (Quit 40 yrs ago)
Alcohol: None
Drug: None
Living: Penitentiary ([facility])
Family History
Family History: Unable to Obtain
Allergies / Home Medications
Allergies reflects when Allergies were last updated in [facility].
Home Medications with original date entered in [facility]
Allergy/Medication List:
Allergies
Allergy/AdvReac Type Severity Reaction Status Date / Time
No Known Allergies Allergy Verified 08/22/24 23:00
Home Medications
acetaminophen 325 mg tablet 650 mg PO Q6HPRN PRN mild pain/temp>100.4 08/23/20
acetaminophen 650 mg tablet,extended release 650 mg PO BID mild Pain 08/23/20
aspirin 81 mg tablet,delayed release 81 mg PO DAILY Blood clot prevention/tx 08/23/20
atorvastatin 40 mg tablet 60 mg PO QPM High cholesterol 08/23/20
bisacodyl 10 mg rectal suppository 10 mg [place] DAILYPRN PRN if no bm after mom 08/23/20
bumetanide 1 mg tablet 1 mg PO BID Fluid retention/Swelling 08/23/20
finasteride 5 mg tablet 5 mg PO DAILY Urinary issue 08/23/20
levothyroxine 175 mcg tablet 175 mcg PO DAILY Thyroid 08/23/20
magnesium hydroxide 400 mg/5 mL oral suspension (Milk of Magnesia) 30 ml PO DAILYPRN PRN if no bm in 3 days 08/23/20
tamsulosin 0.4 mg capsule (Flomax) 0.4 mg PO QPM BPH 08/23/20
calcium carbonate (Tums) 200 mg PO Q8HPRN PRN indigestion 07/04/22
docusate sodium 100 mg capsule (Colace) 100 mg PO BID Constipation 07/04/22
ferrous sulfate 325 mg (65 mg iron) tablet 325 mg PO DAILY Supplement 07/04/22
lidocaine HCl 2 % mucosal jelly 15 ml intra-urethral MONTHLY PRN 15ml urethral anesthesia 07/04/22
allopurinol 100 mg tablet 100 mg PO DAILY Gout 01/05/25
magnesium oxide 400 mg PO BID Supplement 01/05/25
melatonin 3 mg tablet 3 mg PO HS Sleep 01/05/25
miconazole nitrate 2 % topical powder 1 applic topical BID FOLDS/GROIN 01/05/25
mupirocin 2 % topical ointment 1 applic topical DAILYPRN PRN penis hygiene 01/05/25
omeprazole 20 mg capsule,delayed release 20 mg PO BID Gastrointestinal Issue 01/05/25
oxybutynin chloride 5 mg tablet 2.5 mg PO DAILY Urinary Issue 01/05/25
potassium chloride 20 mEq tablet,extended release(part/cryst) (Klor-Con M) 20 meq PO DAILY Electrolyte Repletion 01/05/25
sennosides 8.6 mg-docusate sodium 50 mg tablet (Senna-S) 1 tab-cap PO BID Constipation 01/05/25
mupirocin 2 % topical ointment 1 applic topical TID penis rash 01/18/25
clonidine HCl 0.1 mg tablet 0.1 mg PO BID 02/16/25
Review of Systems
-
A 12 point ROS was completed and negative except as noted: Yes
Physical Exam
Vital Signs
Vital Signs
Pulse Resp BP Pulse Ox
66 13 106/55 98
02/16/25 22:45 02/16/25 22:45 02/16/25 22:45 02/16/25 22:45
Physical Exam
General: Other (Chronically ill appearing. NAD. Initial lethargy improved with loud verbal stimulation. Follow commands. )
HEENT: NormoCephalic, PERRLA, [place] Conjunctivae, Oxygen and Other (Dry MM); No Neck Mass
Respiratory: Other (No accessory muscle use. Diminished breath sounds b/l. No wheezing. )
Cardiac: S1/S2, Regular Rhythm, Rub and Other (+left chest wall PPM. incision well approximated. ); No Murmur
GI: Soft, Non Tender, Non Distended, Normal Bowel Sounds and Other (+obese. )
Genito-urinary: No costovertebral tender and Craig (Chronic Craig. )
Musculoskeletal: No Clubbing and Other (Chronic non pitting edema b/l LE. )
Skin: Other (Warm, Dry. LE anterior tibial wounds not appearing infected. )
Neuro: Nonfocal/grossly intact, No Sensory Deficits and Other (Lethargic but AAox2 (does not recall year). Speech intially slurred upon awakening, gradually improving after staying awake. Strength 4/5 throughout. )
Psych: Calm
Laboratory Results
-
02/16/25 21:10
02/16/25 21:10
Data Reviewed
-
Diagnostic Radiology: Image Personally Visualized and interpreted
CT Scan: Image Personally Visualized and interpreted
Medical Tests (Nuc Med, Echo, EKG etc): Image Personally Visualized and interpreted (Apaced @ 60bpm, Nonspecific IVCD, TWI V1-V3, QTC 510ms. No change from prior. )
Lab Data: Labs Reviewed by me
Old Records: Reviewed
Impression/Plan
-
Unresponsive Episode / AMS
- Unresponsive episode [employer]IN [employer]ATION [employer] and again in ER
- Reportedly hypoxic and not following commands; At time of my evaluation pt was responsible to verbal stimulation and taking time to verbalize but conversive
- Considerations include seizure/acute neurologic event vs uremic encephalopathy vs r/o infectious source of metabolic enceph
- Keppra Loaded. Continue 500mg IV Q12h. Note CO2 wnl on admission. Check CPK. Consult Neurology
- Q4h neurochecks. Seizure precautions
- Continue treatment of possible UTI (noting chronic craig sample)
- Continue gentle hydration. Trend BUN. Consult nephrology for possible uremic enceph.
- Interrogation of PPM pending from ER. Consult cardio if any abnormalities. Check Trop x 2. Lower suspicion for ACS/arrhythmia.
- Little benefit in obtaining ABG at this point given improved mentation. Consider if any acute changes.
- Likely plan for PT evaluation once stabilized.
- NPO except meds. 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
Possible UTI - Afebrile. No leukocytosis. Will start Cefepime 2gm Q12h and follow up UCx. Hx Ecoli/Pseudomonas noted.
Uremia / Hx CKD IIIb - BUN chronically elevated. No clear evidence of bleeding. Nutrition consult. Nephrology consult. Trend for improvement with gentle hydration holding home bumex.
Hyperkalemia - K 5.2. Trend wtih holding bumex and hydration
Anemia - Hgb 8.6 g/dL. At or near baseline. At higher risk for bleeding given uremia. Trend for stability. Obtain Type and screen.
LE Wounds - Not infected. Wound care consulted.
CAD / HTN / HLD - Continue aspirin/statin/clonidine.
SSS s/p PPM - Follow up interrogation report. Recent Left Chest Wall PPM noted.
HFpEF - TTE 01/06/25 wtih EF 55-60%, inferior, apical anterior akinesis/dyskinesis. Suspect intravasc volume depletion. Trend I&O and Daily Wts. Holding Bumex.
Obesity Hypoventilation/EMANUEL - Continue Bipap qHS. Obtain ABG if any AMS.
Hypothyroidism - Continue synthroid. Follow up TSH
Hx CVA - Continue bASA/statin.
BPH/Chronic Retention - Chronic Craig. Continue finasteride/Flomax
Gout - Continue allopurinol
Class III Obesity - BMI 40.9. Continue life style mods with diet/exercise/wt loss encouragement.
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
DVT Ppx: SCDs. Follow up H&H confirming stability before chemical ppx
Code Status: Reviewed paperwork. DNR/DNI, pt confirms.
[2025-02-16] MEDS: KEPPRA 2000 MG IV (23:50)
[2025-02-17] VITALS (22 sets, daily range): BP systolic 101–150; BP diastolic 53–99; PULSE 2–60; BMI 41.0
[2025-02-17 00:12] LABS: Urine Albumin 2+ (Neg - Trace); Urine Bilirubin Negative (Negative); Urine Glucose Negative (Negative); Urine Ketone Negative (Negative); Urine Leukocyte 3+ (Negative); Urine Nitrite Negative (Negative); Urine Occult Blood Negative (Negative); Urine Specific Gravity 1.015 (<1.030); Urine Urobilinogen Negative (Neg - 1+)
[2025-02-17 00:14] LABS: Urine Character Cloudy (Clear); Urine Color Straw
[2025-02-17 00:24] LABS: Urine Red Blood Cell None Seen /HPF (0-2); Urine Squamous Cell None seen /LPF (Few)
[2025-02-17 00:25] LABS: Urine Bacteria Moderate (Negative); Urine White Cell 70-80 /HPF (0-5)
[2025-02-17 01:19] LABS: Total CK 46 U/L (55-170)
[2025-02-17 01:20] LABS: Troponin I 0.017 ng/ml
[2025-02-17] MEDS: NSS 1000 IV (02:05)
[2025-02-17] MEDS: MAXIPIME 2000 MG IV ×2 (02:08→14:48)
[2025-02-17] MEDS: STERILE WATER FOR INJECTION 10 ML IV ×2 (02:08→14:48)
[2025-02-17 02:49] LABS: Iron 68 ug/dl (49-181)
[2025-02-17] MEDS: TYLENOL 650 MG PO ×3 (03:17→20:53)
[2025-02-17] MEDS: SYNTHROID 175 MCG PO (06:19)
[2025-02-17 06:36] LABS: Hematocrit 22.8 % (39.0-52.0); Hemoglobin 7.6 g/dL (13.0-18.0); Mean Corp Hgb Conc. 33.3 g/dL (33.0-37.0); Mean Corpuscular Hgb 30.5 pg (27.0-31.0); Mean Corpuscular Volume 91.6 fL (80.0-94.0); Mean Platelet Volume 11.4 fL (7.4-10.4); Platelet Count 188 10^3/uL (130-400); Red Blood Cell Count 2.49 10^6/uL (4.70-6.10); Red Cell Dist. Width 16.1 % (11.5-14.5); White Blood Cell Count 8.4 10^3/uL (4.8-10.8)
[2025-02-17 06:40] LABS: INR 1.06; PT 14.3 Sec (11.4-14.6)
[2025-02-17 06:41] LABS: APTT 31.6 Sec (23.4-35.0)
[2025-02-17 06:55] LABS: Ammonia < 9 umol/L (9-30)
[2025-02-17 07:15] LABS: Blood Urea Nitrogen 110 mg/dl (9-20); Carbon Dioxide 27 mmol/L (22-30); Chloride 108 mmol/L (98-107); Estimated Creatinine Clearance 48 ml/min; Glucose 105 mg/dl (70-99); Magnesium 2.6 mg/dl (1.6-2.3); Potassium 5.2 mmol/L (3.5-5.1); Sodium 141 mmol/L (135-145); Troponin I 0.028 ng/ml; eGFR 44.65
[2025-02-17 07:18] LABS: Total Iron Binding Capacity 210 ug/dl (261-462)
[2025-02-17 07:42] LABS: Vitamin B12 885 pg/ml (239-931)
--- NOTE | 2025-02-17 08:37 | W.CON.NEPH ---
Consultation
-
Date/Time Consultation Requested: 02/17/2025 7 AM
Date/Time Consultation Performed: 02/17/2025 7 AM
Requesting Provider: Dr. Paez
Performing Provider: Dr. Johns
Reason for Consultation: Azotemia, hyperkalemia
Medical History
-
Chief Complaint: CKD/azotemia
History of Present Illness:
Hermilo Mills is a 74-year-old male with severe aortic stenosis, heart failure preserved ejection fraction on chronic diuretic therapy, which is well compensated. He also has hypertension on a multidrug regimen typically stable. Unfortunately he
is for the most part bedbound given his obesity. He has hypothyroidism which is controlled with Synthroid. He was in the hospital back in December with bradycardia. He was noted to have a BUN of 122 at that time. His diuretics were held but
ultimately restarted given weight gain. At the time of discharge then his BUN was still over 100. He returns to the emergency room yesterday because of confusion. He then had an unresponsive episode. In the emergency room he has no complaints to
report to me. He did report a headache yesterday. His BUN here is still over 100 and his creatinine 1.67 from his baseline of approximately 1.7.
Past Medical History
CAD, CHF (HFpEF), HTN, Hypercholesterolemia, Hypothyroidism, NIDDM, Renal Failure (CKD) (1.7) and Other (Gout, chronic Villarreal), severe aortic stenosis, obesity
Social History
Tobacco: Non-Smoker
Alcohol: None
Personal:
Living: Jail ([facility])
Family History
No CKD
Family History: Not Pertinent
Allergies / Home Medications
Allergy/AdvReac Type Severity Reaction Status Date / Time
No Known Allergies Allergy Verified 08/22/24 23:00
�Medication �Instructions �Recorded �Confirmed �Type
acetaminophen 325 mg tablet 650 mg PO Q6HPRN PRN mild 08/23/20 02/17/25 History
pain/temp>100.4
acetaminophen 650 mg 650 mg PO BID mild Pain 08/23/20 02/17/25 History
tablet,extended release
aspirin 81 mg tablet,delayed 81 mg PO DAILY Blood clot 08/23/20 02/17/25 History
release prevention/tx
atorvastatin 40 mg tablet 60 mg PO QPM High cholesterol 08/23/20 02/17/25 History
bisacodyl 10 mg rectal suppository 10 mg MN DAILYPRN PRN if no bm 08/23/20 02/17/25 History
after mom
bumetanide 1 mg tablet 1 mg PO BID Fluid 08/23/20 02/17/25 History
retention/Swelling
finasteride 5 mg tablet 5 mg PO DAILY Urinary issue 08/23/20 02/17/25 History
levothyroxine 175 mcg tablet 175 mcg PO DAILY Thyroid 08/23/20 02/17/25 History
magnesium hydroxide 400 mg/5 mL 30 ml PO DAILYPRN PRN if no bm in 08/23/20 02/17/25 History
oral suspension (Milk of Magnesia) 3 days
tamsulosin 0.4 mg capsule (Flomax) 0.4 mg PO QPM BPH 08/23/20 02/17/25 History
calcium carbonate (Tums) 200 mg PO Q8HPRN PRN indigestion 07/04/22 02/17/25 History
docusate sodium 100 mg capsule 100 mg PO BID Constipation 07/04/22 02/17/25 History
(Colace)
ferrous sulfate 325 mg (65 mg 325 mg PO DAILY Supplement 07/04/22 02/17/25 History
iron) tablet
lidocaine HCl 2 % mucosal jelly 15 ml intra-urethral MONTHLY PRN 07/04/22 02/17/25 History
15ml urethral anesthesia
allopurinol 100 mg tablet 100 mg PO DAILY Gout 01/05/25 02/17/25 History
magnesium oxide 400 mg PO BID Supplement 01/05/25 02/17/25 History
melatonin 3 mg tablet 3 mg PO HS Sleep 01/05/25 02/17/25 History
miconazole nitrate 2 % topical 1 applic topical BID FOLDS/GROIN 01/05/25 02/17/25 History
powder
mupirocin 2 % topical ointment 1 applic topical DAILYPRN PRN 01/05/25 02/17/25 History
penis hygiene
omeprazole 20 mg capsule,delayed 20 mg PO BID Gastrointestinal Issue 01/05/25 02/17/25 History
release
oxybutynin chloride 5 mg tablet 2.5 mg PO DAILY Urinary Issue 01/05/25 02/17/25 History
potassium chloride 20 mEq 20 meq PO DAILY Electrolyte 01/05/25 02/17/25 History
tablet,extended Repletion
release(part/cryst) (Klor-Con M)
sennosides 8.6 mg-docusate sodium 1 tab-cap PO BID Constipation 01/05/25 02/17/25 History
50 mg tablet (Senna-S)
mupirocin 2 % topical ointment 1 applic topical TID penis rash 01/18/25 02/17/25 History
clonidine HCl 0.1 mg tablet 0.1 mg PO BID 02/16/25 02/17/25 History
dimethicone 5 % topical cream 1 applic topical TID scrum/buttuck 02/17/25 02/17/25 History
Review of Systems
-
No chest pain, shortness of breath. He is hungry
All other systems: Negative unless noted
Physical Exam
Vital Signs
Vital Signs
Pulse Resp BP Pulse Ox
60 17 134/70 99
02/17/25 05:30 02/17/25 05:30 02/17/25 05:00 02/17/25 05:30
Lab Results
WBC 8.4 10^3/uL (4.8-10.8) 02/17/25 06:08
RBC 2.49 10^6/uL (4.70-6.10) L 02/17/25 06:08
Hgb 7.6 g/dL (13.0-18.0) L 02/17/25 06:08
Hct 22.8 % (39.0-52.0) L 02/17/25 06:08
Plt Count 188 10^3/uL (130-400) 02/17/25 06:08
Sodium 141 mmol/L (135-145) 02/17/25 06:08
Potassium 5.2 mmol/L (3.5-5.1) H 02/17/25 06:08
Chloride 108 mmol/L (98-107) H 02/17/25 06:08
Carbon Dioxide 27 mmol/L (22-30) 02/17/25 06:08
BUN 110 mg/dl (9-20) H* 02/17/25 06:08
Creatinine 1.6 mg/dL (0.7-1.3) H 02/17/25 06:08
eGFR 44.65 02/17/25 06:08
Glucose 105 mg/dl (70-99) H 02/17/25 06:08
Calcium 9.0 mg/dl (8.4-10.2) 02/17/25 06:08
Laboratory Tests
01/22/25 02/17/25 02/17/25
05:59 02:02 06:08
Hgb 7.8 L
BUN 112 H*
Creatinine 1.9 H
Iron 68
TIBC 210 L
Erythropoietin 7
Ferritin 374.0
Physical Exam
Patient is awake alert oriented and in no distress. Mood and affect were pleasant, insight and judgment were good. Pupils are equal round and reactive to light, extraocular movements are intact, sclera were anicteric. Hearing was normal, ears and
nose are intact. Oropharynx was clear. Neck was supple with trachea midline and no thyromegaly. Heart was regular rate and rhythm without rubs. Lower extremities with 2+ edema. Lungs were coarse to auscultation bilaterally and with normal
excursion. Abdomen was soft, nontender, with normal active bowel sounds, and no hepatosplenomegaly. Skin was without rash and with decreased turgor.
Data Reviewed
-
Radiology: Image Personally Visualized and interpreted (Chest x-ray 02/16/2025 my reading cardiomegaly)
CT Scan: Report Reviewed by me (CT head 02/16/2025 no acute disease)
Medical Tests (Nuc Med, Echo etc): Image Personally Visualized and interpreted (EKG 02/16/2025 by my reading a paced rhythm nonspecific interventricular conduction block) and Report Reviewed by me (Echocardiogram 01/06/2025 EF 55% severe )
Labs: Labs Reviewed by me
Old Records: Reviewed
Assessment/Plan
-
Impression:
CKD 3b (1.7)
Azotemia
Anemia
PPM
HFpEF, chronic
CAD
Aortic stenosis, moderate-severe
Hypertension
Neurogenic bladder with chronic indwelling Villarreal catheter
Bedbound
Hypothyroidism stable
Hyperkalemia
Plan:
His azotemia is no worse than his last admission at the time of discharge. He does not appear to be volume depleted at this time.
I would stop IV fluids at this time
Potassium should be treated medically
He does have Lokelma may be given
I would hold Bumex currently
He has persistent anemia and GI bleed given his azotemia should be considered
He has extremely low EPO level from last admission. A dose of SRINIVASA will be given
Follow BMP
[2025-02-17] MEDS: COLACE 100 MG PO ×2 (09:43→20:49)
[2025-02-17] MEDS: DITROPAN 2.5 MG PO (09:43)
[2025-02-17] MEDS: FEOSOL 325 MG PO (09:44)
[2025-02-17] MEDS: ZYLOPRIM 100 MG PO (09:44)
[2025-02-17] MEDS: ASPIR LOW (ENTERIC COATED) 81 MG PO (09:44)
[2025-02-17] MEDS: PROSCAR 5 MG PO (09:44)
[2025-02-17] MEDS: CATAPRES 0.1 MG PO (09:44)
[2025-02-17] MEDS: PROTONIX 40 MG PO ×2 (09:44→17:18)
[2025-02-17] MEDS: SENOKOT-S 1 TABLET PO ×2 (09:44→20:53)
[2025-02-17] MEDS: MAGNESIUM OXIDE 500 MG PO ×2 (09:44→20:53)
[2025-02-17] MEDS: DESENEX/MITRAZOL/ZEASORB TOPICAL (09:45)
--- NOTE | 2025-02-17 10:31 | EEG.RPT ---
Electroencephalogram Report
Recording
Date of EE02/17/25
Length of EEG recordin mins
Done with Video Recording: Yes
Patient Status: Inpatient
Recording Conditions: Awake and Drowsy
Hyperventilation Performed: No
Photic Stimulation Performed: Yes
Report
Clinical Background:�74 year old man with episodes of unresponsiveness
Introduction: A routine bedside EEG was done using International 10-20 electrode placement protocol.
Background: In the most alert state, there is continuous generalized polymorphic theta activity, 6-7 Hz, with moderate amplitude. There is spontaneous variability and reactivity.�
Sleep: No sleep is seen.�
Focal/epileptiform: There were no focal or epileptiform discharges. No clinical or electrographic seizures occurred during this recording.
Photic stimulation: resulted in no background change. There was no photo myogenic or photoparoxysmal response.�
Impression: continuous generalized slowing
Clinical correlation:�mild generalized cerebral dysfunction, as could be seen with toxic/metabolic encephalopathy, sedation, hyponatremia, hypoxia, hypothyroidism�
[2025-02-17] MEDS: LOKELMA 10 GRAM PO (12:00)
--- NOTE | 2025-02-17 12:58 | CON.NEURO ---
Neuro Assessment/Plan
Assessment
EEG tracing reviewed, continuous generalized slow
Head CT imgs rev'd, moderate diffuse atrophy and microvascular changes
reasonable story for a seizure
agree with starting Keppra 500 BID
recent pacemaker placed 1 month ago, can't get MRI
Plan
ok to discharge back to [place]
Consultation
Order
Date of Consultation: 02/17/25
Requesting Provider: Vijay Osorio
Reason for Consult: seizure
Subjective/Objective
Subjective Data
Date of Service: February 17, 2025
from h&p:
74yo M with PMH CAD, HTN/HLD, SSS s/p Recent PPM, HFpEF (TTE 01/06/25 wtih EF 55-60%, inferior, apical anterior akinesis/dyskinesis), Obesity Hypoventilation/EMANUEL on Bipap, Hypothyroidism, CKD IIIb, Hx CVA, BPH, urinary Retention, Gout, Morbid Obesity
who presents from [facility] for Confusion followed by unresponsive episode at [facility]. Pt is a limited historian. Pt reportedly confused for the past few days. He is AAOx2 (does not know year). Endorses headache. Otherwise history
limited. Denies F/C, CP, Palps, SOB, Cough, abd pain, n/v/d/c, dysuria, calf or leg pain.
ER course: Pt presents wtih V.S.S. Hgb 8.6 g/dL, WBC 8.4K, PLT 206K. K 5.2. BUN/Cr 105/1.67. CT brain (-). While in ER pt became hypoxic and had 2nd unresponsive episode. Sonorous respirations noted. Episode was self limiting. PPM interrogation
pending.
this morning, patient tells me he has had increasing confusion over the past year.
Objective Data
Vital Signs
Pulse Resp BP Pulse Ox
60 17 133/66 99
02/17/25 05:30 02/17/25 05:30 02/17/25 09:44 02/17/25 05:30
Lab Results
02/17/25 06:08
02/17/25 06:08
PT 14.3 Sec (11.4-14.6) 02/17/25 06:08
INR 1.06 02/17/25 06:08
APTT 31.6 Sec (23.4-35.0) 02/17/25 06:08
Sodium 141 mmol/L (135-145) 02/17/25 06:08
Potassium 5.2 mmol/L (3.5-5.1) H 02/17/25 06:08
BUN 110 mg/dl (9-20) H* 02/17/25 06:08
Glucose 105 mg/dl (70-99) H 02/17/25 06:08
Calcium 9.0 mg/dl (8.4-10.2) 02/17/25 06:08
Vitamin B12 885 pg/ml (239-931) 02/17/25 06:08
Patient Allergies
No Known Allergies Allergy (Verified 08/22/24 23:00)
Physical Exam
-
AAOx2, speech clear
VFF, EOMI, face symmetric
full strength b/l UE, b/l LE no antigravity,
sensation intact to touch
Medications
-
Active Medications
Generic Name Dose Route Start Last Admin
Trade Name Freq PRN Reason Stop Dose Admin
Acetaminophen 650 mg 02/16/25 23:35 02/17/25 03:17
Acetaminophen 325 Mg Tablet PO 03/16/25 23:34 650 mg
Q6HPRN PRN Administration
mild pain/temp>100.4
Acetaminophen 650 mg 02/17/25 08:00 02/17/25 09:45
Acetaminophen 325 Mg Tablet PO 03/17/25 07:59 650 mg
BID RAFAEL Administration
Acetaminophen 650 mg 02/17/25 01:40
Acetaminophen 325 Mg Tablet PO 03/17/25 01:39
Q4HPRN PRN
mild pain/MARADIAGA/temp> 100.4F
Albuterol/Ipratropium 3 ml 02/17/25 01:40
Ipratropium 0.5/Albuterol 3 Mg (3 Ml Ampul) INH
R Q4HPRN PRN
shortness of breath
Protocol
Allopurinol 100 mg 02/17/25 08:00 02/17/25 09:44
Allopurinol 100 Mg Tablet PO 03/17/25 07:59 100 mg
DAILY RAFAEL Administration
Aspirin 81 mg 02/17/25 08:00 02/17/25 09:44
Aspirin 81 Mg (Enteric Coated) Tablet PO 03/17/25 07:59 81 mg
DAILY RAFAEL Administration
Atorvastatin Calcium 60 mg 02/17/25 18:00
Atorvastatin (Lipitor) 40 Mg Tablet PO 03/17/25 17:59
QPM RAFAEL
Bisacodyl 10 mg 02/16/25 23:35
Bisacodyl 10 Mg Rectal Suppository RECTAL 03/16/25 23:34
DAILYPRN PRN
if no bm after mom
Bisacodyl 10 mg 02/17/25 01:40
Bisacodyl 10 Mg Rectal Suppository RECTAL 03/17/25 01:39
[id number] PRN
constipation
Calcium Carbonate 200 mg 02/16/25 23:35
Calcium Antacid 200 Mg (Calcium Carbonate 500 Mg) Chew Tablet PO 03/16/25 23:34
Q8HPRN PRN
indigestion
Cefepime HCl 2,000 mg 02/17/25 02:00 02/17/25 02:08
Cefepime Hcl 2,000 Mg/12.5 Ml Vial IV 2,000 mg
Q12H RAFAEL Administration
Clonidine HCl 0.1 mg 02/17/25 08:00 02/17/25 09:44
Clonidine 0.1 Mg Tablet PO 03/17/25 07:59 0.1 mg
BID RAFAEL Administration
Docusate Sodium 100 mg 02/17/25 08:00 02/17/25 09:43
Docusate Sodium 100 Mg Capsule PO 03/17/25 07:59 100 mg
BID RAFAEL Administration
Ferrous Sulfate 325 mg 02/17/25 08:00 02/17/25 09:44
Ferrous Sulfate 325 Mg Tablet PO 03/17/25 07:59 325 mg
DAILY RAFAEL Administration
Finasteride 5 mg 02/17/25 08:00 02/17/25 09:44
Finasteride 5 Mg Tablet PO 03/17/25 07:59 5 mg
DAILY RAFAEL Administration
Levothyroxine Sodium 175 mcg 02/17/25 06:00 02/17/25 06:19
Levothyroxine 175 Mcg Tablet PO 03/17/25 05:59 175 mcg
DAILY @ 0600 RAFAEL Administration
Magnesium Hydroxide 30 ml 02/16/25 23:35
Milk Of Magnesia 30 Ml Cup PO 03/16/25 23:34
DAILYPRN PRN
if no bm in 3 days
Magnesium Oxide 500 mg 02/17/25 08:00 02/17/25 09:44
Magnesium Oxide 500 Mg Tablet PO 03/17/25 07:59 500 mg
BID RAFAEL Administration
Melatonin 3 mg 02/17/25 22:00
Melatonin 3 Mg Tablet PO 03/17/25 21:59
HS RAFAEL
Miconazole Nitrate 0 applic 02/17/25 08:00 02/17/25 09:45
Miconazole Powder Bottle TOPICAL 03/17/25 07:59 Not Given
BID RAFAEL
Mupirocin 1 applic 02/16/25 23:35
Mupirocin 2% (Ointment) 22 Gram Tube TOPICAL
DAILYPRN PRN
penis hygiene
Ondansetron HCl 4 mg 02/17/25 01:40
Ondansetron 4 Mg/2 Ml Vial IV 03/17/25 01:39
Q6HPRN PRN
nausea and vomiting
Oxybutynin Chloride 2.5 mg 02/17/25 08:00 02/17/25 09:43
Oxybutynin 5 Mg Tablet PO 03/17/25 07:59 2.5 mg
DAILY RAFAEL Administration
Pantoprazole Sodium 40 mg 02/17/25 08:00 02/17/25 09:44
Pantoprazole 40 Mg Delayed Release Tablet PO 03/17/25 07:59 40 mg
BID AT 0800,1700 RAFAEL Administration
Polyethylene Glycol 17 grams 02/17/25 01:40
Polyethylene Glycol Powder 17 Grams Packet PO 03/17/25 01:39
DAILYPRN PRN
constipation
Senna/Docusate Sodium 1 tablet 02/17/25 08:00 02/17/25 09:44
Docusate W/Senna (Sonia-Colace) Tablet PO 03/17/25 07:59 1 tablet
BID RAFAEL Administration
Senna/Docusate Sodium 1 tablet 02/17/25 01:40
Docusate W/Senna (Sonia-Colace) Tablet PO 03/17/25 01:39
BIDPRN PRN
constipation
Sodium Chloride 0 flush 02/16/25 23:00
Sodium Chloride 0.9% (Flush) Syringe IV 03/16/25 22:59
PER PROTOCOL RAFAEL
Sterile Water 10 ml 02/17/25 02:00 02/17/25 02:08
Sterile Water For Injection 10 Ml Vial IV 03/17/25 01:59 10 ml
Q12H RAFAEL Administration
Tamsulosin HCl 0.4 mg 02/17/25 18:00
Tamsulosin 0.4 Mg Capsule PO 03/17/25 17:59
QPM RAFAEL
Home Medications
�Medication �Instructions �Recorded
acetaminophen 325 mg tablet 650 mg PO Q6HPRN PRN mild 08/23/20
pain/temp>100.4
acetaminophen 650 mg 650 mg PO BID mild Pain 08/23/20
tablet,extended release
aspirin 81 mg tablet,delayed 81 mg PO DAILY Blood clot 08/23/20
release prevention/tx
atorvastatin 40 mg tablet 60 mg PO QPM High cholesterol 08/23/20
bisacodyl 10 mg rectal suppository 10 mg [place] DAILYPRN PRN if no bm 08/23/20
after mom
bumetanide 1 mg tablet 1 mg PO BID Fluid 08/23/20
retention/Swelling
finasteride 5 mg tablet 5 mg PO DAILY Urinary issue 08/23/20
levothyroxine 175 mcg tablet 175 mcg PO DAILY Thyroid 08/23/20
magnesium hydroxide 400 mg/5 mL 30 ml PO DAILYPRN PRN if no bm in 08/23/20
oral suspension (Milk of Magnesia) 3 days
tamsulosin 0.4 mg capsule (Flomax) 0.4 mg PO QPM BPH 08/23/20
calcium carbonate (Tums) 200 mg PO Q8HPRN PRN indigestion 07/04/22
docusate sodium 100 mg capsule 100 mg PO BID Constipation 07/04/22
(Colace)
ferrous sulfate 325 mg (65 mg 325 mg PO DAILY Supplement 07/04/22
iron) tablet
lidocaine HCl 2 % mucosal jelly 15 ml intra-urethral MONTHLY PRN 07/04/22
15ml urethral anesthesia
allopurinol 100 mg tablet 100 mg PO DAILY Gout 01/05/25
magnesium oxide 400 mg PO BID Supplement 01/05/25
melatonin 3 mg tablet 3 mg PO HS Sleep 01/05/25
miconazole nitrate 2 % topical 1 applic topical BID FOLDS/GROIN 01/05/25
powder
mupirocin 2 % topical ointment 1 applic topical DAILYPRN PRN 01/05/25
penis hygiene
omeprazole 20 mg capsule,delayed 20 mg PO BID Gastrointestinal Issue 01/05/25
release
oxybutynin chloride 5 mg tablet 2.5 mg PO DAILY Urinary Issue 01/05/25
potassium chloride 20 mEq 20 meq PO DAILY Electrolyte 01/05/25
tablet,extended Repletion
release(part/cryst) (Klor-Con M)
sennosides 8.6 mg-docusate sodium 1 tab-cap PO BID Constipation 01/05/25
50 mg tablet (Senna-S)
mupirocin 2 % topical ointment 1 applic topical TID penis rash 01/18/25
clonidine HCl 0.1 mg tablet 0.1 mg PO BID 02/16/25
dimethicone 5 % topical cream 1 applic topical TID scrum/buttuck 02/17/25
--- NOTE | 2025-02-17 13:30 | WOUNDNOTE ---
[facility] RN note: Patient admitted with recurrent unresponsive episode. Patient resides at [facility]. He has an air mattress at SNF as per patient.
See H&P for complete history.
PMH: bedbound, obesity, HTN, SSS, pacer, HF, TTE, EMANUEL (Bipap), CKD3b, CVA, BPH, urinary retention, gout.
Wound Location and type/assessment: Patient admitted with: small dermal pink and scabbed ulcers Le's suspect r/t friction and edema. Sacral/coccyx MASD. L upper posterior thigh small dermal abrasion vs stage 2 pressure injury. R medial ankle and L
lateral heel broken blister. Trace LE edema. +Pedal pulses heard via portable Doppler. Abdominal/groin MASD.
Appetite: good.
Pressure redistribution devices in place: ED stretcher. ED RN Radha to coordinate switching bed to a [facility] Wide air bed. Sp [employer] tech to bring to the ED.
Plan: Patient incontinent of medium mushy light brown stool. Sonia care given. Silicone border foam applied to sacrum and L posterior upper thigh. Silicone border foam applied to Le wounds, L heel and R ankle open areas. Patient turned to L side
side lying position with help from TRENTON Stanley. Air chair cushion placed under sacrum. TruVue lite boots applied. Bariatric air chair cushion given.
Will confirm orders with Dr. Arvizu and updated NIDA Garcia.
Care plan to be updated and will follow as needed.
--- NOTE | 2025-02-17 13:30 | WOUNDNOTE ---
L BUTTOCKS/THIGH (POSTERIOR UPPER THIGH)
--- NOTE | 2025-02-17 13:31 | WOUNDNOTE ---
L HEEL (LATERAL); R ANKLE (MEDIAL)
--- NOTE | 2025-02-17 15:11 | W.PN.HOSP.TC ---
Today's Communication/Plan
-
Assessment / Plan
Assessment / Plan
General: No Apparent Distress, Comfortable, obese
HEENT: NormoCephalic, Moist mucous membranes, Atraumatic
Respiratory: Coarse breath sounds bilaterally, Non Labored Respirations
Cardiac: S1/S2 and Regular Rhythm; No Rub or Gallop
GI: Soft, Non Tender, Non Distended and Normal Bowel Sounds
Musculoskeletal: Significant bilateral lower extremity edema, no deformity
Skin: Warm and dry, multiple small excoriations on bilateral lower extremities
Neuro: Somnolent but easily arousable, no tremor
Psych: Calm and cooperative
Mr. Mills is a 74-year-old male with a medical history of CAD, hypertension, sick sinus syndrome (recent pacemaker), HFpEF, OHS/EMANUEL (BiPAP at night), CKD stage IIIb, CVA, hypothyroidism, urinary retention, and morbid obesity who presented from
[facility] due to an episode of unresponsiveness. He was reportedly confused for the past few days prior to presentation. In the ED he became hypoxic and again unresponsive. He was treated with supplemental oxygen and his mental
status improved spontaneously. He was loaded with Keppra and admitted for further evaluation and management.
Acute metabolic encephalopathy:
- Unclear etiology, witnessed unresponsive episode in the ED was associated with hypoxia-resolved spontaneously
- Possibly due to seizures, neurology following and recommend continuing Keppra
- He is also chronically uremic for unclear reasons, nephrology following, we will continue workup for GI bleeding, stool occult blood pending, monitor hemoglobin levels
- Presentation may be related to urinary tract infection, currently treating empirically with cefepime, follow-up cultures
- If mentation worsens will obtain ABG to monitor for hypercarbia, continue BiPAP at night
- Ammonia level undetectable, check TSH
Anemia:
-Chronic likely secondary to advanced CKD
- Monitor for evidence of bleeding including stool occult blood
- Appreciate nephrology guidance, dose of SRINIVASA given
Hyperkalemia:
- Initial potassium 5.2
- Treating medically with [facility]
- Will monitor
Hypothyroidism
- Continue home Synthroid 175 mcg daily
DVT prophylaxis: SCDs
CODE STATUS: DNR/DNI
Total time spent on today's encounter was 40 minutes
Anticipated Discharge: 24 - 48 hours
Subjective/Interval History
-
Date of Service: February 17, 2025
Patient was seen and examined at bedside this morning. Somnolent but arousable. EEG being performed.
Objective Data
-
Labs:
Laboratory Results
02/17/25
06:08
WBC 8.4
Hgb 7.6 L
Hct 22.8 L
Plt Count 188
PT 14.3
INR 1.06
APTT 31.6
Sodium 141
Potassium 5.2 H
Chloride 108 H
Carbon Dioxide 27
BUN 110 H*
Creatinine 1.6 H
Glucose 105 H
Calcium 9.0
Vital Signs:
Vital Signs
Pulse Resp BP Pulse Ox
63 12 141/95 99
02/17/25 15:00 02/17/25 15:00 02/17/25 14:00 02/17/25 14:45
Review of Systems
-
History Source: Patient
Constitutional: Reports Fatigue
Physical Exam
-
General: No Apparent Distress
[2025-02-17 16:30] LABS: TSH Reflex To Free T4 3.18 uIU/ml (0.47-4.68)
[2025-02-17] MEDS: LIPITOR 60 MG PO (17:18)
[2025-02-17] MEDS: FLOMAX 0.4 MG PO (17:18)
[2025-02-17] MEDS: DESENEX/MITRAZOL/ZEASORB 1 APPLIC TOPICAL (20:48)
[2025-02-17] MEDS: KEPPRA 500 MG PO (20:54)
[2025-02-17] MEDS: CATAPRES PO (21:01)
[2025-02-17] MEDS: MELATONIN 3 MG PO (22:16)
[2025-02-18] VITALS (7 sets, daily range): BP systolic 117–147; BP diastolic 62–86; PULSE 2; BMI 40.8
[2025-02-18] MEDS: MAXIPIME 2000 MG IV ×2 (02:21→13:33)
[2025-02-18] MEDS: STERILE WATER FOR INJECTION 10 ML IV ×2 (02:22→13:33)
[2025-02-18] MEDS: TYLENOL 650 MG PO ×4 (05:56→22:01)
[2025-02-18] MEDS: SYNTHROID 175 MCG PO (05:56)
[2025-02-18 06:23] LABS: % Basophils 0.8 % (0-2); % Eosinophils 4.1 % (0-6); % Immature Granulocytes 0.6 % (0-0.5); % Monocytes 9.6 % (1.7-9.3); % Neutrophils 54.9 % (42.2-75.2); Absolute Basophils 0.1 10^3/uL (0-0.2); Absolute Eosinophils 0.3 10^3/uL (0-0.7); Absolute Lymphocytes 1.9 10^3/uL (1.2-3.4); Absolute Monocytes 0.6 10^3/uL (0.1-0.6); Absolute Neutrophils 3.4 10^3/uL (1.4-6.5); Hematocrit 25.5 % (39.0-52.0); Hemoglobin 8.2 g/dL (13.0-18.0); Mean Corp Hgb Conc. 32.2 g/dL (33.0-37.0); Mean Corpuscular Hgb 30.1 pg (27.0-31.0); Mean Corpuscular Volume 93.8 fL (80.0-94.0); Mean Platelet Volume 11.4 fL (7.4-10.4); Nucleated Red Blood Cells % 0 % (-); Platelet Count 184 10^3/uL (130-400); Red Blood Cell Count 2.72 10^6/uL (4.70-6.10); Red Cell Dist. Width 16.6 % (11.5-14.5); White Blood Cell Count 6.2 10^3/uL (4.8-10.8)
[2025-02-18 06:50] LABS: Blood Urea Nitrogen 99 mg/dl (9-20); Calcium 9.1 mg/dl (8.4-10.2); Carbon Dioxide 27 mmol/L (22-30); Chloride 109 mmol/L (98-107); Estimated Creatinine Clearance 45 ml/min; Glucose 93 mg/dl (70-99); Potassium 5.1 mmol/L (3.5-5.1); Sodium 142 mmol/L (135-145); eGFR 41.52
[2025-02-18 07:48] LABS: Hepatitis C Antibody Negative (Negative)
--- NOTE | 2025-02-18 08:27 | PTOTSP ---
Received order for PT and reviewed chart and old record. Pt is from [facility] where he has been nonambulatory for years. Pt has no acute PT needs/goals. Nursing staff could use Tiffany lift for safer transfers. PT will sign off.
[2025-02-18] MEDS: ASPIR LOW (ENTERIC COATED) 81 MG PO (09:27)
[2025-02-18] MEDS: CATAPRES 0.1 MG PO ×2 (09:27→22:04)
[2025-02-18] MEDS: DESENEX/MITRAZOL/ZEASORB 1 APPLIC TOPICAL ×2 (09:27→22:05)
[2025-02-18] MEDS: COLACE 100 MG PO ×2 (09:27→22:00)
[2025-02-18] MEDS: DITROPAN 2.5 MG PO (09:28)
[2025-02-18] MEDS: PROSCAR 5 MG PO (09:29)
[2025-02-18] MEDS: FEOSOL 325 MG PO (09:29)
[2025-02-18] MEDS: SENOKOT-S 1 TABLET PO ×2 (09:29→22:04)
[2025-02-18] MEDS: MAGNESIUM OXIDE 500 MG PO ×2 (09:29→22:02)
[2025-02-18] MEDS: KEPPRA 500 MG PO ×2 (09:29→22:01)
[2025-02-18] MEDS: PROTONIX 40 MG PO ×2 (09:29→17:15)
[2025-02-18] MEDS: ZYLOPRIM 100 MG PO (09:30)
--- NOTE | 2025-02-18 11:29 | W.PN.NEPH.PH ---
Today's Communication / Plan
-
EPO
Assessment/Plan
-
Impression:
CKD 3b (1.7)
Azotemia
Anemia
PPM
HFpEF, chronic
CAD
Aortic stenosis, moderate-severe
Hypertension
Neurogenic bladder with chronic indwelling Villarreal catheter
Bedbound
Hypothyroidism stable
Hyperkalemia
Plan:
follow BMP
no lokelma today
EPO 20k today
follow hgb
no bumex today, on restart only 1mg daily
-
-
Date of Service: February 18, 2025
CC / HPI / ROS
-
Chief Complaint:
azotemia
History of Present Illness:
BUN down to 99
CKD/Cr stable 1.7
Hgb 8.2 stable
BP stable
no confusion
Review of Systems:
no CP/SOB
weight stable
Labs
-
Labs:
WBC 6.2 10^3/uL (4.8-10.8) 02/18/25 05:44
RBC 2.72 10^6/uL (4.70-6.10) L 02/18/25 05:44
Hgb 8.2 g/dL (13.0-18.0) L 02/18/25 05:44
Hct 25.5 % (39.0-52.0) L 02/18/25 05:44
Plt Count 184 10^3/uL (130-400) 02/18/25 05:44
Sodium 142 mmol/L (135-145) 02/18/25 05:44
Potassium 5.1 mmol/L (3.5-5.1) 02/18/25 05:44
Chloride 109 mmol/L (98-107) H 02/18/25 05:44
Carbon Dioxide 27 mmol/L (22-30) 02/18/25 05:44
BUN 99 mg/dl (9-20) H 02/18/25 05:44
Creatinine 1.7 mg/dL (0.7-1.3) H 02/18/25 05:44
eGFR 41.52 02/18/25 05:44
Glucose 93 mg/dl (70-99) 02/18/25 05:44
Calcium 9.1 mg/dl (8.4-10.2) 02/18/25 05:44
Physical Exam
-
Vital Signs:
Vital Signs
Temp Pulse Resp BP Pulse Ox
97.8 F 62 17 131/69 100
02/18/25 03:24 02/18/25 11:23 02/18/25 11:23 02/18/25 11:23 02/18/25 11:23
Cardiovascular:: Regular rate and rhythm
Respiratory:: Bilateral: Coarse
Lung Excursion:: Normal
Abdomen:: Nontender and Soft
Bowel Sounds:: Normal
Extremity Edema:: +1: Bilateral:
--- NOTE | 2025-02-18 11:56 | CM ---
Patient seen at bedside
IA completed
Dx:
resides at [facility] since 2019
Referral entered in [facility] to return to [facility]
LM with Maira at [facility]
PLOF: he states he is bedbound, & facility uses [facility]
PT/OT/ST ordered
PCP: Mathew Tejeda
Pharmacy: [facility]
PLAN: Return to [facility] when medically stable
--- NOTE | 2025-02-18 12:46 | W.PN.HOSP.TC ---
Addendum entered and electronically signed by Vijay Osorio DO 02/19/25 10:23:
Additional diagnosis
Functional Quadriplegia- complete immobility due to severe physial disability or frailty
Addendum entered and electronically signed by Vijay Osorio, 02/18/25 14:29:
Additional diagnosis
Wounds:
- Sacral/coccyx MASD.
- L upper posterior thigh small dermal abrasion vs stage 2 pressure injury
- Silicone border foam applied to sacrum and L posterior upper thigh
UTI:
- May be related to chronic Villarreal but unable to determine if it was caused by chronic Villarreal
Original Note:
Today's Communication/Plan
-
Assessment / Plan
Assessment / Plan
General: No Apparent Distress, Comfortable, obese
HEENT: NormoCephalic, Moist mucous membranes, Atraumatic
Respiratory: Coarse breath sounds bilaterally, Non Labored Respirations
Cardiac: S1/S2 and Regular Rhythm; No Rub or Gallop
GI: Soft, Non Tender, Non Distended and Normal Bowel Sounds
Musculoskeletal: Significant bilateral lower extremity edema, no deformity
Skin: Warm and dry, multiple small excoriations on bilateral lower extremities
Neuro: Awake and alert, no tremor
Psych: Calm and cooperative
Mr. Mills is a 74-year-old male with a medical history of CAD, hypertension, sick sinus syndrome (recent pacemaker), HFpEF, OHS/EMANUEL (BiPAP at night), CKD stage IIIb, CVA, hypothyroidism, urinary retention, and morbid obesity who presented from
[facility] due to an episode of unresponsiveness. He was reportedly confused for the past few days prior to presentation. In the ED he became hypoxic and again unresponsive. He was treated with supplemental oxygen and his mental
status improved spontaneously. He was loaded with Keppra and admitted for further evaluation and management.
Acute metabolic encephalopathy:
- Resolved
- Unclear etiology, witnessed unresponsive episode in the ED was associated with hypoxia and resolved spontaneously
- Possibly due to seizures, neurology following and recommend continuing Keppra
- He is also chronically uremic for unclear reasons, nephrology following, we will continue workup for GI bleeding, stool occult blood pending, hemoglobin level stable
- Presentation may be related to urinary tract infection, urine culture growing gram-negative bacilli, currently treating empirically with cefepime, follow-up speciation and sensitivities
- Continue BiPAP at night
- Ammonia level undetectable, TSH within normal limits
Anemia:
- Chronic likely secondary to advanced CKD
- Hemoglobin stable currently
- Monitor for evidence of bleeding including stool occult blood
- Appreciate nephrology guidance, dose of EPO given today
Hyperkalemia:
- Initial potassium 5.2
- Treated medically with Lokelma
- Serum potassium 5.1 today, will monitor
Hypothyroidism
- Continue home Synthroid 175 mcg daily
- TSH within normal limits
DVT prophylaxis: SCDs
CODE STATUS: DNR/DNI
Total time spent on today's encounter was 40 minutes
Anticipated Discharge: 24 - 48 hours
Subjective/Interval History
-
Date of Service: February 18, 2025
Patient was seen and examined at bedside this morning. Mental status significantly improved, appears close to baseline.
Objective Data
-
Labs:
Laboratory Results
02/18/25
05:44
WBC 6.2
Hgb 8.2 L
Hct 25.5 L
Plt Count 184
Sodium 142
Potassium 5.1
Chloride 109 H
Carbon Dioxide 27
BUN 99 H
Creatinine 1.7 H
Glucose 93
Calcium 9.1
Vital Signs:
Vital Signs
Temp Pulse Resp BP Pulse Ox
97.8 F 62 17 131/69 100
02/18/25 03:24 02/18/25 11:23 02/18/25 11:23 02/18/25 11:23 02/18/25 11:23
I&O
02/17/25 02/18/25 02/19/25
06:59 06:59 06:59
Intake Total 720 / 720
Output Total 1450 / 1450
Balance -730 / -730
Review of Systems
-
History Source: Patient
All other systems: Reviewed and negative
Physical Exam
-
General: No Apparent Distress
[2025-02-18] MEDS: RETACRIT 20000 UNITS SC (13:32)
--- NOTE | 2025-02-18 13:39 | PN.CDI ---
CDI
- -
CDI:
Physician Documentation Request
Admit Date: 02/17/25 00:21
Dear Doctor Jo
Please review the following and provide your response in the progress notes.
Clinical Indicators:
Pt admitted with Metabolic Encephalopathy / suspected UTI /Possible Seizures
Documented per H&P, ' - Continue treatment of possible UTI (noting chronic Villarreal sample)..'
Progress note 02/18, ' Presentation may be related to urinary tract infection, urine culture growing gram-negative bacilli, currently treating empirically with cefepime, follow-up speciation and sensitivities..'
Please clarify the relationship between these conditions:
Yes, _UTI__ is related to/associated with/due to _Chronic Villarreal Catheter__.
No, _UTI__ is not related to/associated with/due to _Chronic Villarreal Catheter__ but it is due to ___. (Please specify)
Unable to determine
Use of terms such as suspected, likely, concern for, or probable (associated with a specific diagnosis that is being evaluated, monitored, or treated as if it exists) are acceptable and can be coded in the inpatient setting, when documented at the
time of discharge.
Thank you,
Reta Reese RN
CDI Specialist
[place] [facility]
Please use your independent medical judgment in providing your response.
--- NOTE | 2025-02-18 13:54 | PN.CDI ---
CDI
- -
CDI:
Physician Documentation Request
Admit Date: 02/17/25 00:21
Dear Doctor Jo,
Please review the following and provide your response in the progress notes.
Clinical Indicators:
Pt admitted with Metabolic Encephalopathy / suspected UTI /Possible Seizures
Documented per [facility] note 02/17 @ 1330, ' Sacral/coccyx MASD. L upper posterior thigh small dermal abrasion vs stage 2 pressure injury... Silicone border foam applied to sacrum and L posterior upper thigh...'
Physician documentation of the type and location of wounds is required for compliant documentation. Based on the above clinical findings and your assessment, please provide the following in your progress note:
1. Location of the ulcer/wound, including laterality.
2. Type (etiology) of ulcer/wound:
- Pressure (decubitus) ulcer
- Non-pressure ulcer
- Other ( please specify)
Use of terms such as suspected, likely, concern for, or probable (associated with a specific diagnosis that is being evaluated, monitored, or treated as if it exists) are acceptable and can be coded in the inpatient setting, when documented at the
time of discharge.
Thank you,
Reta Reese RN
CDI Specialist
[place] [facility]
Please use your independent medical judgment in providing your response.
*Source: National Pressure Ulcer Advisory Panel (NPUAP)
--- NOTE | 2025-02-18 15:16 | PTOTSP ---
Orders for OT and reviewed chart and old record. Pt is from [facility] where he is total assist, pratibha for out of bed for several years. No skilled OT indicated. Will sign off.
--- NOTE | 2025-02-18 15:35 | PTCARENOTE ---
Unable to obtain oral or axillary temp. Rectal temp 94.7 Pt sleepy, but able to hold conversation. No complaints from pt. Dr Osorio notified and warm blankets placed on patient.
[2025-02-18] MEDS: LIPITOR 60 MG PO (17:15)
[2025-02-18] MEDS: FLOMAX 0.4 MG PO (17:15)
[2025-02-18] MEDS: MELATONIN 3 MG PO (22:04)
[2025-02-19] VITALS (9 sets, daily range): BP systolic 107–150; BP diastolic 48–74; PULSE 2–73
[2025-02-19] MEDS: STERILE WATER FOR INJECTION 10 ML IV ×2 (03:58→13:41)
[2025-02-19] MEDS: MAXIPIME 2000 MG IV ×2 (03:59→13:41)
[2025-02-19 06:25] LABS: % Eosinophils 5.1 % (0-6); % Immature Granulocytes 0.5 % (0-0.5); % Lymphocytes 26.6 % (20.5-51.1); % Monocytes 10.6 % (1.7-9.3); % Neutrophils 56.2 % (42.2-75.2); Absolute Basophils 0.1 10^3/uL (0-0.2); Absolute Eosinophils 0.3 10^3/uL (0-0.7); Absolute Lymphocytes 1.6 10^3/uL (1.2-3.4); Absolute Monocytes 0.6 10^3/uL (0.1-0.6); Absolute Neutrophils 3.4 10^3/uL (1.4-6.5); Hematocrit 23.8 % (39.0-52.0); Hemoglobin 7.6 g/dL (13.0-18.0); Mean Corp Hgb Conc. 31.9 g/dL (33.0-37.0); Mean Corpuscular Hgb 30.3 pg (27.0-31.0); Mean Corpuscular Volume 94.8 fL (80.0-94.0); Mean Platelet Volume 11.3 fL (7.4-10.4); Nucleated Red Blood Cells % 0 % (-); Platelet Count 176 10^3/uL (130-400); Red Blood Cell Count 2.51 10^6/uL (4.70-6.10); Red Cell Dist. Width 16.2 % (11.5-14.5); White Blood Cell Count 6.1 10^3/uL (4.8-10.8)
[2025-02-19] MEDS: SYNTHROID 175 MCG PO (06:27)
[2025-02-19 06:53] LABS: Blood Urea Nitrogen 99 mg/dl (9-20); Calcium 8.9 mg/dl (8.4-10.2); Carbon Dioxide 29 mmol/L (22-30); Chloride 111 mmol/L (98-107); Estimated Creatinine Clearance 42 ml/min; Glucose 99 mg/dl (70-99); Potassium 5.8 mmol/L (3.5-5.1); Sodium 142 mmol/L (135-145); eGFR 38.77
[2025-02-19] MEDS: ZOFRAN 4 MG IV ×2 (07:34→17:47)
[2025-02-19] MEDS: FLUSH (NSS) 2 FLUSH IV (07:35)
[2025-02-19] MEDS: CATAPRES 0.1 MG PO ×2 (09:01→21:23)
[2025-02-19] MEDS: ZYLOPRIM 100 MG PO (09:01)
[2025-02-19] MEDS: KEPPRA 500 MG PO ×2 (09:01→21:23)
[2025-02-19] MEDS: ASPIR LOW (ENTERIC COATED) 81 MG PO (09:01)
[2025-02-19] MEDS: MAGNESIUM OXIDE 500 MG PO ×2 (09:01→21:22)
[2025-02-19] MEDS: DITROPAN 2.5 MG PO (09:02)
[2025-02-19] MEDS: PROTONIX 40 MG PO ×2 (09:02→17:14)
[2025-02-19] MEDS: COLACE 100 MG PO ×2 (09:02→21:22)
[2025-02-19] MEDS: FEOSOL 325 MG PO (09:02)
[2025-02-19] MEDS: TYLENOL 650 MG PO ×2 (09:02→21:22)
[2025-02-19] MEDS: SENOKOT-S 1 TABLET PO ×2 (09:02→21:22)
[2025-02-19] MEDS: PROSCAR 5 MG PO (09:02)
[2025-02-19] MEDS: LOKELMA 5 GRAM PO (09:03)
[2025-02-19] MEDS: DESENEX/MITRAZOL/ZEASORB 1 APPLIC TOPICAL ×2 (09:03→21:23)
--- NOTE | 2025-02-19 10:07 | PN.CDI ---
CDI
- -
CDI:
Physician Documentation Request
Admit Date: 02/17/25 00:21
Dear Doctor Jo
Please review the following and provide your response in the progress notes.
Clinical Indicators:
Pt admitted with Metabolic Encephalopathy / suspected UTI /Possible Seizures
Pt progress note 02/18 @ 0827,' Pt is from [facility] where he has been nonambulatory for years. Pt has no acute PT needs/goals. Nursing staff could use Tiffany lift for safer transfers....'
OT progress note 02/18 @1516,' Pt is from [facility] where he is total assist, tiffany for out of bed for several years. No skilled OT indicated...'
Documented per Rehab Panel 02/17 ,' Previous functional ability Dependent ...'
Pt has a chronic indwelling Villarreal catheter , ' incontinence of bowel ' per nursing assessments.
Nephrology note 02/18, ' Neurogenic bladder with chronic indwelling Villarreal catheter Bedbound...'
Please provide n your notes a diagnosis associated with pts current functional ability:
Functional Quadriplegia- complete immobility due to severe physial disability or frailty
Weakness only
Other ( please specify)
Use of terms such as suspected, likely, concern for, or probable (associated with a specific diagnosis that is being evaluated, monitored, or treated as if it exists) are acceptable and can be coded in the inpatient setting, when documented at the
time of discharge.
Thank you,
Reta Reese RN
CDI Specialist
[place] [facility]
Please use your independent medical judgment in providing your response.
--- NOTE | 2025-02-19 12:42 | CM ---
Patient seen at bedside
Resides at [facility] resident since 2019
Referral in [facility]
PLAN: Return to [facility] when medically stable
transportation forms on chart
--- NOTE | 2025-02-19 14:14 | W.PN.HOSP.TC ---
Today's Communication/Plan
-
Assessment / Plan
Assessment / Plan
General: No Apparent Distress, Comfortable, obese
HEENT: NormoCephalic, Moist mucous membranes, Atraumatic
Respiratory: Coarse breath sounds bilaterally, Non Labored Respirations
Cardiac: S1/S2 and Regular Rhythm; No Rub or Gallop
GI: Soft, Non Tender, Non Distended and Normal Bowel Sounds
Musculoskeletal: Significant bilateral lower extremity edema, no deformity
Skin: Warm and dry, multiple small excoriations on bilateral lower extremities
Neuro: Awake and alert, no tremor
Psych: Calm and cooperative
Mr. Mills is a 74-year-old male with a medical history of CAD, hypertension, sick sinus syndrome (recent pacemaker), HFpEF, OHS/EMANUEL (BiPAP at night), CKD stage IIIb, CVA, hypothyroidism, urinary retention, and morbid obesity who presented from
[facility] due to an episode of unresponsiveness. He was reportedly confused for the past few days prior to presentation. In the ED he became hypoxic and again unresponsive. He was treated with supplemental oxygen and his mental
status improved spontaneously. He was loaded with Keppra and admitted for further evaluation and management.
Acute metabolic encephalopathy:
- Resolved
- Unclear etiology, witnessed unresponsive episode in the ED was associated with hypoxia and resolved spontaneously
- Possibly due to seizures, neurology following and recommend continuing Keppra
- He is also chronically uremic for unclear reasons, nephrology following, we will continue workup for GI bleeding, stool occult blood pending, hemoglobin level stable
- Presentation may be related to urinary tract infection, urine culture growing E. coli sensitive to ceftriaxone, will de-escalate to ceftriaxone
- Continue BiPAP at night
- Ammonia level undetectable, TSH within normal limits
Anemia:
- Chronic likely secondary to advanced CKD
- Hemoglobin stable currently
- Monitor for evidence of bleeding including stool occult blood
- Appreciate nephrology guidance, dose of EPO given
Hyperkalemia:
- Initial potassium 5.2, improved with Lokelma
- Serum potassium 5.8 today, Lokelma given again, will monitor
Hypothyroidism
- Continue home Synthroid 175 mcg daily
- TSH within normal limits
DVT prophylaxis: SCDs
CODE STATUS: DNR/DNI
Total time spent on today's encounter was 40 minutes
Anticipated Discharge: 24 - 48 hours
Subjective/Interval History
-
Date of Service: February 19, 2025
Patient was seen and examined at bedside this morning. Still feels very fatigued but mental status appears at baseline. Hemoglobin at baseline.
Objective Data
-
Labs:
Laboratory Results
02/19/25 02/19/25
06:03 06:04
WBC 6.1
Hgb 7.6 L
Hct 23.8 L
Plt Count 176
Sodium 142
Potassium 5.8 H
Chloride 111 H
Carbon Dioxide 29
BUN 99 H
Creatinine 1.8 H
Glucose 99
Calcium 8.9
Vital Signs:
Vital Signs
Temp Pulse Resp BP Pulse Ox
98 F 61 16 107/53 100
02/19/25 11:13 02/19/25 11:13 02/19/25 11:13 02/19/25 11:13 02/19/25 11:13
I&O
02/18/25 02/19/25 02/20/25
06:59 06:59 06:59
Intake Total 720 / 720 450 / 450
Output Total 1450 / 1450 2049
Balance -730 / -730 -1600 / -1600
Review of Systems
-
History Source: Patient
All other systems: Reviewed and negative
Constitutional: Reports Fatigue and Weakness
Physical Exam
-
General: No Apparent Distress
[2025-02-19] MEDS: FLOMAX 0.4 MG PO (17:14)
[2025-02-19] MEDS: LIPITOR 60 MG PO (17:14)
--- NOTE | 2025-02-19 17:30 | W.PN.NEPH.PH ---
Today's Communication / Plan
-
see plan
Assessment/Plan
-
Impression:
CKD 3b (1.7)
Azotemia
Anemia
PPM
HFpEF, chronic
CAD
Aortic stenosis, moderate-severe
Hypertension
Neurogenic bladder with chronic indwelling Villarreal catheter
Bedbound
Hypothyroidism stable
Hyperkalemia
Plan:
cr stable close to baseline
BUN improving too
need daily wts
strict low k diet (has potato chips and potato soup on the tray)
s/p lokelma today
hb relatively stable, s/p EPO 20k on 02/18
no bumex today, on restart only 1mg daily likely tomorrow
d/w nursing
check daily wts
-
-
Date of Service: February 19, 2025
CC / HPI / ROS
-
Chief Complaint:
azotemia
History of Present Illness:
BUN down to 99, k high 5.8
CKD/Cr stable 1.8
Hgb 7.6 low
BP stable
no confusion
Review of Systems:
no CP/SOB, on 3lit of O2
weight stable
Labs
-
Labs:
WBC 6.1 10^3/uL (4.8-10.8) 02/19/25 06:03
RBC 2.51 10^6/uL (4.70-6.10) L 02/19/25 06:03
Hgb 7.6 g/dL (13.0-18.0) L 02/19/25 06:03
Hct 23.8 % (39.0-52.0) L 02/19/25 06:03
Plt Count 176 10^3/uL (130-400) 02/19/25 06:03
Sodium 142 mmol/L (135-145) 02/19/25 06:04
Potassium 5.8 mmol/L (3.5-5.1) H 02/19/25 06:04
Chloride 111 mmol/L (98-107) H 02/19/25 06:04
Carbon Dioxide 29 mmol/L (22-30) 02/19/25 06:04
BUN 99 mg/dl (9-20) H 02/19/25 06:04
Creatinine 1.8 mg/dL (0.7-1.3) H 02/19/25 06:04
eGFR 38.77 02/19/25 06:04
Glucose 99 mg/dl (70-99) 02/19/25 06:04
Calcium 8.9 mg/dl (8.4-10.2) 02/19/25 06:04
Physical Exam
-
Vital Signs:
Vital Signs
Temp Pulse Resp BP Pulse Ox
97.4 F 61 17 131/64 100
02/19/25 15:20 02/19/25 15:20 02/19/25 15:20 02/19/25 15:20 02/19/25 15:20
Cardiovascular:: Regular rate and rhythm
Respiratory:: Bilateral: Coarse
Lung Excursion:: Normal
Abdomen:: Nontender and Soft
Extremity Edema:: +1: Bilateral:
Villarreal Catheter: No
[2025-02-19] MEDS: LOKELMA 10 GRAM PO (19:33)
[2025-02-19] MEDS: MELATONIN 3 MG PO (21:24)
[2025-02-20] VITALS (8 sets, daily range): BP systolic 156–170; BP diastolic 72–80; PULSE 2–60; BMI 39.6
[2025-02-20] MEDS: SYNTHROID 175 MCG PO (06:18)
[2025-02-20 08:35] LABS: % Eosinophils 4.5 % (0-6); % Immature Granulocytes 1.4 % (0-0.5); % Lymphocytes 27.6 % (20.5-51.1); % Monocytes 11.4 % (1.7-9.3); % Neutrophils 54.1 % (42.2-75.2); Absolute Basophils 0.1 10^3/uL (0-0.2); Absolute Eosinophils 0.3 10^3/uL (0-0.7); Absolute Immature Granulocytes 0.1 10^3/uL (0-0.05); Absolute Lymphocytes 1.9 10^3/uL (1.2-3.4); Absolute Monocytes 0.8 10^3/uL (0.1-0.6); Absolute Neutrophils 3.7 10^3/uL (1.4-6.5); Hematocrit 26.3 % (39.0-52.0); Hemoglobin 8.2 g/dL (13.0-18.0); Mean Corp Hgb Conc. 31.2 g/dL (33.0-37.0); Mean Corpuscular Hgb 30.3 pg (27.0-31.0); Nucleated Red Blood Cells % 0.3 % (-); Platelet Count 178 10^3/uL (130-400); Red Blood Cell Count 2.71 10^6/uL (4.70-6.10); Red Cell Dist. Width 16.4 % (11.5-14.5); White Blood Cell Count 6.9 10^3/uL (4.8-10.8)
[2025-02-20] MEDS: DITROPAN PO ×2 (08:50→17:09)
[2025-02-20] MEDS: KEPPRA 500 MG PO (08:51)
[2025-02-20] MEDS: ASPIR LOW (ENTERIC COATED) PO ×2 (08:51→17:09)
[2025-02-20] MEDS: COLACE PO ×2 (08:51→17:09)
[2025-02-20] MEDS: ZYLOPRIM PO ×2 (08:51→17:10)
[2025-02-20] MEDS: CATAPRES PO ×2 (08:51→17:09)
[2025-02-20] MEDS: FEOSOL PO ×2 (08:51→17:09)
[2025-02-20] MEDS: MAGNESIUM OXIDE PO ×2 (08:51→17:10)
[2025-02-20] MEDS: TYLENOL PO ×2 (08:51→17:10)
[2025-02-20] MEDS: PROSCAR PO ×2 (08:51→17:10)
[2025-02-20] MEDS: PROTONIX PO ×2 (08:51→17:08)
[2025-02-20] MEDS: SENOKOT-S PO ×2 (08:51→17:10)
[2025-02-20] MEDS: DESENEX/MITRAZOL/ZEASORB 1 APPLIC TOPICAL ×2 (08:52→20:04)
[2025-02-20] MEDS: STERILE WATER FOR INJECTION 10 ML IV (08:52)
[2025-02-20] MEDS: ROCEPHIN 1000 MG IV (08:52)
[2025-02-20 08:54] LABS: Blood Urea Nitrogen 91 mg/dl (9-20); Calcium 9.2 mg/dl (8.4-10.2); Carbon Dioxide 31 mmol/L (22-30); Chloride 110 mmol/L (98-107); Estimated Creatinine Clearance 44 ml/min; Glucose 104 mg/dl (70-99); Potassium 5.3 mmol/L (3.5-5.1); Sodium 147 mmol/L (135-145); eGFR 41.52
[2025-02-20] MEDS: FLUSH (NSS) 2 FLUSH IV (08:54)
[2025-02-20] MEDS: ZOFRAN 4 MG IV (08:56)
--- NOTE | 2025-02-20 10:19 | W.PN.HOSP.TC ---
Today's Communication/Plan
-
Assessment / Plan
Assessment / Plan
General: No Apparent Distress, Comfortable, obese
HEENT: NormoCephalic, Moist mucous membranes, Atraumatic
Respiratory: Coarse breath sounds bilaterally, Non Labored Respirations
Cardiac: S1/S2 and Regular Rhythm; No Rub or Gallop
GI: Soft, Non Tender, Non Distended and Normal Bowel Sounds
Musculoskeletal: Significant bilateral lower extremity edema, no deformity
Skin: Warm and dry, multiple small excoriations on bilateral lower extremities
Neuro: Awake and alert, no tremor
Psych: Calm and cooperative
Mr. Mills is a 74-year-old male with a medical history of CAD, hypertension, sick sinus syndrome (recent pacemaker), HFpEF, OHS/EMANUEL (BiPAP at night), CKD stage IIIb, CVA, hypothyroidism, urinary retention, and morbid obesity who presented from
[facility] due to an episode of unresponsiveness. He was reportedly confused for the past few days prior to presentation. In the ED he became hypoxic and again unresponsive. He was treated with supplemental oxygen and his mental
status improved spontaneously. He was loaded with Keppra and admitted for further evaluation and management.
Acute metabolic encephalopathy:
- Resolved
- Unclear etiology, witnessed unresponsive episode in the ED was associated with hypoxia and resolved spontaneously
- Possibly due to seizures, neurology following and recommend continuing Keppra
- He is also chronically uremic for unclear reasons, nephrology following, we will continue workup for GI bleeding, stool occult blood pending, hemoglobin level stable
- Presentation may be related to urinary tract infection, urine culture growing E. coli sensitive to ceftriaxone, will de-escalate to ceftriaxone
- Continue BiPAP at night
- Ammonia level undetectable, TSH within normal limits
Nausea and vomiting:
- Not associated with abdominal pain or diarrhea
- Supportive care, antiemetics as needed
Anemia:
- Chronic likely secondary to advanced CKD
- Hemoglobin stable currently
- Monitor for evidence of bleeding, stool occult blood test pending
- Appreciate nephrology guidance, dose of EPO given
Hyperkalemia:
- Initial potassium 5.2, improved with Lokelma
- Serum potassium 5.3 today, will monitor
Hypothyroidism
- Continue home Synthroid 175 mcg daily
- TSH within normal limits
DVT prophylaxis: SCDs
CODE STATUS: DNR/DNI
Total time spent on today's encounter was 40 minutes
Anticipated Discharge: 24 - 48 hours
Subjective/Interval History
-
Date of Service: February 20, 2025
Patient was seen and examined at bedside this morning. Still feeling very weak. Was nauseous this overnight and this morning with multiple episodes of vomiting. Hemoglobin stable. Stool occult blood test still pending.
Objective Data
-
Labs:
Laboratory Results
02/20/25
06:55
WBC 6.9
Hgb 8.2 L
Hct 26.3 L
Plt Count 178
Sodium 147 H
Potassium 5.3 H
Chloride 110 H
Carbon Dioxide 31 H
BUN 91 H
Creatinine 1.7 H
Glucose 104 H
Calcium 9.2
Vital Signs:
Vital Signs
Temp Pulse Resp BP Pulse Ox
97.4 F 62 18 165/79 96
02/20/25 07:00 02/20/25 08:51 02/20/25 07:00 02/20/25 08:51 02/20/25 07:00
I&O
02/19/25 02/20/25 02/21/25
06:59 06:59 06:59
Intake Total 450 / 450 1600 / 1600
Output Total 2049 650 / 650
Balance -1600 / -1600 950 / 950
Review of Systems
-
History Source: Patient
All other systems: Reviewed and negative
Constitutional: Reports Fatigue and Weakness
Abdomen/GI: Reports Nausea and Vomiting
Physical Exam
-
General: No Apparent Distress, Conversant and Morbidly Obese
[2025-02-20] MEDS: TIGAN 200 MG IM ×2 (10:32→22:00)
[2025-02-20] MEDS: BUMEX 1 MG PO (13:10)
[2025-02-20] MEDS: PROTONIX 40 MG PO (17:15)
[2025-02-20] MEDS: FLOMAX 0.4 MG PO (17:15)
[2025-02-20] MEDS: LIPITOR 60 MG PO (17:15)
--- NOTE | 2025-02-20 17:39 | W.PN.NEPH.PH ---
Today's Communication / Plan
-
prn IVF
follow labs
Assessment/Plan
-
Impression:
CKD 3b (1.7)
Azotemia
Anemia
PPM
HFpEF, chronic
CAD
Aortic stenosis, moderate-severe
Hypertension
Neurogenic bladder with chronic indwelling Villarreal catheter
Bedbound
Hypothyroidism stable
Hyperkalemia
Plan:
cr stable close to baseline
BUN improving too
n/v today. CT abd no acute, bilat atrophic kidneys with cysts, one lesion peripherally calcified-likely need out pt f/u
strict low k diet (has potato chips and potato soup on the tray)
K improving, no lokelma today with GI issues
hypernatremia-monitor with water intake, if worse hypotonic fluid tomorrow
hb relatively stable, s/p EPO 20k on 02/18
hold bumex with n/v
d/w nursing
folow daily wts
-
-
Date of Service: February 20, 2025
CC / HPI / ROS
-
Chief Complaint:
azotemia
History of Present Illness:
BUN down to 91, k high 5.3-better
CKD/Cr stable 1.7
Hgb 8.2 low
BP stable
no confusion
Review of Systems:
no CP/SOB, on 3lit of O2
weight down
n/v today, had bm
Labs
-
Labs:
WBC 6.9 10^3/uL (4.8-10.8) 02/20/25 06:55
RBC 2.71 10^6/uL (4.70-6.10) L 02/20/25 06:55
Hgb 8.2 g/dL (13.0-18.0) L 02/20/25 06:55
Hct 26.3 % (39.0-52.0) L 02/20/25 06:55
Plt Count 178 10^3/uL (130-400) 02/20/25 06:55
Sodium 147 mmol/L (135-145) H 02/20/25 06:55
Potassium 5.3 mmol/L (3.5-5.1) H 02/20/25 06:55
Chloride 110 mmol/L (98-107) H 02/20/25 06:55
Carbon Dioxide 31 mmol/L (22-30) H 02/20/25 06:55
BUN 91 mg/dl (9-20) H 02/20/25 06:55
Creatinine 1.7 mg/dL (0.7-1.3) H 02/20/25 06:55
eGFR 41.52 02/20/25 06:55
Glucose 104 mg/dl (70-99) H 02/20/25 06:55
Calcium 9.2 mg/dl (8.4-10.2) 02/20/25 06:55
Physical Exam
-
Vital Signs:
Vital Signs
Temp Pulse Resp BP Pulse Ox
97.4 F 61 16 156/80 99
02/20/25 15:00 02/20/25 15:00 02/20/25 15:00 02/20/25 15:00 02/20/25 15:00
Cardiovascular:: Regular rate and rhythm
Lung Excursion:: Normal (decreased bilat)
Abdomen:: Nontender and Soft
Bowel Sounds:: Decreased
Extremity Edema:: +1: Bilateral:
Villarreal Catheter: No
--- NOTE | 2025-02-20 18:08 | PTCARENOTE ---
pt unable to take PO 8AM meds today due to nausea and multiple episodes of vomiting. Pt was TTP throughout abdomen w/ pain worse in the RLQ, and gagging upon light palpation. Dr. Osorio notified via tt, abd/pelvis CT ordered and IM tigan
ordered and administered, see NOV. Pt threw up during CT scan. Pt stated he did not feel well multiple times today and was presenting worse when compared to yesterday. pt did not eat breakfast or lunch, pt took afternoon meds. Keppra dose decreased,
bumex on hold, AM labs orderd to monitor keprra levels.
[2025-02-20] MEDS: MAGNESIUM OXIDE 500 MG PO (20:01)
[2025-02-20] MEDS: SENOKOT-S 1 TABLET PO (20:01)
[2025-02-20] MEDS: TYLENOL 650 MG PO (20:01)
[2025-02-20] MEDS: KEPPRA 250 MG PO (20:01)
[2025-02-20] MEDS: COLACE 100 MG PO (20:01)
[2025-02-20] MEDS: CATAPRES 0.1 MG PO (20:01)
[2025-02-20] MEDS: MELATONIN PO (21:42)
[2025-02-21] VITALS (8 sets, daily range): BP systolic 130–159; BP diastolic 73–84; PULSE 2–81; BMI 39.7; BMI 39.5
[2025-02-21] MEDS: SYNTHROID 175 MCG PO (05:59)
[2025-02-21 08:18] LABS: Blood Urea Nitrogen 82 mg/dl (9-20); Calcium 9.6 mg/dl (8.4-10.2); Carbon Dioxide 28 mmol/L (22-30); Chloride 114 mmol/L (98-107); Estimated Creatinine Clearance 47 ml/min; Glucose 101 mg/dl (70-99); Potassium 5.1 mmol/L (3.5-5.1); Sodium 149 mmol/L (135-145); eGFR 44.65
[2025-02-21] MEDS: PROTONIX PO ×3 (08:46→16:06)
[2025-02-21] MEDS: TYLENOL PO ×3 (08:46→21:05)
[2025-02-21] MEDS: ASPIR LOW (ENTERIC COATED) PO ×2 (08:46→15:04)
[2025-02-21] MEDS: KEPPRA 250 MG PO (08:47)
[2025-02-21] MEDS: MAGNESIUM OXIDE PO ×3 (08:47→21:05)
[2025-02-21] MEDS: SENOKOT-S PO ×3 (08:47→21:05)
[2025-02-21] MEDS: ZYLOPRIM PO ×2 (08:47→15:05)
[2025-02-21] MEDS: PROSCAR PO ×2 (08:47→15:05)
[2025-02-21] MEDS: CATAPRES PO ×3 (08:47→21:05)
[2025-02-21] MEDS: FEOSOL PO ×2 (08:47→15:05)
[2025-02-21] MEDS: DITROPAN PO ×2 (08:47→15:05)
[2025-02-21] MEDS: COLACE PO ×3 (08:47→21:05)
[2025-02-21] MEDS: ROCEPHIN 1000 MG IV (08:48)
[2025-02-21] MEDS: STERILE WATER FOR INJECTION 10 ML IV (08:48)
[2025-02-21] MEDS: FLUSH (NSS) 2 FLUSH IV (08:48)
[2025-02-21] MEDS: DESENEX/MITRAZOL/ZEASORB 1 APPLIC TOPICAL ×2 (09:27→21:07)
[2025-02-21 09:52] LABS: B.E. 3.3 mmol/L; HCO3 27.8 mmol/L (21-28); O2 Saturation % 98.3 % (94-98); PCO2 41 mmHg (35-48); PO2 116 mmHg (83-108); pH 7.44 (7.35-7.45)
[2025-02-21 09:53] LABS: O2 Therapy bipap
--- NOTE | 2025-02-21 11:32 | W.PN.HOSP.TC ---
Today's Communication/Plan
-
Assessment / Plan
Assessment / Plan
General: No Apparent Distress, somnolent but arousable
HEENT: NormoCephalic, Moist mucous membranes, on BiPAP
Respiratory: Coarse breath sounds bilaterally, Non Labored Respirations
Cardiac: S1/S2 and Regular Rhythm; No Rub or Gallop
GI: Soft, mild TTP right upper quadrant, Normal Bowel Sounds
Musculoskeletal: Significant bilateral lower extremity edema, no deformity
Skin: Warm and dry, multiple small excoriations on bilateral lower extremities
Neuro: Somnolent but arousable, no tremor
Psych: Calm and cooperative
Mr. Mills is a 74-year-old male with a medical history of CAD, hypertension, sick sinus syndrome (recent pacemaker), HFpEF, OHS/EMANUEL (BiPAP at night), CKD stage IIIb, CVA, hypothyroidism, urinary retention, and morbid obesity who presented from
[facility] due to an episode of unresponsiveness. He was reportedly confused for the past few days prior to presentation. In the ED he became hypoxic and again unresponsive. He was treated with supplemental oxygen and his mental
status improved spontaneously. He was loaded with Keppra and admitted for further evaluation and management.
Acute metabolic encephalopathy:
- Mental status worse today despite improving BUN
- Unclear etiology, possibly due to seizures, neurology following and recommend continuing Keppra
- I had decreased his Keppra to 250 mg twice daily yesterday due to nausea and renal function, however we will increase it back to 500 mg twice daily today which is still acceptable for his creatinine clearance
- He is also chronically uremic for unclear reasons, nephrology following, we will continue workup for GI bleeding, stool occult blood pending, hemoglobin level stable
- Possibly due to UTI, transitioned to ceftriaxone 02/20 based on cultures, will hold for now in case it is contributing to his encephalopathy, has received 5 days of antibiotics already
- Check LFTs
- Continue BiPAP at night
- Ammonia level undetectable, TSH within normal limits
LEE on CKD stage IIIb:
- Renal function and BUN improving
- Restarted Bumex at decreased dose of 1 mg daily
- Appreciate nephrology guidance
Nausea and vomiting:
- Has some right upper quadrant abdominal pain, unrevealing but severely limited CT imaging
- Supportive care, antiemetics as needed
Anemia:
- Chronic likely secondary to advanced CKD
- Hemoglobin stable currently
- Monitor for evidence of bleeding, stool occult blood test pending
- Appreciate nephrology guidance, dose of EPO given
Hyperkalemia:
- Initial potassium 5.2, improved with Lokelma
- Serum potassium 5.1 today, will monitor
Hypothyroidism
- Continue home Synthroid 175 mcg daily
- TSH within normal limits
DVT prophylaxis: SCDs
CODE STATUS: DNR/DNI
Total time spent on today's encounter was 40 minutes
Anticipated Discharge: > 48 hours
Subjective/Interval History
-
Date of Service: February 21, 2025
Patient was seen and examined at bedside this morning. Somnolent but arousable, on BiPAP. Complains of some right upper quadrant abdominal pain. Abdominal imaging yesterday was significantly limited due to body habitus and lack of contrast
considering his poor renal function and nausea with vomiting.
Objective Data
-
Labs:
Laboratory Results
02/21/25 02/21/25
07:41 09:32
HCO3 27.8
Sodium 149 H
Potassium 5.1
Chloride 114 H
Carbon Dioxide 28
BUN 82 H
Creatinine 1.6 H
Glucose 101 H
Calcium 9.6
Vital Signs:
Vital Signs
Temp Pulse Resp BP Pulse Ox
97.3 F 62 18 147/74 99
02/21/25 11:18 02/21/25 11:18 02/21/25 11:18 02/21/25 11:18 02/21/25 11:18
I&O
02/20/25 02/21/25 02/22/25
06:59 06:59 06:59
Intake Total 1600 / 1600 480 / 480
Output Total 650 / 650 1700 / 1700
Balance 950 / 950 -1220 / -1220
Review of Systems
-
History Source: Patient
All other systems: Reviewed and negative
Constitutional: Reports Fatigue and Weakness
Abdomen/GI: Reports Abdominal Pain and Nausea
Physical Exam
-
General: Appears Chronically Ill
[2025-02-21 12:39] LABS: ALT (SGPT) 24 U/L (0-50); AST (SGOT) 20 U/L (17-59); Albumin 3.6 g/dl (3.5-5.0); Alkaline Phosphatase 98 U/L (38-126); Direct Bilirubin 0.2 mg/dl (0.0-0.4); Total Bilirubin 0.5 mg/dl (0.2-1.3); Total Protein 6.4 g/dl (6.3-8.2)
--- NOTE | 2025-02-21 15:05 | W.PN.NEPH.PH ---
Today's Communication / Plan
-
hypotonic fluids for hypernatremia
Assessment/Plan
-
Impression:
CKD 3b (1.7)
Azotemia
Anemia
PPM
HFpEF, chronic
CAD
Aortic stenosis, moderate-severe
Hypertension
Neurogenic bladder with chronic indwelling Villarreal catheter
Bedbound
Hypothyroidism stable
Hyperkalemia
Plan:
cr stable close to baseline
BUN improving too
now with worsening hypernatremia-will start hypotonic fluids as po intake seem poor, FWD 4.2lit
CT abd no acute, bilat atrophic kidneys with cysts, one lesion peripherally calcified-likely need out pt f/u
strict low k diet
hb relatively stable, s/p EPO 20k on 02/18
hold bumex
d/w nursing
folow daily wts
-
-
Date of Service: February 21, 2025
CC / HPI / ROS
-
Chief Complaint:
azotemia
History of Present Illness:
BUN down to 82, k high 5.1-better
CKD/Cr stable 1.6
Hgb 8.2 low
BP stable, sodium 149
confusion
Review of Systems:
no fever on 3lit of O2
weight down
on CPAP durng visit and unable to provid ehistory
Labs
-
Labs:
WBC 6.9 10^3/uL (4.8-10.8) 02/20/25 06:55
RBC 2.71 10^6/uL (4.70-6.10) L 02/20/25 06:55
Hgb 8.2 g/dL (13.0-18.0) L 02/20/25 06:55
Hct 26.3 % (39.0-52.0) L 02/20/25 06:55
Plt Count 178 10^3/uL (130-400) 02/20/25 06:55
Sodium 149 mmol/L (135-145) H 02/21/25 07:41
Potassium 5.1 mmol/L (3.5-5.1) 02/21/25 07:41
Chloride 114 mmol/L (98-107) H 02/21/25 07:41
Carbon Dioxide 28 mmol/L (22-30) 02/21/25 07:41
BUN 82 mg/dl (9-20) H 02/21/25 07:41
Creatinine 1.6 mg/dL (0.7-1.3) H 02/21/25 07:41
eGFR 44.65 02/21/25 07:41
Glucose 101 mg/dl (70-99) H 02/21/25 07:41
Calcium 9.6 mg/dl (8.4-10.2) 02/21/25 07:41
Albumin 3.6 g/dl (3.5-5.0) 02/21/25 07:41
Physical Exam
-
Vital Signs:
Vital Signs
Temp Pulse Resp BP Pulse Ox
97.3 F 62 18 147/74 99
02/21/25 11:18 02/21/25 11:18 02/21/25 11:18 02/21/25 11:18 02/21/25 11:18
Cardiovascular:: Regular rate and rhythm
Respiratory:: Bilateral: Coarse
Lung Excursion:: Normal (decreased bilat)
Abdomen:: Nontender and Soft
Bowel Sounds:: Decreased
Extremity Edema:: +1: Bilateral:
Villarreal Catheter: No
[2025-02-21] MEDS: D5W 1000 IV (15:25)
[2025-02-21] MEDS: FLOMAX PO (16:06)
[2025-02-21] MEDS: LIPITOR PO (16:06)
--- NOTE | 2025-02-21 16:30 | PTCARENOTE ---
Pt lethargic today. pt will briefly open eyes for verbal or tactile stimuli. Pt unable to take PO meds this AM. Dr. Osorio notified about pt status at 900AM. ABGs and additional labs added on. Pt remained in biPAP today, on continuous pulse ox
stating high 90s-100%, tele renewed due to pt significant change in status over the past day. Abx dc'd. Nephro added IVF, d% water @ 80ml/hr. Villarreal bag has 500ml at this time. Pt unable to eat breakfast or lunch. provider switched Keppra to PO and
added PRN hydralazine. VSS at this time and throughout the day. pt running A-V paced on the monitor.
--- NOTE | 2025-02-21 20:32 | W.PN.NEURO.1 ---
Today's Communication / Plan
-
d/c keppra
Neuro Assessment/Plan
Assessment
EEG tracing reviewed, continuous generalized slow
Head CT imgs rev'd, moderate diffuse atrophy and microvascular changes
reasonable story for a possible seizure if truly episodic and happens the same way each time, however I would not be able to confirm seizure or not without capturing a spell on EEG, which does not seem reasonable in this situation
after starting keppra mentation seems to have worsened, will D/C keppra though there are numerous other reasons potentially contributing to his lethargy including hypoxia, chronic uremia, dehydration, possible UTI, toxicity of beta lactams
recent pacemaker placed 1 month ago, can't get MRI
Plan
d/c keppra
Subjective/Objective
Subjective Data
Date of Service: February 21, 2025
from [facility]:
74yo M with PMH CAD, HTN/HLD, SSS s/p Recent PPM, HFpEF (TTE 01/06/25 wtih EF 55-60%, inferior, apical anterior akinesis/dyskinesis), Obesity Hypoventilation/EMANUEL on Bipap, Hypothyroidism, CKD IIIb, Hx CVA, BPH, urinary Retention, Gout, Morbid Obesity
who presents from [facility] for Confusion followed by unresponsive episode at [facility]. Pt is a limited historian. Pt reportedly confused for the past few days. He is AAOx2 (does not know year). Endorses headache. Otherwise history
limited. Denies F/C, CP, Palps, SOB, Cough, abd pain, n/v/d/c, dysuria, calf or leg pain.
on admission 4 days ago, I felt that episodes of confusion followed by unresponsive could be a seizure if it was truly episodic and happened the same way each time. I gave him a trial of Keppra 500 BID. since admission, he has been very sleepy.
Objective Data
Vital Signs
Temp Pulse Resp BP Pulse Ox
36.2 C 62 16 155/76 99
02/21/25 19:00 02/21/25 19:00 02/21/25 19:00 02/21/25 19:00 02/21/25 19:00
Lab Results
02/20/25 06:55
02/21/25 07:41
PT 14.3 Sec (11.4-14.6) 02/17/25 06:08
INR 1.06 02/17/25 06:08
APTT 31.6 Sec (23.4-35.0) 02/17/25 06:08
Sodium 149 mmol/L (135-145) H 02/21/25 07:41
Potassium 5.1 mmol/L (3.5-5.1) 02/21/25 07:41
BUN 82 mg/dl (9-20) H 02/21/25 07:41
Glucose 101 mg/dl (70-99) H 02/21/25 07:41
Calcium 9.6 mg/dl (8.4-10.2) 02/21/25 07:41
Vitamin B12 885 pg/ml (239-931) 02/17/25 06:08
Patient Allergies
No Known Allergies Allergy (Verified 08/22/24 23:00)
Physical Exam
-
on bipap
lethargic, opens eyes, moans, shakes head no, and loc/withdraws to noxious stim
no meanful speech, does not follow commands.
[2025-02-21] MEDS: MELATONIN PO (21:05)
[2025-02-22] VITALS (7 sets, daily range): BP systolic 147–170; BP diastolic 70–83; PULSE 2–88; BMI 39.6
[2025-02-22] MEDS: D5W 1000 IV ×2 (03:59→17:21)
[2025-02-22] MEDS: SYNTHROID PO (05:10)
--- NOTE | 2025-02-22 08:23 | W.PN.NEURO.1 ---
Today's Communication / Plan
-
Monitor
Supportive care
Neuro Assessment/Plan
Assessment
EEG tracing reviewed, continuous generalized slow
Head CT imgs rev'd, moderate diffuse atrophy and microvascular changes
reasonable story for a possible seizure
Initiated then D/C yoshi, there are numerous other reasons potentially contributing to his lethargy including hypoxia, chronic uremia, dehydration, possible UTI, toxicity of beta lactams
recent pacemaker placed 1 month ago, can't get MRI
Plan
Monitor
Supportive care
Will follow as needed
Subjective/Objective
Subjective Data
Date of Service: February 22, 2025
Objective Data
Vital Signs
Temp Pulse Resp BP Pulse Ox
36.5 C 61 18 160/72 97
02/22/25 07:00 02/22/25 07:00 02/22/25 07:00 02/22/25 07:00 02/22/25 07:00
Lab Results
02/20/25 06:55
PT 14.3 Sec (11.4-14.6) 02/17/25 06:08
INR 1.06 02/17/25 06:08
APTT 31.6 Sec (23.4-35.0) 02/17/25 06:08
Sodium 149 mmol/L (135-145) H 02/21/25 07:41
Potassium 5.1 mmol/L (3.5-5.1) 02/21/25 07:41
BUN 82 mg/dl (9-20) H 02/21/25 07:41
Glucose 101 mg/dl (70-99) H 02/21/25 07:41
Calcium 9.6 mg/dl (8.4-10.2) 02/21/25 07:41
Vitamin B12 885 pg/ml (239-931) 02/17/25 06:08
Patient Allergies
No Known Allergies Allergy (Verified 08/22/24 23:00)
Data Reviewed
-
CT Head: Report Reviewed
Labs: Report Reviewed
Reviewed with: Physician
Old Records: Summarized
Past History
Past History
ED Past Medical History: CAD, CHF (HFpEF), CVA, HTN, Hypercholesterolemia, NIDDM, [place], Hypothyroidism and Other (BPH, urinary retention, gout, headaches, morbid obesity, obstructive sleep apnea)
ED Past Surgical History: Cardiac (Coronary stents, pacemaker placement 2024) and Other (Eye surgery)
Social History
Tobacco: Non-smoker
Alcohol: None
Drug: None
Personal: Other
Living: [facility]
Employment: Retired
Family History
Family History: Unable to obtain
Medications
-
Medications:
Generic Name Dose Route Start Last Admin
Trade Name Freq PRN Reason Stop Dose Admin
Acetaminophen 650 mg 02/17/25 08:00 02/21/25 21:05
Acetaminophen 325 Mg Tablet PO 03/17/25 07:59 Not Given
BID RAFAEL
Acetaminophen 650 mg 02/17/25 01:40 02/18/25 15:31
Acetaminophen 325 Mg Tablet PO 03/17/25 01:39 650 mg
Q4HPRN PRN Administration
mild pain/MARADIAGA/temp> 100.4F
Allopurinol 100 mg 02/17/25 08:00 02/21/25 15:05
Allopurinol 100 Mg Tablet PO 03/17/25 07:59 Not Given
DAILY RAFAEL
Aspirin 81 mg 02/17/25 08:00 02/21/25 15:04
Aspirin 81 Mg (Enteric Coated) Tablet PO 03/17/25 07:59 Not Given
DAILY RAFAEL
Atorvastatin Calcium 60 mg 02/17/25 18:00 02/21/25 16:06
Atorvastatin (Lipitor) 40 Mg Tablet PO 03/17/25 17:59 Not Given
QPM RAFAEL
Bisacodyl 10 mg 02/16/25 23:35
Bisacodyl 10 Mg Rectal Suppository RECTAL 03/16/25 23:34
DAILYPRN PRN
if no bm after mom
Bisacodyl 10 mg 02/17/25 01:40
Bisacodyl 10 Mg Rectal Suppository RECTAL 03/17/25 01:39
[id number] PRN
constipation
Bumetanide 1 mg 02/20/25 13:00 02/20/25 13:10
Bumetanide 1 Mg Tablet PO 03/20/25 12:59 1 mg
DAILY RAFAEL Administration
Calcium Carbonate 200 mg 02/16/25 23:35
Calcium Antacid 200 Mg (Calcium Carbonate 500 Mg) Chew Tablet PO 03/16/25 23:34
Q8HPRN PRN
indigestion
Clonidine HCl 0.1 mg 02/17/25 08:00 02/21/25 21:05
Clonidine 0.1 Mg Tablet PO 03/17/25 07:59 Not Given
BID RAFAEL
Docusate Sodium 100 mg 02/17/25 08:00 02/21/25 21:05
Docusate Sodium 100 Mg Capsule PO 03/17/25 07:59 Not Given
BID RAFAEL
Ferrous Sulfate 325 mg 02/17/25 08:00 02/21/25 15:05
Ferrous Sulfate 325 Mg Tablet PO 03/17/25 07:59 Not Given
DAILY RAFAEL
Finasteride 5 mg 02/17/25 08:00 02/21/25 15:05
Finasteride 5 Mg Tablet PO 03/17/25 07:59 Not Given
DAILY RAFAEL
Hydralazine HCl 10 mg 02/21/25 15:46
Hydralazine 20 Mg/Ml Vial IV 03/21/25 15:45
Q4HPRN PRN
for SBP >170
Dextrose 1,000 mls @ 80 mls/hr 02/21/25 16:00 02/22/25 03:59
D5w IV 1,000 mls
.[id number] RAFAEL Administration
Levothyroxine Sodium 175 mcg 02/17/25 06:00 02/22/25 05:10
Levothyroxine 175 Mcg Tablet PO 03/17/25 05:59 Not Given
DAILY @ 0600 RAFAEL
Magnesium Hydroxide 30 ml 02/16/25 23:35
Milk Of Magnesia 30 Ml Cup PO 03/16/25 23:34
DAILYPRN PRN
if no bm in 3 days
Magnesium Oxide 500 mg 02/17/25 08:00 02/21/25 21:05
Magnesium Oxide 500 Mg Tablet PO 03/17/25 07:59 Not Given
BID RAFAEL
Melatonin 3 mg 02/17/25 22:00 02/21/25 21:05
Melatonin 3 Mg Tablet PO 03/17/25 21:59 Not Given
HS RAFAEL
Miconazole Nitrate 0 applic 02/17/25 08:00 02/21/25 21:07
Miconazole Powder Bottle TOPICAL 03/17/25 07:59 1 applic
BID RAFAEL Administration
Mupirocin 1 applic 02/16/25 23:35
Mupirocin 2% (Ointment) 22 Gram Tube TOPICAL
DAILYPRN PRN
penis hygiene
Oxybutynin Chloride 2.5 mg 02/17/25 08:00 02/21/25 15:05
Oxybutynin 5 Mg Tablet PO 03/17/25 07:59 Not Given
DAILY RAFAEL
Pantoprazole Sodium 40 mg 02/17/25 08:00 02/21/25 16:06
Pantoprazole 40 Mg Delayed Release Tablet PO 03/17/25 07:59 Not Given
BID AT 0800,1700 RAFAEL
Polyethylene Glycol 17 grams 02/17/25 01:40
Polyethylene Glycol Powder 17 Grams Packet PO 03/17/25 01:39
DAILYPRN PRN
constipation
Senna/Docusate Sodium 1 tablet 02/17/25 08:00 02/21/25 21:05
Docusate W/Senna (Sonia-Colace) Tablet PO 03/17/25 07:59 Not Given
BID RAFAEL
Senna/Docusate Sodium 1 tablet 02/17/25 01:40
Docusate W/Senna (Sonia-Colace) Tablet PO 03/17/25 01:39
BIDPRN PRN
constipation
Sodium Chloride 0 flush 02/16/25 23:00 02/21/25 08:48
Sodium Chloride 0.9% (Flush) Syringe IV 03/16/25 22:59 2 flush
PER PROTOCOL RAFAEL Administration
Tamsulosin HCl 0.4 mg 02/17/25 18:00 02/21/25 16:06
Tamsulosin 0.4 Mg Capsule PO 03/17/25 17:59 Not Given
QPM RAFAEL
Trimethobenzamide HCl 200 mg 02/20/25 10:22 02/20/25 22:00
Trimethobenzamide 200 Mg/2 Ml Vial IM 03/20/25 10:21 200 mg
Q6HPRN PRN Administration
nausea/ vomiting
[2025-02-22] MEDS: ZYLOPRIM 100 MG PO (08:51)
[2025-02-22] MEDS: PROTONIX 40 MG PO ×2 (08:52→17:12)
[2025-02-22] MEDS: PROSCAR 5 MG PO (08:52)
[2025-02-22] MEDS: ASPIR LOW (ENTERIC COATED) 81 MG PO (08:52)
[2025-02-22] MEDS: MAGNESIUM OXIDE 500 MG PO ×2 (08:52→22:11)
[2025-02-22] MEDS: CATAPRES 0.1 MG PO (08:52)
[2025-02-22] MEDS: SENOKOT-S 1 TABLET PO ×2 (08:52→22:12)
[2025-02-22] MEDS: FEOSOL 325 MG PO (08:52)
[2025-02-22] MEDS: DITROPAN 2.5 MG PO (08:52)
[2025-02-22] MEDS: TYLENOL 650 MG PO ×2 (08:52→22:11)
[2025-02-22] MEDS: COLACE 100 MG PO ×2 (08:53→22:12)
[2025-02-22] MEDS: DESENEX/MITRAZOL/ZEASORB 1 APPLIC TOPICAL ×2 (08:55→22:12)
[2025-02-22 10:01] LABS: Blood Urea Nitrogen 78 mg/dl (9-20); Calcium 9.5 mg/dl (8.4-10.2); Carbon Dioxide 23 mmol/L (22-30); Chloride 115 mmol/L (98-107); Estimated Creatinine Clearance 44 ml/min; Glucose 113 mg/dl (70-99); Potassium 4.8 mmol/L (3.5-5.1); Sodium 146 mmol/L (135-145); eGFR 41.52
--- NOTE | 2025-02-22 12:09 | W.PN.NEPH.PH ---
Today's Communication / Plan
-
cont hypotonic fluids
Assessment/Plan
-
Impression:
CKD 3b (1.7)
Azotemia
Anemia
PPM
HFpEF, chronic
CAD
Aortic stenosis, moderate-severe
Hypertension
Neurogenic bladder with chronic indwelling Villarreal catheter
Bedbound
Hypothyroidism stable
Hyperkalemia
Plan:
cr stable close to baseline
hypernatremia-improving, cont hypotonic fluids as po intake seem poor
CT abd no acute, bilat atrophic kidneys with cysts, one lesion peripherally calcified-likely need out pt f/u
strict low k diet
hb relatively stable, s/p EPO 20k on 02/18
hold bumex
d/w nursing
follow labs
-
-
Date of Service: February 22, 2025
CC / HPI / ROS
-
Chief Complaint:
azotemia
History of Present Illness:
BUN down to 78, k high 4.8-better
CKD/Cr stable 1.7
Hgb 8.2 low 02/20
BP stable, sodium 147-better
confusion
Review of Systems:
no fever on 3lit of O2
weight down
on CPAP during visit and unable to provide history, more awake
having conversations with nursing
Labs
-
Labs:
WBC 6.9 10^3/uL (4.8-10.8) 02/20/25 06:55
RBC 2.71 10^6/uL (4.70-6.10) L 02/20/25 06:55
Hgb 8.2 g/dL (13.0-18.0) L 02/20/25 06:55
Hct 26.3 % (39.0-52.0) L 02/20/25 06:55
Plt Count 178 10^3/uL (130-400) 02/20/25 06:55
Sodium 146 mmol/L (135-145) H 02/22/25 06:27
Potassium 4.8 mmol/L (3.5-5.1) 02/22/25 06:27
Chloride 115 mmol/L (98-107) H 02/22/25 06:27
Carbon Dioxide 23 mmol/L (22-30) 02/22/25 06:27
BUN 78 mg/dl (9-20) H 02/22/25 06:27
Creatinine 1.7 mg/dL (0.7-1.3) H 02/22/25 06:27
eGFR 41.52 02/22/25 06:27
Glucose 113 mg/dl (70-99) H 02/22/25 06:27
Calcium 9.5 mg/dl (8.4-10.2) 02/22/25 06:27
Albumin 3.6 g/dl (3.5-5.0) 02/21/25 07:41
Physical Exam
-
Vital Signs:
Vital Signs
Temp Pulse Resp BP Pulse Ox
97.7 F 63 18 170/76 99
02/22/25 11:00 02/22/25 11:00 02/22/25 11:00 02/22/25 11:00 02/22/25 11:00
Cardiovascular:: Regular rate and rhythm
Respiratory:: Bilateral: Coarse
Lung Excursion:: Normal (decreased bilat)
Abdomen:: Nontender and Soft
Bowel Sounds:: Decreased
Extremity Edema:: +1: Bilateral: (mostly thigh edema )
Villarreal Catheter: Yes
--- NOTE | 2025-02-22 12:54 | W.PN.HOSP.TC ---
Today's Communication/Plan
-
Hold clonidine
Continue hypotonic IVF
Monitor off AEDs and antibiotics
Assessment / Plan
Assessment / Plan
#Acute metabolic encephalopathy
-Unclear etiology; differentials include CVA, seizures, uremic encephalopathy, infection, advanced chronic neurocognitive disease
-Suspicion lower for uremic etiology as BUN improving but mental status without significant change
-Was briefly started on antiepileptic therapy though neurology discontinued; EEG with generalized slowing
-Status post 5-day antibiotic course for suspected UTI without any significant improvement
-VBG has been without signs of hypercapnia, patient has been using BiPAP
-Ammonia level was checked and found to be within normal limits, as was TSH
-As of morning of 02/22 remains with minimal responsiveness
Plan
-Hold clonidine and avoid other sedating agents
-Continue with neurochecks
-Continue with BiPAP at night
-Check LFTs
-Check AM ABG
#Hypernatremia
-Sodium in the range of 147-150 here, due to minimal responsiveness and dehydration
-Currently on hypotonic IVF, sodium has been stable and slightly above normal
-Will continue with IV fluids to replace free water deficit
-Trend BMP
#Nausea and vomiting
-Has some right upper quadrant abdominal pain, unrevealing but severely limited CT imaging
-Supportive care, antiemetics as needed
-Serial abdomen exams and consider repeat CT
#Chronic hypoxemic and hypercapnic respiratory failure
#EMANUEL/OHS on nightly BiPAP
#Morbid obesity
-BMI TEAM FOREMAN was >40; complicated by EMANUEL and OHS with nightly BiPAP 18/09
-Last echocardiogram without signs of significant pulmonary hypertension
-Continue with nightly BiPAP here
-Should have consideration for GLP-1 as OP
#CAD s/p PCI
-Home medications include aspirin and high intensity statin; not on beta-sudha
-No signs of ACS or other ischemic heart symptoms here
-Continued on telemetry
#Chronic HFpEF
#Moderate to severe aortic stenosis
-Last echo in December 2024 with peak/mean gradients 43/27 mmHg, calculated JOAQUIN 0.8 cm2
-Question if he has reduced CO with reduced cerebral perfusion as cause of his presentation
-Home regimen includes Bumex; not currently on GDMT
-Will consider repeating echocardiogram here
-Remains euvolemic appearing
#LEE on CKD stage IIIb
#Anemia of chronic kidney disease
-LEE Likely prerenal and secondary to bumetanide with reduced intake while minimally responsive
-Underlying CKD is due to with hypertensive kidney disease; No known association chronic acidemia, bone mineral disease
-Does appear to have associated AoCKD with Hgb baseline near 8
-Home Bumex was transitioned from twice daily to 1 mg daily
-Continue to trend daily BMP on current Bumex dose
-Appreciate nephrology; EPO at HD sessions per neph
#Hypothyroidism
-Home regimen includes Synthroid 175 mcg daily
-TSH here with signs of biochemical euthyroidism
-Low suspicion that his mental status is related to hypothyroidism
#Primary hypertension
-Associated with hypertensive heart and kidney disease
-Home regimen includes clonidine 0.1 mg twice daily and bumetanide
-Holding clonidine as above due to sedative properties
-Monitor BP and continue with as needed IV hydralazine
#H/O SSS s/p PPM
-Status post pacemaker placed within last 1 month
-Unable to have MRI here due to recent placement
#H/O CVA
-Home medications include high intensity statin and aspirin
-Cannot rule out underlying CVA here, cannot get MRI due to pacemaker recently placed
DVT prophylaxis: SCDs
CODE STATUS: DNR/DNI
Anticipated Discharge: > 48 hours
Subjective/Interval History
-
Date of Service: February 22, 2025
Seen and examined at the bedside. No acute events reported overnight. AFVSS this morning with SBP near 160 mmHg
Labs fairly stable with serum sodium 146, creatinine 1.7. BUN downtrending to 78
Remains minimally responsive and unable to answer questions, BiPAP mask was on
Objective Data
-
Labs:
Laboratory Results
02/22/25
06:27
Sodium 146 H
Potassium 4.8
Chloride 115 H
Carbon Dioxide 23
BUN 78 H
Creatinine 1.7 H
Glucose 113 H
Calcium 9.5
Vital Signs:
Vital Signs
Temp Pulse Resp BP Pulse Ox
97.7 F 63 18 170/76 99
02/22/25 11:00 02/22/25 11:00 02/22/25 11:00 02/22/25 11:00 02/22/25 11:00
I&O
02/21/25 02/22/25 02/23/25
06:59 06:59 06:59
Intake Total 480 / 480 240 / 240
Output Total 1700 / 1700 1125 / 1125
Balance -1220 / -1220 -885 / -885
Review of Systems
-
Unable to obtain full review of systems at this time due to: Acuity
Physical Exam
-
General: Well Developed, No Apparent Distress, Comfortable and Morbidly Obese
HEENT: Normocephalic, Atraumatic, Moist Mucous Membranes and Anicteric
Respiratory: Clear to Auscultation and Non Labored Respirations; Negative Accessory Resp Muscle Use
Cardiac: Regular Rhythm and S1/S2; Negative Murmur, Rub or Gallop
GI: Soft, Nontender, Nondistended and Normal Bowel Sounds
Musculoskeletal: No Clubbing, No Cyanosis and No Edema
Skin: Warm, Dry and Normal Turgor; Negative Rash
Neuro: Sedated and Nonfocal/Grossly Intact
Data Reviewed
-
Labs: Labs Reviewed by me
--- NOTE | 2025-02-22 14:21 | PTCARENOTE ---
patient opens eyes and smiles at times and says, 'Thank you'. more awake, BIPAP mask on when sleeping, appears comfortable, dependent with all care, vss, will continue to monitor.
[2025-02-22] MEDS: FLOMAX 0.4 MG PO (17:12)
[2025-02-22] MEDS: LIPITOR 60 MG PO (17:12)
[2025-02-22 21:30] LABS: Keppra (Levetiracetam) 29 ug/mL (10-40)
[2025-02-22] MEDS: MELATONIN 3 MG PO (22:11)
[2025-02-23] VITALS (9 sets, daily range): BP systolic 137–162; BP diastolic 68–81; PULSE 2–88; BMI 38.2
[2025-02-23] MEDS: SYNTHROID 175 MCG PO (06:08)
[2025-02-23] MEDS: D5W 1000 IV (06:08)
[2025-02-23 06:23] LABS: % Basophils 0.4 % (0-2); % Immature Granulocytes 0.6 % (0-0.5); % Lymphocytes 17.1 % (20.5-51.1); % Monocytes 9.8 % (1.7-9.3); % Neutrophils 68.1 % (42.2-75.2); Absolute Eosinophils 0.3 10^3/uL (0-0.7); Absolute Immature Granulocytes 0.1 10^3/uL (0-0.05); Absolute Lymphocytes 1.3 10^3/uL (1.2-3.4); Absolute Monocytes 0.8 10^3/uL (0.1-0.6); Absolute Neutrophils 5.3 10^3/uL (1.4-6.5); Hematocrit 27.3 % (39.0-52.0); Hemoglobin 8.7 g/dL (13.0-18.0); Mean Corp Hgb Conc. 31.9 g/dL (33.0-37.0); Mean Corpuscular Hgb 30.5 pg (27.0-31.0); Mean Corpuscular Volume 95.8 fL (80.0-94.0); Mean Platelet Volume 11.6 fL (7.4-10.4); Nucleated Red Blood Cells % 0.3 % (-); Platelet Count 157 10^3/uL (130-400); Red Blood Cell Count 2.85 10^6/uL (4.70-6.10); Red Cell Dist. Width 17.1 % (11.5-14.5); White Blood Cell Count 7.8 10^3/uL (4.8-10.8)
[2025-02-23 06:49] LABS: ALT (SGPT) 15 U/L (0-50); AST (SGOT) 15 U/L (17-59); Albumin 3.4 g/dl (3.5-5.0); Alkaline Phosphatase 84 U/L (38-126); Blood Urea Nitrogen 74 mg/dl (9-20); Calcium 9.1 mg/dl (8.4-10.2); Carbon Dioxide 27 mmol/L (22-30); Chloride 111 mmol/L (98-107); Estimated Creatinine Clearance 43 ml/min; Glucose 134 mg/dl (70-99); Potassium 4.6 mmol/L (3.5-5.1); Sodium 143 mmol/L (135-145); Total Bilirubin 0.6 mg/dl (0.2-1.3); Total Protein 6.1 g/dl (6.3-8.2); eGFR 41.52
[2025-02-23] MEDS: DITROPAN 2.5 MG PO (08:06)
[2025-02-23] MEDS: COLACE 100 MG PO ×2 (08:07→19:53)
[2025-02-23] MEDS: FEOSOL 325 MG PO (08:07)
[2025-02-23] MEDS: PROTONIX 40 MG PO ×2 (08:07→17:58)
[2025-02-23] MEDS: ASPIR LOW (ENTERIC COATED) 81 MG PO (08:07)
[2025-02-23] MEDS: SENOKOT-S 1 TABLET PO ×2 (08:07→19:54)
[2025-02-23] MEDS: TYLENOL 650 MG PO ×2 (08:07→19:54)
[2025-02-23] MEDS: PROSCAR 5 MG PO (08:07)
[2025-02-23] MEDS: MAGNESIUM OXIDE 500 MG PO ×2 (08:07→19:54)
[2025-02-23] MEDS: ZYLOPRIM 100 MG PO (08:07)
[2025-02-23] MEDS: DESENEX/MITRAZOL/ZEASORB 1 APPLIC TOPICAL ×2 (08:09→19:53)
--- NOTE | 2025-02-23 09:27 | CM ---
Addendum entered by Letty Nathan 02/23/25 09:35:
[facility]
Report #: [phone]
Fax #: [phone]
Original Note:
chart reviewed
Patient is a LTC resident [facility]
referral in [facility] updated
Left message with Maira
PLAN: return to [facility] when stable
transportation forms on chart
--- NOTE | 2025-02-23 11:49 | W.PN.HOSP.TC ---
Today's Communication/Plan
-
Hold sedating agents
Monitor MSE
Encourage p.o. intake as tolerated
Assessment / Plan
Assessment / Plan
#Acute metabolic encephalopathy
-Unclear etiology; differentials include CVA, seizures, uremic encephalopathy, infection, advanced chronic neurocognitive disease
-Suspicion lower for uremic etiology as BUN improving but mental status without significant change
-Was briefly started on antiepileptic therapy though neurology discontinued; EEG with generalized slowing
-Status post 5-day antibiotic course for suspected UTI without any significant improvement
-VBG has been without signs of hypercapnia, patient has been using BiPAP
-Ammonia level was checked and found to be within normal limits, as was TSH
-As of morning of 02/22 remains with minimal responsiveness
Plan
-Hold clonidine and avoid other sedating agents
-Continue with neurochecks
-Continue with BiPAP at night
-Monitor mental status
#Hypernatremia
-Sodium in the range of 147-150 here, due to minimal responsiveness and dehydration
-Currently on hypotonic IVF, sodium has been stable and slightly above normal
-Will continue with IV fluids to replace free water deficit
-Resolved with hypotonic IVF
#Nausea and vomiting
-Has some right upper quadrant abdominal pain, unrevealing but severely limited CT imaging
-Supportive care, antiemetics as needed
-Serial abdomen exams and consider repeat CT
#Chronic hypoxemic and hypercapnic respiratory failure
#EMANUEL/OHS on nightly BiPAP
#Morbid obesity
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
-Last echocardiogram without signs of significant pulmonary hypertension
-Continue with nightly BiPAP here
-Should have consideration for GLP-1 as OP
#CAD s/p PCI
-Home medications include aspirin and high intensity statin; not on beta-sudha w/ h/o bradycardia
-No signs of ACS or other ischemic heart symptoms here
-Continued on telemetry
#Chronic HFpEF
#Moderate to severe aortic stenosis
-Last echo in December 2024 with peak/mean gradients 43/27 mmHg, calculated JOAQUIN 0.8 cm2
-Question if he has reduced CO with reduced cerebral perfusion as cause of his presentation
-Home regimen includes Bumex; not currently on GDMT
-Will consider repeating echocardiogram here
-Remains euvolemic appearing
#LEE on CKD stage IIIb
#Anemia of chronic kidney disease
-LEE Likely prerenal and secondary to bumetanide with reduced intake while minimally responsive
-Underlying CKD is due to with hypertensive kidney disease; No known association chronic acidemia, bone mineral disease
-Does appear to have associated AoCKD with Hgb baseline near 8
-Home Bumex was transitioned from twice daily to 1 mg daily
-Continue to trend daily BMP on current Bumex dose
-Appreciate nephrology; EPO at HD sessions per neph
#Hypothyroidism
-Home regimen includes Synthroid 175 mcg daily
-TSH here with signs of biochemical euthyroidism
-Low suspicion that his mental status is related to hypothyroidism
#Primary hypertension
-Associated with hypertensive heart and kidney disease
-Home regimen includes clonidine 0.1 mg twice daily and bumetanide
-Holding clonidine as above due to sedative properties
-Monitor BP and continue with as needed IV hydralazine
#H/O SSS s/p PPM
-Status post pacemaker placed within last 1 month
-Unable to have MRI here due to recent placement
#H/O CVA
#Chronic craig catheter
-Home medications include high intensity statin and aspirin
-Cannot rule out underlying CVA here, cannot get MRI due to pacemaker recently placed
DVT prophylaxis: SCDs
CODE STATUS: DNR/DNI
Anticipated Discharge: > 48 hours
Subjective/Interval History
-
Date of Service: February 23, 2025
Seen and examined at the bedside. No acute events reported overnight. AFVSS this morning
Patient starting to wake up and interacting. Able to say he was in the [facility] though still has some confusion
Denies any new complaints though ROS limited
Objective Data
-
Labs:
Laboratory Results
02/23/25
05:44
WBC 7.8
Hgb 8.7 L
Hct 27.3 L
Plt Count 157
Sodium 143
Potassium 4.6
Chloride 111 H
Carbon Dioxide 27
BUN 74 H
Creatinine 1.7 H
Glucose 134 H
Calcium 9.1
Total Bilirubin 0.6
AST 15 L
ALT 15
Alkaline Phosphatase 84
Vital Signs:
Vital Signs
Temp Pulse Resp BP Pulse Ox
97.9 F 62 16 158/81 98
02/23/25 08:02 02/23/25 08:02 02/23/25 08:02 02/23/25 08:02 02/23/25 08:18
I&O
02/22/25 02/23/25 02/24/25
06:59 06:59 06:59
Intake Total 240 / 240 1880 / 1880 480 / 480
Output Total 1125 / 1125 800 / 800
Balance -885 / -885 1080 / 1080 480 / 480
Review of Systems
-
History Source: Patient
All other systems: Reviewed and negative
Physical Exam
-
General: Well Developed, Well Nourished, Comfortable and Obese
HEENT: Normocephalic, Atraumatic, Moist Mucous Membranes and Anicteric
Respiratory: Clear to Auscultation and Non Labored Respirations; Negative Accessory Resp Muscle Use
Cardiac: Regular Rhythm and S1/S2; Negative Murmur, Rub or Gallop
GI: Soft, Nontender, Nondistended and Normal Bowel Sounds
Musculoskeletal: No Clubbing, No Cyanosis and No Edema
Skin: Warm, Dry and Normal Turgor; Negative Rash
Neuro: Awake, Alert, Oriented, Nonfocal/Grossly Intact and Central Nerve's Intact; Negative Tremors
Psych: Calm
Data Reviewed
-
Labs: Labs Reviewed by me, Discussed with Nurse and Discussed with Patient
--- NOTE | 2025-02-23 13:04 | W.PN.NEPH.PH ---
Today's Communication / Plan
-
Discontinue hypotonic fluid
Assessment/Plan
-
Impression:
CKD 3b (1.7)
Azotemia
Anemia
PPM
HFpEF, chronic
CAD
Aortic stenosis, moderate-severe
Hypertension
Neurogenic bladder with chronic indwelling Villarreal catheter
Bedbound
Hypothyroidism stable
Hyperkalemia
Plan:
cr stable close to baseline
hypernatremia-improved to 143= discontinued hypertonic saline
CT abd no acute, bilat atrophic kidneys with cysts, one lesion peripherally calcified-likely need out pt f/u
strict low k diet
hb relatively stable, s/p EPO 20k on 02/18
hold bumex
follow labs
-
-
Date of Service: February 23, 2025
CC / HPI / ROS
-
Chief Complaint:
azotemia
History of Present Illness:
BUN down to 78, k high 4.8-better
CKD/Cr stable 1.7
Hgb stable
BP stable, sodium improved
confusion
Review of Systems:
no fever on 3lit of O2
weight down
on CPAP during visit and unable to provide history, more awake
Labs
-
Labs:
WBC 7.8 10^3/uL (4.8-10.8) 02/23/25 05:44
RBC 2.85 10^6/uL (4.70-6.10) L 02/23/25 05:44
Hgb 8.7 g/dL (13.0-18.0) L 02/23/25 05:44
Hct 27.3 % (39.0-52.0) L 02/23/25 05:44
Plt Count 157 10^3/uL (130-400) 02/23/25 05:44
Sodium 143 mmol/L (135-145) 02/23/25 05:44
Potassium 4.6 mmol/L (3.5-5.1) 02/23/25 05:44
Chloride 111 mmol/L (98-107) H 02/23/25 05:44
Carbon Dioxide 27 mmol/L (22-30) 02/23/25 05:44
BUN 74 mg/dl (9-20) H 02/23/25 05:44
Creatinine 1.7 mg/dL (0.7-1.3) H 02/23/25 05:44
eGFR 41.52 02/23/25 05:44
Glucose 134 mg/dl (70-99) H 02/23/25 05:44
Calcium 9.1 mg/dl (8.4-10.2) 02/23/25 05:44
Albumin 3.4 g/dl (3.5-5.0) L 02/23/25 05:44
Physical Exam
-
Vital Signs:
Vital Signs
Temp Pulse Resp BP Pulse Ox
97.0 F 65 16 146/72 99
02/23/25 11:59 02/23/25 11:59 02/23/25 11:59 02/23/25 11:59 02/23/25 11:59
Cardiovascular:: Regular rate and rhythm
Respiratory:: Bilateral: Coarse
Lung Excursion:: Normal (decreased bilat)
Abdomen:: Nontender and Soft
Bowel Sounds:: Decreased
Extremity Edema:: +1: Bilateral: (mostly thigh edema )
Villarreal Catheter: Yes
[2025-02-23] MEDS: FLOMAX 0.4 MG PO (17:58)
[2025-02-23] MEDS: LIPITOR 60 MG PO (17:58)
[2025-02-23] MEDS: MELATONIN 3 MG PO (21:28)
[2025-02-24 03:00] VITALS: BP 145/76
[2025-02-24 03:54] VITALS: BMI 38.1
[2025-02-24] MEDS: SYNTHROID 175 MCG PO (06:01)
[2025-02-24 06:26] LABS: % Basophils 0.4 % (0-2); % Eosinophils 4.5 % (0-6); % Immature Granulocytes 0.6 % (0-0.5); % Lymphocytes 20.4 % (20.5-51.1); % Monocytes 8.3 % (1.7-9.3); % Neutrophils 65.8 % (42.2-75.2); Absolute Eosinophils 0.4 10^3/uL (0-0.7); Absolute Immature Granulocytes 0.1 10^3/uL (0-0.05); Absolute Lymphocytes 1.7 10^3/uL (1.2-3.4); Absolute Monocytes 0.7 10^3/uL (0.1-0.6); Absolute Neutrophils 5.6 10^3/uL (1.4-6.5); Hematocrit 25.8 % (39.0-52.0); Hemoglobin 8.1 g/dL (13.0-18.0); Mean Corp Hgb Conc. 31.4 g/dL (33.0-37.0); Mean Corpuscular Hgb 30.5 pg (27.0-31.0); Mean Platelet Volume 11.3 fL (7.4-10.4); Nucleated Red Blood Cells % 0 % (-); Platelet Count 132 10^3/uL (130-400); Red Blood Cell Count 2.66 10^6/uL (4.70-6.10); Red Cell Dist. Width 17.2 % (11.5-14.5); White Blood Cell Count 8.4 10^3/uL (4.8-10.8)
[2025-02-24 06:49] LABS: Blood Urea Nitrogen 68 mg/dl (9-20); Calcium 8.8 mg/dl (8.4-10.2); Carbon Dioxide 26 mmol/L (22-30); Chloride 110 mmol/L (98-107); Estimated Creatinine Clearance 41 ml/min; Glucose 96 mg/dl (70-99); Potassium 4.5 mmol/L (3.5-5.1); Sodium 143 mmol/L (135-145); eGFR 38.77
[2025-02-24 07:29] VITALS: BP 154/75
--- NOTE | 2025-02-24 09:08 | W.PN.HOSP.TC ---
Today's Communication/Plan
-
Hold sedating agents and monitor MSE
Hold Bumex
Consider amlodipine if BP remains high
Likely DC tomorrow if mental status remains stable
Assessment / Plan
Assessment / Plan
#Acute metabolic encephalopathy
-Unclear etiology; differentials include medication induced, CVA, seizures, uremic encephalopathy, infection, or multifactorial
-Clinical condition improving off of sedative agents, question if clonidine was main issue as he improved today after stopping
-Suspicion lower for uremic etiology as BUN improving but mental status without significant change
-Was briefly started on antiepileptic therapy though discontinued; EEG with generalized slowing
-Status post 5-day antibiotic course for suspected UTI without any significant improvement
-VBG has been without signs of hypercapnia, patient has been using BiPAP nightly
-Ammonia level was checked and found to be within normal limits, as was TSH
-Clonidine held 02/22; as of morning of 02/24 he is AAO x 4
Plan
-Hold clonidine and avoid other sedating agents
-Hold Bumex due to dehydration (plan to resume at 1 mg daily)
-Continue with neurochecks
-Continue with BiPAP at night
-Monitor mental status
#Hypernatremia
-Sodium in the range of 147-150 here, due to minimal responsiveness and dehydration
-Currently on hypotonic IVF, sodium has been stable and slightly above normal
-Will continue with IV fluids to replace free water deficit
-Resolved with hypotonic IVF
#Nausea and vomiting
-Has some right upper quadrant abdominal pain, unrevealing but severely limited CT imaging
-Supportive care, antiemetics as needed
-Resolved
#Chronic hypoxemic and hypercapnic respiratory failure
#EMANUEL/OHS on nightly BiPAP
#Morbid obesity
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
-Last echocardiogram without signs of significant pulmonary hypertension
-Continue with nightly BiPAP here
-Should have consideration for GLP-1 as OP
#CAD s/p PCI
-Home medications include aspirin and high intensity statin; not on beta-sudha w/ h/o bradycardia
-No signs of ACS or other ischemic heart symptoms here
-Continued on telemetry
#Chronic HFpEF
#Moderate to severe aortic stenosis
-Last echo in December 2024 with peak/mean gradients 43/27 mmHg, calculated JOAQUIN 0.8 cm2
-Question if he has reduced CO with reduced cerebral perfusion as cause of his presentation
-Home regimen includes Bumex; not currently on GDMT
-Holding Bumex due to azotemia, plan to resume at 1 mg daily
-Will consider repeating echocardiogram here
-Remains euvolemic appearing
#LEE on CKD stage IIIb
#Anemia of chronic kidney disease
-LEE Likely prerenal and secondary to bumetanide with reduced intake while minimally responsive
-Underlying CKD is due to with hypertensive kidney disease; No known association chronic acidemia, bone mineral disease
-Does appear to have associated AoCKD with Hgb baseline near 8
-Home Bumex was transitioned from twice daily to 1 mg daily
-Continue to trend daily BMP on current Bumex dose
-Appreciate nephrology; EPO at HD sessions per neph
#Hypothyroidism
-Home regimen includes Synthroid 175 mcg daily
-TSH here with signs of biochemical euthyroidism
-Low suspicion that his mental status is related to hypothyroidism
#Primary hypertension
-Associated with hypertensive heart and kidney disease
-Home regimen includes clonidine 0.1 mg twice daily and bumetanide
-Holding clonidine as above due to sedative properties
-Monitor BP and continue with as needed IV hydralazine
-Consider starting amlodipine if BP remains high
#H/O SSS s/p PPM
-Status post pacemaker placed within last 1 month
-Unable to have MRI here due to recent placement
#H/O CVA
#Chronic craig catheter
-Home medications include high intensity statin and aspirin
-Cannot rule out underlying CVA here, cannot get MRI due to pacemaker recently placed
DVT prophylaxis: SCDs
CODE STATUS: DNR/DNI
Anticipated Discharge: 24 - 48 hours
Subjective/Interval History
-
Date of Service: February 24, 2025
Seen and examined at the bedside. No acute events reported overnight. AFVSS on low-level O2 with SpO2 high 90s
Patient with improved alertness, able to respond to questions appropriately today
States he has some discomfort at the site of his Craig catheter insertion though otherwise no new complaints
Objective Data
-
Labs:
Laboratory Results
02/24/25
05:56
WBC 8.4
Hgb 8.1 L
Hct 25.8 L
Plt Count 132
Sodium 143
Potassium 4.5
Chloride 110 H
Carbon Dioxide 26
BUN 68 H
Creatinine 1.8 H
Glucose 96
Calcium 8.8
Vital Signs:
Vital Signs
Temp Pulse Resp BP Pulse Ox
98.3 F 68 18 154/75 100
02/24/25 07:29 02/24/25 07:29 02/24/25 07:29 02/24/25 07:29 02/24/25 07:29
I&O
02/23/25 02/24/25 02/25/25
06:59 06:59 06:59
Intake Total 1880 / 1880 960 / 960
Output Total 800 / 800 875 / 875
Balance 1080 / 1080 85 / 85
Review of Systems
-
History Source: Patient
All other systems: Reviewed and negative
Physical Exam
-
General: Well Developed, No Apparent Distress, Comfortable and Obese
HEENT: Normocephalic, Atraumatic, Moist Mucous Membranes and Anicteric
Respiratory: Clear to Auscultation and Non Labored Respirations; Negative Accessory Resp Muscle Use
Cardiac: Regular Rhythm, S1/S2, Murmur and Carotid Pulses (WNL); Negative Rub, JVD or Gallop
GI: Soft, Nontender, Nondistended and Normal Bowel Sounds
Genito-urinary: Clear Urine, Craig and Other (No signs of erythema/purulence or trauma at site of Craig catheter)
Musculoskeletal: No Clubbing, No Cyanosis and No Edema
Skin: Warm and Dry; Negative Rash
Neuro: AO x 3 and Nonfocal/Grossly Intact; Negative Tremors
Psych: Calm
Data Reviewed
-
Labs: Labs Reviewed by me and Discussed with Patient
[2025-02-24] MEDS: SENOKOT-S 1 TABLET PO ×2 (09:24→21:27)
[2025-02-24] MEDS: PROTONIX 40 MG PO ×2 (09:24→17:25)
[2025-02-24] MEDS: FEOSOL 325 MG PO (09:24)
[2025-02-24] MEDS: MAGNESIUM OXIDE 500 MG PO ×2 (09:25→21:27)
[2025-02-24] MEDS: COLACE 100 MG PO ×2 (09:25→21:26)
[2025-02-24] MEDS: TYLENOL 650 MG PO ×2 (09:25→21:27)
[2025-02-24] MEDS: ZYLOPRIM 100 MG PO (09:25)
[2025-02-24] MEDS: PROSCAR 5 MG PO (09:25)
[2025-02-24] MEDS: DITROPAN 2.5 MG PO (09:25)
[2025-02-24] MEDS: ASPIR LOW (ENTERIC COATED) 81 MG PO (09:25)
[2025-02-24] MEDS: DESENEX/MITRAZOL/ZEASORB 1 APPLIC TOPICAL ×2 (09:26→21:26)
[2025-02-24 10:56] VITALS: BP 145/76
--- NOTE | 2025-02-24 11:41 | W.PN.NEPH.PH ---
Today's Communication / Plan
-
likely resume bumex at d/c 1mg daily(BID home dose)
Assessment/Plan
-
Impression:
CKD 3b (1.7)
Azotemia
Anemia
PPM
HFpEF, chronic
CAD
Aortic stenosis, moderate-severe
Hypertension
Neurogenic bladder with chronic indwelling Villarreal catheter
Bedbound
Hypothyroidism stable
Hyperkalemia
Plan:
cr stable close to baseline
hypernatremia-stable at [address] abd no acute, bilat atrophic kidneys with cysts, one lesion peripherally calcified-likely need out pt f/u
strict low k diet
hb relatively stable, s/p EPO 20k on 02/18
hold bumex
follow labs
-
-
Date of Service: February 24, 2025
CC / HPI / ROS
-
Chief Complaint:
azotemia
History of Present Illness:
BUN down to 68,
CKD/Cr stable 1.8
Hgb stable
BP stable, sodium improved
Review of Systems:
no fever on 3lit of O2
weight down
no cp or sob
still mild nausea, able to tolerate po
Labs
-
Labs:
WBC 8.4 10^3/uL (4.8-10.8) 02/24/25 05:56
RBC 2.66 10^6/uL (4.70-6.10) L 02/24/25 05:56
Hgb 8.1 g/dL (13.0-18.0) L 02/24/25 05:56
Hct 25.8 % (39.0-52.0) L 02/24/25 05:56
Plt Count 132 10^3/uL (130-400) 02/24/25 05:56
Sodium 143 mmol/L (135-145) 02/24/25 05:56
Potassium 4.5 mmol/L (3.5-5.1) 02/24/25 05:56
Chloride 110 mmol/L (98-107) H 02/24/25 05:56
Carbon Dioxide 26 mmol/L (22-30) 02/24/25 05:56
BUN 68 mg/dl (9-20) H 02/24/25 05:56
Creatinine 1.8 mg/dL (0.7-1.3) H 02/24/25 05:56
eGFR 38.77 02/24/25 05:56
Glucose 96 mg/dl (70-99) 02/24/25 05:56
Calcium 8.8 mg/dl (8.4-10.2) 02/24/25 05:56
Albumin 3.4 g/dl (3.5-5.0) L 02/23/25 05:44
Physical Exam
-
Vital Signs:
Vital Signs
Temp Pulse Resp BP Pulse Ox
98.6 F 72 17 150/74 97
02/24/25 15:00 02/24/25 15:00 02/24/25 15:00 02/24/25 15:00 02/24/25 15:00
Cardiovascular:: Regular rate and rhythm
Respiratory:: Bilateral: Coarse
Lung Excursion:: Normal (decreased bilat)
Abdomen:: Nontender and Soft
Bowel Sounds:: Decreased
Extremity Edema:: +1: Bilateral: (mostly thigh edema )
Villarreal Catheter: Yes
--- NOTE | 2025-02-24 11:46 | CM ---
Addendum entered by Sherley Kim 02/25/25 15:35:
Per Dr. Cardoza,anticipate discharge to [facility] tomorrow.
Original Note:
Patient seen at bedside
[facility] resident
Plan: [facility] when medically stable
Report #: [phone]
Fax #: [phone]
[2025-02-24 15:00] VITALS: BP 150/74
--- NOTE | 2025-02-24 16:03 | DOWNTIME ---
There was a [employer] Client Analytical Sciences Director Downtime on 02/24/2025 from 1230 to 02/24/2025 at 1550. Downtime documentation of patient's care, including medication administrations, has been reconciled in the electronic record per guidelines. Refer to the
patient's paper chart under the miscellaneous tab to see printed paper medication records and downtime forms.
[2025-02-24 16:08] VITALS: BP 150/74
[2025-02-24] MEDS: LIPITOR 60 MG PO (17:21)
[2025-02-24] MEDS: FLOMAX 0.4 MG PO (17:25)
[2025-02-24 22:05] VITALS: PULSE 2; PULSE 87
[2025-02-24] MEDS: MELATONIN 3 MG PO (23:06)
[2025-02-25 00:30] VITALS: BP 119/62
[2025-02-25 03:40] VITALS: PULSE 2; PULSE 85
[2025-02-25] MEDS: SYNTHROID 175 MCG PO (05:53)
[2025-02-25 06:00] VITALS: BMI 38.0
[2025-02-25 06:24] LABS: % Basophils 0.5 % (0-2); % Eosinophils 3.9 % (0-6); % Immature Granulocytes 0.6 % (0-0.5); % Lymphocytes 21.1 % (20.5-51.1); % Monocytes 9.4 % (1.7-9.3); % Neutrophils 64.5 % (42.2-75.2); Absolute Basophils 0.1 10^3/uL (0-0.2); Absolute Eosinophils 0.4 10^3/uL (0-0.7); Absolute Immature Granulocytes 0.1 10^3/uL (0-0.05); Absolute Lymphocytes 2.1 10^3/uL (1.2-3.4); Absolute Monocytes 0.9 10^3/uL (0.1-0.6); Absolute Neutrophils 6.3 10^3/uL (1.4-6.5); Hematocrit 27.3 % (39.0-52.0); Hemoglobin 8.9 g/dL (13.0-18.0); Mean Corp Hgb Conc. 32.6 g/dL (33.0-37.0); Mean Corpuscular Hgb 31.2 pg (27.0-31.0); Mean Corpuscular Volume 95.8 fL (80.0-94.0); Mean Platelet Volume 11.6 fL (7.4-10.4); Nucleated Red Blood Cells % 0 % (-); Platelet Count 141 10^3/uL (130-400); Red Blood Cell Count 2.85 10^6/uL (4.70-6.10); White Blood Cell Count 9.7 10^3/uL (4.8-10.8)
[2025-02-25 06:42] LABS: Blood Urea Nitrogen 70 mg/dl (9-20); Calcium 9.2 mg/dl (8.4-10.2); Carbon Dioxide 28 mmol/L (22-30); Chloride 110 mmol/L (98-107); Estimated Creatinine Clearance 37 ml/min; Glucose 95 mg/dl (70-99); Potassium 4.7 mmol/L (3.5-5.1); Sodium 145 mmol/L (135-145); eGFR 34.16
[2025-02-25 07:00] VITALS: BP 144/86
[2025-02-25] MEDS: ASPIR LOW (ENTERIC COATED) 81 MG PO (07:58)
[2025-02-25] MEDS: PROTONIX 40 MG PO ×2 (07:58→16:46)
[2025-02-25] MEDS: SENOKOT-S 1 TABLET PO ×2 (07:58→20:25)
[2025-02-25] MEDS: TYLENOL 650 MG PO ×2 (07:58→20:25)
[2025-02-25] MEDS: PROSCAR 5 MG PO (07:58)
[2025-02-25] MEDS: DITROPAN 2.5 MG PO (07:58)
[2025-02-25] MEDS: ZYLOPRIM 100 MG PO (07:58)
[2025-02-25] MEDS: MAGNESIUM OXIDE 500 MG PO ×2 (07:58→20:25)
[2025-02-25] MEDS: FEOSOL 325 MG PO (07:58)
[2025-02-25] MEDS: COLACE 100 MG PO ×2 (07:58→20:23)
--- NOTE | 2025-02-25 08:04 | W.PN.HOSP.TC ---
Today's Communication/Plan
-
Hold sedatives
Resume Bumex
Monitor MSE
Plan discharge tomorrow
Assessment / Plan
Assessment / Plan
#Acute metabolic encephalopathy
-Unclear etiology; differentials include medication induced, CVA, seizures, uremic encephalopathy/dehydration, urea cycle disorder
-Clinical condition improving off of sedative agents, question if clonidine was main issue as he improved today after stopping
-Suspicion lower for uremic etiology as BUN improving but mental status without significant change
-Was briefly started on antiepileptic therapy though discontinued; EEG with generalized slowing
-Status post 5-day antibiotic course for suspected UTI without any significant improvement
-VBG has been without signs of hypercapnia, patient has been using BiPAP nightly
-Ammonia level was checked and found to be within normal limits, as was TSH
-Clonidine held 02/22; as of morning of 02/24 he is AAO x 4
Plan
-Hold clonidine and avoid other sedating agents
-Resume Bumex at 1 mg daily on 02/26
-Continue with neurochecks
-Continue with BiPAP at night
-Monitor mental status
#Azotemia
-While here he did have significant rise in BUN without rise in creatinine
-Has significant CKD but unclear if this was related to renal insufficiency
-Question if he does have an underlying urea cycle disorder which can affect BUN and mental status
-BUN did start to improve prior to his mental status improvement
-Continue to trend BUN
#Hypernatremia
-Sodium in the range of 147-150 here, due to minimal responsiveness and dehydration
-Currently on hypotonic IVF, sodium has been stable and slightly above normal
-Will continue with IV fluids to replace free water deficit
-Resolved with hypotonic IVF
#Nausea and vomiting
-Has some right upper quadrant abdominal pain, unrevealing but severely limited CT imaging
-Supportive care, antiemetics as needed
-Resolved
#Chronic hypoxemic and hypercapnic respiratory failure
#EMANUEL/OHS on nightly BiPAP
#Morbid obesity
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
-Last echocardiogram without signs of significant pulmonary hypertension
-Continue with nightly BiPAP here, wean nasal cannula as able
-Should have consideration for GLP-1 as OP
#CAD s/p PCI
-Home medications include aspirin and high intensity statin; not on beta-sudha w/ h/o bradycardia
-No signs of ACS or other ischemic heart symptoms here
-Continued on telemetry
#Chronic HFpEF
#Moderate to severe aortic stenosis
-Last echo in December 2024 with peak/mean gradients 43/27 mmHg, calculated JOAQUIN 0.8 cm2
-Question if he has reduced CO with reduced cerebral perfusion as cause of his presentation
-Home regimen includes Bumex; not currently on GDMT
-Holding Bumex due to azotemia, plan to resume at 1 mg daily
-Will consider repeating echocardiogram here
-Remains euvolemic appearing
#LEE on CKD stage IIIb
#Anemia of chronic kidney disease
-LEE Likely prerenal and secondary to bumetanide with reduced intake while minimally responsive
-Underlying CKD is due to with hypertensive kidney disease; No known association chronic acidemia, bone mineral disease
-Does appear to have associated AoCKD with Hgb baseline near 8
-Home Bumex was transitioned from twice daily to 1 mg daily
-Continue to trend daily BMP on current Bumex dose
-Appreciate nephrology; EPO at HD sessions per neph
#Hypothyroidism
-Home regimen includes Synthroid 175 mcg daily
-TSH here with signs of biochemical euthyroidism
-Low suspicion that his mental status is related to hypothyroidism
#Primary hypertension
-Associated with hypertensive heart and kidney disease
-Home regimen includes clonidine 0.1 mg twice daily and bumetanide
-Holding clonidine as above due to sedative properties
-Monitor BP and continue with as needed IV hydralazine
-Consider starting amlodipine if BP remains high
#H/O SSS s/p PPM
-Status post pacemaker placed within last 1 month
-Unable to have MRI here due to recent placement
#H/O CVA
#Chronic craig catheter
-Home medications include high intensity statin and aspirin
-Cannot rule out underlying CVA here, cannot get MRI due to pacemaker recently placed
DVT prophylaxis: SCDs
CODE STATUS: DNR/DNI
Anticipated Discharge: Within 24 hours
Subjective/Interval History
-
Date of Service: February 25, 2025
Seen and examined at the bedside. No acute events reported overnight. AFVSS on 3 L O2
Patient remains with slow response times though is AO x 4 and answering questions appropriately
He denies any new complaints though still has some discomfort at [place] site
Objective Data
-
Labs:
Laboratory Results
02/25/25
05:42
WBC 9.7
Hgb 8.9 L
Hct 27.3 L
Plt Count 141
Sodium 145
Potassium 4.7
Chloride 110 H
Carbon Dioxide 28
BUN 70 H
Creatinine 2.0 H
Glucose 95
Calcium 9.2
Vital Signs:
Vital Signs
Temp Pulse Resp BP Pulse Ox
98.8 F 99 18 144/86 95
02/25/25 07:00 02/25/25 07:00 02/25/25 07:00 02/25/25 07:00 02/25/25 07:00
I&O
02/24/25 02/25/25 02/26/25
06:59 06:59 06:59
Intake Total 960 / 960 300 / 300
Output Total 875 / 875 625 / 625
Balance 85 / 85 -325 / -325
Review of Systems
-
History Source: Patient
All other systems: Reviewed and negative
Physical Exam
-
General: Well Developed, No Apparent Distress and Obese
HEENT: Normocephalic, Atraumatic, Moist Mucous Membranes and Anicteric
Respiratory: Clear to Auscultation and Non Labored Respirations; Negative Accessory Resp Muscle Use
Cardiac: Regular Rhythm and S1/S2; Negative Murmur, Rub or Gallop
GI: Soft, Nontender, Nondistended and Normal Bowel Sounds
Musculoskeletal: No Clubbing, No Cyanosis and No Edema
Skin: Warm and Dry; Negative Rash
Neuro: AO x 3, Nonfocal/Grossly Intact and Other (Cognitive slowing with appropriate responses)
Psych: Calm
Data Reviewed
-
Labs: Labs Reviewed by me and Discussed with Patient
[2025-02-25] MEDS: DESENEX/MITRAZOL/ZEASORB 1 APPLIC TOPICAL ×2 (08:08→20:24)
--- NOTE | 2025-02-25 14:45 | WOUNDNOTE ---
[facility] RN note: Patient's coccyx MASD looks more like a deep dermal linear stage 2 pressure injury. PO intake poor recently. He needs encouragement to eat. Patient is on a [facility] Wide air bed. Silicone border foam changed on sacral/coccyx. LLE
foam dressings changed. LE abrasions about the same. LE edema less. L lateral heel ulcer appears closed and discolored purple. Foam dressing maintained. Knee high Suleman wraps reapplied. TruVue Lite boots reapplied. Air chair cushion under boots.
Patient turned to L semi side lying position using folded bariatric air chair cushion and pillow with help from [employer]. Discussed with NIDA Westfall. Updated Dr. Cardoza re: coccyx ulcer who approved local wound care. Will follow as needed.
--- NOTE | 2025-02-25 14:45 | WOUNDNOTE ---
[facility] RN note: Patient's coccyx MASD looks more like a deep derma linear stage 2 pressure injury. PO intake poor recently. He needs encouragement to eat. Patient is on a [facility] Wide air bed. Silicone border foam changed on sacral/coccyx. LLE
foam dressings changed. LE abrasions about the same. LE edema less. L lateral heel ulcer closed and discolored purple. Foam dressing maintained. Knee high Suleman wraps reapplied. TruVue Lite boots reapplied. Air chair cushion under boots. Patient
turned to L semi side lying position using folded bariatric air chair cushion and pillow with help from [employer]. Discussed with NIDA Westfall. Updated Dr. Cardoza re: coccyx ulcer who approved local wound care. Will follow as needed.
--- NOTE | 2025-02-25 14:47 | W.PN.NEPH.PH ---
Today's Communication / Plan
-
hold bumex
encourage po intake
Assessment/Plan
-
Impression:
CKD 3b (1.7)
Azotemia
Anemia
PPM
HFpEF, chronic
CAD
Aortic stenosis, moderate-severe
Hypertension
Neurogenic bladder with chronic indwelling Villarreal catheter
Bedbound
Hypothyroidism stable
Hyperkalemia
Plan:
cr slightly up today at 2
hypernatremia-monitor na at [address] abd no acute, bilat atrophic kidneys with cysts, one lesion peripherally calcified-likely need out pt f/u
strict low k diet
po intake is low with nausea, hold bumex today and wts stable
hb relatively stable, s/p EPO 20k on 02/18
follow labs
-
-
Date of Service: February 25, 2025
CC / HPI / ROS
-
Chief Complaint:
azotemia
History of Present Illness:
CKD/Cr up at 2
Hgb stable
BP stable, sodium up at 145
Review of Systems:
no fever on 3lit of O2
weight stable
no cp or sob
still nausea, refusing to eat
Labs
-
Labs:
WBC 9.7 10^3/uL (4.8-10.8) 02/25/25 05:42
RBC 2.85 10^6/uL (4.70-6.10) L 02/25/25 05:42
Hgb 8.9 g/dL (13.0-18.0) L 02/25/25 05:42
Hct 27.3 % (39.0-52.0) L 02/25/25 05:42
Plt Count 141 10^3/uL (130-400) 02/25/25 05:42
Sodium 145 mmol/L (135-145) 02/25/25 05:42
Potassium 4.7 mmol/L (3.5-5.1) 02/25/25 05:42
Chloride 110 mmol/L (98-107) H 02/25/25 05:42
Carbon Dioxide 28 mmol/L (22-30) 02/25/25 05:42
BUN 70 mg/dl (9-20) H 02/25/25 05:42
Creatinine 2.0 mg/dL (0.7-1.3) H 02/25/25 05:42
eGFR 34.16 02/25/25 05:42
Glucose 95 mg/dl (70-99) 02/25/25 05:42
Calcium 9.2 mg/dl (8.4-10.2) 02/25/25 05:42
Albumin 3.4 g/dl (3.5-5.0) L 02/23/25 05:44
Physical Exam
-
Vital Signs:
Vital Signs
Temp Pulse Resp BP Pulse Ox
98.8 F 99 18 144/86 95
02/25/25 07:00 02/25/25 07:00 02/25/25 07:00 02/25/25 07:00 02/25/25 07:00
Cardiovascular:: Regular rate and rhythm
Respiratory:: Bilateral: CTA (decreased BS)
Lung Excursion:: Normal (decreased bilat)
Abdomen:: Nontender and Soft
Bowel Sounds:: Decreased
Extremity Edema:: +1: Bilateral: (mostly thigh edema )
Villarreal Catheter: Yes
[2025-02-25 15:00] VITALS: BP 135/72
[2025-02-25] MEDS: MILK OF MAGNESIA 30 ML PO (16:47)
[2025-02-25] MEDS: FLOMAX 0.4 MG PO (16:47)
[2025-02-25] MEDS: LIPITOR 60 MG PO (16:47)
[2025-02-25] MEDS: MELATONIN 3 MG PO (22:08)
[2025-02-25 23:01] VITALS: BP 131/71
[2025-02-26 03:43] VITALS: PULSE 2; PULSE 88
[2025-02-26 05:51] VITALS: BMI 37.8
[2025-02-26] MEDS: SYNTHROID 175 MCG PO (06:05)
[2025-02-26 07:00] VITALS: BP 174/87
[2025-02-26] MEDS: FEOSOL 325 MG PO (08:16)
[2025-02-26] MEDS: PROSCAR 5 MG PO (08:16)
[2025-02-26] MEDS: PROTONIX 40 MG PO (08:16)
[2025-02-26] MEDS: SENOKOT-S 1 TABLET PO (08:16)
[2025-02-26] MEDS: MAGNESIUM OXIDE 500 MG PO (08:16)
[2025-02-26] MEDS: DITROPAN 2.5 MG PO (08:16)
[2025-02-26] MEDS: ASPIR LOW (ENTERIC COATED) 81 MG PO (08:16)
[2025-02-26] MEDS: COLACE 100 MG PO (08:17)
[2025-02-26] MEDS: TYLENOL 650 MG PO (08:17)
[2025-02-26] MEDS: ZYLOPRIM 100 MG PO (08:17)
[2025-02-26] MEDS: DESENEX/MITRAZOL/ZEASORB 1 APPLIC TOPICAL (08:18)
--- NOTE | 2025-02-26 09:14 | W.PN.HOSP.TC ---
Today's Communication/Plan
-
Hold clonidine
Resume Bumex
OP MRI when pacemaker matured
Discharge
Assessment / Plan
Assessment / Plan
#Acute metabolic encephalopathy
-Unclear etiology; differentials include medication induced, CVA, seizures, uremic encephalopathy/dehydration, urea cycle disorder
-Clinical condition improving off of sedative agents, question if clonidine was main issue as he improved today after stopping
-Suspicion lower for uremic etiology as BUN improving but mental status without significant change
-Was briefly started on antiepileptic therapy though discontinued; EEG with generalized slowing
-Status post 5-day antibiotic course for suspected UTI without any significant improvement
-VBG has been without signs of hypercapnia, patient has been using BiPAP nightly
-Ammonia level was checked and found to be within normal limits, as was TSH
-Clonidine held 02/22; as of morning of 02/24 he is AAO x 4
Plan
-Hold clonidine and avoid other sedating agents
-Resume Bumex at 1 mg daily
-Continue with neurochecks
-Continue with BiPAP at night
-Monitor mental status
-OP MRI 4-6 week post-PPM placement
#Azotemia
-While here he did have significant rise in BUN without rise in creatinine
-Has significant CKD but unclear if this was related to renal insufficiency
-Question if he does have an underlying urea cycle disorder which can affect BUN and mental status
-BUN did start to improve prior to his mental status improvement
-Continue to trend BUN
#Hypernatremia
-Sodium in the range of 147-150 here, due to minimal responsiveness and dehydration
-Currently on hypotonic IVF, sodium has been stable and slightly above normal
-Will continue with IV fluids to replace free water deficit
-Resolved with hypotonic IVF
#Nausea and vomiting
-Has some right upper quadrant abdominal pain, unrevealing but severely limited CT imaging
-Supportive care, antiemetics as needed
-Resolved
#Chronic hypoxemic and hypercapnic respiratory failure
#EMANUEL/OHS on nightly BiPAP
#Morbid obesity
-BMI ELECTRONIC TESTER was >40; complicated by EMANUEL and OHS with nightly BiPAP 18/09
-Last echocardiogram without signs of significant pulmonary hypertension
-Continue with nightly BiPAP here, wean nasal cannula as able
-Should have consideration for GLP-1 as OP
#CAD s/p PCI
-Home medications include aspirin and high intensity statin; not on beta-sudha w/ h/o bradycardia
-No signs of ACS or other ischemic heart symptoms here
-Continued on telemetry
#Chronic HFpEF
#Moderate to severe aortic stenosis
-Last echo in December 2024 with peak/mean gradients 43/27 mmHg, calculated JOAQUIN 0.8 cm2
-Question if he has reduced CO with reduced cerebral perfusion as cause of his presentation
-Home regimen includes Bumex; not currently on GDMT
-Holding Bumex due to azotemia, plan to resume at 1 mg daily
-Will consider repeating echocardiogram here
-Remains euvolemic appearing
#LEE on CKD stage IIIb
#Anemia of chronic kidney disease
-LEE Likely prerenal and secondary to bumetanide with reduced intake while minimally responsive
-Underlying CKD is due to with hypertensive kidney disease; No known association chronic acidemia, bone mineral disease
-Does appear to have associated AoCKD with Hgb baseline near 8
-Home Bumex was transitioned from twice daily to 1 mg daily
-Continue to trend daily BMP on current Bumex dose
-Appreciate nephrology; EPO at HD sessions per neph
#Hypothyroidism
-Home regimen includes Synthroid 175 mcg daily
-TSH here with signs of biochemical euthyroidism
-Low suspicion that his mental status is related to hypothyroidism
#Primary hypertension
-Associated with hypertensive heart and kidney disease
-Home regimen includes clonidine 0.1 mg twice daily and bumetanide
-Holding clonidine as above due to sedative properties
-Monitor BP and continue with as needed IV hydralazine
-Consider starting amlodipine if BP remains high
#H/O SSS s/p PPM
-Status post pacemaker placed within last 1 month
-Unable to have MRI here due to recent placement
#H/O CVA
#Chronic craig catheter
-Home medications include high intensity statin and aspirin
-Cannot rule out underlying CVA here, cannot get MRI due to pacemaker recently placed
DVT prophylaxis: SCDs
CODE STATUS: DNR/DNI
Anticipated Discharge: Today
Subjective/Interval History
-
Date of Service: February 26, 2025
Seen and examined at the bedside. No acute events reported overnight. AFVSS this morning on room air
Mental status stable, answering questions appropriately. Creatinine stable at 2.0, likely within baseline
Denies any new complaint
Objective Data
-
Labs:
Laboratory Results
02/26/25
09:03
Sodium Pending
Potassium Pending
Chloride Pending
Carbon Dioxide Pending
BUN Pending
Creatinine Pending
Glucose Pending
Calcium Pending
Vital Signs:
Vital Signs
Temp Pulse Resp BP Pulse Ox
97.9 F 77 19 174/87 95
02/26/25 07:00 02/26/25 07:00 02/26/25 07:00 02/26/25 07:00 02/26/25 07:30
I&O
02/25/25 02/26/25 02/27/25
06:59 06:59 06:59
Intake Total 300 / 300 420 / 420
Output Total 625 / 625 1000 / 1000
Balance -325 / -325 -580 / -580
Review of Systems
-
History Source: Patient
All other systems: Reviewed and negative
Physical Exam
-
General: Well Developed, No Apparent Distress, Appears Chronically Ill and Morbidly Obese
HEENT: Normocephalic, Atraumatic, Moist Mucous Membranes and Anicteric
Respiratory: Clear to Auscultation and Non Labored Respirations; Negative Accessory Resp Muscle Use
Cardiac: Regular Rhythm and S1/S2; Negative Murmur, Rub or Gallop
GI: Soft, Nontender, Nondistended and Normal Bowel Sounds
Musculoskeletal: No Clubbing, No Cyanosis and No Edema
Skin: Warm and Dry; Negative Rash or Jaundice
Neuro: AO x 3, Nonfocal/Grossly Intact and Other (Slow verbal responses); Negative Tremors
Psych: Calm
[2025-02-26 09:52] LABS: Blood Urea Nitrogen 70 mg/dl (9-20); Calcium 8.9 mg/dl (8.4-10.2); Carbon Dioxide 27 mmol/L (22-30); Chloride 111 mmol/L (98-107); Estimated Creatinine Clearance 36 ml/min; Glucose 111 mg/dl (70-99); Potassium 4.6 mmol/L (3.5-5.1); Sodium 145 mmol/L (135-145); eGFR 34.16
--- NOTE | 2025-02-26 10:54 | W.PN.NEPH.PH ---
Today's Communication / Plan
-
Okay for discharge on daily Bumex
Assessment/Plan
-
Impression:
CKD 3b (1.7)
Azotemia
Anemia
PPM
HFpEF, chronic
CAD
Aortic stenosis, moderate-severe
Hypertension
Neurogenic bladder with chronic indwelling Villarreal catheter
Bedbound
Hypothyroidism stable
Hyperkalemia
Plan:
cr slightly up today at 2
hypernatremia-monitor na at [address] abd no acute, bilat atrophic kidneys with cysts, one lesion peripherally calcified-likely need out pt f/u
strict low k diet
hb relatively stable, s/p EPO 20k on 02/18
Creatinine stable
Today for discharge on daily Bumex
-
-
Date of Service: February 26, 2025
CC / HPI / ROS
-
Chief Complaint:
azotemia
History of Present Illness:
CKD/Cr up at 2
Hgb stable
BP stable, sodium up at 145
Review of Systems:
no fever
weight stable
no cp or sob
Labs
-
Labs:
WBC 9.7 10^3/uL (4.8-10.8) 02/25/25 05:42
RBC 2.85 10^6/uL (4.70-6.10) L 02/25/25 05:42
Hgb 8.9 g/dL (13.0-18.0) L 02/25/25 05:42
Hct 27.3 % (39.0-52.0) L 02/25/25 05:42
Plt Count 141 10^3/uL (130-400) 02/25/25 05:42
Sodium 145 mmol/L (135-145) 02/26/25 09:15
Potassium 4.6 mmol/L (3.5-5.1) 02/26/25 09:15
Chloride 111 mmol/L (98-107) H 02/26/25 09:15
Carbon Dioxide 27 mmol/L (22-30) 02/26/25 09:15
BUN 70 mg/dl (9-20) H 02/26/25 09:15
Creatinine 2.0 mg/dL (0.7-1.3) H 02/26/25 09:15
eGFR 34.16 02/26/25 09:15
Glucose 111 mg/dl (70-99) H 02/26/25 09:15
Calcium 8.9 mg/dl (8.4-10.2) 02/26/25 09:15
Albumin 3.4 g/dl (3.5-5.0) L 02/23/25 05:44
Physical Exam
-
Vital Signs:
Vital Signs
Temp Pulse Resp BP Pulse Ox
97.9 F 77 19 174/87 95
02/26/25 07:00 02/26/25 07:00 02/26/25 07:00 02/26/25 07:00 02/26/25 07:30
Cardiovascular:: Regular rate and rhythm
Respiratory:: Bilateral: CTA (decreased BS)
Lung Excursion:: Normal (decreased bilat)
Abdomen:: Nontender and Soft
Bowel Sounds:: Decreased
Extremity Edema:: +1: Bilateral: (mostly thigh edema )
Villarreal Catheter: Yes
--- NOTE | 2025-02-26 11:11 | CM ---
patient seen at bedside
discharge today back to [facility]
spoke with Maira regarding WOCN recommends air mattress
updated careport
notified friend
IMM explained. In chart
PLAN: [facility]
Report #: [phone]
Fax #: [phone]
TRANSPORTATION FORMS ON CHART
[2025-02-26 14:00] VITALS: BP 127/70
--- NOTE | 2025-02-26 14:16 | PTCARENOTE ---
this RN attempted to give report to [facility] 5 times. between the time of 1345 and 1415. Each time this nurse was hung up on by the workers. CM made aware.
--- NOTE | 2025-02-26 14:17 | W.DCSUMMARY ---
Discharge Summary
Discharge Data
Date of Admission: 02/17/25
Date of Discharge: 02/26/25
Total time spent discharging patient (in min): 39
-
Pending Results: No
Hospital Course
Discharging Physician :�Kyle Cardoza DO
Disposition :���� [facility]
Principal Discharge diagnosis :�
Acute metabolic encephalopathy
Dehydration/hypernatremia
Azotemia
Oversedation from meds
Concern for CVA versus seizure
Unable to have MRI due to recent pacemaker placement
Scrotal wound
Constipation
Chronic Discharge diagnosis :�
CAD s/p PCI
Severe aortic stenosis
HFpEF
SSS s/p PPM
CKD 3B
EMANUEL/chronic respiratory failure on nightly BiPAP
Anemia of Chronic Disease
NIDDM
Hypertension with LVH
Dyslipidemia
Hypothyroidism
Chronic Villarreal catheter due to BPH
Gout
History of CVA
Hospital Course :�
74-year-old male that presented to the hospital with confusion and recurrent unresponsive episodes while at his living facility. Initial concerns for seizure versus CVA versus hypercapnia versus uremic encephalopathy versus polypharmacy versus UTI
versus urea cycle disorder. Pacemaker was interrogated and without issue. Was started on IV fluids and home Bumex was held. Initially with significant azotemia and BUN in the 100s however improved down to the 70s. Mental status did not improve
in correlation with his downtrending BUN. Received 5 days of antibiotics here for possible UTI though may also within colonization of his chronic Villarreal catheter, unable to endorse symptoms. TSH was within normal limits. VBG was without signs of
hypercapnia. EEG was without any seizure activity. MRI was unable to be performed in the hospital as he had pacemaker that was recently placed, unable to have MR studies done until 4 to 6 weeks postplacement. He was evaluated by neurology while
hospitalized. Home clonidine was held. The following day he was able to awaken and hold appropriate conversation. Unclear etiology though suspect degree of dehydration associated with his diuretics as well as sedation from clonidine. He remained
responsive, though slow cognitive response times. Unable to rule out cerebral ischemic event, recommend that patient does have MRI after pacemaker maturation is complete. Recommend to hold clonidine and other sedating agents as possible. Prior to
discharge was resumed on Bumex at 1 mg daily rather than twice daily. Recommended repeat BMP 5 to 7 days after being discharged from hospital to assess for recurrent azotemia. Due to recurrent hospitalizations and multiple comorbidities, recommend
that he has evaluation by palliative care after being discharged. Referral provided if needed for Palliative care
Consultants :
Neurologist: Fred Jaeger MD
Manager Gaming: Vijay Johns MD
Important imaging findings :�
CT head without contrast (02/16/2025)
FINDINGS: There is no evidence of intracranial mass lesion or mass effect, with no midline shift.
There is no evidence of acute intracranial hemorrhage. Moderate diffuse atrophy in this 74-year-old patient. No abnormal extra-axial collection is identified. Moderate leukomalacia. There is no CT evidence of a focal area of acute to subacute
infarction. The visualized paranasal sinuses appear clear. The mastoid air cells are hypoplastic bilaterally.
CT A/P without IV contrast
IMPRESSION: Markedly limited evaluation of the abdomen and pelvis as a result of NUMEROUS FACTORS including lack of oral contrast, lack of intravenous contrast, patient respiration/motion artifact and marked beam hardening artifact from bilateral
hip arthroplasties. Bilateral lower lobe subsegmental atelectasis and tiny left pleural effusion. Cannot exclude tiny pericardial effusion. Bilateral atrophic kidneys. Single tiny simple subcentimeter right renal cyst. Additional approximate 3 cm
partially exophytic right renal lesion of approximately 30 Hounsfield unit density, indeterminate without intravenous contrast. 3.3 cm peripherally calcified posterior left renal lesion. Cholelithiasis, evaluation markedly limited by all of the
above factors. If there is a clinical concern for acute cholecystitis, suggest Abdominal Ultrasound. Moderate volume widespread colonic stool as well as some moderate volume colonic air, grossly nonobstructive. Moderate volume stool is also included
in the rectosigmoid region. Especially without intravenous contrast, stercoral colitis cannot be excluded.
Procedure findings :� N/A
Follow-up :
Follow-up with PCP within 1 to 2 weeks of discharge
Referral provided for palliative care
MRI brain without contrast after pacemaker maturation
BMP and CBC 1 week after discharge
Discharge Plan
-
Patient Disposition: [facility]/SNF
Discharge Diagnosis/Procedures: Acute metabolic encephalopathy
Hypernatremia
Hypertension
Scrotal wound with chronic Villarreal
Dehydration
Unable to have MRI performed due to recent pacemaker
Condition: Fair
Diet: As tolerated, Low Cholesterol and No added salt
Activity: As tolerated
Driving Restrictions: No driving
Bathing Restrictions: None
Blood Work: BMP, Mg, Phos, and CBC 1 week after discharge from hospital
Others Tests: MRI brain without contrast when able to be performed, after pacemaker maturation (4-6 weeks after placement)
Activity Restrictions/Additional Instructions:
Wound Care Instructions
LE, L lateral heel wounds-clean with saline, silicone border foam, change q 3 days and prn loosened dressing.
Sacral/coccyx-clean with saline or soap and water, silicone border foam, change q 2 days and prn loosened dressing. If foam ineffective, apply zinc barrier ointment TID instead.
Bilateral knee high Suleman wrap or Tubigrip as tolerated. May remove q hs; reapply q am.
Miconazole powder to abdominal/groin folds, affected areas bid.
Air mattress
Turning schedule
Elevate heels off bed; soft heel relief boots as tolerated.
Follow up with wound manager respiratory care or at wound care center if needed, call for an appointment.
Schedule appointment with Palliative care. Should be seen in office within 2 weeks of discharge if possible. Referral provided if needed
Instructions: Toxic-metabolic encephalopathy
Referrals:
Mathew Tejeda, DO [Family Provider]
Heather Goode NP [Specified Professional Personl, Palliative Care] - in one to two weeks
Additional Discharge Medication Instructions: Reduced Bumex to 1 mg daily
Stopped clonidine
Avoid sedating agents or use with caution if needed
Consider amlodipine 5 mg if needed for HTN. Avoid supine blood pressure measurements
Prescriptions:
New
bumetanide 1 mg Tablet
1 mg PO DAILY 30 Days Qty: 30 0RF
Continued
atorvastatin 40 MG tablet
60 mg PO QPM
levothyroxine 175 MCG tablet
175 mcg PO DAILY
aspirin 81 MG tablet,delayed release (DR/EC)
81 mg PO DAILY
acetaminophen 650 MG tablet extended release
650 mg PO BID
magnesium hydroxide [Milk of Magnesia] 400 MG/5 ML suspension
30 ml PO DAILYPRN PRN (Reason: if no bm in 3 days)
tamsulosin [Flomax] 0.4 MG capsule
0.4 mg PO QPM
bisacodyl 10 MG suppository
10 mg MT DAILYPRN PRN (Reason: if no bm after mom)
finasteride 5 MG tablet
5 mg PO DAILY
lidocaine HCl 2 % Jelly
15 ml intra-urethral MONTHLY PRN (Reason: 15ml urethral anesthesia)
ferrous sulfate 325 mg (65 mg iron) Tablet
325 mg PO DAILY
calcium carbonate [Tums] 200 mg calcium (500 mg) Tablet,Chewable
200 mg PO Q8HPRN PRN (Reason: indigestion )
docusate sodium [Colace] 100 mg Capsule
100 mg PO BID
miconazole nitrate 2 % Powder
1 applic TOPICAL BID
melatonin 3 mg Tablet
3 mg PO HS
allopurinol 100 mg Tablet
100 mg PO DAILY
omeprazole 20 mg Capsule,Delayed Release(Dr/Ec)
20 mg PO BID
sennosides-docusate sodium [Senna-S] 8.6-50 mg Tablet
1 tab-cap PO BID
mupirocin 2 % Ointment
1 applic TOPICAL DAILYPRN PRN (Reason: penis hygiene)
Rx Instructions:
Retract skin around penis,cleanse with 1/2 strength peroxide and water, pat dry
oxybutynin chloride 5 mg Tablet
2.5 mg PO DAILY
magnesium oxide 400 mg magnesium Tablet
400 mg PO BID
mupirocin 2 % ointment
1 applic topical TID
Rx Instructions:
Retract skin around penis,cleanse with 1/2 strength peroxide and water, pat dry
dimethicone 5 % Cream
1 applic TOPICAL TID
Discontinued
acetaminophen 325 MG tablet
650 mg PO Q6HPRN PRN (Reason: mild pain/temp>100.4)
bumetanide 1 MG tablet
1 mg PO BID
potassium chloride [Klor-Con M20] 20 mEq Tablet,Er Particles/Crystals
20 meq PO DAILY
clonidine HCl 0.1 mg Tablet
0.1 mg PO BID
Rx Instructions:
Hold for SBP<100 or HR<60
Discharge Orders:
Discharge Patient (As Directed); Ordered 02/26/25
Ordered By: Kyle Cardoza
Discharge Date and Time
Print Language: BURMESE
== END 2025-02-26 15:29 | DRG 64 ==
LOC: 3 WEST ACU 00:21
PROVIDERS: Internal Medicine; ADMITTING PHYSICIAN Internal Medicine; ATTENDING PHYSICIAN Internal Medicine; CONSULT PHYSICIAN Psychiatry & Neurology Clinical Neurophysiology; EMERGENCY PHYSICIAN Emergency Medicine; FAMILY PHYSICIAN Internal Medicine; OTHER PHYSICIAN Specialist
DX: I63.9 Cerebral infarction, unspecified (principal); G93.41 Metabolic encephalopathy; R53.2 Functional quadriplegia; T83.511A Infection and inflammatory reaction due to indwelling urethral catheter, initial encounter; E46 Unspecified protein-calorie malnutrition; I50.32 Chronic diastolic (congestive) heart failure; E87.0 Hyperosmolality and hypernatremia; E66.2 Morbid (severe) obesity with alveolar hypoventilation; I13.0 Hypertensive heart and chronic kidney disease with heart failure and stage 1 through stage 4 chronic kidney disease, or unspecified chronic kidney disease; N17.9 Acute kidney failure, unspecified; N39.0 Urinary tract infection, site not specified; Z66 Do not resuscitate; Z68.37 Body mass index [BMI] 37.0-37.9, adult; Z87.891 Personal history of nicotine dependence; E87.5 Hyperkalemia; Z79.82 Long term (current) use of aspirin; R56.9 Unspecified convulsions; E11.22 Type 2 diabetes mellitus with diabetic chronic kidney disease; N18.32 Chronic kidney disease, stage 3b; E03.9 Hypothyroidism, unspecified; L89.892 Pressure ulcer of other site, stage 2; Y84.8 Other medical procedures as the cause of abnormal reaction of the patient, or of later complication, without mention of misadventure at the time of the procedure
CPT/HCPCS: 36600; 70450; 71045; 74176; 80048; 80053; 80177; 81003; 81015; 82140; 82248; 82550; 82607; 82728; 82805; 82962; 83540; 83550; 83735; 84443; 84484; 85025; 85027; 85610; 85730; 86803; 86850; 86900; 86901; 87070; 87077; 87086; 87186; 92526; 92610; 93005; 94660; 95816; 96374; 96375; 99291; Q5106

== ENCOUNTER 2025-03-01 10:28 | Inpatient (IN) | payer MEDICARE, SELFPAY ==
[2025-03-01] VITALS (12 sets, daily range): BP systolic 99–158; BP diastolic 54–91
[2025-03-01 06:29] LABS: Glucose - Point of Care 128 mg/dl (70-99)
[2025-03-01 06:36] LABS: % Basophils 0.6 % (0-2); % Eosinophils 7.3 % (0-6); % Immature Granulocytes 0.4 % (0-0.5); % Lymphocytes 16.9 % (20.5-51.1); % Monocytes 7.6 % (1.7-9.3); % Neutrophils 67.2 % (42.2-75.2); Absolute Basophils 0.1 10^3/uL (0-0.2); Absolute Eosinophils 0.6 10^3/uL (0-0.7); Absolute Lymphocytes 1.4 10^3/uL (1.2-3.4); Absolute Monocytes 0.6 10^3/uL (0.1-0.6); Absolute Neutrophils 5.6 10^3/uL (1.4-6.5); Hematocrit 30.9 % (39.0-52.0); Hemoglobin 9.8 g/dL (13.0-18.0); Mean Corp Hgb Conc. 31.7 g/dL (33.0-37.0); Mean Corpuscular Hgb 30.2 pg (27.0-31.0); Mean Corpuscular Volume 95.4 fL (80.0-94.0); Mean Platelet Volume 12.4 fL (7.4-10.4); Nucleated Red Blood Cells % 0 % (-); Platelet Count 125 10^3/uL (130-400); Red Blood Cell Count 3.24 10^6/uL (4.70-6.10); White Blood Cell Count 8.3 10^3/uL (4.8-10.8)
--- NOTE | 2025-03-01 06:56 | ED.CVA ---
History of Present Illness
General
Chief Complaint: CVA/TIA Symptoms
Source: patient, ambulance crew and custodial
Exam Limitations: clinical condition and altered mental status
Time Seen by Provider: 03/01/25 06:03
Nursing documentation reviewed up to this point in time: agreed with
Onset of Stroke Symptoms
Onset of symptoms known: No
Date of onset of symptoms: 02/28/25
Time pt last seen normal is known: Yes
Date last time pt seen normal: 03/01/25
History of Present Illness
History of Present Illness:
Patient presents to ED secondary to confusion along with 'convulsion' like activity of right upper arm, when staff walked into patient's room around 5:15 AM. Patient was last evaluated by staff member at 3 AM, when he was noted to be at his
baseline. Upon arrival, patient is alert, awake, but nonverbal. Patient able to follow simple commands appropriately. Unable to obtain any further information from the patient at this time.
Past History
Past History
ED Past Medical History: CAD, CHF (HFpEF), CVA, HTN, Hypercholesterolemia, NIDDM, SD, Hypothyroidism and Other (BPH, urinary retention, gout, headaches, morbid obesity, obstructive sleep apnea)
ED Past Surgical History: Cardiac (Coronary stents, pacemaker placement 2024) and Other (Eye surgery)
Social History
Tobacco: Non-smoker
Alcohol: None
Drug: None
Personal: Other
Living: custodial
Employment: Retired
Family History
Family History: Unable to obtain
Review of Systems
Review of Systems
Allergies reviewed?: Yes
Unable to obtain full review of systems at this time due to: non-verbal
All Other Systems: Not applicable
Phy Exam
Physical Exam
Physical Exam:
Physical Exam
General: no apparent distress, not acutely ill. afebrile
Head: nc/at. eomi
Neck: supple. normal range of motion.
Heart: s1/s2 regular rate and rhythm
Lungs: no acute respiratory distress. clear bilaterally
Abdomen: normal bowel sounds. not tender.
Neuro: alert and awake. nonverbal. RUE (motor): 10/04. LE b/l: 10/04. left preferential gaze noted
Skin: no rash
Extremities: LE b/l, nonpitting edema.
Course
Orders/Labs/Results
Orders:
Orders
03/01/25 06:02
EKG [Electrocardiogram (*1)] Urgent
Reason for Study: Fatigue / Weakness
EKG- Treatment ONCE
03/01/25 06:21
Complete Blood Count/With Diff Urgent
Comprehensive Metabolic Panel Urgent
03/01/25 06:24
CT BRAIN PERF STROKE ALERT Urgent
Comment:
Reason For Exam: aphasia with RUE weakness
CT HEAD STROKE ALERT W/o Cont Urgent
Comment:
Reason For Exam: aphasia w RUE weakness
CT HEAD/NECK ANG STROKE ALERT Urgent
Comment:
Reason For Exam: aphasia w RUE weakness
03/01/25 08:42
NEUROLOGY CONSULT Urgent
Consulting Provider: Fred Jaeger
Was physician already notified: Yes
Reason for consult: aphasia/RUE weakness
03/01/25 Lunch
Regular
At Your Request: Limited, Treatment Plant Mechanic Required
03/01/25 10:18
Admit/Transfer Patient As Directed
Co-Sign Provider:
Level of Care: Inpatient admission
Assign to:: Telemetry
Physician / Group: Hospitalist
Diagnosis: Seizure like activity
Reason for Telemetry: Medication for Arrhythmia
Date to Stop Telemetry: 03/03/25
Time to Stop Telemetry: 11:00
Reason for Hospitalization: .
Expected length of stay greater than two midnights?: Yes
ELOS- Estimated Length of Stay in days: 3
I certify the patient meets the requirements for IP care: Yes
PRN Pain Medication Management As Directed
May give lesser potent ordered pain med per pt: Yes
preference::
Protocol:: Medication orders for pain may be administered in a
manner that supports deferring to patient preference
when the pt is:
- Requesting an ordered lesser potent pain medication.
Least to most potent pain medications are defined
as: acetaminophen < NSAID < tramadol < opioids
(morphine, oxycodone, hydromorphone).
- Requesting a lesser dose of the same medication IF
ORDERED.
- Requesting a less intrusive route of administration
if both routes are prescribed by the provider (PO <
IV).
03/01/25 10:20
Code Status As Directed
Resuscitation Status: Do not resuscitate
Reached after discussion with pt or family/Healthcare POA: Yes
03/01/25 10:21
DNR Bracelet Application ONCE
03/01/25 13:34
DX Deep Vein Thrombosis Video Routine
03/01/25 14:01
Acetaminophen [Tylenol] 650 mg PO Q6HPRN PRN
03/01/25 18:00
Tamsulosin [Flomax] 0.4 mg PO QPM
03/01/25 20:00
Heparin 5,000 units SC Q12
03/01/25 22:00
Docusate W/Senna [Senokot-S] 2 tablet PO HS
Melatonin 3 mg PO HS
03/02/25 06:00
Levothyroxine [Synthroid] 175 mcg PO DAILY@0600
03/02/25 08:00
Allopurinol [Zyloprim] 100 mg PO DAILY
Amlodipine [Norvasc] 5 mg PO DAILY
Aspirin Low Dose EC [Aspir Low (Enteric Coated)] 81 mg PO DAILY
Bumetanide [Bumex] 1 mg PO DAILY
Finasteride [Proscar] 5 mg PO DAILY
Oxybutynin Chloride [Ditropan] 2.5 mg PO DAILY
Pantoprazole [Protonix] 40 mg PO DAILY
03/03/25 11:00
DC Protocol for Telemetry ONCE
Abnormal Lab Results
03/01/25 03/01/25
06:21 06:28
RBC 3.24 L 10^6/uL
(4.70-6.10)
Hgb 9.8 L g/dL
(13.0-18.0)
Hct 30.9 L %
(39.0-52.0)
MCV 95.4 H fL
(80.0-94.0)
MCHC 31.7 L g/dL
(33.0-37.0)
RDW 17.0 H %
(11.5-14.5)
Plt Count 125 L 10^3/uL
(130-400)
MPV 12.4 H fL
(7.4-10.4)
Lymphocytes % 16.9 L %
(20.5-51.1)
Eosinophils % 7.3 H %
(0-6)
Chloride 114 H mmol/L
(98-107)
BUN 56 H mg/dl
(9-20)
Creatinine 1.6 H mg/dL
(0.7-1.3)
Glucose 131 H mg/dl
(70-99)
AST 16 L U/L
(17-59)
Total Protein 6.2 L g/dl
(6.3-8.2)
POC Glucose 128 H mg/dl
(70-99)
03/01/25 06:21
03/01/25 06:21
Vital Signs
Initial and Last Documented VS:
Initial Vital Signs
Temp Pulse Pulse Ox
97.8 F 94 97
03/01/25 05:57 06/02/25 05:57 03/01/25 05:57
Last Documented Vital Signs
Temp Pulse Resp BP Pulse Ox
97.7 F 87 16 141/82 98
03/02/25 11:36 03/02/25 11:36 03/02/25 11:36 03/02/25 11:36 03/02/25 11:36
MDM/Problems Addressed
MDM/Problems Addressed:
Discussed with nursing staff at [facility]. Since returning from [facility] where he was admitted for mental status change, patient has not quite returned to his previous mental state, with patient refusing to take medications and eating
recently. Patient has also intermittently expressed thoughts of wanting to hurt himself as well as visual hallucination.
Discussed with patient's power of deputy attorney general, Mr. León Donis. Agreeable to TnK treatment, if warranted. Bleeding risk of up to 6% discussed with Mr. Donis
During observation, patient with rapid improvement in symptoms. Initial right upper extremity weakness resolved completely. Patient appropriately following simple commands. However, patient still remains unable to verbalize.
CT head: No acute findings.
CT head, CT perfusion, and CT angiogram results reviewed and discussed with on-call neurology, Dr. Jaeger. In light of normal CTP with resolution of presenting upper extremity weakness, does not feel that patient is a candidate for TnK treatment at
this time.
*Critical Care Note
Total Time (30-74mins, 75-104mins- exclusive of procedures): 30 min
ED Attending Note
-
Portions of this chart may have been created with voice recognition software.� Occasional wrong word or��sound alike� substitutions may have occurred due to the inherent limitations of voice recognition software.
Discharge Plan
Departure
Patient Disposition: Admit
Date of Disposition: 03/01/25
Time of Disposition: 09:13
Admit to: Telemetry
Presentation/result/management discussed w/ accepting MD/DO: Hospitalist
Discharge Problem:
Altered mental status
Interventions
Interventions:
*Risk Screen - Suicide Last Done: 03/01/25 05:57
*General Assessment Last Done: 03/01/25 05:57
*Neglect/Abuse Screening Last Done: 03/01/25 05:57
*ED- Fall Risk Assessment Last Done: 03/01/25 05:57
*ED COVID-19 Vaccine History Last Done: 03/01/25 05:57
*Nursing Disposition Last Done: 03/01/25 13:30
ED- Pulmonary Assessment Last Done: 03/01/25 05:57
ED- Neurological Assessment Last Done: 03/01/25 05:57
ED- Cardiac Assessment Last Done: 03/01/25 05:57
ED Swallowing Screen Last Done: 03/01/25 06:19
Discharge Date and Time
Discharge Date/Time: 03/01/25 13:45
[2025-03-01 07:05] LABS: ALT (SGPT) 12 U/L (0-50); AST (SGOT) 16 U/L (17-59); Albumin 3.5 g/dl (3.5-5.0); Alkaline Phosphatase 115 U/L (38-126); Blood Urea Nitrogen 56 mg/dl (9-20); Calcium 8.6 mg/dl (8.4-10.2); Carbon Dioxide 25 mmol/L (22-30); Chloride 114 mmol/L (98-107); Glucose 131 mg/dl (70-99); Potassium 4.5 mmol/L (3.5-5.1); Sodium 145 mmol/L (135-145); Total Bilirubin 0.6 mg/dl (0.2-1.3); Total Protein 6.2 g/dl (6.3-8.2); eGFR 44.65
--- NOTE | 2025-03-01 09:19 | CON.NEURO ---
Neuro Assessment/Plan
Assessment
head CT imgs and rept rev'd,
CTA head/neck moderate carotid plaque, <50% stenosis bilaterally. right vertebral 50-70% stenosis. right KITCHEN RUNNER 50-70% stenosis.
CT perfusion no core/penumbra
Pacemaker inserted 01/19, tomorrow will be 6 weeks for MRI
Uremia - elevated BUN with normal ammonia, doubt inborn error of urea metabolism which typically present peds neuro with elevated ammonia, learning disabilities, autism, epilepsy etc.
Plan
would check brain MRI
no use for routine EEG, would consider attempting to capture a spell however believe that yield would be low.
Consultation
Order
Date of Consultation: 03/01/25
Requesting Provider: Mynor Guillen
Reason for Consult: AMS
Subjective/Objective
Subjective Data
Date of Service: March 01, 2025
74yo M with PMH CAD, HTN/HLD, SSS s/p Recent PPM, HFpEF (TTE 01/06/25 wtih EF 55-60%, inferior, apical anterior akinesis/dyskinesis), Obesity Hypoventilation/EMANUEL on Bipap, Hypothyroidism, CKD IIIb, Hx CVA, BPH, urinary Retention, Gout, Morbid Obesity
who presents from [facility] for Confusion. Last seen normal by staff ~3 am, at baseline. ~5:15 am, staff came to draw blood, saw patient confused, with 'convulsions' of the right upper extremity. upon arrival, patient awake, nonverbal,
following simple commands.
He is known to me from prior admission. baseline bedbound, AAOx4. I saw him 01/18 after he admitted for episode of confusion and unresponsiveness and started on Keppra. as seizure was certainly possible, he was treated with Keppra 500 BID. he was
given abx, transferred to ceftriaxone 01/21. with worsening mental status, Keppra and ceftriaxone were stopped 01/22, and 01/23 without improvement clonidine stopped. by 01/25 he returned to AAOx4
Objective Data
Vital Signs
Temp Pulse Resp BP Pulse Ox
36.6 C 70 15 126/70 97
03/01/25 05:57 03/01/25 08:30 03/01/25 08:30 03/01/25 08:00 03/01/25 08:30
Lab Results
03/01/25 06:21
03/01/25 06:21
Sodium 145 mmol/L (135-145) 03/01/25 06:21
Potassium 4.5 mmol/L (3.5-5.1) 03/01/25 06:21
BUN 56 mg/dl (9-20) H 03/01/25 06:21
Glucose 131 mg/dl (70-99) H 03/01/25 06:21
Calcium 8.6 mg/dl (8.4-10.2) 03/01/25 06:21
Patient Allergies
No Known Allergies Allergy (Verified 03/01/25 05:56)
Physical Exam
-
Obtunded, briefly opens eyes and attends
nonverbal, does not follow commands
bilateral UE antigravity, and LE moving in plane of bed
Medications
-
Home Medications
�Medication �Instructions �Recorded
acetaminophen 650 mg 650 mg PO Q6HPRN PRN mild pain 08/23/20
tablet,extended release
aspirin 81 mg tablet,delayed 81 mg PO DAILY Blood clot 08/23/20
release prevention/tx
atorvastatin 40 mg tablet 60 mg PO QPM High cholesterol 08/23/20
bisacodyl 10 mg rectal suppository 10 mg MA DAILYPRN PRN if no bm 08/23/20
after mom
finasteride 5 mg tablet 5 mg PO DAILY Urinary issue 08/23/20
levothyroxine 175 mcg tablet 175 mcg PO DAILY Thyroid 08/23/20
magnesium hydroxide 400 mg/5 mL 30 ml PO DAILYPRN PRN if no bm in 08/23/20
oral suspension (Milk of Magnesia) 3 days
tamsulosin 0.4 mg capsule (Flomax) 0.4 mg PO QPM BPH 08/23/20
calcium carbonate (Tums) 200 mg PO Q8HPRN PRN indigestion 07/04/22
docusate sodium 100 mg capsule 100 mg PO BID Constipation 07/04/22
(Colace)
ferrous sulfate 325 mg (65 mg 325 mg PO DAILY Supplement 07/04/22
iron) tablet
lidocaine HCl 2 % mucosal jelly 15 ml intra-urethral MONTHLY PRN 07/04/22
15ml urethral anesthesia
allopurinol 100 mg tablet 100 mg PO DAILY Gout 01/05/25
magnesium oxide 400 mg PO BID Supplement 01/05/25
melatonin 3 mg tablet 3 mg PO HS Sleep 01/05/25
miconazole nitrate 2 % topical 1 applic topical BID FOLDS/GROIN 01/05/25
powder
mupirocin 2 % topical ointment 1 applic topical DAILYPRN PRN 01/05/25
penis hygiene
omeprazole 20 mg capsule,delayed 20 mg PO BID Gastrointestinal Issue 01/05/25
release
oxybutynin chloride 5 mg tablet 2.5 mg PO DAILY Urinary Issue 01/05/25
sennosides 8.6 mg-docusate sodium 1 tab-cap PO BID Constipation 01/05/25
50 mg tablet (Senna-S)
mupirocin 2 % topical ointment 1 applic topical TID penis rash 01/18/25
dimethicone 5 % topical cream 1 applic topical TID sacrum/buttock 02/17/25
bumetanide 1 mg tablet 1 mg PO DAILY 1 month #30 tabs 02/26/25
acetaminophen 650 mg 650 mg PO Q12H 03/01/25
tablet,extended release
amlodipine 5 mg tablet (Norvasc) 5 mg PO DAILY 03/01/25
potassium chloride 20 mEq 20 meq PO DAILY 03/01/25
tablet,extended release
--- NOTE | 2025-03-01 10:02 | HPS.HSE ---
Family Physician
-
Family Physician: Mathew Tejeda, DO
Chief Complaint
-
Change in mental status
History of Present Illness
74 years old male was transferred to from [facility] for possible seizure-like activity or weakness noted in right side of his body, right upper arm. Patient was evaluated in the emergency room. He seems to be awake and following
commands. Patient did not know why he was sent to the hospital.
Medical History
Past Medical History
Past Medical History: Reports Other (From records:CAD, CHF (HFpEF), HTN, Hypercholesterolemia, Hypothyroidism, NIDDM, Renal Failure (CKD) (1.7), confusion, (Gout, chronic Villarreal), severe aortic stenosis, obesity)
Past Surgical History: Reports Other (No recent major surgery )
Social History
Unable to obtain full social history at this time due to: Dementia
Family History
Family History: Not pertinent
Allergies / Home Medications
Allergies reflects when Allergies were last updated in [facility].
Home Medications with original date entered in [facility]
Allergy/Medication List:
Allergies
Allergy/AdvReac Type Severity Reaction Status Date / Time
No Known Allergies Allergy Verified 03/01/25 05:56
Home Medications
acetaminophen 650 mg tablet,extended release 650 mg PO Q6HPRN PRN mild pain 08/23/20
aspirin 81 mg tablet,delayed release 81 mg PO DAILY Blood clot prevention/tx 08/23/20
atorvastatin 40 mg tablet 60 mg PO QPM High cholesterol 08/23/20
bisacodyl 10 mg rectal suppository 10 mg SC DAILYPRN PRN if no bm after mom 08/23/20
finasteride 5 mg tablet 5 mg PO DAILY Urinary issue 08/23/20
levothyroxine 175 mcg tablet 175 mcg PO DAILY Thyroid 08/23/20
magnesium hydroxide 400 mg/5 mL oral suspension (Milk of Magnesia) 30 ml PO DAILYPRN PRN if no bm in 3 days 08/23/20
tamsulosin 0.4 mg capsule (Flomax) 0.4 mg PO QPM BPH 08/23/20
calcium carbonate (Tums) 200 mg PO Q8HPRN PRN indigestion 07/04/22
docusate sodium 100 mg capsule (Colace) 100 mg PO BID Constipation 07/04/22
ferrous sulfate 325 mg (65 mg iron) tablet 325 mg PO DAILY Supplement 07/04/22
lidocaine HCl 2 % mucosal jelly 15 ml intra-urethral MONTHLY PRN 15ml urethral anesthesia 07/04/22
allopurinol 100 mg tablet 100 mg PO DAILY Gout 01/05/25
magnesium oxide 400 mg PO BID Supplement 01/05/25
melatonin 3 mg tablet 3 mg PO HS Sleep 01/05/25
miconazole nitrate 2 % topical powder 1 applic topical BID FOLDS/GROIN 01/05/25
mupirocin 2 % topical ointment 1 applic topical DAILYPRN PRN penis hygiene 01/05/25
omeprazole 20 mg capsule,delayed release 20 mg PO BID Gastrointestinal Issue 01/05/25
oxybutynin chloride 5 mg tablet 2.5 mg PO DAILY Urinary Issue 01/05/25
sennosides 8.6 mg-docusate sodium 50 mg tablet (Senna-S) 1 tab-cap PO BID Constipation 01/05/25
mupirocin 2 % topical ointment 1 applic topical TID penis rash 01/18/25
dimethicone 5 % topical cream 1 applic topical TID sacrum/buttock 02/17/25
bumetanide 1 mg tablet 1 mg PO DAILY 1 month #30 tabs 02/26/25
acetaminophen 650 mg tablet,extended release 650 mg PO Q12H 03/01/25
amlodipine 5 mg tablet (Norvasc) 5 mg PO DAILY 03/01/25
potassium chloride 20 mEq tablet,extended release 20 meq PO DAILY 03/01/25
Review of Systems
-
History Source: Patient
A 12 point ROS was completed and negative except as noted: Yes
Constitutional: Denies Fever
EENT: Denies Sore Throat
Respiratory: Denies Cough
Cardiac: Denies Chest Pain
Abdomen/GI: Denies Abdominal Pain
: Denies Bleeding
Musculoskeletal: Denies Joint Pain or Joint Swelling
Skin: Denies Itching
Neurological: Denies Headache
Psych: Denies Panic Disorder
Physical Exam
Vital Signs
Vital Signs
Temp Pulse Resp BP Pulse Ox
97.8 F 70 15 126/70 97
03/01/25 05:57 03/01/25 08:30 03/01/25 08:30 03/01/25 08:00 03/01/25 08:30
Physical Exam
General: No Apparent Distress and Comfortable
HEENT: Moist mucous membranes and Atraumatic
Respiratory: Decreased Breath Sounds
Cardiac: S1/S2
GI: Soft and Non Tender
Musculoskeletal: Edema, Left Lower Extremity and Edema, Right Lower Extremity
Skin: No Jaundice
Neuro: Awake (He moved his upepr and lower extremities to commands, no tremor. )
Psych: Calm; No Agitated
Laboratory Results
-
03/01/25 06:21
03/01/25 06:21
Laboratory Results
Total Bilirubin 0.6 mg/dl (0.2-1.3) 03/01/25 06:21
AST 16 U/L (17-59) L 03/01/25 06:21
ALT 12 U/L (0-50) 03/01/25 06:21
Alkaline Phosphatase 115 U/L (38-126) 03/01/25 06:21
Impression/Plan
-
74 male presented with change in mental status:
# Change in mental status
History taken from the ER doctor and EMT records: patient was noticed to have right sided weakness with right facial droop and brief episode of unresponsiveness But ER doctor noted convulsions like activity of the right upper arm.
Discussed with neurologist who evaluated the patient in the ER: possible seizure, not CVA
Patient is awake and following commands. Seems to have underlying cognitive impairment
CT head unremarkable for acute findings
No fever
No leukocytosis
d/w neurology, will follow closely for now of note, urine test
Urine test is abnormal but likely consistent with previous urinalysis in setting of chronic indwelling catheter
Further planning per neurology
# Hx CKD IIIb
No renal colic
No hematuria
# Anemia of chronic disease
#Chronic hypoxemic and hypercapnic respiratory failure
#EMANUEL/OHS on nightly BiPAP
#Morbid obesity
-Last echocardiogram without signs of significant pulmonary hypertension
-Continue with nightly BiPAP here, wean nasal cannula as able
#Chronic HFpEF
#Moderate to severe aortic stenosis
-Last echo in December 2024 with peak/mean gradients 43/27 mmHg, calculated JOAQUIN 0.8 cm2
-Question if he has reduced CO with reduced cerebral perfusion as cause of his presentation
-Home regimen includes Bumex; not currently on GDMT
#CAD / HTN / HLD - Continue aspirin/statin/clonidine.
#SSS s/p PPM - Follow up interrogation report. Recent Left Chest Wall PPM noted.
#Hypothyroidism - Continue Synthroid. Follow up TSH
#Hx CVA - Continue bASA/statin.
#BPH/Chronic Retention - Chronic Villarreal. Continue finasteride/Flomax
#Gout - Continue allopurinol
#Class III Obesity -
Code Status: DNR/DNI,
Total time spent to see the patient, examine the patient, review data and lab results, discuss treatment plan with patient, neurology, ER doctor, �nursing staff around 75 minutes
--- NOTE | 2025-03-01 10:33 | CM ---
Pt seen at bedside in ED, Resides in LTC at [facility]
PCP: Mathew Tejeda
Pharmacy: [facility]
Plan: Return to [facility] pending medical evaluation
[2025-03-01] MEDS: FLOMAX PO (18:30)
[2025-03-01] MEDS: HEPARIN 5000 UNITS SC (20:34)
[2025-03-01] MEDS: SENOKOT-S 2 TABLET PO (20:34)
[2025-03-01] MEDS: MELATONIN 3 MG PO (20:34)
[2025-03-02] VITALS (7 sets, daily range): BP systolic 126–154; BP diastolic 67–84; PULSE 79; BMI 37.4
[2025-03-02] MEDS: SYNTHROID 175 MCG PO (05:01)
[2025-03-02] MEDS: ZYLOPRIM 100 MG PO (08:23)
[2025-03-02] MEDS: NORVASC 5 MG PO (08:24)
[2025-03-02] MEDS: PROSCAR 5 MG PO (08:25)
[2025-03-02] MEDS: ASPIR LOW (ENTERIC COATED) 81 MG PO (08:25)
[2025-03-02] MEDS: DITROPAN 2.5 MG PO (08:25)
[2025-03-02] MEDS: PROTONIX 40 MG PO (08:25)
[2025-03-02] MEDS: HEPARIN 5000 UNITS SC ×2 (08:26→20:59)
[2025-03-02] MEDS: BUMEX 1 MG PO (08:26)
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
[2025-03-02] MEDS: FLOMAX 0.4 MG PO (18:32)
[2025-03-02] MEDS: SENOKOT-S 2 TABLET PO (21:10)
[2025-03-02] MEDS: MELATONIN PO (21:12)
[2025-03-03 03:12] VITALS: BP 124/78
[2025-03-03] MEDS: SYNTHROID 175 MCG PO (05:22)
[2025-03-03 06:56] VITALS: BP 137/74
[2025-03-03 08:23] LABS: Blood Urea Nitrogen 48 mg/dl (9-20); Calcium 8.1 mg/dl (8.4-10.2); Carbon Dioxide 22 mmol/L (22-30); Chloride 113 mmol/L (98-107); Glucose 103 mg/dl (70-99); Potassium 4.2 mmol/L (3.5-5.1); Sodium 141 mmol/L (135-145); eGFR 44.65
[2025-03-03 08:39] LABS: % Basophils 0.9 % (0-2); % Immature Granulocytes 0.3 % (0-0.5); % Lymphocytes 26.9 % (20.5-51.1); % Monocytes 10.3 % (1.7-9.3); % Neutrophils 52.6 % (42.2-75.2); Absolute Basophils 0.1 10^3/uL (0-0.2); Absolute Eosinophils 0.6 10^3/uL (0-0.7); Absolute Lymphocytes 1.8 10^3/uL (1.2-3.4); Absolute Monocytes 0.7 10^3/uL (0.1-0.6); Absolute Neutrophils 3.5 10^3/uL (1.4-6.5); Hemoglobin 8.1 g/dL (13.0-18.0); Mean Corp Hgb Conc. 32.4 g/dL (33.0-37.0); Mean Corpuscular Hgb 29.9 pg (27.0-31.0); Mean Corpuscular Volume 92.3 fL (80.0-94.0); Nucleated Red Blood Cells % 0 % (-); Red Blood Cell Count 2.71 10^6/uL (4.70-6.10); Red Cell Dist. Width 16.6 % (11.5-14.5); White Blood Cell Count 6.6 10^3/uL (4.8-10.8)
[2025-03-03] MEDS: HEPARIN 5000 UNITS SC ×2 (09:04→20:56)
[2025-03-03] MEDS: PROSCAR 5 MG PO (09:05)
[2025-03-03] MEDS: BUMEX 1 MG PO (09:05)
[2025-03-03] MEDS: NORVASC 5 MG PO (09:05)
[2025-03-03] MEDS: ASPIR LOW (ENTERIC COATED) 81 MG PO (09:05)
[2025-03-03] MEDS: PROTONIX 40 MG PO (09:06)
[2025-03-03] MEDS: ZYLOPRIM 100 MG PO (09:06)
[2025-03-03] MEDS: DITROPAN 2.5 MG PO (09:06)
[2025-03-03 11:00] VITALS: BP 144/68
--- NOTE | 2025-03-03 12:24 | PN.CDI ---
CDI
- -
CDI:
Physician Documentation Request
Admit Date: 03/01/25 10:28
Dear Doctor Jo,
Please review the following and provide your response in the progress notes.
Clinical Indicators:
- RN skin assessments indicate:
- DTI right gluteal sulcus, POA
- Stage 2 sacrum pressure injury, POA
Physician documentation of the type and location of wounds is required for compliant documentation. Based on the above clinical findings and your assessment, please provide the following in your progress note:
1. Location of the ulcer/wound, including laterality.
2. Type (etiology) of ulcer/wound:
- Diabetic ulcer
- Arterial (ischemic) ulcer
- Traumatic wound
- Venous stasis ulcer
- Pressure (decubitus) ulcer
- Other
Use of terms such as suspected, likely, concern for, or probable (associated with a specific diagnosis that is being evaluated, monitored, or treated as if it exists) are acceptable and can be coded in the inpatient setting, when documented at the
time of discharge.
Thank you,
Cara Gayle RN
CDI Specialist
Please use your independent medical judgment in providing your response.
*Source: National Pressure Ulcer Advisory Panel (NPUAP)
--- NOTE | 2025-03-03 12:36 | W.PN.UPDATE ---
Update Note
Progress Note Update
patient seen chart reviewed. discussed with nursing. the patient has been cooperative and pleasant with no issues vis a vis compliance. he does believe he is juventino radha. he told me that he ' for my sins'. he was however very willing to
converse and we hit a number of topics including music and tv shoes he has enjoyed over the years. he told me about his living arrangement '[facility]'. he knew it was in [place]. he said he has been there for six years he told me about
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 he says he has a but could not tell me where she lived. he has no children. at this point i see no reason to medicate this person who offers no complaints, is
cooperating with his care and is quite conversant. will stop by and touch base w him tomorrow and if he is doing ok will then sign off.
--- NOTE | 2025-03-03 12:44 | W.PN.HOSP.TC ---
Addendum entered and electronically signed by Vijay Osorio DO 03/04/25 07:51:
Additional diagnosis:
Functional quadriplegia -complete immobility due to severe physical disability or frailty
Original Note:
Today's Communication/Plan
-
Assessment / Plan
Assessment / Plan
General: No Apparent Distress, obese
HEENT: NormoCephalic, Moist mucous membranes
Respiratory: Clear bilaterally, Non Labored Respirations
Cardiac: S1/S2 and Regular Rhythm; No Rub or Gallop
GI: Soft, nontender, Normal Bowel Sounds
Musculoskeletal: bilateral lower extremity edema, no deformity
Skin: Warm and dry, multiple small excoriations on bilateral lower extremities
Neuro: No tremor, no focal weakness, poor memory, confused
Psych: Calm and cooperative, tangential thinking
Mr. Mills is a 74-year-old male with a medical history of CAD, hypertension, sick sinus syndrome (recent pacemaker), HFpEF, OHS/EMANUEL (BiPAP at night), CKD stage IIIb, CVA, hypothyroidism, urinary retention, and morbid obesity who presented from
[facility] due to confusion and right arm convulsions. No convulsions noted since admission. He has been admitted for further evaluation and management.
Acute metabolic encephalopathy:
- Resolved, awake and alert today, suspect he has some degree of baseline dementia with superimposed delirium likely due to multiple recent hospitalizations
- Admitted for possible seizure activity with tonic-clonic activity noted the patient's right arm in the ED, no seizure activity noted since admission
- He remains afebrile and normotensive, no evidence of acute infection
- Lab findings all consistent with baseline including uremia which is chronic and improved from previous admission
- CT imaging of his brain shows severe white matter leukoaraiosis with no acute changes
- Spoke at length with his friend León Donis who is his primary contact listed the chart, he reports noticing patient's cognitive decline over the past 6 months and notes that more recently it appears to have worsened possibly due to the recent
of the patient's sister
- Evaluated by psychiatry, no indication for psychiatric medications
- Evaluated by neurology, unable to obtain brain MRI due to recent pacemaker placement
- Anticipate discharge to his nursing facility in the next 24 to 48 hours
- Will need eventual neuropsychiatric evaluation in the outpatient setting
CKD stage IIIb:
- Renal function and BUN. Baseline
- Continue Bumex p.o. 1 mg daily
Anemia:
- Chronic likely secondary to advanced CKD
- Hemoglobin stable currently
HFpEF, chronic:
- Currently compensated
- Continue Bumex p.o.
Sick sinus syndrome:
- Status post recent pacemaker placement
- Currently rate controlled
Hypothyroidism
- Continue home Synthroid 175 mcg daily
- TSH within normal limits
DVT prophylaxis: Subcu heparin
CODE STATUS: DNR/DNI
Total time spent on today's encounter was 40 minutes
Anticipated Discharge: 24 - 48 hours
Subjective/Interval History
-
Date of Service: March 03, 2025
Patient was seen and examined at bedside this morning. Remains confused but pleasantly so. We discussed things from his past including his time growing up in [place] and stories about his late . He was less able to remember events from his
recent past.
Objective Data
-
Labs:
Laboratory Results
03/03/25
06:47
WBC 6.6
Hgb 8.1 L
Hct 25.0 L
Plt Count
Sodium 141
Potassium 4.2
Chloride 113 H
Carbon Dioxide 22
BUN 48 H
Creatinine 1.6 H
Glucose 103 H
Calcium 8.1 L
Vital Signs:
Vital Signs
Temp Pulse Resp BP Pulse Ox
97.6 F 65 14 144/68 99
03/03/25 11:00 03/03/25 11:00 03/03/25 11:00 03/03/25 11:00 03/03/25 11:00
I&O
03/02/25 03/03/25 03/04/25
06:59 06:59 06:59
Intake Total 480 / 480 240 / 240
Output Total 600 / 600 1200 / 1200
Balance -120 / -120 -1200 / -1200 240 / 240
Review of Systems
-
History Source: Patient
All other systems: Reviewed and negative
Physical Exam
-
General: No Apparent Distress
--- NOTE | 2025-03-03 12:45 | CM ---
CM following re: discharge planning.
Reviewed pt's chart, met with pt.
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
D/C plan: return back to [facility] for a snf, care.
[facility] nursing repprt: [phone]
Discharge instructions fax: [phone]
CM will follow with discharge plan updates as hospitalization progresses
[2025-03-03 15:29] VITALS: BP 143/72
[2025-03-03] MEDS: FLOMAX 0.4 MG PO (17:44)
[2025-03-03] MEDS: MELATONIN 3 MG PO (21:03)
[2025-03-03] MEDS: SENOKOT-S PO (21:06)
[2025-03-03 21:33] VITALS: PULSE 2; PULSE 70
[2025-03-03 23:20] VITALS: BP 133/87
[2025-03-04 04:06] VITALS: PULSE 2
[2025-03-04] MEDS: SYNTHROID 175 MCG PO (05:26)
[2025-03-04 06:47] LABS: % Basophils 0.7 % (0-2); % Immature Granulocytes 0.3 % (0-0.5); % Lymphocytes 27.5 % (20.5-51.1); % Monocytes 9.9 % (1.7-9.3); % Neutrophils 54.6 % (42.2-75.2); Absolute Eosinophils 0.4 10^3/uL (0-0.7); Absolute Lymphocytes 1.7 10^3/uL (1.2-3.4); Absolute Monocytes 0.6 10^3/uL (0.1-0.6); Absolute Neutrophils 3.4 10^3/uL (1.4-6.5); Hematocrit 27.5 % (39.0-52.0); Hemoglobin 8.9 g/dL (13.0-18.0); Mean Corp Hgb Conc. 32.4 g/dL (33.0-37.0); Mean Corpuscular Hgb 30.7 pg (27.0-31.0); Mean Corpuscular Volume 94.8 fL (80.0-94.0); Mean Platelet Volume 11.5 fL (7.4-10.4); Nucleated Red Blood Cells % 0 % (-); Platelet Count 125 10^3/uL (130-400); Red Cell Dist. Width 16.4 % (11.5-14.5); White Blood Cell Count 6.1 10^3/uL (4.8-10.8)
[2025-03-04 07:05] LABS: Blood Urea Nitrogen 47 mg/dl (9-20); Calcium 8.3 mg/dl (8.4-10.2); Carbon Dioxide 24 mmol/L (22-30); Chloride 109 mmol/L (98-107); Glucose 103 mg/dl (70-99); Potassium 4.5 mmol/L (3.5-5.1); Sodium 140 mmol/L (135-145); eGFR 44.65
[2025-03-04 07:07] VITALS: BP 132/50
--- NOTE | 2025-03-04 07:24 | PN.CDI ---
CDI
- -
CDI:
Physician Documentation Request
Admit Date: 03/01/25 10:28
Dear Doctor Jo,
Please review the following and provide your response in the progress notes.
Clinical Indicators:
- 03/03 PN 'Admit for possible seizure activity with tonic-clonic activity noted in patient's right arm in ED'
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
- RN notes indicate complete care for activity and hygiene
Please provide further specificity as noted below:
Functional quadriplegia -complete immobility due to severe physical disability or frailty
Other (please specify)
Use of terms such as suspected, likely, concern for, or probable (associated with a specific diagnosis that is being evaluated, monitored, or treated as if it exists) are acceptable and can be coded in the inpatient setting, when documented at the
time of discharge.
Thank you,
Cara Gayle RN
CDI Specialist
Please use your independent medical judgment in providing your response.
[2025-03-04] MEDS: BUMEX 1 MG PO (08:45)
[2025-03-04] MEDS: NORVASC 5 MG PO (08:46)
[2025-03-04] MEDS: ASPIR LOW (ENTERIC COATED) 81 MG PO (08:46)
[2025-03-04] MEDS: ZYLOPRIM 100 MG PO (08:46)
[2025-03-04] MEDS: PROTONIX 40 MG PO (08:46)
[2025-03-04] MEDS: DITROPAN 2.5 MG PO (08:46)
[2025-03-04] MEDS: HEPARIN 5000 UNITS SC (08:47)
[2025-03-04] MEDS: PROSCAR 5 MG PO (08:47)
--- NOTE | 2025-03-04 09:53 | CM ---
CM following re: discharge planning.
Reviewed pt's chart, met with pt.
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
According to pt is medically stable to be discharged today. CM spoke to pt';s friend Cem, he expressed his agreement with discharge. IMM reviewed, placed on chart, pt has a copy.
A referral to [facility] made, spoke to liaison Anastasia, pt is accepted for admission today.
to arrange ambulance transport, BLS. PMNC completed, left with [facility] nursing repprt: [phone]
Discharge instructions fax: [phone]
D/C plan: return back to [facility] for a group home, care
--- NOTE | 2025-03-04 10:16 | W.DCSUMMARY ---
Discharge Summary
Discharge Data
Date of Admission: 03/01/25
Date of Discharge: 03/04/25
Total time spent discharging patient (in min): 40
-
Pending Results: No
Hospital Course
Mr. Mills is a 74-year-old male with a medical history of CAD, hypertension, sick sinus syndrome (recent pacemaker), HFpEF, OHS/EMANUEL (BiPAP at night), CKD stage IIIb, CVA, hypothyroidism, urinary retention, functional quadriplegia due to frailty
(bedbound), and morbid obesity who presented from [facility] due to confusion and right arm convulsions. No convulsions noted since admission. He was admitted for further evaluation and management.
After some initial somnolence his mental status improved. He was awake and alert although he was sometimes confused and speaking nonsensically. CT imaging of his brain showed no acute changes but did reveal severe white matter leukoaraiosis
consistent with advanced dementia. The patient's friend and power of assistant county attorney, León Donis, reported noticing the patient to have progressive cognitive decline over the past 6 months. The patient was evaluated during this admission by
psychiatry who felt there is no indication for the addition of psychiatric medications. He would benefit from eventual neuropsychiatric evaluation in the outpatient setting. He is unable to get an MRI of his brain at this time due to recent
pacemaker placement. He has remained afebrile and normotensive throughout his hospitalizations. His labs have been unremarkable and consistent with his baseline from previous admissions. At this point he is medically stable for hospital
discharge. He should follow-up closely with his primary care physician and obtain formal neuropsychiatric evaluation which will likely reveal diagnosis of advancing dementia.
General: No Apparent Distress, obese
HEENT: NormoCephalic, Moist mucous membranes
Respiratory: Clear bilaterally, Non Labored Respirations
Cardiac: S1/S2 and Regular Rhythm; No Rub or Gallop
GI: Soft, nontender, Normal Bowel Sounds
Musculoskeletal: bilateral lower extremity edema, no deformity
Skin: Warm and dry, multiple small excoriations on bilateral lower extremities
Neuro: No tremor, no focal weakness, poor memory, confused
Psych: Calm and cooperative
Discharge Plan
-
Patient Disposition: Care Home/SNF
Discharge Diagnosis/Procedures: Encephalopathy, delirium
Diet: Low Cholesterol
Activity: As tolerated
Activity Restrictions/Additional Instructions:
Mr. Mills is a 74-year-old male with a medical history of CAD, hypertension, sick sinus syndrome (recent pacemaker), HFpEF, OHS/EMANUEL (BiPAP at night), CKD stage IIIb, CVA, hypothyroidism, urinary retention, functional quadriplegia due to frailty
(bedbound), and morbid obesity who presented from [facility] due to confusion and right arm convulsions. No convulsions noted since admission. He was admitted for further evaluation and management.
After some initial somnolence his mental status improved. He was awake and alert although he was sometimes confused and speaking nonsensically. CT imaging of his brain showed no acute changes but did reveal severe white matter leukoaraiosis
consistent with advanced dementia. The patient's friend and power of assistant county attorney, León Donis, reported noticing the patient to have progressive cognitive decline over the past 6 months. The patient was evaluated during this admission by
psychiatry who felt there is no indication for the addition of psychiatric medications. He would benefit from eventual neuropsychiatric evaluation in the outpatient setting. He is unable to get an MRI of his brain at this time due to recent
pacemaker placement. He has remained afebrile and normotensive throughout his hospitalizations. His labs have been unremarkable and consistent with his baseline from previous admissions. At this point he is medically stable for hospital
discharge. He should follow-up closely with his primary care physician and obtain formal neuropsychiatric evaluation which will likely reveal diagnosis of advancing dementia.
Referrals:
Mathew Tejeda, [Family Provider, Internal Medicine]
Prescriptions:
Continued
atorvastatin 40 MG tablet
60 mg PO QPM
levothyroxine 175 MCG tablet
175 mcg PO DAILY
aspirin 81 MG tablet,delayed release (DR/EC)
81 mg PO DAILY
acetaminophen 650 MG tablet extended release
650 mg PO Q6HPRN PRN (Reason: mild pain)
magnesium hydroxide [Milk of Magnesia] 400 MG/5 ML suspension
30 ml PO DAILYPRN PRN (Reason: if no bm in 3 days)
tamsulosin [Flomax] 0.4 MG capsule
0.4 mg PO QPM
bisacodyl 10 MG suppository
10 mg OR DAILYPRN PRN (Reason: if no bm after mom)
finasteride 5 MG tablet
5 mg PO DAILY
lidocaine HCl 2 % Jelly
15 ml intra-urethral MONTHLY PRN (Reason: 15ml urethral anesthesia)
ferrous sulfate 325 mg (65 mg iron) Tablet
325 mg PO DAILY
calcium carbonate [Tums] 200 mg calcium (500 mg) Tablet,Chewable
200 mg PO Q8HPRN PRN (Reason: indigestion )
docusate sodium [Colace] 100 mg Capsule
100 mg PO BID
miconazole nitrate 2 % Powder
1 applic TOPICAL BID
melatonin 3 mg Tablet
3 mg PO HS
allopurinol 100 mg Tablet
100 mg PO DAILY
omeprazole 20 mg Capsule,Delayed Release(Dr/Ec)
20 mg PO BID
sennosides-docusate sodium [Senna-S] 8.6-50 mg Tablet
1 tab-cap PO BID
mupirocin 2 % Ointment
1 applic TOPICAL DAILYPRN PRN (Reason: penis hygiene)
Rx Instructions:
Retract skin around penis,cleanse with 1/2 strength peroxide and water, pat dry
oxybutynin chloride 5 mg Tablet
2.5 mg PO DAILY
magnesium oxide 400 mg magnesium Tablet
400 mg PO BID
mupirocin 2 % ointment
1 applic topical TID
Rx Instructions:
Retract skin around penis,cleanse with 1/2 strength peroxide and water, pat dry
dimethicone 5 % Cream
1 applic TOPICAL TID
bumetanide 1 mg Tablet
1 mg PO DAILY 30 Days Qty: 30 0RF
amlodipine [Norvasc] 5 mg Tablet
5 mg PO DAILY
acetaminophen 650 mg Tablet Extended Release
650 mg PO Q12H
Held
potassium chloride 20 mEq Tablet Extended Release
20 meq PO DAILY
Hold Instructions: Restart if hypokalemic on repeat labs
Discharge Orders:
Discharge Patient (As Directed); Ordered 03/04/25
Ordered By: Vijay Osorio
Discharge Date and Time
Print Language: WALLISIAN
[2025-03-04 12:16] VITALS: BP 128/64
== END 2025-03-04 13:11 | DRG 100 ==
LOC: 2 NORTH 10:28
PROVIDERS: ADMITTING PHYSICIAN Internal Medicine; ATTENDING PHYSICIAN Internal Medicine; CONSULT PHYSICIAN Psychiatry & Neurology Clinical Neurophysiology; CONSULT PHYSICIAN Psychiatry & Neurology Psychiatry; EMERGENCY PHYSICIAN Emergency Medicine; FAMILY PHYSICIAN Internal Medicine
DX: G40.409 Other generalized epilepsy and epileptic syndromes, not intractable, without status epilepticus (principal); G93.41 Metabolic encephalopathy; R53.2 Functional quadriplegia; E66.2 Morbid (severe) obesity with alveolar hypoventilation; I50.32 Chronic diastolic (congestive) heart failure; I13.0 Hypertensive heart and chronic kidney disease with heart failure and stage 1 through stage 4 chronic kidney disease, or unspecified chronic kidney disease; R47.01 Aphasia; F05 Delirium due to known physiological condition; E03.9 Hypothyroidism, unspecified; N18.32 Chronic kidney disease, stage 3b; E11.22 Type 2 diabetes mellitus with diabetic chronic kidney disease; F03.90 Unspecified dementia, unspecified severity, without behavioral disturbance, psychotic disturbance, mood disturbance, and anxiety; E78.00 Pure hypercholesterolemia, unspecified; I25.10 Atherosclerotic heart disease of native coronary artery without angina pectoris; N40.1 Benign prostatic hyperplasia with lower urinary tract symptoms; D63.1 Anemia in chronic kidney disease; R41.89 Other symptoms and signs involving cognitive functions and awareness; R29.810 Facial weakness; E66.813 Obesity, class 3; M10.9 Gout, unspecified; L89.152 Pressure ulcer of sacral region, stage 2; L89.316 Pressure-induced deep tissue damage of right buttock; R33.8 Other retention of urine; Z66 Do not resuscitate; I25.2 Old myocardial infarction; Z95.0 Presence of cardiac pacemaker; Z95.5 Presence of coronary angioplasty implant and graft; Z74.01 Bed confinement status; Z79.82 Long term (current) use of aspirin; Z79.890 Hormone replacement therapy; Z86.73 Personal history of transient ischemic attack (TIA), and cerebral infarction without residual deficits
CPT/HCPCS: 0042T; 70450; 70496; 70498; 80048; 80053; 82962; 85025; 87070; 93005; 94660; 99285; Q9967

== ENCOUNTER 2025-03-14 08:25 | Emergency (ER) | payer MEDICARE, SELFPAY ==
[2025-03-14 08:27] VITALS: BP 126/80
[2025-03-14 08:55] LABS: % Basophils 0.9 % (0-2); % Eosinophils 4.2 % (0-6); % Immature Granulocytes 0.4 % (0-0.5); % Monocytes 10.8 % (1.7-9.3); % Neutrophils 59.7 % (42.2-75.2); Absolute Basophils 0.1 10^3/uL (0-0.2); Absolute Eosinophils 0.3 10^3/uL (0-0.7); Absolute Lymphocytes 1.8 10^3/uL (1.2-3.4); Absolute Monocytes 0.8 10^3/uL (0.1-0.6); Absolute Neutrophils 4.6 10^3/uL (1.4-6.5); Hematocrit 32.2 % (39.0-52.0); Hemoglobin 10.2 g/dL (13.0-18.0); Mean Corp Hgb Conc. 31.7 g/dL (33.0-37.0); Mean Corpuscular Hgb 30.2 pg (27.0-31.0); Mean Corpuscular Volume 95.3 fL (80.0-94.0); Mean Platelet Volume 10.7 fL (7.4-10.4); Nucleated Red Blood Cells % 0 % (-); Platelet Count 202 10^3/uL (130-400); Red Blood Cell Count 3.38 10^6/uL (4.70-6.10); Red Cell Dist. Width 16.8 % (11.5-14.5); White Blood Cell Count 7.7 10^3/uL (4.8-10.8)
[2025-03-14 09:09] LABS: ALT (SGPT) 14 U/L (0-50); AST (SGOT) 18 U/L (17-59); Albumin 3.8 g/dl (3.5-5.0); Alkaline Phosphatase 108 U/L (38-126); Blood Urea Nitrogen 41 mg/dl (9-20); Calcium 9.1 mg/dl (8.4-10.2); Carbon Dioxide 25 mmol/L (22-30); Chloride 111 mmol/L (98-107); Glucose 93 mg/dl (70-99); Potassium 5.2 mmol/L (3.5-5.1); Sodium 141 mmol/L (135-145); Total Bilirubin 0.6 mg/dl (0.2-1.3); Total Protein 6.8 g/dl (6.3-8.2); eGFR 48.25
--- NOTE | 2025-03-14 09:24 | ED.GENMED ---
History of Present Illness
General
Chief Complaint: Change in Mental Status
Source: patient
Exam Limitations: none
Time Seen by Provider: 03/14/25 09:00
Nursing documentation reviewed up to this point in time: agreed with
History of Present Illness
History of Present Illness:
Note:
CHIEF COMPLAINT(S)
The patient reports feeling confused and unable to lift his left foot, suspecting he might have had a stroke.
HISTORY OF PRESENT ILLNESS
The patient is a 74-year-old male with a history of heart attacks and strokes. He reported feeling confused this morning after returning home from the hospital. 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 The patient
contacted emergency services as a result of these symptoms. He reports that he has not been able to walk for more than six years and struggles with mobility, particularly when lifting his left foot. On examination, the patient demonstrated some
difficulty with coordination and memory, such as being unable to correctly state the current year or month.
REVIEW OF SYSTEMS
- Neurological: Confusion, difficulty lifting left foot.
- General: Denies any chest pain or shortness of breath. Otherwise, feels well.
PHYSICAL EXAM
- Neurological: No noticeable neurological deficits. Cranial nerves 2 through 12 are intact. difficulty lifting both legs, this is chronic
- Cardiovascular: Heart examination reveals normal S1 and S2 sounds with no murmurs.
- Respiratory: Lungs are clear.
- Integumentary: No signs of stasis dermatitis or erythema.
- Orientation: Alert and oriented during conversation.
PLAN
- Blood tests to be performed to assess patient�s condition further.
- A computed tomography (CT) scan of the head to be conducted to rule out a stroke.
- Ensure the patient receives adequate fluids and arrange for a suitable lunch, as requested.
DIFFERENTIAL DIAGNOSIS
The Differential Diagnosis includes, in no particular order and is not limited to:
1. Transient Ischemic Attack
2. Cerebral Vascular Accident (Stroke)
3. Hypoglycemia
4. Electrolyte Imbalance
5. Dehydration
6. Delirium
7. Peripheral Neuropathy
8. Medication Side Effect
9. Syncope
10. Seizure
CARE-UPDATE
03/14/25 - 12:00
CT head showed no acute findings. The incident is not suspected to be connected to the patients chronic immobility and dementia. Patient is stable for discharge and will follow up with primary care as scheduled. Transfer arrangements to [facility] via ambulance have been made.
Disposition:
SUMMARY OF ENCOUNTER
The patient, a 74-year-old male with a history of heart attacks and strokes, presented to the emergency department reporting confusion. 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 He was evaluated for neurological
deficits and disorientation, with a focus on ruling out a cerebrovascular accident.
DISPOSITION
Transfer to [facility] via ambulance has been arranged as the patient is stable for discharge.
ASSESSMENT
The patient was assessed for potential causes of confusion, including Transient Ischemic Attack and stroke, but CT scan findings were not acute. His chronic immobility and dementia were taken into account, and a non-stroke related cause was
considered.
PLAN
Blood tests were conducted to further assess the patients condition. A CT scan of the head was performed to rule out acute stroke. The patient was advised to maintain adequate hydration and nutrition.
INDEPENDENT INTERPRETATION OF TESTS
My independent interpretation of the CT scan showed no acute findings, ruling out a recent stroke event.
FOLLOW-UP INSTRUCTIONS
The patient is to follow up with his primary care provider as scheduled.
MEDICAL DECISION MAKING
The complexity of the patients medical history, including potential for stroke and chronic conditions, was considered. CT imaging and blood test analyses informed the decision to discharge the patient. The potential necessity of hospitalization was
contemplated but deemed unnecessary given the patients stability.
To the best of my knowledge and according to current medical standards, the patient was provided with care that meets or exceeds the standard of care for their condition.
Past History
Past History
ED Past Medical History: CAD, CHF (HFpEF), CVA, HTN, Hypercholesterolemia, NIDDM, [place], Hypothyroidism and Other (BPH, urinary retention, gout, headaches, morbid obesity, obstructive sleep apnea)
ED Past Surgical History: Cardiac (Coronary stents, pacemaker placement 2024) and Other (Eye surgery)
Social History
Tobacco: Non-smoker
Alcohol: None
Drug: None
Personal: Other
Living: alf
Employment: Retired
Family History
Family History: Unable to obtain
Phy Exam
Physical Exam
Physical Exam:
.
Course
Orders/Labs/Results
Orders:
Orders
03/14/25 08:38
Electrocardiogram (*1) Urgent
Reason for Study: Other
Other Reason for Exam: ams
EKG- Treatment ONCE
03/14/25 08:39
Complete Blood Count/With Diff Urgent
Comprehensive Metabolic Panel Urgent
03/14/25 09:24
CT Head W/o Iv Contrast Urgent
Comment:
Reason For Exam: episodic confusion
Abnormal Lab Results
03/14/25
08:39
RBC 3.38 L 10^6/uL
(4.70-6.10)
Hgb 10.2 L g/dL
(13.0-18.0)
Hct 32.2 L %
(39.0-52.0)
MCV 95.3 H fL
(80.0-94.0)
MCHC 31.7 L g/dL
(33.0-37.0)
RDW 16.8 H %
(11.5-14.5)
MPV 10.7 H fL
(7.4-10.4)
Absolute Monos (auto) 0.8 H 10^3/uL
(0.1-0.6)
Monocytes % 10.8 H %
(1.7-9.3)
Potassium 5.2 H mmol/L
(3.5-5.1)
Chloride 111 H mmol/L
(98-107)
BUN 41 H mg/dl
(9-20)
Creatinine 1.5 H mg/dL
(0.7-1.3)
03/14/25 08:39
03/14/25 08:39
Vital Signs
Initial and Last Documented VS:
Initial Vital Signs
Temp Pulse Resp BP Pulse Ox
97.8 F 76 16 126/80 99
03/14/25 08:27 03/14/25 08:27 03/14/25 08:27 03/14/25 08:27 03/14/25 08:27
Last Documented Vital Signs
Temp Pulse Resp BP Pulse Ox
97.8 F 66 15 132/59 99
03/14/25 08:27 03/14/25 11:15 03/14/25 11:15 03/14/25 11:09 03/14/25 11:25
*Pulse Oximetry
Patient hypoxic: no (99)
*EKG
Interpreted by ED Provider?: Yes
EKG Intrepretation Date: 03/14/25
EKG Intrepretation Time: 08:40
Interpretation: abnormal
Comparison EKG: no changes
Heart Rate: 76
Rate: normal
Rhythm: sinus
[place]: left axis deviation
Interval: first degree heart block
QRS Pattern: left vent hypertrophy
Ischemia: no ischemia
*Critical Care Note
Total Time (30-74mins, 75-104mins- exclusive of procedures): Not Applicable
ED Attending Note
-
Portions of this chart may have been created with voice recognition software.� Occasional wrong word or��sound alike� substitutions may have occurred due to the inherent limitations of voice recognition software.
Discharge Plan
Departure
Patient Disposition: [facility]/SNF
Date of Disposition: 03/14/25
Time of Disposition: 12:03
Patient with high blood pressure during this ER visit?: Yes
Condition: Good
Discharge Problem:
Confusion
Instructions: Dementia (DC), BLOOD PRESSURE
Prescriptions:
No Action
atorvastatin 40 MG tablet
60 mg PO QPM
levothyroxine 175 MCG tablet
175 mcg PO DAILY
aspirin 81 MG tablet,delayed release (DR/EC)
81 mg PO DAILY
acetaminophen 650 MG tablet extended release
650 mg PO Q6HPRN PRN (Reason: mild pain)
magnesium hydroxide [Milk of Magnesia] 400 MG/5 ML suspension
30 ml PO DAILYPRN PRN (Reason: if no bm in 3 days)
tamsulosin [Flomax] 0.4 MG capsule
0.4 mg PO QPM
bisacodyl 10 MG suppository
10 mg AR DAILYPRN PRN (Reason: if no bm after mom)
finasteride 5 MG tablet
5 mg PO DAILY
lidocaine HCl 2 % Jelly
15 ml intra-urethral MONTHLY PRN (Reason: 15ml urethral anesthesia)
ferrous sulfate 325 mg (65 mg iron) Tablet
325 mg PO DAILY
calcium carbonate [Tums] 200 mg calcium (500 mg) Tablet,Chewable
200 mg PO Q8HPRN PRN (Reason: indigestion )
docusate sodium [Colace] 100 mg Capsule
100 mg PO BID
miconazole nitrate 2 % Powder
1 applic TOPICAL BID
melatonin 3 mg Tablet
3 mg PO HS
allopurinol 100 mg Tablet
100 mg PO DAILY
omeprazole 20 mg Capsule,Delayed Release(Dr/Ec)
20 mg PO BID
sennosides-docusate sodium [Senna-S] 8.6-50 mg Tablet
1 tab-cap PO BID
mupirocin 2 % Ointment
1 applic TOPICAL DAILYPRN PRN (Reason: penis hygiene)
Rx Instructions:
Retract skin around penis,cleanse with 1/2 strength peroxide and water, pat dry
oxybutynin chloride 5 mg Tablet
2.5 mg PO DAILY
magnesium oxide 400 mg magnesium Tablet
400 mg PO BID
mupirocin 2 % ointment
1 applic topical TID
Rx Instructions:
Retract skin around penis,cleanse with 1/2 strength peroxide and water, pat dry
dimethicone 5 % Cream
1 applic TOPICAL TID
bumetanide 1 mg Tablet
1 mg PO DAILY 30 Days Qty: 30 0RF
amlodipine [Norvasc] 5 mg Tablet
5 mg PO DAILY
acetaminophen 650 mg Tablet Extended Release
650 mg PO Q12H
potassium chloride 20 mEq Tablet Extended Release
20 meq PO DAILY
Referrals:
Mathew Tejeda DO [Family Provider, Internal Medicine] - Call in 1-3 days for appt
Interventions
Interventions:
*Risk Screen - Suicide Last Done: 03/14/25 08:27
*General Assessment Last Done: 03/14/25 08:27
*Neglect/Abuse Screening Last Done: 03/14/25 08:27
*ED- Fall Risk Assessment Last Done: 03/14/25 08:27
*ED COVID-19 Vaccine History Last Done: 03/14/25 08:27
ED- Neurological Assessment Last Done: 03/14/25 08:30
ED Swallowing Screen Last Done: 03/14/25 11:09
Discharge Date and Time
Print Language: PAKISTANI
[2025-03-14 09:29] VITALS: BP 117/88
[2025-03-14 11:09] VITALS: BP 132/59
[2025-03-14 12:00] VITALS: BP 112/57
[2025-03-14 14:00] VITALS: BP 115/52
== END 2025-03-14 14:35 ==
LOC: EMR 08:25
PROVIDERS: EMERGENCY PHYSICIAN Emergency Medicine; FAMILY PHYSICIAN Internal Medicine
DX: R41.0 Disorientation, unspecified (principal); F03.90 Unspecified dementia, unspecified severity, without behavioral disturbance, psychotic disturbance, mood disturbance, and anxiety; I25.10 Atherosclerotic heart disease of native coronary artery without angina pectoris; I11.0 Hypertensive heart disease with heart failure; I50.32 Chronic diastolic (congestive) heart failure; I25.2 Old myocardial infarction; Z86.73 Personal history of transient ischemic attack (TIA), and cerebral infarction without residual deficits; Z95.0 Presence of cardiac pacemaker; Z95.5 Presence of coronary angioplasty implant and graft; E11.9 Type 2 diabetes mellitus without complications; E03.9 Hypothyroidism, unspecified; G47.33 Obstructive sleep apnea (adult) (pediatric)
CPT/HCPCS: 99284; 70450; 80053; 85025; 93005

== ENCOUNTER 2025-05-22 18:35 | Inpatient (IN) | payer MEDICARE, OTHER, SELFPAY ==
[2025-05-22] VITALS (14 sets, daily range): BP systolic 101–131; BP diastolic 58–78; BMI 41.9
[2025-05-22 12:33] LABS: Hematocrit 27.3 % (39.0-52.0); Hemoglobin 8.6 g/dL (13.0-18.0); Mean Corp Hgb Conc. 31.5 g/dL (33.0-37.0); Mean Corpuscular Volume 95.1 fL (80.0-94.0); Platelet Count 233 10^3/uL (130-400); Red Cell Dist. Width 16.4 % (11.5-14.5)
[2025-05-22 12:36] LABS: INR 1.25; PT 16.0 Sec (11.4-14.6)
[2025-05-22 12:37] LABS: APTT 30.1 Sec (23.4-35.0)
--- NOTE | 2025-05-22 12:40 | ED.GENMED ---
History of Present Illness
<Vijay Ruiz PA-C - Last Filed: 05/23/25 12:09>
General
Chief Complaint: Vomiting Blood
Time Seen by Provider: 05/22/25 12:03
History of Present Illness
History of Present Illness:
74-year-old male presents from [facility] due to coffee-ground emesis that he states began last night. Continued into this morning prompting 911 referral. Patient reports generalized abdominal pain as well as unrelenting nausea.
He denies headache or vision changes. History is somewhat limited due to dementia. He is not on anticoagulants
Past History
<Vijay Ruiz PA-C - Last Filed: 05/23/25 12:09>
Past History
ED Past Medical History: CAD, CHF (HFpEF), CVA, HTN, Hypercholesterolemia, NIDDM, IA, Hypothyroidism and Other (BPH, urinary retention, gout, headaches, morbid obesity, obstructive sleep apnea)
ED Past Surgical History: Cardiac (Coronary stents, pacemaker placement 2024) and Other (Eye surgery)
Social History
Tobacco: Non-smoker
Alcohol: None
Drug: None
Personal: Other
Living: snf
Employment: Retired
Family History
Family History: Unable to obtain
Review of Systems
<Vijay Ruiz PA-C - Last Filed: 05/23/25 12:09>
Review of Systems
Allergies reviewed?: Yes
All Other Systems: ROS reviewed and negative except as documented in HPI and ROS
Phy Exam
<JUDI Wallace Last Filed: 05/23/25 12:09>
Physical Exam
Physical Exam:
GEN: Ill-appearing and pale, no immediate distress
HEENT: Oral mucosa moist, no scleral icterus
Cardiac: Regular rate
Lung: No respiratory distress, no tachypnea, lungs clear to auscultation bilaterally
Abdomen: Protuberant and distended, generalized tenderness x 4 quadrants
MSK: No gross deformity or injuries
Skin: Good color, no pallor or jaundice, no rashes
Neuro: AO x3, moves all extremities freely
Psych: Calm, cooperative
Course
<Vijay Ruiz PA-C - Last Filed: 05/23/25 12:09>
Orders/Labs/Results
Orders:
Orders
05/22/25 12:07
Cardiac Monitoring- Treatment ONCE
IV Insert/Care/Rem.- Treatment PRN
O2 Therapy [RESP] Urgent
Titrate/Wean O2 to maintain O2 sat greater than (%): 93
Special Instructions: MAINTAIN CONTINOUS O2 SATS > OR = 93%
Pulse Ox/spot Check [RESP] Urgent
Quantity: 1
Special Instructions: ON ROOM AIR
05/22/25 12:09
Type+Screen Urgent
Complete Blood Count/With Diff Urgent
Comprehensive Metabolic Panel Urgent
PTT Urgent
Prothrombin Time Urgent
05/22/25 12:38
Pantoprazole [Protonix IV] 80 mg IV NOW STA
05/22/25 12:39
CR Chest Portable - 1 View Urgent
Comment:
Reason For Exam: leukocytosis, poss aspiration
Reason Study Needs to be Portable: Other
05/22/25 12:45
Pantoprazole 80 mg/100 ml Nss [Protonix] 80 mg in 100 ml IV Q10H
05/22/25 12:53
Lactic Acid Q4H
Comment: CANCEL 2nd LACTIC ACID IF 1st LACTIC ACID IS LESS THAN 2
Blood Culture Q30M
CARLOS Source: Blood/Venous
Specimen Description:
Blood Culture Q30M
CARLOS Source: Blood/Venous
Specimen Description:
05/22/25 13:23
Calcium Gluconate 2 gram/100mL [Calcium Gluconate] 2 gram in 100 ml IV ONCE
05/22/25 13:24
Lactated Ringers [Lr] 1,000 ml IV BOLUS
05/22/25 13:34
CT Abd/Pel (IV only)-DH only Urgent
Comment:
Reason For Exam: sepsis, abd distention
05/22/25 14:23
Urinalysis Reflex To Culture Urgent
Date Specimen was Collected: 05/22/25
Time Specimen was Collected: 14:20
Urine Microscopic Reflex Cult Urgent
Urine Culture Urgent
CARLOS Source: U
Specimen Description:
Date Specimen was Collected: 05/22/25
Time Specimen was Collected: 14:20
05/22/25 14:28
Piperacillin/Tazo 3.375 Gram [Zosyn] 3.375 gram in 50 ml IV NOW
05/22/25 16:47
Lactic Acid Q4H
Comment: CANCEL 2nd LACTIC ACID IF 1st LACTIC ACID IS LESS THAN 2
05/22/25 18:19
Admit/Transfer Patient As Directed
Co-Sign Provider:
Level of Care: Inpatient admission
Assign to:: Medical/Surgical
Physician / Group: tyler
Diagnosis: Gi bleed
Reason for Hospitalization: GI bleed
Expected length of stay greater than two midnights?: Yes
ELOS- Estimated Length of Stay in days: 3
I certify the patient meets the requirements for IP care: Yes
Norovirus by PCR Routine
CARLOS Source: Feces/Stool
Specimen Description:
STOOL [C difficile Antigen & Toxins] Routine
CARLOS Source: Feces/Stool
Specimen Description:
Stool Culture Routine
CARLOS Source: Feces/Stool
Specimen Description:
Stool For WBC Routine
CARLOS Source: Feces/Stool
Specimen Description:
05/22/25 18:20
PRN Pain Medication Management As Directed
May give lesser potent ordered pain med per pt: Yes
preference::
Protocol:: Medication orders for pain may be administered in a
manner that supports deferring to patient preference
when the pt is:
- Requesting an ordered lesser potent pain medication.
Least to most potent pain medications are defined
as: acetaminophen < NSAID < tramadol < opioids
(morphine, oxycodone, hydromorphone).
- Requesting a lesser dose of the same medication IF
ORDERED.
- Requesting a less intrusive route of administration
if both routes are prescribed by the provider (PO <
IV).
05/22/25 18:21
Code Status As Directed
Resuscitation Status: Do not resuscitate
Reached after discussion with pt or family/Healthcare POA: Yes
DNR Bracelet Application ONCE
05/22/25 19:32
Lorazepam [Ativan] 0.5 mg PO Q6HPRN PRN anxiety
Sterile Water For Inj [Sterile Water For Injection 1000 ml] 1,000 ml Sodium Bicarbonate 150 meq IV 100 mls/hr
05/22/25 19:32
GASTROINTESTINAL CONSULT Routine
Consulting Provider: Andi Pennington
Was physician already notified: Yes
Activity As Directed
Activity Level: As Tolerated
I&O [Intake/ Output] As Directed
Frequency: Per unit guidelines
INT (Intravenous Needle Therapy) As Directed
Comment: Place 2 IV catheters of the largest bore possible until stable
Orthostatic Vital Signs As Directed
Orthostatic VS Frequency: Now
Comment: then every four hours for twenty-four hours
Pneumatic Compression Sleeves As Directed
Type: Thigh high
Vital Signs As Directed
Frequency: Per unit guidelines
Weight As Directed
Frequency: Daily
DX Deep Vein Thrombosis Video Routine
05/22/25 20:00
Piperacillin/Tazo 3.375 Gram [Zosyn] 3.375 gram in 50 ml IV Q6H
05/22/25 20:26
Morphine Sulfate [Roxanol Oral Concentrate] 5 mg PO Q3H PRN
05/22/25 21:22
H&H Q6H
05/22/25 22:00
Melatonin 6 mg PO HS
05/22/25 23:00
Lactic Acid Q4H
05/23/25 00:00
Pantoprazole 80 mg/100 ml Nss [Protonix] 80 mg in 100 ml IV Q10H
05/23/25 01:20
H&H Q6H
05/23/25 Breakfast
NPO
Allow oral meds: Yes
Allow clear liquids: No
Levothyroxine [Synthroid] 175 mcg PO DAILY@0600
05/23/25 08:00
Allopurinol [Zyloprim] 100 mg PO DAILY
Amlodipine [Norvasc] 5 mg PO DAILY
Potassium Chloride [KCl] 20 meq PO DAILY
Risperidone [Risperdal] 0.5 mg PO DAILY
05/23/25 09:39
Basic Metabolic Panel IN AM
Complete Blood Count/With Diff IN AM
05/23/25 18:00
Tamsulosin [Flomax] 0.4 mg PO QPM
05/24/25 06:00
Basic Metabolic Panel IN AM
Complete Blood Count/With Diff IN AM
05/25/25 06:00
Basic Metabolic Panel IN AM
Complete Blood Count/With Diff IN AM
05/26/25 06:00
Basic Metabolic Panel IN AM
Complete Blood Count/With Diff IN AM
Abnormal Lab Results
05/22/25 05/22/25 05/22/25
12:09 12:53 14:23
WBC 25.8 H 10^3/uL
(4.8-10.8)
RBC 2.87 L 10^6/uL
(4.70-6.10)
Hgb 8.6 L g/dL
(13.0-18.0)
Hct 27.3 L %
(39.0-52.0)
MCV 95.1 H fL
(80.0-94.0)
MCHC 31.5 L g/dL
(33.0-37.0)
RDW 16.4 H %
(11.5-14.5)
MPV 11.2 H fL
(7.4-10.4)
Abs Immat Gran (auto) 0.4 H 10^3/uL
(0-0.05)
Absolute Neuts (auto) 23.2 H 10^3/uL
(1.4-6.5)
Absolute Lymphs (auto) 0.6 L 10^3/uL
(1.2-3.4)
Absolute Monos (auto) 1.5 H 10^3/uL
(0.1-0.6)
Immature Gran % 1.6 H %
(0-0.5)
Neutrophils % 89.9 H %
(42.2-75.2)
Lymphocytes % 2.4 L %
(20.5-51.1)
PT 16.0 H Sec
(11.4-14.6)
Chloride 112 H mmol/L
(98-107)
Carbon Dioxide 12 L* mmol/L
(22-30)
BUN 56 H mg/dl
(9-20)
Creatinine 1.5 H mg/dL
(0.7-1.3)
Glucose 181 H mg/dl
(70-99)
Lactic Acid 3.3 H mmol/L
(0.7-2.0)
Calcium 6.9 L* mg/dl
(8.4-10.2)
AST 13 L U/L
(17-59)
Total Protein 4.7 L g/dl
(6.3-8.2)
Albumin 2.3 L g/dl
(3.5-5.0)
Urine Ketones 1+ A
(Negative)
Ur Occult Blood Reflex 4+ A
(Negative)
Leukocyte Esterase Rfl 3+ A
(Negative)
Urine RBC 3-6 A /HPF
(0-2)
Urine Bacteria (Reflex) Many A
(Negative)
Urine Albumin (Reflex) 3+ A
(Neg - Trace)
05/22/25
16:47
WBC
RBC
Hgb
Hct
MCV
MCHC
RDW
MPV
Abs Immat Gran (auto)
Absolute Neuts (auto)
Absolute Lymphs (auto)
Absolute Monos (auto)
Immature Gran %
Neutrophils %
Lymphocytes %
PT
Chloride
Carbon Dioxide
BUN
Creatinine
Glucose
Lactic Acid 2.5 H mmol/L
(0.7-2.0)
Calcium
AST
Total Protein
Albumin
Urine Ketones
Ur Occult Blood Reflex
Leukocyte Esterase Rfl
Urine RBC
Urine Bacteria (Reflex)
Urine Albumin (Reflex)
05/22/25 12:09
05/22/25 12:09
Vital Signs
Initial and Last Documented VS:
Initial Vital Signs
Temp Pulse Resp
98.8 F 94 26
05/22/25 11:59 05/22/25 11:59 05/22/25 11:59
Last Documented Vital Signs
Temp Pulse Resp BP Pulse Ox
98.0 F 71 16 127/69 95
05/23/25 07:00 05/23/25 07:00 05/23/25 07:00 05/23/25 07:00 05/23/25 07:00
<Ap Ibrahim PA-C - Last Filed: 05/22/25 17:52>
Orders/Labs/Results
Orders:
Orders
05/22/25 12:07
Cardiac Monitoring- Treatment ONCE
IV Insert/Care/Rem.- Treatment PRN
O2 Therapy [RESP] Urgent
Titrate/Wean O2 to maintain O2 sat greater than (%): 93
Special Instructions: MAINTAIN CONTINOUS O2 SATS > OR = 93%
Pulse Ox/spot Check [RESP] Urgent
Quantity: 1
Special Instructions: ON ROOM AIR
05/22/25 12:09
Type+Screen Urgent
Complete Blood Count/With Diff Urgent
Comprehensive Metabolic Panel Urgent
PTT Urgent
Prothrombin Time Urgent
05/22/25 12:38
Pantoprazole [Protonix IV] 80 mg IV NOW STA
05/22/25 12:39
CR Chest Portable - 1 View Urgent
Comment:
Reason For Exam: leukocytosis, poss aspiration
Reason Study Needs to be Portable: Other
05/22/25 12:45
Pantoprazole 80 mg/100 ml Nss [Protonix] 80 mg in 100 ml IV Q10H
05/22/25 12:53
Lactic Acid Q4H
Comment: CANCEL 2nd LACTIC ACID IF 1st LACTIC ACID IS LESS THAN 2
Blood Culture Q30M
CARLOS Source: Blood/Venous
Specimen Description:
Blood Culture Q30M
CARLOS Source: Blood/Venous
Specimen Description:
05/22/25 13:23
Calcium Gluconate 2 gram/100mL [Calcium Gluconate] 2 gram in 100 ml IV ONCE
05/22/25 13:24
Lactated Ringers [Lr] 1,000 ml IV BOLUS
05/22/25 13:34
CT Abd/Pel (IV only)-DH only Urgent
Comment:
Reason For Exam: sepsis, abd distention
05/22/25 14:23
Urinalysis Reflex To Culture Urgent
Date Specimen was Collected: 05/22/25
Time Specimen was Collected: 14:20
Urine Microscopic Reflex Cult Urgent
Urine Culture Urgent
CARLOS Source: U
Specimen Description:
Date Specimen was Collected: 05/22/25
Time Specimen was Collected: 14:20
05/22/25 14:28
Piperacillin/Tazo 3.375 Gram [Zosyn] 3.375 gram in 50 ml IV NOW
05/22/25 16:47
Lactic Acid Q4H
Comment: CANCEL 2nd LACTIC ACID IF 1st LACTIC ACID IS LESS THAN 2
05/22/25 18:19
Admit/Transfer Patient As Directed
Co-Sign Provider:
Level of Care: Inpatient admission
Assign to:: Medical/Surgical
Physician / Group: tyler
Diagnosis: Gi bleed
Reason for Hospitalization: GI bleed
Expected length of stay greater than two midnights?: Yes
ELOS- Estimated Length of Stay in days: 3
I certify the patient meets the requirements for IP care: Yes
Norovirus by PCR Routine
CARLOS Source: Feces/Stool
Specimen Description:
STOOL [C difficile Antigen & Toxins] Routine
CARLOS Source: Feces/Stool
Specimen Description:
Stool Culture Routine
CARLOS Source: Feces/Stool
Specimen Description:
Stool For WBC Routine
CARLOS Source: Feces/Stool
Specimen Description:
05/22/25 18:20
PRN Pain Medication Management As Directed
May give lesser potent ordered pain med per pt: Yes
preference::
Protocol:: Medication orders for pain may be administered in a
manner that supports deferring to patient preference
when the pt is:
- Requesting an ordered lesser potent pain medication.
Least to most potent pain medications are defined
as: acetaminophen < NSAID < tramadol < opioids
(morphine, oxycodone, hydromorphone).
- Requesting a lesser dose of the same medication IF
ORDERED.
- Requesting a less intrusive route of administration
if both routes are prescribed by the provider (PO <
IV).
05/22/25 18:21
Code Status As Directed
Resuscitation Status: Do not resuscitate
Reached after discussion with pt or family/Healthcare POA: Yes
DNR Bracelet Application ONCE
05/22/25 19:32
Lorazepam [Ativan] 0.5 mg PO Q6HPRN PRN anxiety
Sterile Water For Inj [Sterile Water For Injection 1000 ml] 1,000 ml Sodium Bicarbonate 150 meq IV 100 mls/hr
05/22/25 19:32
GASTROINTESTINAL CONSULT Routine
Consulting Provider: Andi Pennington
Was physician already notified: Yes
Activity As Directed
Activity Level: As Tolerated
I&O [Intake/ Output] As Directed
Frequency: Per unit guidelines
INT (Intravenous Needle Therapy) As Directed
Comment: Place 2 IV catheters of the largest bore possible until stable
Orthostatic Vital Signs As Directed
Orthostatic VS Frequency: Now
Comment: then every four hours for twenty-four hours
Pneumatic Compression Sleeves As Directed
Type: Thigh high
Vital Signs As Directed
Frequency: Per unit guidelines
Weight As Directed
Frequency: Daily
DX Deep Vein Thrombosis Video Routine
05/22/25 20:00
Piperacillin/Tazo 3.375 Gram [Zosyn] 3.375 gram in 50 ml IV Q6H
05/22/25 20:26
Morphine Sulfate [Roxanol Oral Concentrate] 5 mg PO Q3H PRN
05/22/25 21:22
H&H Q6H
05/22/25 22:00
Melatonin 6 mg PO HS
05/22/25 23:00
Lactic Acid Q4H
05/23/25 00:00
Pantoprazole 80 mg/100 ml Nss [Protonix] 80 mg in 100 ml IV Q10H
05/23/25 01:20
H&H Q6H
05/23/25 Breakfast
NPO
Allow oral meds: Yes
Allow clear liquids: No
Levothyroxine [Synthroid] 175 mcg PO DAILY@0600
05/23/25 08:00
Allopurinol [Zyloprim] 100 mg PO DAILY
Amlodipine [Norvasc] 5 mg PO DAILY
Potassium Chloride [KCl] 20 meq PO DAILY
Risperidone [Risperdal] 0.5 mg PO DAILY
05/23/25 09:39
Basic Metabolic Panel IN AM
Complete Blood Count/With Diff IN AM
05/23/25 18:00
Tamsulosin [Flomax] 0.4 mg PO QPM
05/24/25 06:00
Basic Metabolic Panel IN AM
Complete Blood Count/With Diff IN AM
05/25/25 06:00
Basic Metabolic Panel IN AM
Complete Blood Count/With Diff IN AM
05/26/25 06:00
Basic Metabolic Panel IN AM
Complete Blood Count/With Diff IN AM
Abnormal Lab Results
05/22/25 05/22/25 05/22/25
12:09 12:53 14:23
WBC 25.8 H 10^3/uL
(4.8-10.8)
RBC 2.87 L 10^6/uL
(4.70-6.10)
Hgb 8.6 L g/dL
(13.0-18.0)
Hct 27.3 L %
(39.0-52.0)
MCV 95.1 H fL
(80.0-94.0)
MCHC 31.5 L g/dL
(33.0-37.0)
RDW 16.4 H %
(11.5-14.5)
MPV 11.2 H fL
(7.4-10.4)
Abs Immat Gran (auto) 0.4 H 10^3/uL
(0-0.05)
Absolute Neuts (auto) 23.2 H 10^3/uL
(1.4-6.5)
Absolute Lymphs (auto) 0.6 L 10^3/uL
(1.2-3.4)
Absolute Monos (auto) 1.5 H 10^3/uL
(0.1-0.6)
Immature Gran % 1.6 H %
(0-0.5)
Neutrophils % 89.9 H %
(42.2-75.2)
Lymphocytes % 2.4 L %
(20.5-51.1)
PT 16.0 H Sec
(11.4-14.6)
Chloride 112 H mmol/L
(98-107)
Carbon Dioxide 12 L* mmol/L
(22-30)
BUN 56 H mg/dl
(9-20)
Creatinine 1.5 H mg/dL
(0.7-1.3)
Glucose 181 H mg/dl
(70-99)
Lactic Acid 3.3 H mmol/L
(0.7-2.0)
Calcium 6.9 L* mg/dl
(8.4-10.2)
AST 13 L U/L
(17-59)
Total Protein 4.7 L g/dl
(6.3-8.2)
Albumin 2.3 L g/dl
(3.5-5.0)
Urine Ketones 1+ A
(Negative)
Ur Occult Blood Reflex 4+ A
(Negative)
Leukocyte Esterase Rfl 3+ A
(Negative)
Urine RBC 3-6 A /HPF
(0-2)
Urine Bacteria (Reflex) Many A
(Negative)
Urine Albumin (Reflex) 3+ A
(Neg - Trace)
05/22/25
16:47
WBC
RBC
Hgb
Hct
MCV
MCHC
RDW
MPV
Abs Immat Gran (auto)
Absolute Neuts (auto)
Absolute Lymphs (auto)
Absolute Monos (auto)
Immature Gran %
Neutrophils %
Lymphocytes %
PT
Chloride
Carbon Dioxide
BUN
Creatinine
Glucose
Lactic Acid 2.5 H mmol/L
(0.7-2.0)
Calcium
AST
Total Protein
Albumin
Urine Ketones
Ur Occult Blood Reflex
Leukocyte Esterase Rfl
Urine RBC
Urine Bacteria (Reflex)
Urine Albumin (Reflex)
05/22/25 12:09
05/22/25 12:09
Vital Signs
Initial and Last Documented VS:
Initial Vital Signs
Temp Pulse Resp
98.8 F 94 26
05/22/25 11:59 05/22/25 11:59 05/22/25 11:59
Last Documented Vital Signs
Temp Pulse Resp BP Pulse Ox
98.0 F 71 16 127/69 95
05/23/25 07:00 05/23/25 07:00 05/23/25 07:00 05/23/25 07:00 05/23/25 07:00
<Vijay Ruiz PA-C - Last Filed: 05/23/25 12:09>
MDM/Problems Addressed
MDM/Problems Addressed:
74-year-old male presents with coffee-ground emesis. Started promptly on IV fluid resuscitation and PPI infusion. Initially calcium was ordered however upon further review his corrected calcium is adequate on the basis of hypoalbuminemia thus this
order was discontinued and not given. Given his leukocytosis and lactic acidosis empiric antibiotics were given although no clear etiology for infection is identified at this point. Signed out pending CT for further assessment
<Vijay Ruiz PA-C - Last Filed: 05/23/25 12:09>
*Pulse Oximetry
SaO2: 96
Oxygen Mode of Delivery: Room air
Patient hypoxic: no
*Critical Care Note
Total Time (30-74mins, 75-104mins- exclusive of procedures): Not Applicable
<Ap Ibrahim PA-C - Last Filed: 05/22/25 17:52>
Update Note
Update Note:
Received signout of patient pending CT scan of abdomen. CT scan performed and shows gaseous distention of the stomach and colon. There is also fecal impaction and large amount of material within the stomach. Patient's vital signs have remained
stable. He has been given lactated Ringer's and Zosyn and Protonix. He was brought here for coffee-ground emesis. Blood consent obtained. Hemoglobin noted. Protonix given previously. Will admit to hospital
ED Attending Note
<Vijay Ruiz PA-C - Last Filed: 05/23/25 12:09>
-
Portions of this chart may have been created with voice recognition software.� Occasional wrong word or��sound alike� substitutions may have occurred due to the inherent limitations of voice recognition software.
Discharge Plan
Departure
Patient Disposition: Admit
Date of Disposition: 05/22/25
Time of Disposition: 17:51
Presentation/result/management discussed w/ accepting MD/DO: Hospitalist
Discharge Problem:
Acute upper GI bleed
Interventions
Interventions:
*Risk Screen - Suicide Last Done: 05/22/25 21:25
*General Assessment Last Done: 05/22/25 12:07
*Neglect/Abuse Screening Last Done: 05/22/25 12:07
*ED- Fall Risk Assessment Last Done: 05/22/25 12:07
*ED COVID-19 Vaccine History Last Done: 05/22/25 12:07
*Nursing Disposition Last Done: 05/22/25 19:45
XX-Gqmndh-Jgizahritk Assessment Last Done: 05/22/25 12:18
ED- Cardiac Assessment Last Done: 05/22/25 12:18
ED- Pulmonary Assessment Last Done: 05/22/25 12:18
Discharge Date and Time
Discharge Date/Time: 05/22/25 19:45
[2025-05-22 12:54] LABS: ALT (SGPT) 13 U/L (0-50); AST (SGOT) 13 U/L (17-59); Albumin 2.3 g/dl (3.5-5.0); Alkaline Phosphatase 82 U/L (38-126); Blood Urea Nitrogen 56 mg/dl (9-20); Calcium 6.9 mg/dl (8.4-10.2); Carbon Dioxide 12 mmol/L (22-30); Chloride 112 mmol/L (98-107); Glucose 181 mg/dl (70-99); Potassium 3.8 mmol/L (3.5-5.1); Sodium 135 mmol/L (135-145); Total Protein 4.7 g/dl (6.3-8.2); eGFR 48.25
[2025-05-22 13:06] LABS: Nucleated Red Blood Cells % 0 % (-)
[2025-05-22] MEDS: PROTONIX IV 80 MG IV (14:05)
[2025-05-22] MEDS: PROTONIX 100 IV ×2 (14:06→21:47)
[2025-05-22] MEDS: LR 1000 IV (14:06)
[2025-05-22] MEDS: ZOSYN 50 IV ×2 (14:49→20:55)
[2025-05-22 15:05] LABS: Urine Character Cloudy (Clear)
[2025-05-22 15:17] LABS: Urine Squamous Cell 0-2 /LPF (Few)
--- NOTE | 2025-05-22 17:59 | HPS.HSE ---
Family Physician
-
Family Physician: Mathew Tejeda, DO
Chief Complaint
-
Abdominal distention, pain diarrhea and vomiting
History of Present Illness
74-year-old with past medical history of coronary artery disease, CHF, hypertension, hyperlipidemia, NIDDM, CO, hypothyroidism, BPH, gout, obstructive sleep apnea presented to us with abdominal distention associated with pain dark/bloody diarrhea as
well as dark/bloody vomit since last night. Patient denied any fever, chills, headache, dizzy. Patient stated midsternal burning and short of breath. Patient has chronic Villarreal.
Upon arrival his hemoglobin 8.6. Patient received calcium 2 gm for hypocalcemia. Patient initiated on IV Protonix patient also received a dose of Zosyn in ER. Blood culture sent from ER., Admitted for further management
Medical History
Past Medical History
Past Medical History: Reports Other
Additional Past Medical History:
Urinary retention, CHF, CO, first-degree AV block, aortic stenosis, coronary artery disease, type 2 diabetes, sleep apnea, hypertension, BPH, hyperlipidemia, hypothyroidism, gout
Past Surgical History: Reports Other
Additional Past Surgical History:
Cardiac stent
Social History
Tobacco: Non-smoker
Alcohol: None
Drug: None
Living: Long-Term
Family History
Family History: Not pertinent
Allergies / Home Medications
Allergies reflects when Allergies were last updated in [employer].
Home Medications with original date entered in [employer]
Allergy/Medication List:
Allergies
Allergy/AdvReac Type Severity Reaction Status Date / Time
No Known Allergies Allergy Verified 05/22/25 12:02
Home Medications
acetaminophen 650 mg tablet,extended release 650 mg PO Q6HPRN PRN mild pain 08/23/20
aspirin 81 mg tablet,delayed release 81 mg PO DAILY Blood clot prevention/tx 08/23/20
bisacodyl 10 mg rectal suppository 10 mg SD DAILYPRN PRN if no bm after mom 11/24/20
levothyroxine 175 mcg tablet 175 mcg PO DAILY Thyroid 08/23/20
magnesium hydroxide 400 mg/5 mL oral suspension (Milk of Magnesia) 30 ml PO DAILYPRN PRN if no bm in 3 days 08/23/20
tamsulosin 0.4 mg capsule (Flomax) 0.4 mg PO QPM BPH 08/23/20
calcium carbonate (Tums) 200 mg PO Q8HPRN PRN indigestion 07/04/22
docusate sodium 100 mg capsule (Colace) 100 mg PO BID Constipation 07/04/22
ferrous sulfate 325 mg (65 mg iron) tablet 325 mg PO DAILY Supplement 07/04/22
lidocaine HCl 2 % mucosal jelly 15 ml intra-urethral MONTHLY PRN 15ml urethral anesthesia 07/04/22
allopurinol 100 mg tablet 100 mg PO DAILY Gout 01/05/25
magnesium oxide 400 mg PO BID Supplement 01/05/25
melatonin 3 mg tablet 6 mg PO HS Sleep 01/05/25
miconazole nitrate 2 % topical powder 1 applic topical BID FOLDS/GROIN 01/05/25
omeprazole 20 mg capsule,delayed release 20 mg PO BID Gastrointestinal Issue 01/05/25
sennosides 8.6 mg-docusate sodium 50 mg tablet (Senna-S) 1 tab-cap PO BID Constipation 01/05/25
dimethicone 5 % topical cream 1 applic topical TID sacrum/buttock 02/17/25
acetaminophen 650 mg tablet,extended release 650 mg PO Q12H Pain 03/01/25
amlodipine 5 mg tablet (Norvasc) 5 mg PO DAILY Blood Pressure 03/01/25
dextrose 40 % oral gel (Glucose Gel) 15 g PO Q15M PRN bs<60 05/22/25
lorazepam 0.5 mg tablet 0.5 mg PO Q6HPRN PRN anxiety 05/22/25
morphine concentrate 20 mg/mL oral syringe (FOR ORAL USE ONLY) 5 mg PO Q3H PRN moderate pain/sob 05/22/25
potassium chloride 20 mEq tablet,extended release(part/cryst) (Klor-Con M) 20 meq PO DAILY 05/22/25
risperidone 0.5 mg tablet (Risperdal) 0.5 mg PO DAILY 05/22/25
Review of Systems
-
Constitutional: Reports No Symptoms
EENT: Reports No Symptoms
Respiratory: Reports No Symptoms
Cardiac: Reports No Symptoms
Abdomen/GI: Reports Abdominal Pain, Nausea, Vomiting and Diarrhea
: Reports No Symptoms
Musculoskeletal: Reports No Symptoms
Skin: Reports No Symptoms
Neurological: Reports No Symptoms
Endocrine: Reports No Symptoms
Hematologic/Lymphatic: Reports No Symptoms
Psych: Reports No Symptoms
Physical Exam
Vital Signs
Vital Signs
Temp Pulse Resp BP Pulse Ox
98.8 F 70 24 112/59 96
05/22/25 11:59 05/22/25 17:00 05/22/25 13:30 05/22/25 17:00 05/22/25 17:00
Physical Exam
General: Well Developed, Well Nourished and No Apparent Distress
HEENT: NormoCephalic, Moist mucous membranes and Atraumatic
Respiratory: Clear
Cardiac: S1/S2 and Regular Rhythm; No Murmur or Rub
GI: Soft, Tender and Distended; No Organomegaly
Rectal: Deferred by Provider
Musculoskeletal: No Clubbing, No Cyanosis and No Edema
Skin: No Rash
Neuro: Nonfocal/grossly intact
Psych: Calm
Laboratory Results
-
05/22/25 12:09
05/22/25 12:09
Laboratory Results
PT 16.0 Sec (11.4-14.6) H 05/22/25 12:09
INR 1.25 05/22/25 12:09
APTT 30.1 Sec (23.4-35.0) 05/22/25 12:09
Lactic Acid 2.5 mmol/L (0.7-2.0) H 05/22/25 16:47
Total Bilirubin 0.3 mg/dl (0.2-1.3) 05/22/25 12:09
AST 13 U/L (17-59) L 05/22/25 12:09
ALT 13 U/L (0-50) 05/22/25 12:09
Alkaline Phosphatase 82 U/L (38-126) 05/22/25 12:09
Data Reviewed
-
CT Scan: Report Reviewed by me
Lab Data: Labs Reviewed by me
Impression/Plan
-
# Coffee-ground emesis/acute on chronic blood loss anemia secondary to GI bleed
# Fecal impaction
- Hemoglobin 8.6, WBCs 25.8, lactic 2.5
- IV PPI continue
- Zosyn continued
-trend H&H, transfuse if hgb less than 7
=trend lactic
-GI continued
- CT abdomen pelvis with impression of Moderate fecal material in the region of the rectum concerning for developing fecal impaction. Increased Moderate colonic and gastric distention. See above. Increased.Large gallstone. Stable Small bilateral
pleural effusions. Stable on the left. Increased on the right.Simple right renal cysts. Stable. Bilateral too small to characterize hypodense renal lesions likely benign cysts.Complex left renal cyst. Stable. Bilateral renal atrophy. Stable
- Chest x-ray with impression New mild right lower lobe atelectasis.Mild cardiomegaly. Stable
-stool for culture, c diff, wbc and noro virus
# Metabolic acidosis/CKD stage IIIb
# Hypocalcemia
- CO2 12, creatinine 1.5, calcium 6.9
- Patient received LR, IV calcium in the ER
-BMP in the morning
-sodium bicarb continued
#HFpEF, chronic:
- Currently compensated
-strict I&O, daily weight
#Sick sinus syndrome
- Status post t pacemaker placement
- Currently rate controlled
#Hypothyroidism
- Continue home Synthroid 175 mcg daily
# Anxiety
- Lorazepam continued
- Risperdal continued
# History of BPH/urinary retention
- Chronic Villarreal in place
- Flomax continued
# Gout
- Allopurinol continued
#Essential hypertension
- Norvasc continued
DVT prophylaxis: SCDs
CODE STATUS: DNR/DNI
--- NOTE | 2025-05-22 18:03 | EDRN ---
Chronic craig catheter due to hypertrophic prostate and urinary retention. Previous RN aydee UA from port of craig catheter. Catheter bag changed out. Reviewed UA results with DELICIA Pike. Per PA, will not change chronic craig catheter in ED.
--- NOTE | 2025-05-22 18:41 | W.PN.UPDATE ---
Update Note
Progress Note Update
HPI: 74-year-old with past medical history of coronary artery disease, CHF, hypertension, hyperlipidemia, NIDDM, hypothyroidism, BPH, gout, obstructive sleep apnea; p/w abdominal distention/pain associated with watery bloody BM and coffee ground
emesis.
He denies to other symptoms. Patient has chronic Villarreal (he is unsure when it was last changed).
A/P:
# Coffee-ground emesis
Cont PPI drip
NPO with IVF
GI consulted
# Abd pain, watery diarrhea
# Developing fecal impaction on CT AP
# Leucocytosis, sepsis POA
CT AP largely unrevealing, noted Moderate fecal material concerning for developing fecal impaction, moderate colonic and gastric distention.
CXR unrevealing
Follow blood cultures
Check stool studies, C diff etc.
Cont empiric Zosyn for now
Dulcolax x1 dose
# Mild lactic acidosis
# Metabolic acidosis
# CKD stage IIIb
# Hypocalcemia due to hypoalbuminemia
Cont bicarb drip
Follow lactic level
he received IV calcium in the ED
Other medical conditions:
# HFpEF, chronic
# Sick sinus syndrome s/p PPM
# Hypothyroidism
Continue home Synthroid 175 mcg daily
# Anxiety
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
# History of BPH/urinary retention
# Chronic Villarreal
Flomax continued
# Gout
Allopurinol continued
# Essential hypertension
Norvasc continued
DVT prophylaxis: SCDs
CODE STATUS: DNR/DNI
[2025-05-22] MEDS: DULCOLAX 10 MG RECTAL (19:14)
[2025-05-22] MEDS: SODIUM BICARBONATE 1150 MEQ IV (20:49)
[2025-05-22 21:30] LABS: Hematocrit 26.8 % (39.0-52.0); Hemoglobin 8.9 g/dL (13.0-18.0)
[2025-05-22] MEDS: MELATONIN PO (23:10)
[2025-05-23 01:31] LABS: Hematocrit 26.2 % (39.0-52.0); Hemoglobin 8.7 g/dL (13.0-18.0)
[2025-05-23] MEDS: ZOSYN 50 IV ×4 (01:41→20:20)
[2025-05-23] MEDS: SYNTHROID PO (05:24)
[2025-05-23 06:00] VITALS: BMI 42.1
[2025-05-23 07:00] VITALS: BP 127/69
[2025-05-23] MEDS: SODIUM BICARBONATE 1150 MEQ IV ×2 (07:47→20:20)
[2025-05-23] MEDS: NORVASC PO (07:55)
[2025-05-23] MEDS: RISPERDAL PO (07:55)
[2025-05-23] MEDS: ZYLOPRIM PO (07:55)
[2025-05-23] MEDS: KCL PO (07:55)
--- NOTE | 2025-05-23 08:06 | PTCARENOTE ---
Patient is maximum assistance to get out of bed at this time, requires lift device. Orthostatic vital signs Q4 are not obtainable at this time.
[2025-05-23] MEDS: PROTONIX 100 IV ×2 (08:09→19:04)
--- NOTE | 2025-05-23 09:06 | CON.GI ---
Addendum entered and electronically signed by Andi Pennington MD 05/23/25 12:31:
I saw and evaluated the patient. I reviewed the resident�s note and agree with findings and plan as documented in the resident�s note.
74yo [place] resident with hx CAD, DM, EMANUEL, CHF presents with CGE and dark bloody diarrhea, abd distention and pain. Leukocytosis WBC 25.8, acidosis bicarb 12, CT moderate stool in rectum and moderate colonic and gastric distention. Rectal exam green
soft stool heme negative, with some passage of stool already. Had EGD last August notable for Law's, clean based esophageal ulcer
REC:
Check stool C diff
Cont empiric abx for leukocytosis/acidosis
Perhaps stercoral colitis. Give milk/molasses enema.
Cont protonix gtt for CGE. No further vomiting, but BUN is elevated
Gastric distention on CT
Consider EGD if otherwise stable to r/o GOO or ulcer
Original Note:
Consultation
-
Date/Time Consultation Requested: 05/22/25 19:32
Date/Time Consultation Performed: 05/23/25 09:10
Requesting Provider: Avani Kirkland CRNP
Performing Provider: Nilson Almeida DO (Resident); Andi Pennington MD
Reason for Consultation: Coffee Ground Emesis, Abdominal Distension, Bloody Diarrhea
Medical History
Chief Complaint / HPI
Chief Complaint: Coffee Ground Emesis, Abdominal Pain
History of Present Illness:
Hermilo Mills is a 74M with a PMHx of Law's esophagus and esophageal ulcer on endoscopy who presented to the emergency department from [facility] last night with coffee ground emesis, abdominal distention, abdominal pain, and dark/bloody
diarrhea.
ED Course/Early Hospital Course
ED: Hb 8.6, WBCs 25/8, lactate 2.5. Bicarb 12. BUN 56 Cr 1.5. UA positive. ; CT Abd/Pelvis: Moderate fecal material in the region of the rectum concerning for developing fecal impaction, moderate colonic and gastric distention.
Hospital Course: started on IV PPI, Zosyn. UCx, BCx pending.
Patient is uncooperative with history taking. Per nursing who has had him before, this is his baseline. He does admit to vomiting and diarrhea that started 3 days ago, and abdominal pain that started 2 days ago, but is unable to give further
details. Describes the vomitus as 'yucky' and the location of the abdominal pain as 'horrible'. He then told me to 'stop asking so many zuniga questions', despite explaining why the answers to these questions were important. When asked how he was
doing today, when compared to past days, he says 'fair'.
Nursing endorses that the patient has not had any episodes of vomiting since coming up to the floor. He has defecated fully formed stools without blood, however they were mixed with urine so they could not be sent for stool studies.
Past Medical History
Past Medical History: Other (Law's esophagus, esophageal ulcer, CAD, CHF (HFpEF), CVA (s/p stents, PPM), HTN, HLD, NIDDM, [place], hypothyroidism, BPH, urinary retention, gout, morbid obesity, EMANUEL)
Past Surgical History: Other (stents)
Social History
Tobacco: Non-Smoker
Alcohol: None
Drug: None
Living: Residential
Allergies / Home Medications
Allergy/AdvReac Type Severity Reaction Status Date / Time
No Known Allergies Allergy Verified 05/22/25 12:02
�Medication �Instructions �Recorded
acetaminophen 650 mg 650 mg PO Q6HPRN PRN mild pain 08/23/20
tablet,extended release
aspirin 81 mg tablet,delayed 81 mg PO DAILY Blood clot 08/23/20
release prevention/tx
bisacodyl 10 mg rectal suppository 10 mg PA DAILYPRN PRN if no bm 08/23/20
after mom
levothyroxine 175 mcg tablet 175 mcg PO DAILY Thyroid 08/23/20
magnesium hydroxide 400 mg/5 mL 30 ml PO DAILYPRN PRN if no bm in 08/23/20
oral suspension (Milk of Magnesia) 3 days
tamsulosin 0.4 mg capsule (Flomax) 0.4 mg PO QPM BPH 08/23/20
calcium carbonate (Tums) 200 mg PO Q8HPRN PRN indigestion 07/04/22
docusate sodium 100 mg capsule 100 mg PO BID Constipation 07/04/22
(Colace)
ferrous sulfate 325 mg (65 mg 325 mg PO DAILY Supplement 07/04/22
iron) tablet
lidocaine HCl 2 % mucosal jelly 15 ml intra-urethral MONTHLY PRN 07/04/22
15ml urethral anesthesia
allopurinol 100 mg tablet 100 mg PO DAILY Gout 01/05/25
magnesium oxide 400 mg PO BID Supplement 01/05/25
melatonin 3 mg tablet 6 mg PO HS Sleep 01/05/25
miconazole nitrate 2 % topical 1 applic topical BID FOLDS/GROIN 01/05/25
powder
omeprazole 20 mg capsule,delayed 20 mg PO BID Gastrointestinal Issue 01/05/25
release
sennosides 8.6 mg-docusate sodium 1 tab-cap PO BID Constipation 01/05/25
50 mg tablet (Senna-S)
dimethicone 5 % topical cream 1 applic topical TID sacrum/buttock 02/17/25
acetaminophen 650 mg 650 mg PO Q12H Pain 03/01/25
tablet,extended release
amlodipine 5 mg tablet (Norvasc) 5 mg PO DAILY Blood Pressure 03/01/25
dextrose 40 % oral gel (Glucose 15 g PO Q15M PRN bs<60 05/22/25
Gel)
lorazepam 0.5 mg tablet 0.5 mg PO Q6HPRN PRN anxiety 05/22/25
morphine concentrate 20 mg/mL oral 5 mg PO Q3H PRN moderate pain/sob 05/22/25
syringe (FOR ORAL USE ONLY)
potassium chloride 20 mEq 20 meq PO DAILY 05/22/25
tablet,extended
release(part/cryst) (Klor-Con M)
risperidone 0.5 mg tablet 0.5 mg PO DAILY 05/22/25
(Risperdal)
Review of Systems
-
Unable to obtain full review of systems at this time due to: Other (Uncooperative)
History Source: Patient
Vital Signs
Temp Pulse Resp BP Pulse Ox
98.0 F 71 16 127/69 95
05/23/25 07:00 05/23/25 07:00 05/23/25 07:00 05/23/25 07:00 05/23/25 07:00
Physical Exam
Exam
General: No Apparent Distress; Negative Fever
HEENT: Normocephalic and Anicteric
GI: Soft, Normal Bowel Sounds, Tender (mild, diffuse), Distended and Other (no guarding, non-peritoneal exam)
Rectal: Brown (greenish-brown), Hem Negative and Other (normal rectal tone; assisted by nurse Karen and tech Chhaya. Patient had soiled himself of a moderate amount of stool soft mushy stool prior to turning him over. ); Negative Masses Palpated or
Hemorrhoids
Skin: Warm and Other (nonjaundiced)
Neuro: Awake
Results
WBC 25.8 10^3/uL (4.8-10.8) H 05/22/25 12:09
Hgb 8.7 g/dL (13.0-18.0) L 05/23/25 01:20
Hct 26.2 % (39.0-52.0) L 05/23/25 01:20
MCV 95.1 fL (80.0-94.0) H 05/22/25 12:09
Plt Count 233 10^3/uL (130-400) 05/22/25 12:09
Absolute Neuts (auto) 23.2 10^3/uL (1.4-6.5) H 05/22/25 12:09
PT 16.0 Sec (11.4-14.6) H 05/22/25 12:09
INR 1.25 05/22/25 12:09
APTT 30.1 Sec (23.4-35.0) 05/22/25 12:09
Sodium 135 mmol/L (135-145) 05/22/25 12:09
Potassium 3.8 mmol/L (3.5-5.1) 05/22/25 12:09
Chloride 112 mmol/L (98-107) H 05/22/25 12:09
Carbon Dioxide 12 mmol/L (22-30) L* 05/22/25 12:09
BUN 56 mg/dl (9-20) H 05/22/25 12:09
Creatinine 1.5 mg/dL (0.7-1.3) H 05/22/25 12:09
Calcium 6.9 mg/dl (8.4-10.2) L* 05/22/25 12:09
Total Bilirubin 0.3 mg/dl (0.2-1.3) 05/22/25 12:09
AST 13 U/L (17-59) L 05/22/25 12:09
ALT 13 U/L (0-50) 05/22/25 12:09
Alkaline Phosphatase 82 U/L (38-126) 05/22/25 12:09
Diagnostic Image Results:
CT AbdPelv w/IV (05/22/25):
Moderate fecal material in the region of the rectum concerning for developing fecal impaction. Increased
Moderate colonic and gastric distention. See above. Increased.
Large gallstone. Stable
Small bilateral pleural effusions. Stable on the left. Increased on the right.
Simple right renal cysts. Stable. Bilateral too small to characterize hypodense renal lesions likely benign cysts.
Complex left renal cyst. Stable
Bilateral renal atrophy. Stable
Prior GI Procedures:
EGD: Endoscopy showing Law's Esophagus and clean esophageal ulcer.
Colonoscopy: unknown.
Assessment / Plan
-
Mr. Mills is a 74M with a PMHx of Law's esophagus and esophageal ulcer who presented with coffee ground emesis, abdominal distension with abdominal pain, and bloody diarrhea as reported by [facility] x 3 days. Upon presentation, patient had
leukocytosis, normocytic anemia and acidosis with evidence of moderate colonic and gastric distension with concern for fecal impaction on CT. Patient has not had any episodes of vomiting since arrival, and has been having fully formed stools. Rectal
examination revealed heme negative soft and mushy stool. Abdominal exam is unremarkable and non-peritoneal. DDx includes infectious colitis, stercoral colitis secondary to constipation. We will continue to follow.
- Follow up stool studies r/o infection
- Agree to ppx abx with Zosyn
- Continue to monitor stools
- MOM enema to move soft stools, may help transit
- If patient starts vomiting again, consider NG.
- Monitor for vomiting, monitor BUN/Cr
- Consider upper endoscopy tomorrow if clinical picture is improving
Total Time Spent with Patient (in minutes): 40
Data Reviewed
-
CT Scan: Image Personally Visualized and interpreted and Report Reviewed by me
Old Records: Reviewed
-
-
Thank you for consultation and allowing me to participate in the patient's care. Please call the butadiene converter helper GI physician during the after hours with any questions or concerns.
[2025-05-23 10:04] LABS: Hematocrit 24.0 % (39.0-52.0); Hemoglobin 8.0 g/dL (13.0-18.0); Mean Corp Hgb Conc. 33.3 g/dL (33.0-37.0); Mean Corpuscular Volume 88.9 fL (80.0-94.0); Nucleated Red Blood Cells % 0 % (-); Platelet Count 245 10^3/uL (130-400); Red Cell Dist. Width 15.9 % (11.5-14.5)
[2025-05-23 10:20] LABS: Blood Urea Nitrogen 85 mg/dl (9-20); Calcium 7.8 mg/dl (8.4-10.2); Carbon Dioxide 18 mmol/L (22-30); Chloride 103 mmol/L (98-107); Estimated Creatinine Clearance 41 ml/min; Glucose 128 mg/dl (70-99); Potassium 4.6 mmol/L (3.5-5.1); Sodium 130 mmol/L (135-145); eGFR 44.65
--- NOTE | 2025-05-23 11:07 | CM ---
Reviewed the chart notes and spoke with the patient at the bedside. 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 The patient reports being bedbound and a pratibha lift is used for transfers. Return to SNF referral sent in Care
[facility] continues to be available to patient/family and is monitoring medical plan for needs at discharge.
Plan: Discharge back to [facility] when medically stable.
--- NOTE | 2025-05-23 11:10 | W.PN.HOSP.TC ---
Addendum entered and electronically signed by Nallely Boston MD 05/23/25 15:28:
Informed by RN that there is purulent drainage in his urine.
Recommend Villarreal exchange prior to discharge.
Follow urine culture, continue current antibiotic Zosyn
Original Note:
Today's Communication/Plan
-
see A/P
Assessment / Plan
Assessment / Plan
HPI: 74-year-old with past medical history of coronary artery disease, CHF, hypertension, hyperlipidemia, NIDDM, hypothyroidism, BPH, gout, obstructive sleep apnea; p/w abdominal distention/pain associated with watery bloody BM and coffee ground
emesis.
He denies to other symptoms. Patient has chronic Villarreal (he is unsure when it was last changed).
A/P:
# Coffee-ground emesis
Cont PPI drip
NPO until lifted by GI
GI consulted
# Abd pain, watery diarrhea, improving
# Developing fecal impaction on CT AP
# Leucocytosis/ sepsis POA , improving
CT AP largely unrevealing, noted Moderate fecal material concerning for developing fecal impaction, moderate colonic and gastric distention.
Dulcolax x1 dose
Cont empiric Zosyn for now
Follow blood cultures
Check stool studies, C diff etc. if able
Check follow up AXR 05/24 for stool burden
# Mild lactic acidosis, resolved
# Metabolic acidosis, improving
# CKD stage IIIb
# Hypocalcemia due to hypoalbuminemia
he received IV calcium in the ED
Cont bicarb drip
Other medical conditions:
# HFpEF, chronic
# Sick sinus syndrome s/p PPM
# Hypothyroidism
Continue home Synthroid 175 mcg daily
# Anxiety
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
# History of BPH/urinary retention
# Chronic Villarreal
Flomax continued
# Gout
Allopurinol continued
# Essential hypertension
Norvasc continued
DVT prophylaxis: SCDs
CODE STATUS: DNR/DNI
DW RN
total time 51 min
Anticipated Discharge: 24 - 48 hours
Subjective/Interval History
-
Date of Service: May 23, 2025
Objective Data
-
Labs:
Laboratory Results
05/23/25 05/23/25 05/23/25
01:20 09:39 09:39
WBC 20.4 H
Hgb 8.7 L 8.0 L Cancelled
Hct 26.2 L 24.0 L
Plt Count
Sodium
Potassium
Chloride
Carbon Dioxide
BUN
Creatinine
Glucose
Calcium
05/23/25 05/23/25 05/23/25
09:39 13:45 15:00
WBC
Hgb Cancelled Cancelled
Hct Cancelled Cancelled Cancelled
Plt Count 245
Sodium 130 L
Potassium 4.6
Chloride 103
Carbon Dioxide 18 L
BUN 85 H
Creatinine 1.6 H
Glucose 128 H
Calcium 7.8 L
Vital Signs:
Vital Signs
Temp Pulse Resp BP Pulse Ox
36.7 C 71 16 127/69 95
05/23/25 07:00 05/23/25 07:00 05/23/25 07:00 05/23/25 07:00 05/23/25 07:00
I&O
05/22/25 05/23/25 05/24/25
06:59 06:59 06:59
Intake Total 700 / 700
Output Total 650 / 650
Balance 50 / 50
Review of Systems
-
History Source: Patient
All other systems: Reviewed and negative
Physical Exam
-
General: Well Developed, Well Nourished, No Apparent Distress, Comfortable, Conversant and Appears Chronically Ill
Respiratory: Clear to Auscultation and Non Labored Respirations; Negative Accessory Resp Muscle Use
Cardiac: Regular Rhythm and S1/S2
GI: Soft and Nontender
Neuro: Awake, Alert and Other (paraplegic)
Psych: Calm and Intact Judgement/Insight
Data Reviewed
-
CT Scan: Report Reviewed by me
Labs: Labs Reviewed by me
--- NOTE | 2025-05-23 11:17 | PTCARENOTE ---
No SCD machines on the nursing unit, called [facility] to drop one off to unit for this patient
[2025-05-23 15:00] VITALS: BP 108/58
[2025-05-23] MEDS: FLOMAX 0.4 MG PO (17:00)
[2025-05-23] MEDS: MELATONIN 6 MG PO (21:48)
[2025-05-23 22:55] VITALS: BP 126/73
[2025-05-24] VITALS (11 sets, daily range): BP systolic 18–116; BP diastolic 51–74; BMI 42.6
[2025-05-24] MEDS: ZOSYN 50 IV ×4 (02:12→21:11)
[2025-05-24] MEDS: ZOFRAN 4 MG IV (03:25)
[2025-05-24] MEDS: SYNTHROID 175 MCG PO (05:41)
[2025-05-24] MEDS: PROTONIX 100 IV ×2 (05:41→16:34)
[2025-05-24] MEDS: SODIUM BICARBONATE 1150 MEQ IV (06:31)
[2025-05-24 08:31] LABS: Hematocrit 20.7 % (39.0-52.0); Hemoglobin 6.9 g/dL (13.0-18.0); Mean Corp Hgb Conc. 33.3 g/dL (33.0-37.0); Mean Corpuscular Volume 88.8 fL (80.0-94.0); Nucleated Red Blood Cells % 0.1 % (-); Platelet Count 226 10^3/uL (130-400); Red Cell Dist. Width 16.1 % (11.5-14.5)
[2025-05-24 08:39] LABS: Blood Urea Nitrogen 82 mg/dl (9-20); Calcium 7.4 mg/dl (8.4-10.2); Carbon Dioxide 24 mmol/L (22-30); Chloride 99 mmol/L (98-107); Estimated Creatinine Clearance 43 ml/min; Glucose 83 mg/dl (70-99); Potassium 4.2 mmol/L (3.5-5.1); Sodium 131 mmol/L (135-145); eGFR 48.25
--- NOTE | 2025-05-24 08:44 | W.PN.GI.CBS2 ---
Today's Communication / Plan
-
Appears stable with no overt GI bleeding, but given drop in Hgb 6.9, will proceed with EGD today. Cont protonix gtt for now
Await stool c diff. Cont zosyn for now. WBC responding
Had multiple BMs, will start miralax
Assessment / Plan
-
Summary:74yo [place] resident with hx CAD, DM, EMANUEL, CHF presents with CGE and dark bloody diarrhea, abd distention and pain. Leukocytosis WBC 25.8, acidosis bicarb 12, CT moderate stool in rectum and moderate colonic and gastric distention. Rectal exam
green soft stool heme negative, with some passage of stool already. Had EGD last August notable for Law's, clean based esophageal ulcer
Impression:
CGE/bloody diarrhea. No further episodes since admission.
Leukocytosis on admission 25.8, improved to 15.8
Anemia 8.6 on admission and stable, but 6.9 on 05/24. BUN up to 85
Colonic and gastric distention on CT
Law's/esophageal ulcer on EGD
Subjective
Subjective
Date of Service: May 24, 2025
No vomiting. Reports his baseline abd discomfort. Had 5 BMs since admission- brown, green
Objective
Data Reviewed
Laboratory Data:
Laboratory Results
05/24/25 07:30
05/24/25 07:30
Laboratory Results
PT 16.0 Sec (11.4-14.6) H 05/22/25 12:09
INR 1.25 05/22/25 12:09
APTT 30.1 Sec (23.4-35.0) 05/22/25 12:09
Total Bilirubin 0.3 mg/dl (0.2-1.3) 05/22/25 12:09
AST 13 U/L (17-59) L 05/22/25 12:09
ALT 13 U/L (0-50) 05/22/25 12:09
Alkaline Phosphatase 82 U/L (38-126) 05/22/25 12:09
Vital Signs and I&O:
Vital Signs
Temp Pulse Resp BP Pulse Ox
97.5 F 71 16 113/67 97
05/24/25 07:49 05/24/25 07:49 05/24/25 07:49 05/24/25 07:49 05/24/25 07:49
I&O
05/23/25 05/24/25 05/25/25
06:59 06:59 06:59
Intake Total 700 / 700 3080 / 3080
Output Total 650 / 650 800 / 800
Balance 50 / 50 2280 / 2280
Physical Exam
Physical Exam
GI: Soft, Non Distended and Non Tender
[2025-05-24] MEDS: NORVASC 5 MG PO (10:03)
[2025-05-24] MEDS: KCL 20 MEQ PO (10:03)
[2025-05-24] MEDS: ZYLOPRIM 100 MG PO (10:03)
[2025-05-24] MEDS: RISPERDAL 0.5 MG PO (10:03)
--- NOTE | 2025-05-24 12:01 | W.PN.HOSP.TC ---
Addendum entered and electronically signed by Vijay Osorio DO 05/26/25 11:37:
General: No Apparent Distress, obese
HEENT: NormoCephalic, Moist mucous membranes
Respiratory: Clear bilaterally, Non Labored Respirations
Cardiac: S1/S2 and Regular Rhythm; No Rub or Gallop
GI: Soft, nontender, Normal Bowel Sounds
Musculoskeletal: bilateral lower extremity edema, no deformity
Skin: Warm and dry, multiple small excoriations on bilateral lower extremities
Neuro: No tremor, no focal weakness, poor memory, confused
Psych: Calm and cooperative
Original Note:
Today's Communication/Plan
-
Assessment / Plan
Assessment / Plan
Mr. Mills is a 74-year-old male with a medical history of CAD, hypertension, sick sinus syndrome (recent pacemaker), HFpEF, OHS/EMANUEL (BiPAP at night), CKD stage IIIb, CVA, hypothyroidism, urinary retention (chronic Villarreal), functional quadriplegia
due to frailty (bedbound), and morbid obesity who presented from long term due to abdominal distention and pain with watery diarrhea and coffee-ground emesis. Of note, during recent admission in February 2025 he demonstrated clinical and imaging
evidence of dementia (CT showed severe white matter leukoaraiosis), which was discussed with patient's power of executive vice president and chief operating officer and recommendation was made for eventual outpatient neuropsychiatric evaluation.
A/P:
# Coffee-ground emesis
- Hemoglobin dropped to 6.9 on labs this morning, transfusing 1 unit PRBCs
- Cont PPI drip
- EGD today
# Abd pain, watery diarrhea, improving
# Developing fecal impaction on CT AP
# Leucocytosis/ sepsis POA , improving
- CT AP largely unrevealing, noted Moderate fecal material concerning for developing fecal impaction, moderate colonic and gastric distention.
- Dulcolax x1 dose
- Cont empiric Zosyn for now
- Follow blood cultures, negative so far
- Stool studies negative for C. ifficile,
- Salmonella/Shigella/Campylobacter pending
- Repeat abdominal x-ray this morning 05/24 shows moderate colonic stool burden and severe distention of the ascending and transverse colon slightly increased from prior
- Further recommendations from GI
# Mild lactic acidosis, resolved
# Metabolic acidosis, resolved
# CKD stage IIIb
# Hypocalcemia due to hypoalbuminemia
- he received IV calcium in the ED
-Can likely discontinue bicarb drip
Other medical conditions:
# HFpEF, chronic
# Sick sinus syndrome s/p PPM
# Hypothyroidism
Continue home Synthroid 175 mcg daily
# Anxiety
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
# History of BPH/urinary retention
# Chronic Villarreal
Flomax continued
# Gout
Allopurinol continued
# Essential hypertension
Norvasc continued
DVT prophylaxis: SCDs
CODE STATUS: DNR/DNI
DW RN
total time 52 min
Anticipated Discharge: > 48 hours
Subjective/Interval History
-
Date of Service: May 24, 2025
Patient was seen and examined at bedside this morning. Hemoglobin dropped to 6.9 so we will transfuse 1 unit PRBCs. Proceeding with upper endoscopy today.
Objective Data
-
Labs:
Laboratory Results
05/24/25
07:30
WBC 15.8 H
Hgb 6.9 L*
Hct 20.7 L*
Plt Count 226
Sodium 131 L
Potassium 4.2
Chloride 99
Carbon Dioxide 24
BUN 82 H
Creatinine 1.5 H
Glucose 83
Calcium 7.4 L
Vital Signs:
Vital Signs
Temp Pulse Resp BP Pulse Ox
97.5 F 71 16 113/67 97
05/24/25 07:49 05/24/25 10:03 05/24/25 07:49 05/24/25 10:03 05/24/25 07:49
I&O
05/23/25 05/24/25 05/25/25
06:59 06:59 06:59
Intake Total 700 / 700 3080 / 3080
Output Total 650 / 650 800 / 800
Balance 50 / 50 2280 / 2280
Review of Systems
-
History Source: Patient
All other systems: Reviewed and negative
Physical Exam
-
General: No Apparent Distress
--- NOTE | 2025-05-24 13:17 | CM ---
CM following rte: discharge planning.
Reviewed pt's chart, met with [pt.
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
D/C plan: return back to [facility] when medically stable.
CM will follwo with discharge plan updates as hospitalization progresses
--- NOTE | 2025-05-24 15:55 | PTCARENOTE ---
Patient consistently refusing to turn, yells out during care. Difficult to clean when having bowel movements because patient resists/cries out. Removed R Buttock dressing and saw slough/eschar covering wound. Placed wound ostomy consult.
[2025-05-24 17:17] LABS: Glucose - Point of Care 97 mg/dl (70-99)
[2025-05-24] MEDS: SODIUM BICARBONATE IV (17:59)
[2025-05-24] MEDS: FLOMAX 0.4 MG PO (18:32)
[2025-05-24] MEDS: MELATONIN 6 MG PO (22:45)
[2025-05-25] MEDS: SODIUM BICARBONATE 1150 MEQ IV (01:28)
[2025-05-25] MEDS: ZOSYN 50 IV ×4 (02:22→21:54)
[2025-05-25] MEDS: PROTONIX 100 IV (02:22)
[2025-05-25] MEDS: SYNTHROID 175 MCG PO (05:40)
[2025-05-25 06:00] VITALS: BMI 44.6
[2025-05-25 07:00] VITALS: BP 91/53
[2025-05-25 07:35] LABS: Blood Urea Nitrogen 71 mg/dl (9-20); Calcium 7.2 mg/dl (8.4-10.2); Carbon Dioxide 27 mmol/L (22-30); Chloride 99 mmol/L (98-107); Estimated Creatinine Clearance 42 ml/min; Glucose 77 mg/dl (70-99); Potassium 3.9 mmol/L (3.5-5.1); Sodium 131 mmol/L (135-145); eGFR 44.65
[2025-05-25] MEDS: RISPERDAL 0.5 MG PO (08:00)
[2025-05-25] MEDS: MIRALAX 17 GRAMS PO (08:00)
[2025-05-25] MEDS: NORVASC PO (08:00)
[2025-05-25] MEDS: KCL 20 MEQ PO (08:00)
[2025-05-25] MEDS: ZYLOPRIM 100 MG PO (08:00)
[2025-05-25 08:02] LABS: Hematocrit 25.6 % (39.0-52.0); Hemoglobin 8.7 g/dL (13.0-18.0); Mean Corp Hgb Conc. 34.0 g/dL (33.0-37.0); Mean Corpuscular Volume 87.1 fL (80.0-94.0); Nucleated Red Blood Cells % 0.2 % (-); Platelet Count 221 10^3/uL (130-400); Red Cell Dist. Width 16.2 % (11.5-14.5)
--- NOTE | 2025-05-25 08:10 | W.PN.GI.CBS2 ---
Today's Communication / Plan
-
-- Stop PPI drip, once daily oral
-- Discharge bowel regimen -Daily MiraLAX and as needed suppository/enema
-- Check hemoglobin 1 week, follow-up with PCP
Assessment / Plan
-
Summary:74yo [place] resident with hx CAD, DM, EMANUEL, CHF presents with CGE and dark bloody diarrhea, abd distention and pain. Leukocytosis WBC 25.8, acidosis bicarb 12, CT moderate stool in rectum and moderate colonic and gastric distention. Rectal exam
green soft stool heme negative, with some passage of stool already. Had EGD last August notable for Law's, clean based esophageal ulcer
Impression:
CGE/bloody diarrhea. No further episodes since admission.
Leukocytosis on admission 25.8, improved to 15.8
Anemia 8.6 on admission and stable, but 6.9 on 05/24. BUN up to 85
Colonic and gastric distention on CT
Law's/esophageal ulcer on EGD
05/24/[address] Pennington -no findings to explain anemia. Suspected short segment Law's. Few gastric polyps otherwise normal. No specimens collected
05/24/2025 1 unit packed red blood cells given
05/25/2025: No overt bleeding, having green stool
Hemoglobin 6.9-8.7 after 1 unit
Having green formed soft bowel movements with 1 MiraLAX daily
Titrate bowel regimen to prevent fecal impaction but avoid diarrhea -bedbound patients are high risk for fecal impaction and bowel movement should be monitored regularly -May need rectal therapy intermittently i.e. enema or suppository
Stopped PPI drip in 1 to once daily
Continue diabetic diet
Leukocytosis continues to improve
GI will sign off. Please call back if he has any overt bleeding or significant drop in hemoglobin
Subjective
Subjective
Date of Service: May 25, 2025
Objective
Data Reviewed
Laboratory Data:
Laboratory Results
05/25/25 06:04
05/25/25 06:04
Laboratory Results
PT 16.0 Sec (11.4-14.6) H 05/22/25 12:09
INR 1.25 05/22/25 12:09
APTT 30.1 Sec (23.4-35.0) 05/22/25 12:09
Total Bilirubin 0.3 mg/dl (0.2-1.3) 05/22/25 12:09
AST 13 U/L (17-59) L 05/22/25 12:09
ALT 13 U/L (0-50) 05/22/25 12:09
Alkaline Phosphatase 82 U/L (38-126) 05/22/25 12:09
Vital Signs and I&O:
Vital Signs
Temp Pulse Resp BP Pulse Ox
97.4 F 72 16 91/53 97
05/25/25 07:00 05/25/25 08:00 05/25/25 07:00 05/25/25 08:00 05/25/25 07:00
I&O
05/24/25 05/25/25 05/26/25
06:59 06:59 06:59
Intake Total 3080 / 3080 250 / 250
Output Total 800 / 800 1675 / 1675
Balance 2280 / 2280 -1425 / -1425
Physical Exam
Physical Exam
HEENT: Anicteric
[2025-05-25] MEDS: PROTONIX 40 MG PO (08:17)
--- NOTE | 2025-05-25 10:25 | W.PN.HOSP.TC ---
Addendum entered and electronically signed by Vijay Osorio, 05/27/25 08:57:
Stage 3 right buttock pressure injury, POA
Addendum entered and electronically signed by Vijay Osorio, 05/26/25 11:37:
General: No Apparent Distress, obese
HEENT: NormoCephalic, Moist mucous membranes
Respiratory: Clear bilaterally, Non Labored Respirations
Cardiac: S1/S2 and Regular Rhythm; No Rub or Gallop
GI: Soft, nontender, Normal Bowel Sounds
Musculoskeletal: bilateral lower extremity edema, no deformity
Skin: Warm and dry, multiple small excoriations on bilateral lower extremities
Neuro: No tremor, no focal weakness, poor memory, confused
Psych: Calm and cooperative
Addendum entered and electronically signed by Vijay Osorio, DO 05/25/25 11:10:
Additional diagnosis
Hyponatremia: Mild, clinically insignificant at this time, will monitor
Acute blood loss anemia: Was present on admission and is still being monitored, evaluated and treated
Original Note:
Today's Communication/Plan
-
Assessment / Plan
Assessment / Plan
Mr. Mills is a 74-year-old male with a medical history of CAD, hypertension, sick sinus syndrome (recent pacemaker), HFpEF, OHS/EMANUEL (BiPAP at night), CKD stage IIIb, CVA, hypothyroidism, urinary retention (chronic Villarreal), functional quadriplegia
due to frailty (bedbound), and morbid obesity who [facility] due [facility] dist[facility] and pain with watery diarrhea and coffee-ground emesis. Of note, during recent admission in February 2025 he demonstrated clinical and imaging
evidence of dementia (CT showed severe white matter leukoaraiosis), which was discussed with patient's power of actionscript developer and recommendation was made for eventual outpatient neuropsychiatric evaluation.
A/P:
# Coffee-ground emesis
- Hemoglobin dropped to 6.9 on labs 05/24/2025, transfusing 1 unit PRBCs
- EGD 05/24/2025 showed no overt evidence of bleeding
- Hemoglobin improved to 8.7 today
- Transition to oral Protonix daily
- GI has signed off
# Abd pain, watery diarrhea, improving
# Developing fecal impaction on initial CT AP
# Leucocytosis/ sepsis POA , improving
- CT AP largely unrevealing, noted Moderate fecal material concerning for developing fecal impaction, moderate colonic and gastric distention.
- Cont empiric Zosyn, today is day 4 of antibiotics
- Follow blood cultures, negative so far
- Stool studies negative for C. difficile
- Salmonella/Shigella/Campylobacter pending
- Repeat abdominal x-ray 05/24 shows moderate colonic stool burden and severe distention of the ascending and transverse colon slightly increased from prior
- Continue bowel regimen
- Will need outpatient GI follow-up and continued bowel regimen to avoid fecal impaction considering he is bedbound
# Mild lactic acidosis, resolved
# Metabolic acidosis, resolved
# CKD stage IIIb
# Hypocalcemia due to hypoalbuminemia
- he received IV calcium in the ED
- Can discontinue bicarb drip
Other medical conditions:
# HFpEF, chronic
# Sick sinus syndrome s/p PPM
# Hypothyroidism
Continue home Synthroid 175 mcg daily
# Anxiety
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
# History of BPH/urinary retention
# Chronic Villarreal
Flomax continued
# Gout
Allopurinol continued
# Essential hypertension
Norvasc continued
DVT prophylaxis: SCDs
CODE STATUS: DNR/DNI
DW RN
total time 54 min
Anticipated Discharge: 24 - 48 hours
Subjective/Interval History
-
Date of Service: May 25, 2025
Patient was seen and examined at bedside this morning. Eating breakfast. No abdominal pain or nausea.
Objective Data
-
Labs:
Laboratory Results
05/25/25
06:04
WBC 12.0 H
Hgb 8.7 L D
Hct 25.6 L
Plt Count 221
Sodium 131 L
Potassium 3.9
Chloride 99
Carbon Dioxide 27
BUN 71 H
Creatinine 1.6 H
Glucose 77
Calcium 7.2 L
Vital Signs:
Vital Signs
Temp Pulse Resp BP Pulse Ox
97.4 F 72 16 91/53 97
05/25/25 07:00 05/25/25 08:00 05/25/25 07:00 05/25/25 08:00 05/25/25 07:00
I&O
05/24/25 05/25/25 05/26/25
06:59 06:59 06:59
Intake Total 3080 / 3080 250 / 250
Output Total 800 / 800 1675 / 1675
Balance 2280 / 2280 -1425 / -1425
Review of Systems
-
History Source: Patient
All other systems: Reviewed and negative
Physical Exam
-
General: No Apparent Distress
--- NOTE | 2025-05-25 10:47 | PN.CDI ---
CDI
- -
CDI:
Physician Documentation Request
Admit Date: 05/22/25 18:35
Dear Doctor Jo,
Please review the following and provide your response in the progress notes.
Clinical Indicators:
The diagnosis of acute blood loss anemia was documented on 05/22 H&P but is not consistently noted in subsequent documentation.
- 05/22 H&P 'Coffee-ground emesis/acute on chronic blood loss anemia secondary to GI bleed'
- 05/24 PN 'Hemoglobin dropped to 6.9 on labs this morning, transfusing 1 unit PRBCs'
Laboratory Tests
05/22/25 05/22/25 05/23/25
12:09 21:22 01:20
Hgb 8.6 L 8.9 L 8.7 L
05/23/25 05/24/25 05/25/25
09:39 07:30 06:04
Hgb 8.0 L 6.9 L* 8.7 L D
Please clarify the following:
____ - Acute blood loss anemia was present on admission and is now resolved.
____ - Acute blood loss anemia was present on admission and is still being monitored, evaluated or treated
____ - Acute blood loss anemia was ruled out
____ - Other (please specify)
Use of terms such as suspected, likely, concern for, or probable (associated with a specific diagnosis that is being evaluated, monitored, or treated as if it exists) are acceptable and can be coded in the inpatient setting, when documented at the
time of discharge.
Thank you,
Cara Gayle RN
CDI Specialist
Please use your independent medical judgment in providing your response.
--- NOTE | 2025-05-25 10:54 | PN.CDI ---
CDI
- -
CDI:
Physician Documentation Request
Admit Date: 05/22/25 18:35
Dear Doctor Jo,
Please review the following and provide your response in the progress notes.
Clinical Indicators:
- Patient admit for GI bleed with sepsis
- 6750ml IVF given
- Sodium levels:
Laboratory Tests
05/23/25 05/24/25 05/25/25
09:39 07:30 06:04
Sodium 130 L 131 L 131 L
Please provide a diagnosis for the above lab values that were monitored and treatment rendered:
Hyponatremia
Clinically insignificant abnormal lab value
Other (please specify)
Use of terms such as suspected, likely, concern for, or probable (associated with a specific diagnosis that is being evaluated, monitored, or treated as if it exists) are acceptable and can be coded in the inpatient setting, when documented at the
time of discharge.
Thank you,
Cara Gayle RN
CDI Specialist
Please use your independent medical judgment in providing your response.
--- NOTE | 2025-05-25 11:42 | WOUNDNOTE ---
R DORSAL FOOT AND MEDIAL ANKLE
--- NOTE | 2025-05-25 11:42 | WOUNDNOTE ---
L DORSAL FOOT AND TOES
--- NOTE | 2025-05-25 11:46 | WOUNDNOTE ---
[facility] RN note: Patient admitted with upper GI bleed.
See H&P for complete history.
PMH: bedbound, obesity, HTN, SSS, pacer, HF, TTE, EMANUEL (Bipap), CKD3b, CVA, BPH, urinary retention, gout.
Wound Location and type/assessment: Patient known to service, last seen 02/25/25. Now admitted with: healing abrasions to ankles and toes, dried scabs on few toes. Patient turned with assist of nurse Guevara. L lateral thigh with maroon robert, suspect
abrasion. Patient reports he is bed bound and believes he has an air mattress at [facility]. Abdominal/groin skin folds with mild MASD. R buttock with stage 3 PI, sacrum intact. Patient has a craig, incontinent of soft greenish stool. Heels are intact,
blanchable pink, using own quilted heel boots.
Appetite: good.
Pressure redistribution devices in place: Air overlay in use with adequate inflation. Nurse reports he may go back to [place] later today. If staying asked nurse to call [facility] for a [facility] [place] air bed.
Plan: Silicone border foam applied to R buttock, will order Santyl to start tomorrow. Adhesive foams applied to heels to protect, quilted heel boots placed back on. Patient turned to R side side lying position with help from nurse Guevara.
Will confirm orders with hospitalist, updated nurse, care plan and will follow as needed.
Case Management: wound care and air mattress at [place].
--- NOTE | 2025-05-25 14:52 | CM ---
CM following rte: discharge planning.
Reviewed pt's chart, met with pt.
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
D/C plan: return back to [facility] when medically stable.
CM will follow with discharge plan updates as hospitalization progresses
[2025-05-25 15:00] VITALS: BP 100/56
[2025-05-25] MEDS: FLOMAX 0.4 MG PO (17:04)
[2025-05-25] MEDS: DESENEX/MITRAZOL/ZEASORB 1 APPLIC TOPICAL (21:54)
[2025-05-25 23:00] VITALS: BP 110/54
[2025-05-26] MEDS: MELATONIN 6 MG PO
[2025-05-26] MEDS: ZOSYN 50 IV ×3 (03:03→13:24)
[2025-05-26 05:11] VITALS: BMI 44.7
[2025-05-26] MEDS: SYNTHROID 175 MCG PO (05:59)
[2025-05-26 06:31] LABS: Hematocrit 24.9 % (39.0-52.0); Hemoglobin 8.2 g/dL (13.0-18.0); Mean Corp Hgb Conc. 32.9 g/dL (33.0-37.0); Mean Corpuscular Volume 88.6 fL (80.0-94.0); Nucleated Red Blood Cells % 0 % (-); Platelet Count 194 10^3/uL (130-400); Red Cell Dist. Width 16.8 % (11.5-14.5)
[2025-05-26 06:53] LABS: Blood Urea Nitrogen 68 mg/dl (9-20); Calcium 7.3 mg/dl (8.4-10.2); Carbon Dioxide 29 mmol/L (22-30); Chloride 97 mmol/L (98-107); Estimated Creatinine Clearance 42 ml/min; Glucose 150 mg/dl (70-99); Potassium 3.8 mmol/L (3.5-5.1); Sodium 131 mmol/L (135-145); eGFR 44.65
[2025-05-26 07:00] VITALS: BP 110/61
[2025-05-26] MEDS: ZYLOPRIM 100 MG PO (09:40)
[2025-05-26] MEDS: KCL 20 MEQ PO (09:40)
[2025-05-26] MEDS: RISPERDAL 0.5 MG PO (09:40)
[2025-05-26] MEDS: MIRALAX 17 GRAMS PO (09:41)
[2025-05-26] MEDS: SANTYL OINTMENT 1 APPLIC TOPICAL (09:41)
[2025-05-26] MEDS: DESENEX/MITRAZOL/ZEASORB 1 APPLIC TOPICAL (09:42)
[2025-05-26] MEDS: PROTONIX PO (09:42)
[2025-05-26 10:55] VITALS: BMI 44.7
--- NOTE | 2025-05-26 11:34 | W.DCSUMMARY ---
Discharge Summary
Discharge Data
Date of Admission: 05/22/25
Date of Discharge: 05/26/25
Total time spent discharging patient (in min): 45
-
Pending Results: Yes
Additional Pending Results:
Campylobacter/Salmonella/Shigella
Hospital Course
Mr. Mills is a 74-year-old male with a medical history of CAD, hypertension, sick sinus syndrome (recent pacemaker), HFpEF, OHS/EMANUEL (BiPAP at night), CKD stage IIIb, CVA, hypothyroidism, urinary retention (chronic Villarreal), functional quadriplegia
due to frailty (bedbound), and morbid obesity who [facility] and pain with watery diarrhea and coffee-ground emesis. Of note, during recent admission in February 2025 he demonstrated clinical and imaging
evidence of dementia (CT showed severe white matter leukoaraiosis), which was discussed with patient's power of estate attorney and recommendation was made for eventual outpatient neuropsychiatric evaluation.
He had a leukocytosis of 25,000 at the time of admission and so was started on antibiotics with IV Zosyn. His leukocytosis has been downtrending since that time. He has been treated with a 5-day course of antibiotics and will be discharged with 2
more days of oral antibiotics to complete a total 7-day course. During this hospitalization, his hemoglobin dropped to 6.9 at which time he was transfused 1 unit of packed red blood cells. His hemoglobin improved and remained stable around 8.5.
He was treated initially with IV Protonix for acid suppression. He underwent EGD on 05/24/2025 which revealed no overt evidence of bleeding but did redemonstrate Law's esophagus. Stool samples were sent for testing considering his watery
diarrhea. Stool testing was negative for C. difficile. The final results of his Salmonella/Shigella/Campylobacter testing are still pending but negative so far. Imaging of his abdomen did show moderate colonic stool burden with colonic
distention. Gastroenterology recommended continuing a scheduled bowel regimen especially considering his bedbound holding parameters for diarrhea. His home amlodipine was initially held for hypotension which has improved. He does not currently
require antihypertensive medications. His amlodipine will not be restarted at discharge but his blood pressure should continue to be monitored and antihypertensive medications can be restarted as needed. His home oral potassium supplement will
also be held at discharge as his potassium levels have been within normal limits during this hospitalization. He will need close follow-up with his primary care physician. Goals of care discussions would be appropriate considering his multiple
recent hospitalizations and comorbidities. At time of hospital discharge he was medically stable.
General: No Apparent Distress, obese
HEENT: NormoCephalic, Moist mucous membranes
Respiratory: Clear bilaterally, Non Labored Respirations
Cardiac: S1/S2 and Regular Rhythm; No Rub or Gallop
GI: Soft, nontender, Normal Bowel Sounds
Musculoskeletal: bilateral lower extremity edema, no deformity
Skin: Warm and dry, multiple small excoriations on bilateral lower extremities
Neuro: No tremor, no focal weakness, poor memory, confused
Psych: Calm and cooperative
Discharge Plan
-
Patient Disposition: Long Term/SNF
Discharge Diagnosis/Procedures: Hematemesis, anemia requiring transfusion
Activity Restrictions/Additional Instructions:
Mr. Mills is a 74-year-old male with a medical history of CAD, hypertension, sick sinus syndrome (recent pacemaker), HFpEF, OHS/EMANUEL (BiPAP at night), CKD stage IIIb, CVA, hypothyroidism, urinary retention (chronic Villarreal), functional quadriplegia
due to frailty (bedbound), and morbid obesity who [facility] to [facility] and pain with watery diarrhea and coffee-ground emesis. Of note, during recent admission in February 2025 he demonstrated clinical and imaging
evidence of dementia (CT showed severe white matter leukoaraiosis), which was discussed with patient's power of estate attorney and recommendation was made for eventual outpatient neuropsychiatric evaluation.
He had a leukocytosis of 25,000 at the time of admission and so was started on antibiotics with IV Zosyn. His leukocytosis has been downtrending since that time. He has been treated with a 5-day course of antibiotics and will be discharged with 2
more days of oral antibiotics to complete a total 7-day course. During this hospitalization, his hemoglobin dropped to 6.9 at which time he was transfused 1 unit of packed red blood cells. His hemoglobin improved and remained stable around 8.5.
He was treated initially with IV Protonix for acid suppression. He underwent EGD on 05/24/2025 which revealed no overt evidence of bleeding but did redemonstrate Law's esophagus. Stool samples were sent for testing considering his watery
diarrhea. Stool testing was negative for C. difficile. The final results of his Salmonella/Shigella/Campylobacter testing are still pending but negative so far. Imaging of his abdomen did show moderate colonic stool burden with colonic
distention. Gastroenterology recommended continuing a scheduled bowel regimen especially considering his bedbound holding parameters for diarrhea. His home amlodipine was initially held for hypotension which has improved. He does not currently
require antihypertensive medications. His amlodipine will not be restarted at discharge but his blood pressure should continue to be monitored and antihypertensive medications can be restarted as needed. His home oral potassium supplement will
also be held at discharge as his potassium levels have been within normal limits during this hospitalization. He will need close follow-up with his primary care physician. Goals of care discussions would be appropriate considering his multiple
recent hospitalizations and comorbidities. At time of hospital discharge he was medically stable.
Referrals:
Mathew Tejeda DO [Family Provider, Internal Medicine]
Prescriptions:
New
cefuroxime axetil 250 mg tablet
250 mg PO BID 2 Days Qty: 4 0RF
metronidazole 250 mg tablet
250 mg PO Q12H 2 Days Qty: 4 0RF
Continued
levothyroxine 175 MCG tablet
175 mcg PO DAILY
aspirin 81 MG tablet,delayed release (DR/EC)
81 mg PO DAILY
acetaminophen 650 MG tablet extended release
650 mg PO Q6HPRN PRN (Reason: mild pain)
magnesium hydroxide [Milk of Magnesia] 400 MG/5 ML suspension
30 ml PO DAILYPRN PRN (Reason: if no bm in 3 days)
tamsulosin [Flomax] 0.4 MG capsule
0.4 mg PO QPM
bisacodyl 10 MG suppository
10 mg CO DAILYPRN PRN (Reason: if no bm after mom)
lidocaine HCl 2 % Jelly
15 ml intra-urethral MONTHLY PRN (Reason: 15ml urethral anesthesia)
Rx Instructions:
monthly for fc exchanges
ferrous sulfate 325 mg (65 mg iron) Tablet
325 mg PO DAILY
calcium carbonate [Tums] 200 mg calcium (500 mg) Tablet,Chewable
200 mg PO Q8HPRN PRN (Reason: indigestion )
docusate sodium [Colace] 100 mg Capsule
100 mg PO BID
miconazole nitrate 2 % Powder
1 applic TOPICAL BID
melatonin 3 mg Tablet
6 mg PO HS
allopurinol 100 mg Tablet
100 mg PO DAILY
omeprazole 20 mg Capsule,Delayed Release(Dr/Ec)
20 mg PO BID
sennosides-docusate sodium [Senna-S] 8.6-50 mg Tablet
1 tab-cap PO BID
magnesium oxide 400 mg magnesium Tablet
400 mg PO BID
dimethicone 5 % Cream
1 applic TOPICAL TID
acetaminophen 650 mg Tablet Extended Release
650 mg PO Q12H
risperidone [Risperdal] 0.5 mg Tablet
0.5 mg PO DAILY
dextrose [Glucose Gel] 40 % Gel
15 g PO Q15M PRN (Reason: bs<60)
lorazepam 0.5 mg tablet
0.5 mg PO Q6HPRN PRN (Reason: anxiety)
morphine concentrate 20 mg/mL Syringe
5 mg PO Q3H PRN (Reason: moderate pain/sob)
Held
amlodipine [Norvasc] 5 mg Tablet
5 mg PO DAILY
Hold Instructions: Monitor blood pressure and restart if needed
potassium chloride [Klor-Con M20] 20 mEq Tablet,Er Particles/Crystals
20 meq PO DAILY
Hold Instructions: Repeat labs and restart as needed
Discharge Orders:
Discharge Patient (As Directed); Ordered 05/26/25
Ordered By: Vijay Osorio
Discharge Date and Time
Print Language: COMORAN
--- NOTE | 2025-05-26 12:36 | CM ---
Addendum entered by Reggie Alvarez 05/26/25 13:32:
supervisor mapping time 18:00
Original Note:
CM following re: discharge planning.
Reviewed pt's chart, met with pt.
Discharge order noted. Pt is aware, expressed his agreement with discharge. IMM reviewed, placed on chart, pt has a copy.
CM tried to send updated clinical via [facility] and for some reason is not accepting with a message of 'error'. CM discussed it with [facility] and she confirmed that pt is accepted for admission today and suggested pt's clinical will come with
ambulance. CM asked to print pt's clinical.
[facility] with
[facility] nursing repprt: [phone]
Discharge instructions fax: [phone]
D/C plan: return back to [facility] for a [facility]cher [employer] care.
[2025-05-26] MEDS: ROXANOL ORAL CONCENTRATE 5 MG PO (14:11)
[2025-05-26 15:00] VITALS: BP 119/61
[2025-05-26] MEDS: FLOMAX 0.4 MG PO (17:03)
--- NOTE | 2025-05-26 18:26 | PTCARENOTE ---
Patient discharged back to [facility], transported by [facility]. This RN called report to [place] at facility, removed patient R FA IV, gathered belongings in room. Patient provided hygiene, R buttock wound dressing changed prior to transport.
--- NOTE | 2025-05-27 08:46 | PN.CDI ---
CDI
- -
CDI:
Physician Documentation Request
Admit Date: 05/22/25 18:35
Dear Doctor Jo,
Please review the following and provide your response in the progress notes.
Clinical Indicators:
- Wound note indicates Stage 3 right buttock pressure injury, POA
Physician documentation of the type and location of wounds is required for compliant documentation. Based on the above clinical findings and your assessment, please provide the following in your progress note:
1. Location of the ulcer/wound, including laterality.
2. Type (etiology) of ulcer/wound:
- Diabetic ulcer
- Arterial (ischemic) ulcer
- Traumatic wound
- Pressure (decubitus) ulcer
- Other
Use of terms such as suspected, likely, concern for, or probable (associated with a specific diagnosis that is being evaluated, monitored, or treated as if it exists) are acceptable and can be coded in the inpatient setting, when documented at the
time of discharge.
Thank you,
Cara Gayle RN
CDI Specialist
Please use your independent medical judgment in providing your response.
*Source: National Pressure Ulcer Advisory Panel (NPUAP)
== END 2025-05-26 18:36 | DRG 871 ==
LOC: 2 NORTH 18:35
PROVIDERS: Physician Assistant; Registered Nurse; ADMITTING PHYSICIAN Internal Medicine; ATTENDING PHYSICIAN Internal Medicine; CONSULT PHYSICIAN Specialist; EMERGENCY PHYSICIAN Emergency Medicine; FAMILY PHYSICIAN Internal Medicine
PROC: 30233N1 Transfusion of Nonautologous Red Blood Cells into Peripheral Vein, Percutaneous Approach (ICD-10-PCS; 2025-05-24)
PROC: 0DJ08ZZ Inspection of Upper Intestinal Tract, Via Natural or Artificial Opening Endoscopic (ICD-10-PCS; 2025-05-24)
DX: A41.9 Sepsis, unspecified organism (principal); L89.313 Pressure ulcer of right buttock, stage 3; R53.2 Functional quadriplegia; D62 Acute posthemorrhagic anemia; E87.20 Acidosis, unspecified; I50.32 Chronic diastolic (congestive) heart failure; I13.0 Hypertensive heart and chronic kidney disease with heart failure and stage 1 through stage 4 chronic kidney disease, or unspecified chronic kidney disease; K92.0 Hematemesis; Z68.41 Body mass index [BMI] 40.0-44.9, adult; K56.41 Fecal impaction; E83.51 Hypocalcemia; I49.5 Sick sinus syndrome; E03.9 Hypothyroidism, unspecified; F41.9 Anxiety disorder, unspecified; F03.90 Unspecified dementia, unspecified severity, without behavioral disturbance, psychotic disturbance, mood disturbance, and anxiety; N40.1 Benign prostatic hyperplasia with lower urinary tract symptoms; R33.8 Other retention of urine; M10.9 Gout, unspecified; D72.829 Elevated white blood cell count, unspecified; N18.32 Chronic kidney disease, stage 3b; K22.70 Barrett's esophagus without dysplasia; K31.7 Polyp of stomach and duodenum; E11.22 Type 2 diabetes mellitus with diabetic chronic kidney disease; E66.01 Morbid (severe) obesity due to excess calories; G47.33 Obstructive sleep apnea (adult) (pediatric); I25.10 Atherosclerotic heart disease of native coronary artery without angina pectoris; Z66 Do not resuscitate; Z79.899 Other long term (current) drug therapy; Z86.73 Personal history of transient ischemic attack (TIA), and cerebral infarction without residual deficits; Z87.891 Personal history of nicotine dependence; Z95.0 Presence of cardiac pacemaker
CPT/HCPCS: 71045; 74018; 74177; 80048; 80053; 81003; 81015; 82962; 83605; 85014; 85018; 85025; 85610; 85730; 86850; 86900; 86901; 86920; 87040; 87045; 87046; 87070; 87077; 87086; 87324; 87427; 87449; 87798; 89055; 96374; 96375; 99285; P9016; Q9967